=== PATIENT | male | born 1960 | race Caucasian/White ===

== ENCOUNTER → 2016-06-14 | Outpatient (CLI) | payer OTHER ==
[2016-06-14 12:36] LABS: Blood Urea Nitrogen 18 mg/dL (9-20); Non-African American GFR(MDRD) >60 (>60 ml/min/1.73 sqM)
--- NOTE | 2016-06-14 13:17 | CT ---
EXAMINATION TYPE: CT chest w con DATE OF EXAM: 06/14/2016 12:59 PM COMPARISON: 08/26/2015, 07/31/2013, 05/23/2012 HISTORY: 56-year-old male Lung nodule TECHNIQUE: Contiguous axial scanning of the chest after the administration of 100 ml mL of Omnipaque 300. Coronal/sagittal reconstructions performed. CT DLP: 626mGycm. Automatic exposure control utilized for a dose reduction. FINDINGS: Heart is normal size without pericardial effusion. Aorta is normal caliber with conventional arch vessel branching anatomy. Redemonstrated scattered prominent mediastinal lymph nodes. These measure up to 9 mm in the AP window and 9 mm in the precarinal region and 1.3 cm in the subcarinal region. These are stable from 08/01/19 14 and improved from 05/23/2012. Some small lymph nodes in the right hilum are demonstrated as is the stable 1.6 cm lymph node at the left hilum. No progressive lymphadenopathy in the thorax. Lungs show moderate centrilobular and paraseptal emphysema. Scattered calcified granulomas are redemonstrated. Mild diffuse bronchial wall thickening. A 6 mm pul monary nodule posterior left midlung axial image 26 is unchanged from 2012 compatible with a benign e tiology. No consolidation or pleural effusion. Visualized upper abdomen shows no gross abnormal. Bones: Endplate spondylosis mid to lower thoracic spine. No osseous destructive process. IMPRESSION: 1. COPD with moderate emphysema. 2. Prior granulomatous disease with scattered small calcified pulmonary nodules. A 6 mm posterior lef t midlung pulmonary nodule is noncalcified but stable from 2013 compatible with a benign etiology. 3. Prominent but nonenlarged mediastinal lymph nodes are unchanged from 2013. The 1.6 cm mildly enlar ged left hilar lymph node is also stable since then. No new or progressive lymphadenopathy.
== END | disposition home or self-care (01) ==
LOC: RADCTMAIN 11:52
PROVIDERS: ATTEND Family Medicine
DX: J43.2 Centrilobular emphysema (principal); J43.8 Other emphysema; R91.8 Other nonspecific abnormal finding of lung field; R59.0 Localized enlarged lymph nodes
CPT/HCPCS: 82565; 84520; 71260; Q9967

== ENCOUNTER 2016-08-25 07:55 | Day surgery (SDC) | payer OTHER ==
[2016-08-24 11:29] VITALS: BMI 30.4
[~2016-08-25 07:55] MED LIST: ALPRAZolam 0.25 MG TAB PO PRN; ALPRAZolam 0.5 MG TAB PO PRN; ASPIRIN 325 MG TAB PO STA; ATORVASTATIN 80 MG TAB PO STA; NITROGLYCERIN SL TABS 0.4 MG TAB SUBLINGUAL PRN; SODIUM CHLORIDE 0.9% 1,000 ML in EMPTY BAG 1 BAG IV ONE
[2016-08-25] MEDS ORDERED: ASPIRIN 81 MG CHEW ONE (08:19)
[2016-08-25 08:44] LABS: Basophils % (A) 0 %; CH 29.8; CHCM 33.7; Eosinophils # (A) 0.3 k/uL (0-0.7); Eosinophils % (A) 3 %; HCT 44.3 % (39.0-53.0); HDW 2.62; HGB 14.5 gm/dL (13.0-17.5); Luc # (Auto) 0.11; Luc % (Auto) 1; Lymphocytes # (A) 1.6 k/uL (1.0-4.8); Lymphocytes % (A) 17 %; MCHC 32.8 g/dL (31.0-37.0); MCV 88.7 fL (80.0-100.0); Mean Platelet Volume 6.8; Monocytes # (A) 0.5 k/uL (0-1.0); Monocytes % (A) 5 %; Neutrophils # (A) 7.2 k/uL (1.3-7.7); Neutrophils % (A) 74 %; RDW 14.5 % (11.5-15.5); WBC 9.7 k/uL (3.8-10.6); WBC (Perox) 9.68
[2016-08-25 08:54] LABS: Anion Gap 10 mmol/L; Blood Urea Nitrogen 13 mg/dL (9-20); Calcium 9.1 mg/dL (8.4-10.2); Carbon Dioxide 29 mmol/L (22-30); Chloride 101 mmol/L (98-107); Glucose 120 mg/dL (74-99); Non-African American GFR(MDRD) >60 (>60 ml/min/1.73 sqM); Potassium 3.4 mmol/L (3.5-5.1); Sodium 140 mmol/L (137-145)
[2016-08-25 09:11] LABS: Glucose,Whole Blood 118 mg/dL (75-99)
[2016-08-25] MEDS ORDERED: MIDAZOLAM 2 MG/2 ML VIAL IV ONE (09:29)
[2016-08-25] MEDS ORDERED: diphenhydrAMINE 50 MG/ML 1 ML VIAL IVP ONE ×2 (09:29→09:31)
[2016-08-25] MEDS ORDERED: LIDOCAINE 2% INJ 20 MG/ML SQ ONE (09:34)
[2016-08-25] MEDS: VERAPAMIL SYRINGE (5 MG/10 ML) INTRAARTER ONE ×2 (09:44→10:10)
[2016-08-25] MEDS ORDERED: BIVALIRUDIN BOLUS 250 MG/50 ML IV ONE (09:56)
[2016-08-25] MEDS ORDERED: BIVALIRUDIN 250 MG in SODIUM CHLORIDE 0.9% 50 ML IV ONE (09:57)
[2016-08-25] MEDS ORDERED: CLOPIDOGREL 75 MG TAB PO ONE (10:13)
[2016-08-25] MEDS ORDERED: IOHEXOL 350 MG/ML 100 ML BOTTLE INJ ONE (10:14)
[2016-08-25] MEDS ORDERED: ALBUTEROL NEBULIZED 2.5 MG/3 ML INHALATION PRN (10:20)
[2016-08-25] MEDS ORDERED: FAMOTIDINE 20 MG TAB PO PRN (10:20)
[2016-08-25] MEDS ORDERED: NITROGLYCERIN SL TABS 0.4 MG TAB SUBLINGUAL PRN (10:20)
[2016-08-25] MEDS ORDERED: ALPRAZolam 0.5 MG TAB PO PRN (10:20)
[2016-08-25] MEDS ORDERED: CYCLOBENZAPRINE 10 MG TAB PO PRN (10:20)
[2016-08-25] MEDS ORDERED: MAG HYDROX/AL HYDROX/SIMETH 30 ML CUP PO PRN (10:24)
[2016-08-25] MEDS ORDERED: ATROPINE SULFATE 0.1 MG/ML 10ML SYRINGE IV PRN (10:24)
[2016-08-25] MEDS ORDERED: RX INFO: IV CONTRAST WAS GIVEN 1 EACH MISC MISCELLANE PRN (10:24)
[2016-08-25] MEDS ORDERED: SODIUM CHLORIDE 0.9% 1,000 ML IV SCH (10:30)
[2016-08-25] MEDS: HYDROcodone/APAP 10-325MG 1 EACH TAB PO PRN (16:01)
[2016-08-25] MEDS: METOPROLOL TARTRATE 25 MG TAB PO SCH (20:49)
[2016-08-25] MEDS: PREGABALIN 75 MG CAP PO SCH (20:49)
[2016-08-25] MEDS ORDERED: PRAVASTATIN SODIUM 80 MG TAB PO SCH (21:00)
[2016-08-25 21:28] LABS: Glucose,Whole Blood 116 mg/dL (75-99)
[2016-08-26 05:50] VITALS: PULSE 55
[2016-08-26 06:23] LABS: Basophils % (A) 1 %; CH 29.2; CHCM 33.7; Eosinophils # (A) 0.3 k/uL (0-0.7); Eosinophils % (A) 3 %; HCT 39.9 % (39.0-53.0); HDW 2.74; HGB 13.3 gm/dL (13.0-17.5); Luc # (Auto) 0.11; Luc % (Auto) 1; Lymphocytes # (A) 1.8 k/uL (1.0-4.8); Lymphocytes % (A) 20 %; MCHC 33.4 g/dL (31.0-37.0); MCV 86.9 fL (80.0-100.0); Monocytes # (A) 0.5 k/uL (0-1.0); Monocytes % (A) 6 %; Neutrophils # (A) 6.5 k/uL (1.3-7.7); Neutrophils % (A) 70 %; RBC 4.59 m/uL (4.30-5.90); WBC 9.3 k/uL (3.8-10.6)
[2016-08-26 06:33] LABS: Anion Gap 5 mmol/L; Blood Urea Nitrogen 16 mg/dL (9-20); Calcium 9.2 mg/dL (8.4-10.2); Carbon Dioxide 29 mmol/L (22-30); Chloride 105 mmol/L (98-107); Glucose 103 mg/dL (74-99); Non-African American GFR(MDRD) >60 (>60 ml/min/1.73 sqM); Potassium 4.2 mmol/L (3.5-5.1); Sodium 139 mmol/L (137-145)
[2016-08-26] MEDS ORDERED: PANTOPRAZOLE 40 MG TABLET PO SCH (07:30)
[2016-08-26 07:45] VITALS: BP 132/73; RESP 20; TEMP 96.7
[2016-08-26] MEDS ORDERED: TIOTROPIUM 18 MCG/PUFF INHALER INHALATION SCH (08:00)
[2016-08-26] MEDS ORDERED: ASPIRIN 81 MG CHEW PO SCH (09:00)
[2016-08-26] MEDS ORDERED: LISINOPRIL 5 MG TAB PO SCH (09:00)
[2016-08-26] MEDS ORDERED: HYDROCHLOROTHIAZIDE 25 MG TAB PO SCH (09:00)
[2016-08-26] MEDS ORDERED: MONTELUKAST 10 MG TAB PO SCH (09:00)
[2016-08-26] MEDS ORDERED: CLOPIDOGREL 75 MG TAB PO SCH (09:00)
[2016-08-26] MEDS ORDERED: FLUoxetine HCL 20 MG CAP PO SCH (09:00)
[2016-08-26] MEDS: PREGABALIN 75 MG CAP PO SCH (09:23)
[2016-08-26] MEDS: METOPROLOL TARTRATE 25 MG TAB PO SCH (09:23)
[2016-08-26] MEDS: HYDROcodone/APAP 10-325MG 1 EACH TAB PO PRN (09:23)
--- NOTE | 2016-08-26 11:20 | CC ---
DATE OF SERVICE: 08/25/2016 PERFORMING PHYSICIAN: Jose Salinas MD, underwater hunter trapper. PROCEDURE PERFORMED: 1. Selective right and left coronary angiogram. 2. Successful stenting of the proximal to mid right coronary artery using 2.75 x 12 mm Xience LEANDRA with a good angiographic result. 3. Selective right common femoral artery angiogram. INDICATION: This is a pleasant 56-year-old gentleman with a past medical history significant for coronary artery disease and prior stenting of the left circumflex as well as hypertension and dyslipidemia and significant history of smoking, was experiencing intermittent episodes of chest discomfort concerning for angina. APPROACH: Right radial artery. COMPLICATIONS: None. LEVEL OF SEDATION: Moderate with sedation length of about an hour. PROCEDURE DESCRIPTION: After obtaining an informed consent, the patient was brought to the cardiac cytology laboratory manager. The right radial artery was cannulated using micropuncture technique under ultrasound guidance. The micropuncture wire passed easily, then I placed a 6 Romanian sheath in the right radial artery. Subsequently I gave the patient 2 mg of verapamil IA and 3000 units of heparin IV. After that, I did selective right and left coronary angiogram using JR4 and JL3.5 catheters. Then I decided to intervene on the RCA. Please see separate paragraph for that. SELECTIVE CORONARY ANGIOGRAM: 1. Right coronary artery is a large-caliber vessel and it is a dominant vessel. The proximal to mid RCA has a focal lesion seems to be in the range of 80%. The RCA after that appeared to have mild disease only and distally bifurcates into PDA and PLV branches; both are angiographically normal. 2. The left main is angiographically normal and bifurcates into the left circumflex and left anterior descending artery. 3. The left circumflex is a large-caliber vessel and it is a nondominant vessel. The left circumflex in the proximal to midportion appeared to have a stent with mild in-stent restenosis seems to be unchanged compared to before. 4. The LAD: The LAD appeared to have mild disease only. PCI OF THE RCA: Anticoagulation was initiated using Angiomax. Subsequently, I took JR4 guide and the RCA was engaged. A whisper wire was used to wire the right coronary artery. Subsequently, I did PTCA using 2.0 x 12 mm balloon then I deployed 2.75 x 12 mm Xience LEANDRA, where the stent was positioned under fluoroscopy guidance and then it was deployed under 14 atmospheres for 20 seconds. The following angiogram showed an excellent angiographic result. After I deployed the stent I did post dilatation using 2.75 mm NC balloon which was inflated under 16 atmospheres for 20 seconds. The following angiogram now showed good angiographic results. The procedure was completed at that point without any complication. POSTPROCEDURE MANAGEMENT: 1. Dual antiplatelet therapy. 2. Risk factor modification. 3. Follow up with the patient.
--- NOTE | 2016-08-26 15:09 | DS ---
DATE OF ADMISSION: 08/25/2016 DATE OF DISCHARGE: 08/26/2016 BRIEF HISTORY: This is a pleasant 56-year-old gentleman with known history of coronary artery disease and prior stenting of the left circumflex coronary artery who was experiencing chest discomfort consistent with angina. He underwent a heart catheterization yesterday and that showed severe disease involving the right coronary artery which was stented with a good angiographic result and without any complication. The procedure was performed from the right radial artery. The patient is going to be discharged home on dual antiplatelet therapy along with a statin and I will follow up with the patient in the office as an outpatient.
== END 2016-08-26 10:17 | disposition home or self-care (01) ==
LOC: CATHCVL 07:55 → 6SEL 14:37 → CATHCVL 08-26 10:17
PROVIDERS: ATTEND Internal Medicine Interventional Cardiology
DX: I25.110 Atherosclerotic heart disease of native coronary artery with unstable angina pectoris (principal); R00.1 Bradycardia, unspecified; Z95.5 Presence of coronary angioplasty implant and graft; I10 Essential (primary) hypertension; E78.5 Hyperlipidemia, unspecified; J44.9 Chronic obstructive pulmonary disease, unspecified; Z82.49 Family history of ischemic heart disease and other diseases of the circulatory system; F17.210 Nicotine dependence, cigarettes, uncomplicated; Z79.84 Long term (current) use of oral hypoglycemic drugs; Z79.82 Long term (current) use of aspirin; Z79.891 Long term (current) use of opiate analgesic; Z79.51 Long term (current) use of inhaled steroids; Z79.899 Other long term (current) drug therapy; Z88.2 Allergy status to sulfonamides
CPT/HCPCS: 94640; 93458; 80048 ×2; 85025 ×2; 99152; 99153 ×2; C9600; C1769; C1887; C1725 ×2; C1874; C1894; J2001; J2250; J1200; Q9967; J0583; J1644

== ENCOUNTER 2016-12-09 13:35 | Emergency (ER) | payer OTHER ==
[2016-12-09 13:45] VITALS: BP 125/69; PULSE 67; RESP 18; TEMP 97.2
[2016-12-09] MEDS ORDERED: KETOROLAC 30 MG/ML 1 ML VIAL IM STA (14:15)
--- NOTE | 2016-12-09 14:16 | ED ---
Lower Extremity Injury HPI - General Chief Complaint: Extremity Injury, Lower Stated Complaint: Fall/Hip Pain Time Seen by Provider: 12/09/16 13:51 Source: patient, RN notes reviewed, old records reviewed Mode of arrival: wheelchair Limitations: no limitations - History of Present Illness Initial Comments: This is a 56-year-old male presenting to emergency Department chief complaint of left-sided hip and back pain. Patient reports that he was at home doing yard work when he did a twisting motion and caused him to have a sudden pain. Patient reports the pain is worse whenever he raises his leg. He states that she does have his back. Patient denies any new numbness or tingling in his leg. He states that he has no loss of bowel or bladder control. He does have a history of diabetes and cardiac stents. Denies any chest pain shortness breath or any worsening signs or symptoms of relation to that. Patient reports that he smoked marijuana and had some relief with the pain. Patient denies any recent fever, chills, shortness of breath, chest pain, abdominal pain, nausea vomiting, numbness or tingling, dysuria or hematuria, constipation or diarrhea, headaches or visual changes, or any other current symptoms - Related Data Home Medications Medication Instructions Recorded Confirmed ALPRAZolam [Xanax] 1 mg PO TID PRN 12/01/14 08/25/16 Albuterol Inhaler [Ventolin Hfa 1 - 2 puff INHALATION DAILY PRN 12/01/14 Inhaler] Aspirin 81 mg PO DAILY 12/01/14 08/25/16 Cyclobenzaprine [Flexeril] 10 mg PO DAILY PRN 12/01/14 08/25/16 Hydrochlorothiazide [Hydrodiuril] 25 mg PO DAILY 12/01/14 08/25/16 Hydrocodone/Acetaminophen [Cleveland 1 each PO QID PRN 12/01/14 08/25/16 10-325] Metoprolol Tartrate [Lopressor] 25 mg PO BID 12/01/14 08/25/16 Montelukast [Singulair] 10 mg PO DAILY 12/01/14 08/25/16 Nitroglycerin Sl Tabs [Nitrostat] 0.4 mg SUBLINGUAL Q5M PRN 12/01/14 08/25/16 Omeprazole [PriLOSEC] 20 mg PO DAILY 12/01/14 08/25/16 Pravastatin Sodium [Pravachol] 80 mg PO HS 12/01/14 08/25/16 rOPINIRole HCL [Requip] 0.125 mg PO HS 12/01/14 08/25/16 Aclidinium Gulliver [Tudorza 1 puff PO BID 08/02/16 08/25/16 Pressair] FLUoxetine HCL [PROzac] 20 mg PO DAILY 08/02/16 08/25/16 Lisinopril [Zestril] 5 mg PO DAILY 08/02/16 08/25/16 Ranitidine HCl 300 mg PO DAILY PRN 08/02/16 08/25/16 Pregabalin [Lyrica] 75 mg PO BID 08/24/16 08/25/16 Previous Rx's Medication Instructions Recorded Clopidogrel [Plavix] 75 mg PO DAILY #90 tab 08/26/16 Cyclobenzaprine [Flexeril] 10 mg PO TID #12 tab 12/09/16 Dexamethasone 0.75 mg PO DAILY #12 tab 12/09/16 Allergies Allergy/AdvReac Type Severity Reaction Status Date / Time grass pollen Allergy Itching Verified 08/25/16 08:08 menthol Allergy Dyspnea Verified 08/25/16 08:08 Sulfa (Sulfonamide Allergy Unknown Verified 08/25/16 08:08 Antibiotics) Childhood venom-honey bee Allergy Anaphylaxis Verified 08/25/16 08:09 Review of Systems ROS Statement: Those systems with pertinent positive or pertinent negative responses have been documented in the HPI. ROS Other: All systems not noted in ROS Statement are negative. Past Medical History Past Medical History: Asthma, Coronary Artery Disease (CAD), Cancer, Chest Pain / Angina, COPD, CVA/TIA, Diabetes Mellitus, GERD/Reflux, Hyperlipidemia, Hypertension, Memory Impairment Additional Past Medical History / Comment(s): steroids July 2016,hx TIA- memory loss,. uses O2 2L at night and PRN during the day, hx skin cancer,lung nodules History of Any Multi-Drug Resistant Organisms: None Reported Past Surgical History: Appendectomy, Back Surgery, Heart Catheterization With Stent, Hernia Repair, Orthopedic Surgery Additional Past Surgical History / Comment(s): rt wrist surgery, steroid injection in neck Past Anesthesia/Blood Transfusion Reactions: No Reported Reaction Date of Last Stent Placement:: 2013 Past Psychological History: Anxiety Smoking Status: Current every day smoker - Past Family History Father Family Medical History: Coronary Artery Disease (CAD) Mother Family Medical History: Cancer General Exam - General Exam Comments Initial Comments: Well-appearing 48-year-old male. No acute distress. Limitations: no limitations General appearance: alert, in no apparent distress Head exam: Present: atraumatic, normocephalic, normal inspection Eye exam: Present: normal appearance, PERRL, EOMI. Absent: scleral icterus, conjunctival injection, periorbital swelling ENT exam: Present: normal exam, mucous membranes moist Neck exam: Present: normal inspection. Absent: tenderness, meningismus, lymphadenopathy Respiratory exam: Present: normal lung sounds bilaterally. Absent: respiratory distress, wheezes, rales, rhonchi, stridor Cardiovascular Exam: Present: regular rate, normal rhythm, normal heart sounds. Absent: systolic murmur, diastolic murmur, rubs, gallop, clicks GI/Abdominal exam: Present: soft, normal bowel sounds. Absent: distended, tenderness, guarding, rebound, rigid Extremities exam: Present: normal inspection, full ROM, normal capillary refill. Absent: tenderness, pedal edema, joint swelling, calf tenderness Back exam: Present: normal inspection, full ROM, tenderness (Patient reports some sciatic notch tenderness over the left side. Positive straight leg test for left leg.) Neurological exam: Present: alert, oriented X3, CN II-XII intact Psychiatric exam: Present: normal affect, normal mood Skin exam: Present: warm, dry, intact, normal color. Absent: rash Course Vital Signs 12/09/16 13:40 Temperature 97.2 F L Pulse Rate 67 Respiratory 18 Rate Blood Pressure 125/69 O2 Sat by Pulse 97 Oximetry Medical Decision Making - Medical Decision Making his is a 56-year-old male presenting to emergency Department chief complaint of left-sided hip and back pain. Patient reports that he was at home doing yard work when he did a twisting motion and caused him to have a sudden pain. Patient reports the pain is worse whenever he raises his leg. He states that she does have his back. Patient denies any new numbness or tingling in his leg. He states that he has no loss of bowel or bladder control. is positive straight leg test on the left leg. He has some tenderness over the sciatic notch. Lumbar spine x-rays was obtained. Patient was given IM Toradol. Patient's x-rays show degenerative changes at L5-S1. Patient is feeling better after the injection. Patient discharged with a short course of steroid and muscle relaxer. I did check a maps report on the patient and he does have a pain contract and receives Cleveland 10. Patient understands treatment Plan and will comply. Return parameters were discussed. - Radiology Data Radiology results: report reviewed X-ray shows denied this changes at L5/S1. Disposition Clinical Impression: Left sciatic nerve pain, Lumbar back pain Disposition: HOME SELF-CARE Condition: Good Instructions: Sciatica (ED) Additional Instructions: Patient advised that he and ice over the lower back. Take medications as prescribed. Follow-up with her primary care physician. Return to emergency department if any alarming signs or symptoms occur. Prescriptions: Cyclobenzaprine [Flexeril] 10 mg PO TID #12 tab Dexamethasone 0.75 mg PO DAILY #12 tab Referrals: Emy Gagnon DO [Primary Care Provider] - 1-2 days Time of Disposition: 14:45
--- NOTE | 2016-12-09 14:40 | XR ---
EXAMINATION TYPE: XR lumbar spine 2 or 3V DATE OF EXAM: 12/09/2016 COMPARISON: NONE HISTORY: Back pain TECHNIQUE: Three-view lumbar spine FINDINGS: There 5 lumbar-type vertebral bodies. Pedicles are intact. Disc space narrowing is present L5-S1. Spondylosis is present. Some uncovertebral body height loss of T12 may be present. This area appears stable from 08/20/2013. S ome increase in spondylosis is noted. IMPRESSION: 1. Degenerative disc changes L5-S1.
== END 2016-12-09 14:57 | disposition home or self-care (01) ==
LOC: EC 13:35
DX: M54.42 Lumbago with sciatica, left side (principal); I25.10 Atherosclerotic heart disease of native coronary artery without angina pectoris; I10 Essential (primary) hypertension; K21.9 Gastro-esophageal reflux disease without esophagitis; E78.5 Hyperlipidemia, unspecified; F41.9 Anxiety disorder, unspecified; F17.200 Nicotine dependence, unspecified, uncomplicated; Z86.73 Personal history of transient ischemic attack (TIA), and cerebral infarction without residual deficits; Z98.890 Other specified postprocedural states; Z79.82 Long term (current) use of aspirin; Z79.899 Other long term (current) drug therapy; Z88.2 Allergy status to sulfonamides; Z91.018 Allergy to other foods; Z91.030 Bee allergy status; Z91.048 Other nonmedicinal substance allergy status; X50.1XXA Overexertion from prolonged static or awkward postures, initial encounter; Y93.89 Activity, other specified; Y92.009 Unspecified place in unspecified non-institutional (private) residence as the place of occurrence of the external cause
CPT/HCPCS: 72100; 99284; 96372; J1885

== ENCOUNTER 2016-12-16 16:17 | Emergency (ER) | payer OTHER ==
[2016-12-16] MEDS ORDERED: SODIUM CHLORIDE 0.9% 1,000 ML IV STA (16:36)
[2016-12-16] MEDS ORDERED: RX INFO: IV CONTRAST WAS GIVEN 1 EACH MISC MISCELLANE PRN (16:36)
--- NOTE | 2016-12-16 16:44 | ED ---
General Adult HPI - General Chief complaint: Abdominal Pain Stated complaint: Abd Pain Time Seen by Provider: 12/16/16 16:25 Source: patient, RN notes reviewed Mode of arrival: ambulatory Limitations: no limitations - History of Present Illness Initial comments: Patient 56-year-old male who presents emergency room today from his family doctor's office for further evaluation and CAT scan of his abdomen. Patient does admit to abdominal pain over the last few weeks. He states it's been getting worse the last few days. He does admit that it's located on the left side of the abdomen. Denies any radiation. Patient does admit that he had labs obtained earlier today and was told that his white count was elevated well. Patient denies any other complaints or associated symptoms currently. Patient denies any recent fever, chills, shortness of breath, chest pain, nausea or vomiting, numbness or tingling, dysuria or hematuria, constipation or diarrhea, headaches or visual changes, or any other complaints. - Related Data Home Medications Medication Instructions Recorded Confirmed ALPRAZolam [Xanax] 1 mg PO Q8H PRN 12/01/14 12/16/16 Albuterol Inhaler [Ventolin Hfa 1 - 2 puff INHALATION RT-DAILY PRN 12/01/1403/24 Inhaler] Aspirin 81 mg PO DAILY 12/01/14 12/16/16 Hydrochlorothiazide [Hydrodiuril] 50 mg PO DAILY 12/01/14 12/16/16 Metoprolol Tartrate [Lopressor] 25 mg PO BID 12/01/14 12/16/16 Montelukast [Singulair] 10 mg PO DAILY 12/01/14 12/16/16 Nitroglycerin Sl Tabs [Nitrostat] 0.4 mg SUBLINGUAL Q5M PRN 12/01/14 12/16/16 Omeprazole [PriLOSEC] 40 mg PO BID 12/01/14 12/16/16 Pravastatin Sodium [Pravachol] 80 mg PO HS 12/01/14 12/16/16 rOPINIRole HCL [Requip] 0.125 mg PO HS PRN 12/01/14 12/16/16 Lisinopril [Zestril] 5 mg PO DAILY 08/02/16 12/16/16 Ranitidine HCl 300 mg PO HS PRN 08/02/16 12/16/16 Pregabalin [Lyrica] 75 mg PO BID 08/24/16 12/16/16 Atorvastatin [Lipitor] 40 mg PO HS 12/16/16 12/16/16 Budesonide/Formoterol Fumarate 2 puff INHALATION RT-BID 12/16/16 12/16/16 [Symbicort 160-4.5 Mcg Inhaler] Cyclobenzaprine HCl 5 mg PO BID PRN 12/16/16 12/16/16 Cyclobenzaprine [Flexeril] 10 mg PO BID PRN 12/16/16 12/16/16 Ibuprofen [Motrin] 800 mg PO TID PRN 12/16/16 12/16/16 metFORMIN HCL [Glucophage] 500 mg PO BID 12/16/16 12/16/16 Previous Rx's Medication Instructions Recorded Clopidogrel [Plavix] 75 mg PO DAILY #90 tab 08/26/16 Allergies Allergy/AdvReac Type Severity Reaction Status Date / Time grass pollen Allergy Itching Verified 12/16/16 16:54 menthol Allergy Dyspnea Verified 12/16/16 16:54 Sulfa (Sulfonamide Allergy Unknown Verified 12/16/16 16:54 Antibiotics) Childhood venom-honey bee Allergy Anaphylaxis Verified 12/16/16 16:54 Review of Systems ROS Statement: Those systems with pertinent positive or pertinent negative responses have been documented in the HPI. ROS Other: All systems not noted in ROS Statement are negative. Past Medical History Past Medical History: Asthma, Coronary Artery Disease (CAD), Cancer, Chest Pain / Angina, COPD, CVA/TIA, Diabetes Mellitus, GERD/Reflux, Hyperlipidemia, Hypertension, Memory Impairment Additional Past Medical History / Comment(s): steroids July 2016,hx TIA- memory loss,. uses O2 2L at night and PRN during the day, hx skin cancer,lung nodules, back pain History of Any Multi-Drug Resistant Organisms: None Reported Past Surgical History: Appendectomy, Back Surgery, Heart Catheterization With Stent, Hernia Repair, Orthopedic Surgery Additional Past Surgical History / Comment(s): rt wrist surgery, steroid injection in neck Past Anesthesia/Blood Transfusion Reactions: No Reported Reaction Date of Last Stent Placement:: 2013 Past Psychological History: Anxiety Smoking Status: Current every day smoker Past Alcohol Use History: Occasional Past Drug Use History: Marijuana - Past Family History Father Family Medical History: Coronary Artery Disease (CAD) Mother Family Medical History: Cancer General Exam - General Exam Comments Initial Comments: General: The patient is awake and alert, in no distress, and does not appear acutely ill. Eye: Pupils are equal, round and reactive to light, extra-ocular movements are intact. No nystagmus. There is normal conjunctiva bilaterally. No signs of icterus. Ears, nose, mouth and throat: There are moist mucous membranes and no oral lesions. Neck: The neck is supple, there is no tenderness or JVD. Cardiovascular: There is a regular rate and rhythm. No murmur, rub or gallop is appreciated. Respiratory: Lungs are clear to auscultation, respirations are non-labored, breath sounds are equal. No wheezes, stridor, rales, or rhonchi. Gastrointestinal: normal exam. Normal bowel sounds. Abdomen soft on palpation. Does have a umbilical hernia that is reducible. Does have tenderness on the left flank area on palpation. No rebound tenderness. No guarding. No CVA tenderness. Musculoskeletal: Normal ROM, no tenderness. Strength 5/5. Sensation intact. Pulses equal bilaterally 2+. Neurological: A&O x 3. CN II-XII intact, There are no obvious motor or sensory deficits. Coordination appears grossly intact. Speech is normal. Skin: Skin is warm and dry and no rashes or lesions are noted. Psychiatric: Cooperative, appropriate mood & affect, normal judgment. Limitations: no limitations Course Vital Signs 12/16/16 12/16/16 16:18 18:28 Temperature 97.0 F L Pulse Rate 75 69 Respiratory 18 17 Rate Blood Pressure 140/75 128/75 O2 Sat by Pulse 95 97 Oximetry Medical Decision Making - Medical Decision Making Patient's labs been reviewed here in the emergency room. Does show 12,000 white count. This is improved from previous labs that were done outpatient on 12/12/2016 which showed a white count of 19.8. Remaining labs are unremarkable. Patient's CT shows no findings to explain patient's symptoms of the left sided abdominal pain. At this time is resting comfortably in the stretcher. He is not using any pain medication here in the emergency room. His vitals are stable. At this time patient will be discharged home he feels comfortable following up with his family doctor. He is advised return if any symptoms increase or worsen. - Lab Data Result diagrams: 12/16/16 17:17 12/16/16 17:17 Lab Results 12/16/16 12/16/16 12/16/16 Range/Units 17:17 17:17 17:17 WBC 12.3 H (3.8-10.6) k/uL RBC 4.94 (4.30-5.90) m/uL Hgb 14.4 (13.0-17.5) gm/dL Hct 44.1 (39.0-53.0) % MCV 89.4 (80.0-100.0) fL MCH 29.1 (25.0-35.0) pg MCHC 32.6 (31.0-37.0) g/dL RDW 15.0 (11.5-15.5) % Plt Count 327 (150-450) k/uL Neutrophils % 77 % Lymphocytes % 15 % Monocytes % 4 % Eosinophils % 3 % Basophils % 0 % Neutrophils # 9.5 H (1.3-7.7) k/uL Lymphocytes # 1.8 (1.0-4.8) k/uL Monocytes # 0.5 (0-1.0) k/uL Eosinophils # 0.3 (0-0.7) k/uL Basophils # 0.1 (0-0.2) k/uL Sodium 138 (137-145) mmol/L Potassium 4.1 (3.5-5.1) mmol/L Chloride 103 (98-107) mmol/L Carbon Dioxide 24 (22-30) mmol/L Anion Gap 11 mmol/L BUN 12 (9-20) mg/dL Creatinine 0.80 (0.66-1.25) mg/dL Est GFR (MDRD) Af Amer >60 (>60 ml/min/1.73 sqM) Est GFR (MDRD) Non-Af >60 (>60 ml/min/1.73 sqM) Glucose 97 (74-99) mg/dL Plasma Lactic Acid Sarbjit (0.7-2.0) mmol/L Calcium 9.8 (8.4-10.2) mg/dL Total Bilirubin 0.7 (0.2-1.3) mg/dL AST 20 (17-59) U/L ALT 44 (21-72) U/L Alkaline Phosphatase 97 (38-126) U/L Total Protein 6.6 (6.3-8.2) g/dL Albumin 3.9 (3.5-5.0) g/dL Amylase 37 (30-110) U/L Lipase 54 (23-300) U/L Urine Color Yellow Urine Appearance Clear (Clear) Urine pH 5.5 (5.0-8.0) Ur Specific [place] 1.012 (1.001-1.035) Urine Protein Negative (Negative) Urine Glucose (UA) Negative (Negative) Urine Ketones Negative (Negative) Urine Blood Negative (Negative) Urine Nitrite Negative (Negative) Urine Bilirubin Negative (Negative) Urine Urobilinogen <2.0 (<2.0) mg/dL Ur Leukocyte Esterase Negative (Negative) 12/16/16 Range/Units 17:28 WBC (3.8-10.6) k/uL RBC (4.30-5.90) m/uL Hgb (13.0-17.5) gm/dL Hct (39.0-53.0) % MCV (80.0-100.0) fL MCH (25.0-35.0) pg MCHC (31.0-37.0) g/dL RDW (11.5-15.5) % Plt Count (150-450) k/uL Neutrophils % % Lymphocytes % % Monocytes % % Eosinophils % % Basophils % % Neutrophils # (1.3-7.7) k/uL Lymphocytes # (1.0-4.8) k/uL Monocytes # (0-1.0) k/uL Eosinophils # (0-0.7) k/uL Basophils # (0-0.2) k/uL Sodium (137-145) mmol/L Potassium (3.5-5.1) mmol/L Chloride (98-107) mmol/L Carbon Dioxide (22-30) mmol/L Anion Gap mmol/L BUN (9-20) mg/dL Creatinine (0.66-1.25) mg/dL Est GFR (MDRD) Af Amer (>60 ml/min/1.73 sqM) Est GFR (MDRD) Non-Af (>60 ml/min/1.73 sqM) Glucose (74-99) mg/dL Plasma Lactic Acid Sarbjit 1.3 (0.7-2.0) mmol/L Calcium (8.4-10.2) mg/dL Total Bilirubin (0.2-1.3) mg/dL AST (17-59) U/L ALT (21-72) U/L Alkaline Phosphatase (38-126) U/L Total Protein (6.3-8.2) g/dL Albumin (3.5-5.0) g/dL Amylase (30-110) U/L Lipase (23-300) U/L Urine Color Urine Appearance (Clear) Urine pH (5.0-8.0) Ur Specific Aurora (1.001-1.035) Urine Protein (Negative) Urine Glucose (UA) (Negative) Urine Ketones (Negative) Urine Blood (Negative) Urine Nitrite (Negative) Urine Bilirubin (Negative) Urine Urobilinogen (<2.0) mg/dL Ur Leukocyte Esterase (Negative) Disposition Clinical Impression: Abdominal pain Disposition: HOME SELF-CARE Condition: Good Instructions: Abdominal Pain (ED) Additional Instructions: Please use medication as discussed. Please follow-up with family doctor in the next 2 days of symptoms have not improved. Please return to emergency room if the symptoms increase or worsen or for any other concerns. Referrals: Emy Gagnon DO [Primary Care Provider] - 1-2 days Time of Disposition: 19:01
[2016-12-16 17:41] LABS: Basophils # (A) 0.1 k/uL (0-0.2); Basophils % (A) 0 %; CHCM 33.8; Eosinophils # (A) 0.3 k/uL (0-0.7); Eosinophils % (A) 3 %; HCT 44.1 % (39.0-53.0); HGB 14.4 gm/dL (13.0-17.5); Luc # (Auto) 0.11; Luc % (Auto) 1; Lymphocytes # (A) 1.8 k/uL (1.0-4.8); Lymphocytes % (A) 15 %; MCH 29.1 pg (25.0-35.0); MCHC 32.6 g/dL (31.0-37.0); MCV 89.4 fL (80.0-100.0); Mean Platelet Volume 7.5; Monocytes # (A) 0.5 k/uL (0-1.0); Monocytes % (A) 4 %; Neutrophils # (A) 9.5 k/uL (1.3-7.7); Neutrophils % (A) 77 %; RBC 4.94 m/uL (4.30-5.90); WBC 12.3 k/uL (3.8-10.6); WBC (Perox) 12.03
[2016-12-16 17:42] LABS: Appearance,Urine Clear (Clear); Bilirubin,Urine Negative (Negative); Glucose,Urine (UA) Negative (Negative); Ketones,Urine Negative (Negative); Leukocyte Esterase,Urine Negative (Negative); Nitrite,Urine Negative (Negative); PH, Urine 5.5 (5.0-8.0); Protein,Urine Negative (Negative); Specific Gravity,Urine 1.012 (1.001-1.035); UA Billing (MACRO vs. MICRO) CHEM; Urobilinogen,Urine <2.0 mg/dL (<2.0)
[2016-12-16 17:46] LABS: ALT 44 U/L (21-72); AST 20 U/L (17-59); Alkaline Phosphatase 97 U/L (38-126); Amylase 37 U/L (30-110); Anion Gap 11 mmol/L; Blood Urea Nitrogen 12 mg/dL (9-20); Calcium 9.8 mg/dL (8.4-10.2); Carbon Dioxide 24 mmol/L (22-30); Chloride 103 mmol/L (98-107); Glucose 97 mg/dL (74-99); Non-African American GFR(MDRD) >60 (>60 ml/min/1.73 sqM); Potassium 4.1 mmol/L (3.5-5.1); Sodium 138 mmol/L (137-145); Total Bilirubin 0.7 mg/dL (0.2-1.3); Total Protein 6.6 g/dL (6.3-8.2)
--- NOTE | 2016-12-16 17:54 | XR ---
EXAMINATION TYPE: XR KUB DATE OF EXAM: 12/16/2016 COMPARISON: NONE HISTORY: Abdominal pain TECHNIQUE: 2 views FINDINGS: There is no sign of intestinal obstruction or pneumoperitoneum. Fecal pattern is normal. Ness ng bases are clear. There are no pathologic calcifications over the kidneys. IMPRESSION: Nonacute abdomen.
[2016-12-16 18:29] VITALS: PULSE 69
--- NOTE | 2016-12-16 18:46 | CT ---
EXAMINATION TYPE: CT abdomen pelvis w con DATE OF EXAM: 12/16/2016 COMPARISON: NONE HISTORY: Patient complains of LUQ pain and known hernia. Patient also has a midline ventral hernia. CT DLP: 1240.4 mGycm Automated exposure control for dose reduction was used. TECHNIQUE: Helical acquisition of images was performed from the lung bases through the pelvis. CONTRAST: Performed without Oral Contrast and with IV Contrast, patient injected with 100 mL of Omnipaque 300. FINDINGS: Lung bases are clear of consolidation. There is no pleural effusion. Liver shows no focal defect. Bile ducts are not dilated. Gallbladder appears normal. Spleen and pancr eas appear normal. There is no adrenal mass. Kidneys show satisfactory contrast opacification. There is no hydronephrosi s. There is a 5 cm cortical cyst on the lower pole left kidney. There is no retroperitoneal adenopathy. Abdominal aorta is atheromatous. Bladder distends smoothly. There is no pelvic mass. There is no ascites. There is no sign of appendic itis. I see no intestinal wall thickening. There are no dilated loops. There are some spondylotic edmond nges in the lumbar spine. I see no obvious hernia. IMPRESSION: NEGATIVE CT SCAN OF THE ABDOMEN AND PELVIS. LEFT RENAL CORTICAL CYST. NO VENTRAL HERNIA IDENTIFIED. I DO NOT SEE A CAUSE FOR LEFT UPPER QUADRANT PAIN. 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
[2016-12-16 19:11] VITALS: BP 121/74; RESP 18; TEMP 97.3
== END 2016-12-16 19:11 | disposition home or self-care (01) ==
LOC: EC 16:17
DX: R10.9 Unspecified abdominal pain (principal); I25.10 Atherosclerotic heart disease of native coronary artery without angina pectoris; E78.5 Hyperlipidemia, unspecified; I10 Essential (primary) hypertension; E11.9 Type 2 diabetes mellitus without complications; K21.9 Gastro-esophageal reflux disease without esophagitis; F41.9 Anxiety disorder, unspecified; F17.200 Nicotine dependence, unspecified, uncomplicated; Z86.73 Personal history of transient ischemic attack (TIA), and cerebral infarction without residual deficits; Z90.49 Acquired absence of other specified parts of digestive tract; Z79.82 Long term (current) use of aspirin; Z79.84 Long term (current) use of oral hypoglycemic drugs; Z79.899 Other long term (current) drug therapy; Z88.2 Allergy status to sulfonamides; Z91.018 Allergy to other foods; Z91.030 Bee allergy status; Z91.048 Other nonmedicinal substance allergy status
CPT/HCPCS: 36415; 80053; 82150; 83605; 83690; 85025; 81003; 87040; 74000; 74177; 99284; 96360; Q9967

== ENCOUNTER 2017-03-07 08:49 | Day surgery (SDC) | payer OTHER ==
[2017-03-01 13:21] VITALS: BMI 30.4
[~2017-03-07 08:49] MED LIST changes: -ALPRAZolam 0.25 MG TAB PO PRN; -ALPRAZolam 0.5 MG TAB PO PRN; -ASPIRIN 325 MG TAB PO STA; -ATORVASTATIN 80 MG TAB PO STA; +DEXAMETHASONE SOD PHOSPHATE 10 MG/ML 1 ML VIAL IV ONE; +HEPARIN SODIUM,PORCINE 5,000 UNIT/ML 1 ML VIAL SQ ONE; +LACTATED RINGERS 1,000 ML IV SCH; +MIDAZOLAM 2 MG/2 ML VIAL IV PRN; -NITROGLYCERIN SL TABS 0.4 MG TAB SUBLINGUAL PRN; +ONDANSETRON 4 MG/2 ML VIAL IVP ONE; +SCOPOLAMINE 1.5MG/72HR PATCH TRANSDERM ONE; -SODIUM CHLORIDE 0.9% 1,000 ML in EMPTY BAG 1 BAG IV ONE; +ceFAZolin 2 GM in SODIUM CHLORIDE 0.9% 100 ML IVPB ONE
[2017-03-07 09:27] LABS: Glucose,Whole Blood 101 mg/dL (75-99)
[2017-03-07] MEDS ORDERED: LIDOCAINE 1% 20 ML VIAL (10MG/ML) FOR IV START INTRADERMA ONE (09:28)
--- NOTE | 2017-03-07 10:10 | P.GSHP ---
History of Present Illness H&P Date: 03/07/17 Chief Complaint: Umbilical hernia This is a 56-year-old male referred from Dr. Emy Gagnon. Patient presents today for laparoscopic robotic-assisted repair of umbilical hernia. The patient has had complaints of umbilical pain. He seen Jacob found have a small reducible umbilical hernia. Past Medical History Past Medical History: Asthma, Coronary Artery Disease (CAD), Cancer, Chest Pain / Angina, COPD, CVA/TIA, Diabetes Mellitus, GERD/Reflux, Hyperlipidemia, Hypertension, Memory Impairment Additional Past Medical History / Comment(s): steroids July 2016,hx TIA- memory loss,. uses O2 2L at night and PRN during the day, hx skin cancer,lung nodules, back pain History of Any Multi-Drug Resistant Organisms: None Reported Past Surgical History: Appendectomy, Back Surgery, Heart Catheterization With Stent, Hernia Repair, Orthopedic Surgery Additional Past Surgical History / Comment(s): rt wrist surgery, steroid injection in neck, HAVING COLONOSCOPY 03/06/17 Past Anesthesia/Blood Transfusion Reactions: No Reported Reaction Date of Last Stent Placement:: 2013 Smoking Status: Current every day smoker - Past Family History Father Family Medical History: Coronary Artery Disease (CAD) Mother Family Medical History: Cancer Medications and Allergies Home Medications Medication Instructions Recorded Confirmed Type ALPRAZolam [Xanax] 1 mg PO Q8H PRN 12/01/14 03/07/17 History Albuterol Inhaler [Ventolin Hfa 1 - 2 puff INHALATION RT-DAILY PRN 12/01/14 History Inhaler] Aspirin 81 mg PO DAILY 12/01/14 03/07/17 History Hydrochlorothiazide [Hydrodiuril] 50 mg PO DAILY 12/01/14 03/07/17 History Metoprolol Tartrate [Lopressor] 25 mg PO BID 12/01/14 03/07/17 History Montelukast [Singulair] 10 mg PO DAILY 12/01/14 03/07/17 History Nitroglycerin Sl Tabs [Nitrostat] 0.4 mg SUBLINGUAL Q5M PRN 12/01/14 03/07/17 History Omeprazole [PriLOSEC] 20 mg PO BID 12/01/14 03/07/17 History Pravastatin Sodium [Pravachol] 80 mg PO HS 12/01/14 03/07/17 History rOPINIRole HCL [Requip] 0.125 mg PO HS PRN 12/01/14 03/07/17 History Lisinopril [Zestril] 5 mg PO DAILY 08/02/16 03/07/17 History Ranitidine HCl 300 mg PO HS PRN 08/02/16 03/07/17 History Pregabalin [Lyrica] 75 mg PO BID 08/24/16 03/07/17 History Clopidogrel [Plavix] 75 mg PO DAILY #90 tab 08/26/16 03/07/17 Rx Atorvastatin [Lipitor] 40 mg PO HS 12/16/16 03/07/17 History Budesonide/Formoterol Fumarate 2 puff INHALATION RT-BID 12/16/16 03/07/17 History [Symbicort 160-4.5 Mcg Inhaler] Cyclobenzaprine HCl 5 mg PO BID PRN 12/16/16 03/07/17 History Ibuprofen [Motrin] 800 mg PO TID PRN 12/16/16 03/07/17 History metFORMIN HCL [Glucophage] 500 mg PO BID 12/16/16 03/07/17 History DULoxetine HCL [Cymbalta] 60 mg PO DAILY 03/01/17 03/07/17 History FLUoxetine HCL [PROzac] 20 mg PO DAILY 03/01/17 03/07/17 History Pramipexole [Mirapex] 1 mg PO ONCE 03/01/17 03/07/17 History Allergies Allergy/AdvReac Type Severity Reaction Status Date / Time grass pollen Allergy Itching Verified 03/01/17 12:22 menthol Allergy Dyspnea Verified 03/01/17 12:22 Sulfa (Sulfonamide Allergy Unknown Verified 03/01/17 12:22 Antibiotics) Childhood venom-honey bee Allergy Anaphylaxis Verified 03/01/17 12:22 Surgical - Exam Vital Signs Temp Pulse Resp BP Pulse Ox 97.9 F 62 20 123/82 93 L 03/07/17 09:46 03/07/17 09:46 03/07/17 09:46 03/07/17 09:46 03/07/17 09:46 - General well developed, no distress - Eyes PERRL - ENT normal pinna - Neck no masses - Respiratory normal expansion - Cardiovascular Rhythm: regular - Abdomen Abdomen: soft, non tender Hernia: umbilical (Small umbilical hernia) Results - Labs Abnormal Lab Results - Last 24 Hours (Table) 03/07/17 Range/Units 09:24 POC Glucose (mg/dL) 101 H (75-99) mg/dL Assessment and Plan Assessment: Umbilical hernia. We'll perform laparoscopic robotic-assisted repair.
[2017-03-07] MEDS ORDERED: GLYCOPYRROLATE 0.2 MG/ML 2 ML VIAL ONE (10:44)
[2017-03-07] MEDS ORDERED: NEOSTIGMINE 1 MG/ML 10 ML VIAL ONE (10:44)
[2017-03-07] MEDS ORDERED: MIDAZOLAM 2 MG/2 ML VIAL ONE (10:44)
[2017-03-07] MEDS ORDERED: PROPOFOL 10 MG/ML 20 ML VIAL IV ONE (10:44)
[2017-03-07] MEDS ORDERED: PHENYLEPHRINE-0.9% NACL SYG 1 MG/10 ML SYRINGE ONE (10:44)
[2017-03-07] MEDS ORDERED: ROCURONIUM BROMIDE 10 MG/ML 10 ML VIAL IV ONE (10:44)
[2017-03-07] MEDS ORDERED: fentaNYL (PF) 50 MCG/ML 2 ML AMP ONE (10:44)
[2017-03-07] MEDS ORDERED: HYDROmorphone (PF) 1 MG/ML ONE (10:44)
[2017-03-07] MEDS ORDERED: ePHEDrine SULFATE/0.9% NACL/PF 50 MG/5 ML SYRINGE IV ONE (10:44)
[2017-03-07] MEDS ORDERED: SUCCINYLCHOLINE CHLORIDE 100 MG/5 ML SYR IV ONE (10:44)
[2017-03-07] MEDS ORDERED: BUPIVACAINE-EPI 0.5%-1:200,000 10 ML VIAL SQ ONE (11:09)
[2017-03-07] MEDS ORDERED: LACTATED RINGERS 1,000 ML IV ONE (11:54)
[2017-03-07 12:16] VITALS: TEMP 97.5
[2017-03-07] MEDS ORDERED: KETOROLAC 30 MG/ML 1 ML VIAL IVP ONE (12:16)
[2017-03-07] MEDS: HYDROmorphone 0.5 MG/0.5 ML SYRINGE IVP PRN ×4 (12:18→12:30)
[2017-03-07 12:46] LABS: Glucose,Whole Blood 134 mg/dL (75-99)
[2017-03-07] MEDS ORDERED: HYDROcodone/APAP 7.5-325MG 1 EACH TAB PO ONE (13:31)
[2017-03-07 14:31] VITALS: RESP 18
[2017-03-07 14:54] VITALS: BP 120/53; PULSE 53
--- NOTE | 2017-05-26 09:48 | P.OP ---
Date of Procedure: 03/07/17 Preoperative Diagnosis: Umbilical hernia Postoperative Diagnosis: Umbilical hernia Procedure(s) Performed: Laparoscopic robotic Robotic system repair of umbilical hernia Anesthesia: DELBERT Surgeon: Daquan Guajardo Estimated Blood Loss (ml): 5 Pathology: none sent Condition: stable Disposition: PACU Description of Procedure: The patient was placed on the operating table in the supine position. He received general anesthesia. His abdomen was prepped and draped usual fashion. Using a 5 mm optical trocar under direct visualization the peritoneal cavity was entered in the left upper quadrant. The abdomen was then insufflated. The laparoscope was placed back into the perineal cavity. Next a 8 mm robotic trocar was placed in the left lower quadrant and a 12 mm robotic trocar was placed in the left lateral position. The original 5 mm trocar was exchanged for a 8 mm robotic trocar. The patient's placed in the left side up position. And the patient was undocked the robot. The umbilical hernia was visualized. Using hook cautery the peritoneum over the umbilical hernia was excised. The fascial opening was repaired using 0V LOC suture. Next a piece of 11 cm round ventral light ST mesh was placed into the. Cavity and secured with 2 OV lock suture. The patient was undocked the robot. The needles were retrieved. The fascia of the 12 mm trocar site was closed with 0 Ethibond suture. Skin was closed interrupted 3-0 Monocryl suture. Dermabond dressings was applied. Patient top procedure well and was sent to recovery room stable condition.
== END 2017-03-07 15:37 | disposition home or self-care (01) ==
LOC: OR 08:49
PROVIDERS: ATTEND Surgery
DX: K42.9 Umbilical hernia without obstruction or gangrene (principal); I25.10 Atherosclerotic heart disease of native coronary artery without angina pectoris; I10 Essential (primary) hypertension; E78.5 Hyperlipidemia, unspecified; E11.9 Type 2 diabetes mellitus without complications; H44.9 Unspecified disorder of globe; I69.311 Memory deficit following cerebral infarction; K21.9 Gastro-esophageal reflux disease without esophagitis; J44.9 Chronic obstructive pulmonary disease, unspecified; F17.200 Nicotine dependence, unspecified, uncomplicated; F41.9 Anxiety disorder, unspecified; I25.2 Old myocardial infarction; Z95.5 Presence of coronary angioplasty implant and graft; Z79.82 Long term (current) use of aspirin; Z79.84 Long term (current) use of oral hypoglycemic drugs; Z79.02 Long term (current) use of antithrombotics/antiplatelets; Z79.899 Other long term (current) drug therapy; Z79.51 Long term (current) use of inhaled steroids; Z99.81 Dependence on supplemental oxygen; Z85.828 Personal history of other malignant neoplasm of skin; Z98.890 Other specified postprocedural states; Z82.49 Family history of ischemic heart disease and other diseases of the circulatory system; Z91.030 Bee allergy status; Z88.2 Allergy status to sulfonamides; Z91.048 Other nonmedicinal substance allergy status
CPT/HCPCS: 49652; S2900

== ENCOUNTER 2017-12-02 22:01 | Emergency (ER) | payer OTHER ==
[2017-12-02 22:11] VITALS: RESP 18; TEMP 98.4
[2017-12-02] MEDS ORDERED: HYDROcodone/APAP 10-325MG 1 EACH TAB PO ONE (23:19)
[2017-12-02] MEDS ORDERED: KETOROLAC 30 MG/ML 1 ML VIAL IM STA (23:19)
--- NOTE | 2017-12-02 23:25 | ED ---
General Adult HPI - General Chief complaint: Recheck/Abnormal Lab/Rx Stated complaint: Med refill Time Seen by Provider: 12/02/17 22:18 Source: patient Mode of arrival: ambulatory Limitations: no limitations - History of Present Illness Initial comments: Patient is a 57-year-old male presenting for chronic arthritic pain. Patient states that he is here because he needs a narcotic refill and uses [place] 10- 325. He states that his chronic pain is not any worse than normal and he says that the majority of pain is in the sacrum. He denies any chest pain, shortness breath, nausea/vomiting/diarrhea. - Related Data Home Medications Medication Instructions Recorded Confirmed ALPRAZolam [Xanax] 1 mg PO Q8H PRN 12/01/14 03/07/17 Albuterol Inhaler [Ventolin Hfa 1 - 2 puff INHALATION RT-DAILY PRN 12/01/14 Inhaler] Aspirin 81 mg PO DAILY 12/01/14 03/07/17 Hydrochlorothiazide [Hydrodiuril] 50 mg PO DAILY 12/01/14 03/07/17 Metoprolol Tartrate [Lopressor] 25 mg PO BID 12/01/14 03/07/17 Montelukast [Singulair] 10 mg PO DAILY 12/01/14 03/07/17 Nitroglycerin Sl Tabs [Nitrostat] 0.4 mg SUBLINGUAL Q5M PRN 12/01/14 03/07/17 Omeprazole [PriLOSEC] 20 mg PO BID 12/01/14 03/07/17 Pravastatin Sodium [Pravachol] 80 mg PO HS 12/01/14 03/07/17 rOPINIRole HCL [Requip] 0.125 mg PO HS PRN 12/01/14 03/07/17 Lisinopril [Zestril] 5 mg PO DAILY 08/02/16 03/07/17 Ranitidine HCl 300 mg PO HS PRN 08/02/16 03/07/17 Pregabalin [Lyrica] 75 mg PO BID 08/24/16 03/07/17 Atorvastatin [Lipitor] 40 mg PO HS 12/16/16 03/07/17 Budesonide/Formoterol Fumarate 2 puff INHALATION RT-BID 12/16/16 03/07/17 [Symbicort 160-4.5 Mcg Inhaler] Cyclobenzaprine HCl 5 mg PO BID PRN 12/16/16 03/07/17 Ibuprofen [Motrin] 800 mg PO TID PRN 12/16/16 03/07/17 metFORMIN HCL [Glucophage] 500 mg PO BID 12/16/16 03/07/17 DULoxetine HCL [Cymbalta] 60 mg PO DAILY 03/01/17 03/07/17 FLUoxetine HCL [PROzac] 20 mg PO DAILY 03/01/17 03/07/17 Pramipexole [Mirapex] 1 mg PO ONCE 03/01/17 03/07/17 Previous Rx's Medication Instructions Recorded Clopidogrel [Plavix] 75 mg PO DAILY #90 tab 08/26/16 HYDROcodone/APAP 7.5-325MG [[place] 1 each PO Q4H PRN #30 tab 03/07/17 7.5] HYDROcodone/APAP 10-325MG [[place] 1 tab PO Q6HR PRN 3 Days #12 tab 12/02/17 10-325] Allergies Allergy/AdvReac Type Severity Reaction Status Date / Time grass pollen Allergy Itching Verified 12/02/17 22:11 menthol Allergy Dyspnea Verified 12/02/17 22:11 Sulfa (Sulfonamide Allergy Unknown Verified 12/02/17 22:11 Antibiotics) Childhood venom-honey bee Allergy Anaphylaxis Verified 12/02/17 22:11 Review of Systems ROS Statement: Those systems with pertinent positive or pertinent negative responses have been documented in the HPI. Constitutional: Negative for chills, fatigue and fever. HENT: Negative for congestion. Respiratory: Negative for chest tightness, shortness of breath and wheezing. Negative for cough Cardiovascular: Negative for chest pain and palpitations. Gastrointestinal: Negative for abdominal pain. Negative for abdominal distention , diarrhea, nausea and vomiting. Genitourinary: Negative for dysuria. Musculoskeletal: Positive for back pain, negative for neck pain and neck stiffness. Skin: Negative for color change. Neurological: Negative for dizziness, speech difficulty, weakness and light- headedness. Psychiatric/Behavioral: Negative for agitation and confusion. Negative for anxiety ROS Other: All systems not noted in ROS Statement are negative. Past Medical History Past Medical History: Asthma, Coronary Artery Disease (CAD), Cancer, Chest Pain / Angina, COPD, CVA/TIA, Diabetes Mellitus, GERD/Reflux, Hyperlipidemia, Hypertension, Memory Impairment Additional Past Medical History / Comment(s): steroids July 2016,hx TIA- memory loss,. uses O2 2L at night and PRN during the day, hx skin cancer,lung nodules, back pain History of Any Multi-Drug Resistant Organisms: None Reported Past Surgical History: Appendectomy, Back Surgery, Heart Catheterization With Stent, Hernia Repair, Orthopedic Surgery Additional Past Surgical History / Comment(s): rt wrist surgery, steroid injection in neck, HAVING COLONOSCOPY 03/06/17 Past Anesthesia/Blood Transfusion Reactions: No Reported Reaction Date of Last Stent Placement:: 2013 Past Psychological History: Anxiety Smoking Status: Current every day smoker Past Alcohol Use History: Occasional Past Drug Use History: Marijuana - Past Family History Father Family Medical History: Coronary Artery Disease (CAD) Mother Family Medical History: Cancer General Exam - General Exam Comments Initial Comments: Constitutional: Pt is oriented to person, place, and time. Pt appears well- developed and well-nourished. No distress. HENT: Head: Normocephalic and atraumatic. Eyes: EOM are normal. Neck: Normal range of motion. Neck supple. Cardiovascular: Normal rate, regular rhythm, S1 normal, S2 normal and normal heart sounds. Exam reveals no gallop and no friction rub. No murmur heard. Pulmonary/Chest: Effort normal and breath sounds normal. No tachypnea and no bradypnea. No respiratory distress. No wheezes or rales noted. Abdominal: Soft. Bowel sounds are normal. Pt exhibits no shifting dullness, no distension, no pulsatile liver, no fluid wave, no abdominal bruit and no ascites. There is no tenderness. There is no rigidity, no rebound, no guarding, no tenderness at McBurney's point and negative Marcano's sign. Musculoskeletal: Normal range of motion. No significant tenderness to C-spine, T-spine, L-spine. There is mild tenderness to the SI joints. Muscle strength is 5 out of 5 lower extremities. Neurological: Pt is alert and oriented to person, place, and time. No cranial nerve deficit. Skin: Skin is warm and dry. No rash noted. Pt is not diaphoretic. No erythema. No pallor. Psychiatric: Pt has a normal mood and affect. Pt behavior is normal. Thought content normal. Limitations: no limitations Course Vital Signs 12/02/17 12/02/17 22:08 23:30 Temperature 98.4 F Pulse Rate 111 H 100 Respiratory 18 18 Rate Blood Pressure 162/91 140/64 O2 Sat by Pulse 95 96 Oximetry Medical Decision Making - Medical Decision Making Because the patient had no exacerbation of the chronic pain symptoms, imaging was not completed. was performed and showed that patient had not been receiving any prescription narcotics which she had not already reported. Therefore patient was advised that we could prescribe a maximum of 12 of his [place]. This was completed and he was advised to follow-up with his regular doctors and he was agreeable to that. He is also noted to not be tachycardic upon reexamination or to disposition. Disposition Clinical Impression: Chronic pelvic pain in male Disposition: HOME SELF-CARE Condition: Good Prescriptions: HYDROcodone/APAP 10-325MG [[place] 10-325] 1 tab PO Q6HR PRN 3 Days #12 tab PRN Reason: Pain Is patient prescribed a controlled substance at d/c from ED?: Yes When asked, does pt state using other controlled substances?: Yes If prescribed controlled substance>3 days was MAPS reviewed?: Yes If opioid is for acute pain is fill amount 7 days or less?: Yes If Rx opioid, was Start Talking consent form obtained?: Yes Referrals: Emy Gagnon DO [Primary Care Provider] - 1-2 days Time of Disposition: 23:25
[2017-12-02 23:31] VITALS: BP 140/64; PULSE 100
== END 2017-12-02 23:35 | disposition home or self-care (01) ==
LOC: EC 22:01
DX: G89.29 Other chronic pain (principal); R10.2 Pelvic and perineal pain; Z76.0 Encounter for issue of repeat prescription; I25.10 Atherosclerotic heart disease of native coronary artery without angina pectoris; J44.9 Chronic obstructive pulmonary disease, unspecified; E11.9 Type 2 diabetes mellitus without complications; K21.9 Gastro-esophageal reflux disease without esophagitis; E78.5 Hyperlipidemia, unspecified; I10 Essential (primary) hypertension; F41.9 Anxiety disorder, unspecified; F17.200 Nicotine dependence, unspecified, uncomplicated; Z86.73 Personal history of transient ischemic attack (TIA), and cerebral infarction without residual deficits; Z85.828 Personal history of other malignant neoplasm of skin; Z98.890 Other specified postprocedural states; Z95.5 Presence of coronary angioplasty implant and graft; Z79.82 Long term (current) use of aspirin; Z79.51 Long term (current) use of inhaled steroids; Z79.84 Long term (current) use of oral hypoglycemic drugs; Z79.899 Other long term (current) drug therapy; Z91.048 Other nonmedicinal substance allergy status; Z88.2 Allergy status to sulfonamides; Z91.030 Bee allergy status
CPT/HCPCS: 99283; 96372; J1885

== ENCOUNTER 2018-03-01 14:20 | Emergency (ER) | payer OTHER ==
[2018-03-01] MEDS ORDERED: methylPREDNISolone SOD SUCCI 125 MG/2 ML VIAL IV STA (15:19)
[2018-03-01] MEDS ORDERED: SODIUM CHLORIDE 0.9% 1,000 ML IV STA (15:19)
[2018-03-01] MEDS ORDERED: IPRATROPIUM-ALBUTEROL 3 ML NEB INHALATION STA (15:19)
--- NOTE | 2018-03-01 15:23 | ED ---
SOB HPI - General Chief Complaint: Shortness of Breath Stated Complaint: cough & SOB/has COPD Time Seen by Provider: 03/01/18 14:59 Source: patient, RN notes reviewed, old records reviewed Mode of arrival: ambulatory Limitations: no limitations - History of Present Illness Initial Comments: Patient is a 57-year-old male with a history of COPD presents emergency department today with 2 weeks of cough congestion shortness of breath. Patient reports that he's been having symptoms progressively over the past 2 weeks. He states his cough has productive yellow-green sputum. - Related Data Home Medications Medication Instructions Recorded Confirmed ALPRAZolam [Xanax] 1 mg PO Q8H PRN 12/01/14 03/07/17 Albuterol Inhaler [Ventolin Hfa 1 - 2 puff INHALATION RT-DAILY PRN 12/01/14 Inhaler] Aspirin 81 mg PO DAILY 12/01/14 03/07/17 Hydrochlorothiazide [Hydrodiuril] 50 mg PO DAILY 12/01/14 03/07/17 Metoprolol Tartrate [Lopressor] 25 mg PO BID 12/01/14 03/07/17 Montelukast [Singulair] 10 mg PO DAILY 12/01/14 03/07/17 Nitroglycerin Sl Tabs [Nitrostat] 0.4 mg SUBLINGUAL Q5M PRN 12/01/14 03/07/17 Omeprazole [PriLOSEC] 20 mg PO BID 12/01/14 03/07/17 Pravastatin Sodium [Pravachol] 80 mg PO HS 12/01/14 03/07/17 rOPINIRole HCL [Requip] 0.125 mg PO HS PRN 12/01/14 03/07/17 Lisinopril [Zestril] 5 mg PO DAILY 08/02/16 03/07/17 Ranitidine HCl 300 mg PO HS PRN 08/02/16 03/07/17 Pregabalin [Lyrica] 75 mg PO BID 08/24/16 03/07/17 Atorvastatin [Lipitor] 40 mg PO HS 12/16/16 03/07/17 Budesonide/Formoterol Fumarate 2 puff INHALATION RT-BID 12/16/16 03/07/17 [Symbicort 160-4.5 Mcg Inhaler] Cyclobenzaprine HCl 5 mg PO BID PRN 12/16/16 03/07/17 Ibuprofen [Motrin] 800 mg PO TID PRN 12/16/16 03/07/17 metFORMIN HCL [Glucophage] 500 mg PO BID 12/16/16 03/07/17 DULoxetine HCL [Cymbalta] 60 mg PO DAILY 03/01/17 03/07/17 FLUoxetine HCL [PROzac] 20 mg PO DAILY 03/01/17 03/07/17 Pramipexole [Mirapex] 1 mg PO ONCE 03/01/17 03/07/17 Previous Rx's Medication Instructions Recorded Clopidogrel [Plavix] 75 mg PO DAILY #90 tab 08/26/16 HYDROcodone/APAP 7.5-325MG [[place] 1 each PO Q4H PRN #30 tab 03/07/17 7.5] HYDROcodone/APAP 10-325MG [[place] 1 tab PO Q6HR PRN 3 Days #12 tab 12/02/17 10-325] Levofloxacin [Levaquin] 750 mg PO DAILY #7 tab 03/01/18 Levofloxacin [Levaquin] 750 mg PO DAILY 3 Days #3 tab 03/01/18 Promethazine/Dextromethorphan 5 ml PO TID #120 ml 03/01/18 [Phenergan DM Syrup] predniSONE 50 mg PO DAILY #5 tablet 03/01/18 Allergies Allergy/AdvReac Type Severity Reaction Status Date / Time grass pollen Allergy Itching Verified 03/01/18 14:47 menthol Allergy Dyspnea Verified 03/01/18 14:47 Sulfa (Sulfonamide Allergy Unknown Verified 03/01/18 14:47 Antibiotics) Childhood venom-honey bee Allergy Anaphylaxis Verified 03/01/18 14:47 Review of Systems ROS Statement: Those systems with pertinent positive or pertinent negative responses have been documented in the HPI. ROS Other: All systems not noted in ROS Statement are negative. Constitutional: Denies: fever, chills, weakness, weight change, night sweats Eyes: Denies: eye pain ENT: Reports: throat pain. Denies: ear pain, dental pain Respiratory: Reports: cough, dyspnea, wheezes. Denies: hemoptysis Cardiovascular: Denies: chest pain, palpitations Endocrine: Denies: fatigue Gastrointestinal: Denies: abdominal pain Genitourinary: Denies: urgency Musculoskeletal: Denies: back pain Skin: Denies: rash Neurological: Denies: headache Past Medical History Past Medical History: Asthma, Coronary Artery Disease (CAD), Cancer, Chest Pain / Angina, COPD, CVA/TIA, Diabetes Mellitus, GERD/Reflux, Hyperlipidemia, Hypertension, Memory Impairment Additional Past Medical History / Comment(s): steroids July 2016,hx TIA- memory loss,. uses O2 2L at night and PRN during the day, hx skin cancer,lung nodules, back pain History of Any Multi-Drug Resistant Organisms: None Reported Past Surgical History: Appendectomy, Back Surgery, Heart Catheterization With Stent, Hernia Repair, Orthopedic Surgery Additional Past Surgical History / Comment(s): rt wrist surgery, steroid injection in neck, HAVING COLONOSCOPY 03/06/17 Past Anesthesia/Blood Transfusion Reactions: No Reported Reaction Date of Last Stent Placement:: 2013 Past Psychological History: Anxiety Smoking Status: Current every day smoker Past Alcohol Use History: Occasional Past Drug Use History: Marijuana - Past Family History Father Family Medical History: Coronary Artery Disease (CAD) Mother Family Medical History: Cancer General Exam - General Exam Comments Initial Comments: 57 year old male, no acute distress. Patient resting comfortably in bed, no tripod Position or respiratory distress. Limitations: no limitations General appearance: alert, in no apparent distress Head exam: Present: atraumatic, normocephalic, normal inspection Eye exam: Present: normal appearance, PERRL, EOMI. Absent: scleral icterus, conjunctival injection, periorbital swelling ENT exam: Present: normal exam, mucous membranes moist Neck exam: Present: normal inspection. Absent: tenderness, meningismus, lymphadenopathy Respiratory exam: Present: wheezes, rhonchi. Absent: normal lung sounds bilaterally, respiratory distress, rales, stridor Cardiovascular Exam: Present: regular rate, normal rhythm, normal heart sounds. Absent: systolic murmur, diastolic murmur, rubs, gallop, clicks Extremities exam: Present: normal inspection, full ROM, normal capillary refill. Absent: tenderness, pedal edema, joint swelling, calf tenderness Back exam: Present: normal inspection Neurological exam: Present: alert, oriented X3, CN II-XII intact Course Vital Signs 03/01/18 03/01/18 03/01/18 14:45 15:41 16:06 Temperature 97.5 F L Pulse Rate 69 58 L 57 L Respiratory 26 H 16 18 Rate Blood Pressure 121/68 115/66 O2 Sat by Pulse 96 95 Oximetry 03/01/18 03/01/18 16:12 17:16 Temperature 97 F L Pulse Rate 60 61 Respiratory 18 18 Rate Blood Pressure 150/89 O2 Sat by Pulse 97 Oximetry Medical Decision Making - Medical Decision Making 57 year old male, with COPD presents with worsening cough and sputum production. Patient cardiac workup including EKG and troponin is negative. Patient did have rhonchi cleared with coughing, and wheezing noted. Given Duoneb and IV steriods with improvement of symptoms. Patient CXR shows COPD changes withdeveloping pneumonia or atelectasis. At this time patient is stable and has no signs of respiratory distress. Discussed discharge on cough medication, steriods and levaquin. Given dose of antibiotic in ED. Discussed following up with pulmonolgist Dr. Ray. Discussed return parameters. - Lab Data Result diagrams: 03/01/18 15:34 03/01/18 15:34 Lab Results 03/01/18 03/01/18 03/01/18 Range/Units 15:34 15:34 15:34 WBC 8.9 (3.8-10.6) k/uL RBC 4.85 (4.30-5.90) m/uL Hgb 14.1 (13.0-17.5) gm/dL Hct 42.1 (39.0-53.0) % MCV 86.8 (80.0-100.0) fL MCH 29.0 (25.0-35.0) pg MCHC 33.4 (31.0-37.0) g/dL RDW 15.2 (11.5-15.5) % Plt Count 288 (150-450) k/uL Neutrophils % 67 % Lymphocytes % 22 % Monocytes % 4 % Eosinophils % 4 % Basophils % 1 % Neutrophils # 6.0 (1.3-7.7) k/uL Lymphocytes # 2.0 (1.0-4.8) k/uL Monocytes # 0.4 (0-1.0) k/uL Eosinophils # 0.4 (0-0.7) k/uL Basophils # 0.1 (0-0.2) k/uL PT (9.0-12.0) sec INR (<1.2) APTT (22.0-30.0) sec Sodium 139 (137-145) mmol/L Potassium 4.2 (3.5-5.1) mmol/L Chloride 107 (98-107) mmol/L Carbon Dioxide 24 (22-30) mmol/L Anion Gap 8 mmol/L BUN 11 (9-20) mg/dL Creatinine 0.91 (0.66-1.25) mg/dL Est GFR (CKD-EPI)AfAm >90 (>60 ml/min/1.73 sqM) Est GFR (CKD-EPI)NonAf >90 (>60 ml/min/1.73 sqM) Glucose 89 (74-99) mg/dL Calcium 9.3 (8.4-10.2) mg/dL Magnesium 1.7 (1.6-2.3) mg/dL Total Bilirubin 0.4 (0.2-1.3) mg/dL AST 25 (17-59) U/L ALT 27 (21-72) U/L Alkaline Phosphatase 94 (38-126) U/L Total Creatine Kinase 156 (55-170) U/L CK-MB (CK-2) 2.2 (0.0-2.4) ng/mL CK-MB (CK-2) Rel Index 1.4 Troponin I <0.012 (0.000-0.034) ng/mL NT-Pro-B Natriuret Pep pg/mL Total Protein 6.6 (6.3-8.2) g/dL Albumin 3.6 (3.5-5.0) g/dL 03/01/18 03/01/18 Range/Units 15:34 15:34 WBC (3.8-10.6) k/uL RBC (4.30-5.90) m/uL Hgb (13.0-17.5) gm/dL Hct (39.0-53.0) % MCV (80.0-100.0) fL MCH (25.0-35.0) pg MCHC (31.0-37.0) g/dL RDW (11.5-15.5) % Plt Count (150-450) k/uL Neutrophils % % Lymphocytes % % Monocytes % % Eosinophils % % Basophils % % Neutrophils # (1.3-7.7) k/uL Lymphocytes # (1.0-4.8) k/uL Monocytes # (0-1.0) k/uL Eosinophils # (0-0.7) k/uL Basophils # (0-0.2) k/uL PT 9.6 (9.0-12.0) sec INR 1.0 (<1.2) APTT 23.7 (22.0-30.0) sec Sodium (137-145) mmol/L Potassium (3.5-5.1) mmol/L Chloride (98-107) mmol/L Carbon Dioxide (22-30) mmol/L Anion Gap mmol/L BUN (9-20) mg/dL Creatinine (0.66-1.25) mg/dL Est GFR (CKD-EPI)AfAm (>60 ml/min/1.73 sqM) Est GFR (CKD-EPI)NonAf (>60 ml/min/1.73 sqM) Glucose (74-99) mg/dL Calcium (8.4-10.2) mg/dL Magnesium (1.6-2.3) mg/dL Total Bilirubin (0.2-1.3) mg/dL AST (17-59) U/L ALT (21-72) U/L Alkaline Phosphatase (38-126) U/L Total Creatine Kinase (55-170) U/L CK-MB (CK-2) (0.0-2.4) ng/mL CK-MB (CK-2) Rel Index Troponin I (0.000-0.034) ng/mL NT-Pro-B Natriuret Pep 37 pg/mL Total Protein (6.3-8.2) g/dL Albumin (3.5-5.0) g/dL 03/01/18 16:09 EKG shows sinus bradycardia, otherwise normally. Particular rate of 57 beats were minute period. Interval is 1:30 milliseconds. QRS ration 74 ms. QTc 442/ 4:30 milliseconds. - Radiology Data Radiology results: report reviewed Is a basilar opacities may represent Michele or developing pneumonia on the background of COPD. Disposition Clinical Impression: COPD exacerbation Disposition: HOME SELF-CARE Condition: Good Instructions: COPD (Chronic Obstructive Pulmonary Disease) (ED) Additional Instructions: Patient has follow-up with primary care physician. Return to emergency department if any alarming signs or symptoms occur. Prescriptions: Levofloxacin [Levaquin] 750 mg PO DAILY 3 Days #3 tab Levofloxacin [Levaquin] 750 mg PO DAILY #7 tab predniSONE 50 mg PO DAILY #5 tablet Promethazine/Dextromethorphan [Phenergan DM Syrup] 5 ml PO TID #120 ml Is patient prescribed a controlled substance at d/c from ED?: No Referrals: Emy Gagnon DO [Primary Care Provider] - 1-2 days Time of Disposition: 16:58
[2018-03-01 16:01] LABS: Basophils # (A) 0.1 k/uL (0-0.2); Basophils % (A) 1 %; Eosinophils # (A) 0.4 k/uL (0-0.7); Eosinophils % (A) 4 %; HCT 42.1 % (39.0-53.0); HGB 14.1 gm/dL (13.0-17.5); Lymphocytes % (A) 22 %; MCHC 33.4 g/dL (31.0-37.0); MCV 86.8 fL (80.0-100.0); Mean Platelet Volume 6.9; Monocytes # (A) 0.4 k/uL (0-1.0); Monocytes % (A) 4 %; Neutrophils % (A) 67 %; Platelet Count 288 k/uL (150-450); RBC 4.85 m/uL (4.30-5.90); RDW 15.2 % (11.5-15.5); WBC 8.9 k/uL (3.8-10.6)
--- NOTE | 2018-03-01 16:04 | XR ---
EXAMINATION TYPE: XR chest 2V DATE OF EXAM: 03/01/2018 COMPARISON: 11/27/2014 HISTORY: Difficulty breathing. History of COPD. TECHNIQUE: Frontal and lateral views of the chest are obtained. FINDINGS: There are new hazy bibasilar opacities in comparison to the prior superimposed upon emphys ematous change with hyperinflation. Partial visualization of a cervical fusion device is seen with mo derate multilevel degenerative changes of thoracic spine. Cardiac silhouette is enlarged. No sizable pleural effusion or pneumothorax. No pulmonary vascular congestion. IMPRESSION: New hazy bibasilar opacities that may represent atelectasis or developing pneumonia on a background of COPD.
[2018-03-01 16:07] VITALS: RESP 18
[2018-03-01 16:11] LABS: Partial Thromboplastin Time 23.7 sec (22.0-30.0); Prothrombin Time 9.6 sec (9.0-12.0)
[2018-03-01 16:15] LABS: ALT 27 U/L (21-72); AST 25 U/L (17-59); Albumin 3.6 g/dL (3.5-5.0); Alkaline Phosphatase 94 U/L (38-126); Anion Gap 8 mmol/L; Blood Urea Nitrogen 11 mg/dL (9-20); Calcium 9.3 mg/dL (8.4-10.2); Carbon Dioxide 24 mmol/L (22-30); Chloride 107 mmol/L (98-107); Glucose 89 mg/dL (74-99); Magnesium 1.7 mg/dL (1.6-2.3); Potassium 4.2 mmol/L (3.5-5.1); Sodium 139 mmol/L (137-145); Total Bilirubin 0.4 mg/dL (0.2-1.3); Total Protein 6.6 g/dL (6.3-8.2)
[2018-03-01 16:23] LABS: Creatine Kinase 156 U/L (55-170)
[2018-03-01 16:37] LABS: Creatine Kinase MB 2.2 ng/mL (0.0-2.4); Troponin I <0.012 ng/mL (0.000-0.034)
[2018-03-01 17:16] VITALS: BP 150/89; PULSE 61; TEMP 97
--- NOTE | 2018-03-02 04:38 | CDI ---
Dear Deangelo Mcqueen MD: Please do addendum Physical Examination. Thank you, Rosalba Major, Baccarat Manager. If you have any questions, please contact Dry[employer] Sander at [phone]. [facility]
== END 2018-03-01 17:16 | disposition home or self-care (01) ==
LOC: EC 14:20
DX: J44.1 Chronic obstructive pulmonary disease with (acute) exacerbation (principal); R00.1 Bradycardia, unspecified; E78.5 Hyperlipidemia, unspecified; I10 Essential (primary) hypertension; I25.10 Atherosclerotic heart disease of native coronary artery without angina pectoris; E11.9 Type 2 diabetes mellitus without complications; K21.9 Gastro-esophageal reflux disease without esophagitis; F41.9 Anxiety disorder, unspecified; F17.200 Nicotine dependence, unspecified, uncomplicated; Z79.51 Long term (current) use of inhaled steroids; Z79.82 Long term (current) use of aspirin; Z79.84 Long term (current) use of oral hypoglycemic drugs; Z79.899 Other long term (current) drug therapy; Z88.2 Allergy status to sulfonamides; Z88.8 Allergy status to other drugs, medicaments and biological substances; Z91.030 Bee allergy status; Z91.048 Other nonmedicinal substance allergy status; Z99.81 Dependence on supplemental oxygen; Z87.39 Personal history of other diseases of the musculoskeletal system and connective tissue; Z86.79 Personal history of other diseases of the circulatory system; Z95.5 Presence of coronary angioplasty implant and graft
CPT/HCPCS: 99285; 96374; 96361; 36415; 94640; 93005; 83880; 80053; 82550; 82553; 83735; 84484; 85025; 85610; 85730; 87040; 71046; J2930

== ENCOUNTER 2018-03-08 09:15 | Inpatient (IN) | payer OTHER ==
[2018-03-08] MEDS ORDERED: LIDOCAINE 1% INJ 10MG/ML (20 ML MDV) ONE (12:28)
[2018-03-08] MEDS ORDERED: MIDAZOLAM 2 MG/2 ML VIAL ONE (12:30)
[2018-03-08] MEDS: MIDAZOLAM 2 MG/2 ML VIAL IV ONE ×2 (12:32→13:17)
[2018-03-08] MEDS ORDERED: IV FLUID CONTINUATION 500 ML IV ONE (12:33)
[2018-03-08] MEDS ORDERED: LIDOCAINE 1% INJ 10MG/ML (20 ML MDV) SQ ONE (12:33)
[2018-03-08] MEDS ORDERED: BIVALIRUDIN BOLUS 250 MG/50 ML IV ONE (12:42)
[2018-03-08] MEDS ORDERED: BIVALIRUDIN 250 MG in SODIUM CHLORIDE 0.9% 50 ML IV ONE ×2 (12:43→13:20)
[2018-03-08] MEDS: ATROPINE SULFATE 0.1 MG/ML 10ML SYRINGE IV ONE ×2 (12:45→12:50)
[2018-03-08] MEDS ORDERED: CLOPIDOGREL 75 MG TAB ONE (12:46)
[2018-03-08] MEDS ORDERED: niCARdipine 25 MG/10 ML VIAL ONE (12:47)
[2018-03-08] MEDS ORDERED: DOPamine DRIP 800 MG in DEXTROSE/WATER 1 500ML.BAG IV ONE (12:50)
[2018-03-08] MEDS ORDERED: CLOPIDOGREL 75 MG TAB PO ONE (12:54)
[2018-03-08] MEDS ORDERED: FUROSEMIDE 10 MG/ML 4 ML VIAL ONE (12:58)
[2018-03-08] MEDS ORDERED: ONDANSETRON 4 MG/2 ML VIAL ONE (13:00)
[2018-03-08] MEDS ORDERED: ONDANSETRON 4 MG/2 ML VIAL IVP ONE (13:01)
[2018-03-08] MEDS ORDERED: FUROSEMIDE 10 MG/ML 4 ML VIAL IV ONE (13:01)
[2018-03-08] MEDS ORDERED: niCARdipine Syringe (1,000 mcg/10 mL) INTRACORON ONE (13:04)
[2018-03-08] MEDS: NITROGLYCERIN 1000MCG/10ML SYRINGE INTRACORON ONE ×3 (13:05→13:13)
[2018-03-08] MEDS ORDERED: SODIUM CHLORIDE 0.9% 1,000 ML IV ONE (13:07)
[2018-03-08] MEDS ORDERED: IOPAMIDOL-370 125ML BTL INJ ONE (13:11)
[2018-03-08] MEDS ORDERED: DEXTROSE 5% IN WATER 100 ML with AMIODARONE 150 MG IV ONE (13:39)
[2018-03-08] MEDS ORDERED: IOPAMIDOL-370 100ML BTL INJ ONE (13:41)
[2018-03-08] MEDS ORDERED: ZOLPIDEM 5 MG TAB PO PRN (13:44)
[2018-03-08] MEDS ORDERED: ATROPINE SULFATE 0.1 MG/ML 10ML SYRINGE IV PRN (13:44)
[2018-03-08] MEDS ORDERED: RX INFO: IV CONTRAST WAS GIVEN 1 EACH MISC MISCELLANE PRN (13:44)
[2018-03-08] MEDS ORDERED: MAG HYDROX/AL HYDROX/SIMETH 30 ML CUP PO PRN (13:44)
[2018-03-08] MEDS ORDERED: SODIUM CHLORIDE 0.9% 1,000 ML IV SCH (13:45)
[2018-03-08] MEDS ORDERED: NOREPINEPHRINE 4 MG in SODIUM CHLORIDE 0.9% 250 ML IV ONE (13:51)
[2018-03-08] MEDS ORDERED: NOREPINEPHRINE 4 MG in SODIUM CHLORIDE 0.9% 250 ML IV SCH (14:15)
[2018-03-08] MEDS: AMIODARONE 450 MG in DEXTROSE 5% IN WATER 250 ML IV SCH ×2 (14:40)
--- NOTE | 2018-03-08 15:26 | CT ---
EXAMINATION TYPE: CT brain wo con DATE OF EXAM: 03/08/2018 COMPARISON: 12/25/2012 INDICATION: Post Heart cath mental status changes DLP: 1550.4 mGycm, Automated exposure control for dose reduction was used. CONTRAST: None CT of the brain is performed utilizing 3 mm thick sections through the posterior fossa and 3 mm thick sections through the remaining calvarium. Study is performed within 24 hours of arrival to the hosp [facility]. No abnormal hyperdensity is present to suggest an acute intracranial hemorrhage. No mass lesion is evident. No acute infarcts are evident. Ventricles and sulci are appropriate for the patient age. Paranasal sinuses and mastoid air cells within the [id number] are clear. IMPRESSIONS: 1. No acute intracranial process.
[2018-03-08 15:57] LABS: Basophils % (A) 0 %; Eosinophils # (A) 0.1 k/uL (0-0.7); Eosinophils % (A) 1 %; HCT 42.8 % (39.0-53.0); HGB 13.1 gm/dL (13.0-17.5); Hypochromasia Slight; Lymphocytes # (A) 1.4 k/uL (1.0-4.8); Lymphocytes % (A) 9 %; MCH 27.9 pg (25.0-35.0); MCHC 30.6 g/dL (31.0-37.0); MCV 91.1 fL (80.0-100.0); Mean Platelet Volume 6.6; Monocytes # (A) 0.6 k/uL (0-1.0); Monocytes % (A) 4 %; Neutrophils # (A) 13.4 k/uL (1.3-7.7); Neutrophils % (A) 86 %; Platelet Count 275 k/uL (150-450); RDW 15.2 % (11.5-15.5); WBC 15.6 k/uL (3.8-10.6)
[2018-03-08 16:04] LABS: INR 1.3 (<1.2); Partial Thromboplastin Time 49.2 sec (22.0-30.0); Prothrombin Time 12.4 sec (9.0-12.0)
[2018-03-08 16:23] LABS: Anion Gap 7 mmol/L; Blood Urea Nitrogen 23 mg/dL (9-20); Carbon Dioxide 21 mmol/L (22-30); Chloride 109 mmol/L (98-107); Glucose 173 mg/dL (74-99); Potassium 4.9 mmol/L (3.5-5.1); Sodium 137 mmol/L (137-145)
[2018-03-08] MEDS ORDERED: IPRATROPIUM-ALBUTEROL 3 ML NEB INHALATION PRN (16:37)
[2018-03-08 16:57] LABS: Glucose,Whole Blood 152 mg/dL (75-99)
[2018-03-08] MEDS ORDERED: ACETAMINOPHEN TAB 325 MG TAB PO PRN (16:58)
--- NOTE | 2018-03-08 17:03 | P.CONS ---
History of Present Illness - Reason for Consult Consult date: 03/08/18 medical management Requesting physician: Jose Salinas - Chief Complaint Chest pain - History of Present Illness This is a 57-year-old male patient of Dr. Gagnon. Patient presented to [facility] with complaints of chest pain that has been significantly increasing. Patient states it's been occurring for many weeks but had significantly increased since last night. Patient does admit that he did cocaine last night. It was found upon arrival to ER the patient was having an ST elevated myocardial infarction. Patient was transferred directly to cardiac catheterization lab and received a stent to the RCA. Patient also went into V. fib post intervention. Patient was started on amiodarone drip. Patient also required levophed for pressure support. Levophed currently off. Patient is currently sinus rhythm/sinus bradycardia. Postintervention patient also experienced slurred speech. Code stroke was initiated. Patient was taking for head CT. CT of head completed showing no acute intracranial process. Neurology services are following. MRI ordered. Drug Screen also ordered. Patient has a known past medical history of asthma, coronary artery disease he, chest pain, COPD, CVA, diabetes mellitus, GERD, hyperlipidemia, memory impairment, hypertension, anxiety, nicotine dependence, marijuana use, cocaine use and heart catheterization with stents. Patient also states he's been recently getting treatment for pneumonia. Patient was taking Levaquin and steroids. Patient also uses home O2 2 L at night and when necessary Patient is currently resting comfortably in the intensive care unit. At this time patient is alert and oriented 3. Speech does appear clear. Equal strength throughout all extremities. At this time patient denies chest pain or shortness of breath. Patient denies any urinary burning or frequency Review of Systems Please refer to HPI otherwise unremarkable Past Medical History Past Medical History: Asthma, Coronary Artery Disease (CAD), Cancer, Chest Pain / Angina, COPD, CVA/TIA, Diabetes Mellitus, GERD/Reflux, Hyperlipidemia, Hypertension, Memory Impairment Additional Past Medical History / Comment(s): steroids July 2016,hx TIA- memory loss,. uses O2 2L at night and PRN during the day, hx skin cancer,lung nodules, back pain History of Any Multi-Drug Resistant Organisms: None Reported Past Surgical History: Appendectomy, Back Surgery, Heart Catheterization With Stent, Hernia Repair, Orthopedic Surgery Additional Past Surgical History / Comment(s): rt wrist surgery, steroid injection in neck, HAVING COLONOSCOPY 10/30/17 Past Anesthesia/Blood Transfusion Reactions: No Reported Reaction Date of Last Stent Placement:: 2013 Past Psychological History: Anxiety Smoking Status: Current every day smoker Past Alcohol Use History: Occasional Past Drug Use History: Marijuana - Past Family History Father Family Medical History: Coronary Artery Disease (CAD) Mother Family Medical History: Cancer Medications and Allergies Home Medications Medication Instructions Recorded Confirmed Type ALPRAZolam [Xanax] 1 mg PO Q8H PRN 12/01/14 03/07/17 History Albuterol Inhaler [Ventolin Hfa 1 - 2 puff INHALATION RT-DAILY PRN 12/01/14 History Inhaler] Aspirin 81 mg PO DAILY 12/01/14 03/07/17 History Hydrochlorothiazide [Hydrodiuril] 50 mg PO DAILY 12/01/14 03/07/17 History Metoprolol Tartrate [Lopressor] 25 mg PO BID 12/01/14 03/07/17 History Montelukast [Singulair] 10 mg PO DAILY 12/01/14 03/07/17 History Nitroglycerin Sl Tabs [Nitrostat] 0.4 mg SUBLINGUAL Q5M PRN 12/01/14 03/07/17 History Omeprazole [PriLOSEC] 20 mg PO BID 12/01/14 03/07/17 History Pravastatin Sodium [Pravachol] 80 mg PO HS 12/01/14 03/07/17 History rOPINIRole HCL [Requip] 0.125 mg PO HS PRN 12/01/14 03/07/17 History Lisinopril [Zestril] 5 mg PO DAILY 08/02/16 03/07/17 History Ranitidine HCl 300 mg PO HS PRN 08/02/16 03/07/17 History Pregabalin [Lyrica] 75 mg PO BID 08/24/16 03/07/17 History Clopidogrel [Plavix] 75 mg PO DAILY #90 tab 08/26/16 03/07/17 Rx Atorvastatin [Lipitor] 40 mg PO HS 12/16/16 03/07/17 History Budesonide/Formoterol Fumarate 2 puff INHALATION RT-BID 12/16/16 03/07/17 History [Symbicort 160-4.5 Mcg Inhaler] Cyclobenzaprine HCl 5 mg PO BID PRN 12/16/16 03/07/17 History Ibuprofen [Motrin] 800 mg PO TID PRN 12/16/16 03/07/17 History metFORMIN HCL [Glucophage] 500 mg PO BID 12/16/16 03/07/17 History DULoxetine HCL [Cymbalta] 60 mg PO DAILY 03/01/17 03/07/17 History FLUoxetine HCL [PROzac] 20 mg PO DAILY 03/01/17 03/07/17 History Pramipexole [Mirapex] 1 mg PO ONCE 03/01/17 03/07/17 History HYDROcodone/APAP 7.5-325MG [[place] 1 each PO Q4H PRN #30 tab 03/07/17 Rx 7.5] HYDROcodone/APAP 10-325MG [[place] 1 tab PO Q6HR PRN 3 Days #12 tab 12/02/17 Rx 10-325] Levofloxacin [Levaquin] 750 mg PO DAILY #7 tab 03/01/18 Rx Levofloxacin [Levaquin] 750 mg PO DAILY 3 Days #3 tab 03/01/18 Rx Promethazine/Dextromethorphan 5 ml PO TID #120 ml 03/01/18 Rx [Phenergan DM Syrup] predniSONE 50 mg PO DAILY #5 tablet 03/01/18 Rx Allergies Allergy/AdvReac Type Severity Reaction Status Date / Time grass pollen Allergy Itching Verified 03/01/18 14:47 menthol Allergy Dyspnea Verified 03/01/18 14:47 Sulfa (Sulfonamide Allergy Unknown Verified 03/01/18 14:47 Antibiotics) Childhood venom-honey bee Allergy Anaphylaxis Verified 03/01/18 14:47 Physical Exam Vitals: Vital Signs Temp Pulse Resp BP Pulse Ox 03/08/18 15:50 64 17 107/69 96 03/08/18 15:40 64 18 110/78 96 03/08/18 15:30 62 23 95/75 03/08/18 15:20 95/75 03/08/18 15:10 95/75 03/08/18 15:00 67 16 106/78 97 03/08/18 14:50 61 16 106/78 97 03/08/18 14:40 97.7 F 64 16 121/83 97 Intake and Output 03/08/18 03/08/18 03/08/18 06:59 14:59 22:59 Intake Total 711.8 266.6 Output Total 400 Balance 711.8 -133.4 Intake: IV 711.8 266.6 Amiodarone 450 mg In 66.6 Dextrose 5% in Water 250 ml @ 1 MG/MIN 33.33 mls/ hr IV .Q7H15M [facility] Rx#: [id number] Sodium Chloride 0.9% 1, 200 000 ml @ 100 mls/hr IV . Q10H [facility] Rx#:[id number] Output: Urine 400 Other: Weight 104.326 kg ABP, PAP, CO, CI - Last 8 Hours Arterial Blood Pressure 101/58 Arterial Blood Pressure 98/55 Arterial Blood Pressure 108/62 Arterial Blood Pressure 118/71 Arterial Blood Pressure 123/75 Head normocephalic Neck supple Lungs diminished with bilateral wheezing Heart regular rate and rhythm S1-S2, no rub or gallop Abdomen is soft nontender nondistended positive bowel sounds no hepatosplenomegaly Extremities no edema. Right groin sheath in place Neuro alert and orientated to 3 Results CBC & Chem 7: 03/08/18 15:40 03/08/18 15:40 Labs: Abnormal Lab Results - Last 24 Hours (Table) 03/08/18 03/08/18 03/08/18 Range/Units 15:40 15:40 15:40 WBC 15.6 H (3.8-10.6) k/uL MCHC 30.6 L (31.0-37.0) g/dL Neutrophils # 13.4 H (1.3-7.7) k/uL PT 12.4 H (9.0-12.0) sec INR 1.3 H (<1.2) APTT 49.2 H (22.0-30.0) sec Chloride 109 H (98-107) mmol/L Carbon Dioxide 21 L (22-30) mmol/L BUN 23 H (9-20) mg/dL Glucose 173 H (74-99) mg/dL Assessment and Plan Assessment: 1. ST elevated myocardial infarction. Patient received stent to RCA. Patient currently on Plavix. 2D echo ordered 2. Altered mental status with slurred speech. Patient had altered mental status post intervention. Stroke initiated. Head CT completed showing no acute process. Neurology consult. MRI ordered 3. Post intervention V. fib. Patient currently on amiodarone 4. Cocaine use. Patient admitted to using cocaine last night. Drug screen has been ordered 5. Recent diagnosis and treatment of pneumonia. Patient states he was getting treated [facility] [place] for [facility] with Levaquin and steroids. Start patient on Rocephin. Chest x-ray ordered. Will consult Dr. Ray for pulmonary services at this time. DuoNeb breathing treatments initiated 6. History of coronary artery disease with previous stent placement 7. History of CVA 8. History of COPD. Patient does wear 2 L at night 9. History of diabetes mellitus. Metformin currently on hold. Will order sliding scale insulin 10. History of hyperlipidemia 11. History of essential hypertension 12. memory impairment 13. Nicotine dependence. Patient educated greater than 3 minutes smoking cessation. Nicotine patch has been ordered 14. Marijuana use GI prophylaxis Protonix. Chest x-ray and AM labs ordered. Consult for Dr. Ray due to recent diagnosis of pneumonia Time with Patient: Greater than 30 (Greater than 60% of the total time spent in counseling and coordination of care. I performed an examination of the patient and discussed their management with the Nurse Practitioner. I have reviewed the Nurse Practitioner's notes and agree with the documented findings and plan of care)
--- NOTE | 2018-03-08 17:30 | P.CRDCN ---
History of Present Illness Consult date: 03/08/18 Chief complaint: Chest discomfort History of present illness: This is a 57-year-old gentleman was known history of coronary artery disease and prior stenting of the right coronary artery as well as left circumflex coronary artery as well as hypertension, dyslipidemia, who unfortunately continues to smoke, was brought from the emergency room at [facility] to [facility] after he was found to be in acute inferior ST elevation myocardial infarction. The patient did have a cardiac arrest at home. Ambulance was called and the patient was found to be an acute inferior ST elevation myocardial infarction. He underwent an emergent heart catheterization and was found to have an acute total occlusion of the proximal right coronary artery which seems to be very late stent thrombosis. He underwent successful stenting of the proximal right coronary artery using drug- eluting stent with a good angiographic results by the end. During the procedure the patient was hypotensive and he required vasopressors and also he was bradycardic and he required atropine and then dopamine. Vital end of the procedure he did go into V. fib and he was shocked and brought back to normal sinus mechanism. The patient stated that he was experiencing increasing chest discomfort for the last several days. The chest discomfort was mainly with exertion according to him. On further questioning the patient stated that he was also smoking and he has been using also some drugs. The patient will be admitted to the intensive care unit. He will be on dual antiplatelet therapy as well as high intensity statin. I would hold the blood pressure medications like beta mariusz as well as GERARDO inhibitor at this point in view of the margin the low blood pressure. We will obtain an echocardiogram was Doppler. We'll follow-up on the cardiac enzymes as well. Past Medical History Past Medical History: Asthma, Coronary Artery Disease (CAD), Cancer, Chest Pain / Angina, COPD, CVA/TIA, Diabetes Mellitus, GERD/Reflux, Hyperlipidemia, Hypertension, Memory Impairment Additional Past Medical History / Comment(s): steroids July 2016,hx TIA- memory loss,. uses O2 2L at night and PRN during the day, hx skin cancer,lung nodules, back pain History of Any Multi-Drug Resistant Organisms: None Reported Past Surgical History: Appendectomy, Back Surgery, Heart Catheterization With Stent, Hernia Repair, Orthopedic Surgery Additional Past Surgical History / Comment(s): rt wrist surgery, steroid injection in neck, HAVING COLONOSCOPY 03/06/17 Past Anesthesia/Blood Transfusion Reactions: No Reported Reaction Date of Last Stent Placement:: 2013 Smoking Status: Current every day smoker - Past Family History Father Family Medical History: Coronary Artery Disease (CAD) Mother Family Medical History: Cancer Medications and Allergies Home Medications Medication Instructions Recorded Confirmed Type ALPRAZolam [Xanax] 1 mg PO Q8H PRN 12/01/14 03/07/17 History Albuterol Inhaler [Ventolin Hfa 1 - 2 puff INHALATION RT-DAILY PRN 12/01/14 History Inhaler] Aspirin 81 mg PO DAILY 12/01/14 03/07/17 History Hydrochlorothiazide [Hydrodiuril] 50 mg PO DAILY 12/01/14 03/07/17 History Metoprolol Tartrate [Lopressor] 25 mg PO BID 12/01/14 03/07/17 History Montelukast [Singulair] 10 mg PO DAILY 12/01/14 03/07/17 History Nitroglycerin Sl Tabs [Nitrostat] 0.4 mg SUBLINGUAL Q5M PRN 12/01/14 03/07/17 History Omeprazole [PriLOSEC] 20 mg PO BID 12/01/14 03/07/17 History Pravastatin Sodium [Pravachol] 80 mg PO HS 12/01/14 03/07/17 History rOPINIRole HCL [Requip] 0.125 mg PO HS PRN 12/01/14 03/07/17 History Lisinopril [Zestril] 5 mg PO DAILY 08/02/16 03/07/17 History Ranitidine HCl 300 mg PO HS PRN 08/02/16 03/07/17 History Pregabalin [Lyrica] 75 mg PO BID 08/24/16 03/07/17 History Clopidogrel [Plavix] 75 mg PO DAILY #90 tab 08/26/16 03/07/17 Rx Atorvastatin [Lipitor] 40 mg PO HS 12/16/16 03/07/17 History Budesonide/Formoterol Fumarate 2 puff INHALATION RT-BID 12/16/16 03/07/17 History [Symbicort 160-4.5 Mcg Inhaler] Cyclobenzaprine HCl 5 mg PO BID PRN 12/16/16 03/07/17 History Ibuprofen [Motrin] 800 mg PO TID PRN 12/16/16 03/07/17 History metFORMIN HCL [Glucophage] 500 mg PO BID 12/16/16 03/07/17 History DULoxetine HCL [Cymbalta] 60 mg PO DAILY 03/01/17 03/07/17 History FLUoxetine HCL [PROzac] 20 mg PO DAILY 03/01/17 03/07/17 History Pramipexole [Mirapex] 1 mg PO ONCE 03/01/17 03/07/17 History HYDROcodone/APAP 7.5-325MG [[place] 1 each PO Q4H PRN #30 tab 03/07/17 Rx 7.5] HYDROcodone/APAP 10-325MG [[place] 1 tab PO Q6HR PRN 3 Days #12 tab 12/02/17 Rx 10-325] Levofloxacin [Levaquin] 750 mg PO DAILY #7 tab 03/01/18 Rx Levofloxacin [Levaquin] 750 mg PO DAILY 3 Days #3 tab 03/01/18 Rx Promethazine/Dextromethorphan 5 ml PO TID #120 ml 03/01/18 Rx [Phenergan DM Syrup] predniSONE 50 mg PO DAILY #5 tablet 03/01/18 Rx Allergies Allergy/AdvReac Type Severity Reaction Status Date / Time grass pollen Allergy Itching Verified 03/01/18 14:47 menthol Allergy Dyspnea Verified 03/01/18 14:47 Sulfa (Sulfonamide Allergy Unknown Verified 03/01/18 14:47 Antibiotics) Childhood venom-honey bee Allergy Anaphylaxis Verified 03/01/18 14:47 Physical Exam Vitals: Vital Signs Temp Pulse Resp BP Pulse Ox 03/08/18 15:50 64 17 107/69 96 03/08/18 15:40 64 18 110/78 96 03/08/18 15:30 62 23 95/75 03/08/18 15:20 95/75 03/08/18 15:10 95/75 03/08/18 15:00 67 16 106/78 97 03/08/18 14:50 61 16 106/78 97 03/08/18 14:40 97.7 F 64 16 121/83 97 Intake and Output 03/08/18 03/08/18 03/08/18 06:59 14:59 22:59 Intake Total 711.8 266.6 Output Total 400 Balance 711.8 -133.4 Intake: IV 711.8 266.6 Amiodarone 450 mg In 66.6 Dextrose 5% in Water 250 ml @ 1 MG/MIN 33.33 mls/ hr IV .Q7H15M [facility] Rx#: [id number] Sodium Chloride 0.9% 1, 200 000 ml @ 100 mls/hr IV . Q10H [facility] Rx#:[id number] Output: Urine 400 Other: Weight 104.326 kg ABP, PAP, CO, CI - Last 8 Hours Arterial Blood Pressure 101/58 Arterial Blood Pressure 98/55 Arterial Blood Pressure 108/62 Arterial Blood Pressure 118/71 Arterial Blood Pressure 123/75 - Constitutional General appearance: no acute distress - Respiratory Respiratory: bilateral: CTA - Cardiovascular Rhythm: regular Heart sounds: normal: S1, S2 Abnormal Heart Sounds: systolic murmur Results 03/08/18 15:40 03/08/18 15:40 Cardiac Enzymes 03/08/18 Range/Units 15:40 Troponin I 67.600 H* (0.000-0.034) ng/mL Coagulation 03/08/18 Range/Units 15:40 PT 12.4 H (9.0-12.0) sec APTT 49.2 H (22.0-30.0) sec CBC 03/08/18 Range/Units 15:40 WBC 15.6 H (3.8-10.6) k/uL RBC 4.70 (4.30-5.90) m/uL Hgb 13.1 (13.0-17.5) gm/dL Hct 42.8 (39.0-53.0) % Plt Count 275 (150-450) k/uL Comprehensive Metabolic Panel 03/08/18 Range/Units 15:40 Sodium 137 (137-145) mmol/L Potassium 4.9 (3.5-5.1) mmol/L Chloride 109 H (98-107) mmol/L Carbon Dioxide 21 L (22-30) mmol/L BUN 23 H (9-20) mg/dL Creatinine 0.89 (0.66-1.25) mg/dL Glucose 173 H (74-99) mg/dL Calcium 9.0 (8.4-10.2) mg/dL Current Medications Generic Name Dose Route Start Last Admin Trade Name Freq PRN Reason Stop Dose Admin Acetaminophen 650 mg 03/08/18 16:58 Tylenol Tab PO Q6HR PRN Fever and/ or Mild Pain Al Hydroxide/Mg Hydroxide 30 ml 03/08/18 13:44 Maalox PO Q4HR PRN Heartburn Albuterol/Ipratropium 3 ml 03/08/18 20:00 Duoneb 0.5 Mg-3 Mg/3 Ml Soln INHALATION RT-QID JERROD Albuterol/Ipratropium 3 ml 03/08/18 16:37 Duoneb 0.5 Mg-3 Mg/3 Ml Soln INHALATION RT-Q2H PRN Shortness Of Breath Or Wheezing Aspirin 325 mg 03/09/18 09:00 Aspirin PO DAILY [facility] Atorvastatin Calcium 80 mg 03/08/18 21:00 Lipitor PO HS [facility] Atropine Sulfate 0.5 mg 03/08/18 13:44 Atropine IV ONCE PRN Symptomatic Bradycardia Clopidogrel Bisulfate 75 mg 03/09/18 13:45 Plavix PO DAILY [facility] Amiodarone HCl 450 mg/ 250 mls @ 33.33 mls/hr 03/08/18 13:45 03/08/18 14:40 Dextrose/Water IV 03/09/18 13:42 1 mg/min .Q7H15M [facility] 33.33 mls/hr Administration Protocol 1 MG/MIN Sodium Chloride 1,000 mls @ 100 mls/hr 03/08/18 13:45 03/08/18 15:50 Saline 0.9% IV 03/08/18 19:46 100 mls/hr .Q10H [facility] Administration Norepinephrine Bitartrate 4 mg 250 mls @ 0 mls/hr 03/08/18 14:15 / Sodium Chloride IV .Q0M [facility] Protocol Titrate Ceftriaxone Sodium 1,000 mg/ 50 mls @ 100 mls/hr 03/08/18 18:00 Sodium Chloride IVPB Q24H [facility] Insulin Aspart 0 unit 03/08/18 17:30 Novolog SQ ACHS [facility] Protocol Metoprolol Tartrate 25 mg 03/08/18 21:00 Lopressor PO BID [facility] Miscellaneous Information 1 each 03/08/18 13:44 Rx Info: Iv Contrast Was Given MISCELLANE 03/10/18 13:44 DAILY PRN Per Protocol Nicotine 1 patch 03/09/18 09:00 Habitrol 14mg/24hr Patch TRANSDERM DAILY [facility] Nitroglycerin 0.4 mg 03/08/18 13:44 Nitrostat SUBLINGUAL Q5M PRN Chest Pain Pantoprazole Sodium 40 mg 03/09/18 07:30 Protonix PO AC-BRKFST JERROD Zolpidem Tartrate 5 mg 03/08/18 13:44 Ambien PO HS PRN Insomnia Intake and Output 03/08/18 03/08/18 03/08/18 06:59 14:59 22:59 Intake Total 711.8 266.6 Output Total 400 Balance 711.8 -133.4 Intake: IV 711.8 266.6 Amiodarone 450 mg In 66.6 Dextrose 5% in Water 250 ml @ 1 MG/MIN 33.33 mls/ hr IV .Q7H15M [facility] Rx#: [id number] Sodium Chloride 0.9% 1, 200 000 ml @ 100 mls/hr IV . Q10H [facility] Rx#:[id number] Output: Urine 400 Other: Weight 104.326 kg Patient Weight 03/09/18 06:59 Weight 104.326 kg 03/08/18 15:40 03/08/18 15:40 Assessment and Plan Assessment: Assessment #[address] elevation myocardial infarction #2 status post PCI of the right coronary artery #3 significant history of smoking #4 hypertension #5 dyslipidemia Plan #1 continue dual antiplatelet therapy along with high intensity statin #2 an echocardiogram to assess ejection fraction #3 ICU admission #4 try to wean the patient from the vasopressors #5 follow-up with the patient.
[2018-03-08] MEDS: INSULIN ASPART 100 UNIT/ML 1 ML 10 ML VIAL SQ SCH ×2 (18:00→21:50)
[2018-03-08 18:12] LABS: Amphetamine Screen,Urine Not Detected (NotDetected); Barbiturate Screen,Urine Not Detected (NotDetected); Benzodiazepines Screen,Urine Not Detected (NotDetected); Cocaine Screen,Urine Detected (NotDetected); Methadone Screen, Urine Not Detected (NotDetected); Opiate Screen,Urine Not Detected (NotDetected); Oxycodone Screen, Urine Not Detected (NotDetected); Phencyclidine Screen,Urine Not Detected (NotDetected); Tricyclic Antidepressant,Urine Not Detected (NotDetected); Urn Cannabinoid Scrn Detected (NotDetected)
[2018-03-08] MEDS: NITROGLYCERIN SL TABS 0.4 MG TAB SUBLINGUAL PRN ×2 (20:00→20:06)
--- NOTE | 2018-03-08 20:06 | CC ---
CARDIAC CATHETERIZATION REPORT DATE OF SERVICE: March 08, 2018 PERFORMING PHYSICIAN: Jose Salinas MD, accounting manager assistant controller. PROCEDURE PERFORMED: 1. Selective right and left coronary angiogram. 2. Left heart catheterization. 3. Aspiration thrombectomy from the right coronary artery. 4. Successful stenting of the proximal right coronary artery using 2.75 x 28 mm Xience LEANDRA, which was postdilated using 3.5 mm NC balloon with an excellent angiographic results and reduction of stenosis from 100% to 0%. INDICATION: This is a 57-year-old gentleman with known history of coronary artery disease and prior stenting of the right coronary artery as well as left circumflex coronary artery as well as significant history of smoking, with known stenting of the right coronary artery and left circumflex as well as significant history of smoking, who initially was brought by ambulance to [facility] after he collapsed at home. He was found to be in acute inferior ST-elevation myocardial infarction. Subsequently, the patient was transferred to [facility] for an emergent heart catheterization. He underwent initially a CT scan of the brain to rule out any intracranial bleeding before he was taken to the cardiac brush clearing laborer. LEVEL OF SEDATION: Moderate with sedation length of 1 hour. APPROACH: Right common femoral artery. PROCEDURE DESCRIPTION: After obtaining an informed consent, the patient was brought to the cardiac brush clearing laborer. The right common femoral artery was cannulated using micropuncture technique, the micropuncture wire passed easily. Then I placed a 6-Malian sheath in the right common femoral artery. Subsequently I did selective right and left coronary angiogram using JR4 and JL4 catheters. After that, I did intervene on the right coronary artery. Please see a separate paragraph for that. SELECTIVE CORONARY ANGIOGRAM: 1. The right coronary artery is 100% occluded in the proximal portion. 2. The left main is angiographically normal. It bifurcates into the circumflex and left anterior descending artery. 3. The left circumflex is a large caliber vessel. It is a nondominant vessel. The proximal circumflex is stented and the stent is patent. The mid circumflex appeared to be normal and gives rise into OM branch which appeared to have mild disease only. The circumflex distally appeared to be angiographically normal. 4. The LAD: The proximal LAD is normal. The mid LAD is normal as well and the LAD distally is normal. The LAD gives rise into a large diagonal branch which appeared to be angiographically normal. HEMODYNAMICS: The left ventricular end-diastolic pressure was 24 mmHg without significant gradient across the aortic valve. PCI OF THE RCA: Anticoagulation was initiated using Angiomax. Subsequently I did engage the right coronary artery using JR4 guide. A whisper wire was used to be to cross the acute total occlusion of the proximal right coronary artery. The wire was positioned in the distal RCA. After that I did aspiration thrombectomy from the right coronary artery before I did balloon angioplasty initially using 2.5 x 12 mm balloon and then 3.0 x 15 mm balloon. After that, I did stent the proximal right coronary artery using 2.75 x 28 mm Xience LEANDRA where the stent was positioned under fluoroscopy guidance and deployed under its nominal pressure. The following angiogram showed good angiographic results. During the procedure, the patient was hypotensive and had bradycardia and I had to give the patient atropine as well as start the patient on dopamine drip. By the end of the procedure, the patient was normotensive. I did post dilate the stent using 3.5 mm balloon. The final result showed good angiographic results with residual stenosis in the mid RCA appeared to be in the range of 50%. The procedure was completed without any complication. At the end of the procedure, the patient went into VFib and I shocked the patient and he came back to normal sinus mechanism. CONCLUSION: 1. Acute inferior ST-elevation myocardial infarction. 2. Very late stent thrombosis. The patient underwent successful stenting of the right coronary artery. 3. The patient does have intermediate disease involving the mid RCA distal to the stent. 4. Patent stent in the left circumflex. 5. Normal left anterior descending artery. POSTPROCEDURE MANAGEMENT: 1. Dual anti-platelet therapy. 2. The patient was started on amiodarone drip for the VFib. 3. Coronary risk factors modifications. 4. Aggressive cholesterol control. 5. An echocardiogram with Doppler to assess a ejection fraction. 6. Follow up with the patient. MMODL / IJN: [id number] /
--- NOTE | 2018-03-08 20:55 | XR ---
EXAMINATION TYPE: XR chest 1V portable DATE OF EXAM: 03/08/2018 COMPARISON: 03/01/2018 HISTORY: Pneumonia. Heart attack TECHNIQUE: Single frontal view of the chest is obtained. FINDINGS: There is coarsening of the interstitial markings. Heart is top normal in size. There is no gross heart failure. There are chest leads. Costophrenic angles are clear. IMPRESSION: Mild pulmonary fibrosis. No significant change. No overt heart failure.
[2018-03-08] MEDS ORDERED: METOPROLOL TARTRATE 25 MG TAB PO SCH (21:00)
[2018-03-08] MEDS: IPRATROPIUM-ALBUTEROL 3 ML NEB INHALATION SCH (21:18)
[2018-03-08 22:01] LABS: Glucose,Whole Blood 130 mg/dL (75-99)
[2018-03-08] MEDS: ATORVASTATIN 80 MG TAB PO SCH (22:08)
[2018-03-08] MEDS: METOPROLOL TARTRATE 25 MG TAB PO SCH (22:08)
[2018-03-08] MEDS ORDERED: Magnesium Replacement Protocol 1 EACH MISC MISCELLANE PRN (22:20)
--- NOTE | 2018-03-09 00:34 | P.CNNES ---
History of Present Illness Consult date: 03/08/18 Reason for Consult: Patient is status post cardiac cath with TIA symptoms afterwards. History of Present Illness: This patient is a 57-year-old right-handed white male who apparently yesterday morning was noticing difficulty with chest pain and discomfort. Patient states he had been under a great deal of stress and was not sleeping properly but apparently developed some symptoms of excessive sweating which he had treated to possibility of hypoglycemia. He has a history of underlying diabetes and does take metformin on a regular basis. He thought maybe his blood sugars were low and this was his concern yesterday morning. Apparently he has a day when on he began having chest discomfort including chest pain. He describes it as retrosternal chest pain associated with sweating and lightheadedness. He decided to go to the emergency room at [facility] where he was evaluated and was found to have evidence of a ST elevated myocardial infarction. Cardiology recommended he be transferred to the [facility] for cardiac catheterization. Patient was seen by Dr. Salinas from cardiology who recommended the patient undergo cardiac catheterization. Patient had evidence of occlusion of the right coronary artery which required a stent placement. This was performed by Dr. Salinas this morning. At the end of his procedure the patient went into ventricular fibrillation and Dr. Salinas did apply cardioversion and he was shocked once. This caused him to go back to normal sinus rhythm. He was then transferred to the intensive care unit for close monitoring. He was noted to have some slurring of his speech which was concerning is his speech had been clear all this time. He was sent for an emergency computed tomography scan of the brain following this event which came back negative for any acute intracranial process. Apparently a code stroke was initiated when he was noted by nursing staff is having the slurred speech. He was not felt to be a candidate for any further intervention. He is now resting comfortably and has had no further recurrence of slurred speech or difficulty with aphasia. The patient himself feels that his speech was quite normal for his day today. He thinks he was having some difficulty with his dentures and false teeth that was causing some of the symptoms at that time. On further questioning the patient states he does use drugs including cocaine on a fairly regular basis. This clearly could've caused some issues for this patient's current symptoms related to coronary artery disease. Patient will require some outpatient counseling in terms of drug rehabilitation. He is being scheduled for MRI of the brain tomorrow and we will await these results. The patient otherwise seems to be making slow progress. We would recommend check his lipid profile as well as his hemoglobin A1c to help adjust his diet as needed. His overall prognosis at this time remains guarded. We will continue close neurological follow-up for this patient during this admission. Once again his overall prognosis at this time remains guarded. Review of Systems Constitutional: Denies chills, Denies fever Eyes: denies blurred vision, denies pain Ears, nose, mouth and throat: Denies headache, Denies sore throat Cardiovascular: Denies chest pain, Denies shortness of breath Respiratory: Denies cough Gastrointestinal: Denies abdominal pain, Denies diarrhea, Denies nausea, Denies vomiting Musculoskeletal: Denies myalgias Integumentary: Denies pruritus, Denies rash Neurological: Denies numbness, Denies weakness Psychiatric: Denies anxiety, Denies depression Endocrine: Denies fatigue, Denies weight change Past Medical History Past Medical History: Asthma, Coronary Artery Disease (CAD), Cancer, Chest Pain / Angina, COPD, CVA/TIA, Diabetes Mellitus, GERD/Reflux, Hyperlipidemia, Hypertension, Memory Impairment Additional Past Medical History / Comment(s): steroids July 2016,hx TIA- memory loss,. uses O2 2L at night and PRN during the day, hx skin cancer,lung nodules, back pain History of Any Multi-Drug Resistant Organisms: None Reported Past Surgical History: Appendectomy, Back Surgery, Heart Catheterization With Stent, Hernia Repair, Orthopedic Surgery Additional Past Surgical History / Comment(s): rt wrist surgery, steroid injection in neck, HAVING COLONOSCOPY 03/06/17 Past Anesthesia/Blood Transfusion Reactions: No Reported Reaction Date of Last Stent Placement:: 2013 Smoking Status: Current every day smoker - Past Family History Father Family Medical History: Coronary Artery Disease (CAD) Mother Family Medical History: Cancer Medications and Allergies Home Medications Medication Instructions Recorded Confirmed Type ALPRAZolam [Xanax] 1 mg PO Q8H PRN 12/01/14 03/07/17 History Albuterol Inhaler [Ventolin Hfa 1 - 2 puff INHALATION RT-DAILY PRN 12/01/14 History Inhaler] Aspirin 81 mg PO DAILY 12/01/14 03/07/17 History Hydrochlorothiazide [Hydrodiuril] 50 mg PO DAILY 12/01/14 03/07/17 History Metoprolol Tartrate [Lopressor] 25 mg PO BID 12/01/14 03/07/17 History Montelukast [Singulair] 10 mg PO DAILY 12/01/14 03/07/17 History Nitroglycerin Sl Tabs [Nitrostat] 0.4 mg SUBLINGUAL Q5M PRN 12/01/14 03/07/17 History Omeprazole [PriLOSEC] 20 mg PO BID 12/01/14 03/07/17 History Pravastatin Sodium [Pravachol] 80 mg PO HS 12/01/14 03/07/17 History rOPINIRole HCL [Requip] 0.125 mg PO HS PRN 12/01/14 03/07/17 History Lisinopril [Zestril] 5 mg PO DAILY 08/02/16 03/07/17 History Ranitidine HCl 300 mg PO HS PRN 08/02/16 03/07/17 History Pregabalin [Lyrica] 75 mg PO BID 08/24/16 03/07/17 History Clopidogrel [Plavix] 75 mg PO DAILY #90 tab 08/26/16 03/07/17 Rx Atorvastatin [Lipitor] 40 mg PO HS 12/16/16 03/07/17 History Budesonide/Formoterol Fumarate 2 puff INHALATION RT-BID 12/16/16 03/07/17 History [Symbicort 160-4.5 Mcg Inhaler] Cyclobenzaprine HCl 5 mg PO BID PRN 12/16/16 03/07/17 History Ibuprofen [Motrin] 800 mg PO TID PRN 12/16/16 03/07/17 History metFORMIN HCL [Glucophage] 500 mg PO BID 12/16/16 03/07/17 History DULoxetine HCL [Cymbalta] 60 mg PO DAILY 03/01/17 03/07/17 History FLUoxetine HCL [PROzac] 20 mg PO DAILY 03/01/17 03/07/17 History Pramipexole [Mirapex] 1 mg PO ONCE 03/01/17 03/07/17 History HYDROcodone/APAP 7.5-325MG [[place] 1 each PO Q4H PRN #30 tab 10/31/17 Rx 7.5] HYDROcodone/APAP 10-325MG [[place] 1 tab PO Q6HR PRN 3 Days #12 tab 12/02/17 Rx 10-325] Levofloxacin [Levaquin] 750 mg PO DAILY #7 tab 03/01/18 Rx Levofloxacin [Levaquin] 750 mg PO DAILY 3 Days #3 tab 03/01/18 Rx Promethazine/Dextromethorphan 5 ml PO TID #120 ml 03/01/18 Rx [Phenergan DM Syrup] predniSONE 50 mg PO DAILY #5 tablet 03/01/18 Rx Allergies Allergy/AdvReac Type Severity Reaction Status Date / Time grass pollen Allergy Itching Verified 03/01/18 14:47 menthol Allergy Dyspnea Verified 03/01/18 14:47 Sulfa (Sulfonamide Allergy Unknown Verified 03/01/18 14:47 Antibiotics) Childhood venom-honey bee Allergy Anaphylaxis Verified 03/01/18 14:47 Physical Examination - Vital Signs Vital Signs: Vital Signs Temp Pulse Resp BP Pulse Ox 03/08/18 19:30 62 15 135/92 97 03/08/18 19:15 68 15 120/80 97 03/08/18 19:00 65 12 107/70 98 03/08/18 18:45 61 20 92/80 97 03/08/18 18:30 63 22 101/61 98 03/08/18 18:15 63 19 94/63 98 03/08/18 18:00 98.0 F 65 20 110/63 95 03/08/18 17:45 63 18 107/67 97 03/08/18 17:30 60 17 101/67 96 03/08/18 17:15 63 20 101/72 97 03/08/18 17:00 60 15 98/72 98 03/08/18 16:45 59 L 20 93/75 97 03/08/18 16:30 63 16 142/96 95 03/08/18 16:15 73 20 131/105 96 03/08/18 16:00 67 14 107/69 98 03/08/18 15:50 64 17 107/69 96 03/08/18 15:40 64 18 110/78 96 03/08/18 15:30 62 23 95/75 03/08/18 15:20 95/75 03/08/18 15:10 95/75 03/08/18 15:00 67 16 106/78 97 03/08/18 14:50 61 16 106/78 97 03/08/18 14:40 97.7 F 64 16 121/83 97 Intake and Output 03/08/18 03/08/18 03/08/18 06:59 14:59 22:59 Intake Total 714.024 806.581 Output Total 575 Balance 714.024 231.581 Intake: IV 711.8 616.6 Amiodarone 450 mg In 66.6 Dextrose 5% in Water 250 ml @ 1 MG/MIN 33.33 mls/ hr IV .Q7H15M JERROD Rx#: [id number] Sodium Chloride 0.9% 1, 500 000 ml @ 100 mls/hr IV . Q10H JERROD Rx#:[id number] cefTRIAXone 1,000 mg In 50 Sodium Chloride 0.9% 50 ml @ 100 mls/hr IVPB Q24H JERROD Rx#:[id number] Intake, IV Titration 2.224 189.981 Amount Amiodarone 450 mg In 189.981 Dextrose 5% in Water 250 ml @ 1 MG/MIN 33.33 mls/ hr IV .Q7H15M JERROD Rx#: [id number] Norepinephrine 4 mg In 2.224 Sodium Chloride 0.9% 250 ml @ Titrate IV .Q0M JERROD Rx#:[id number] Output: Urine 575 Other: Weight 104.326 kg 111.3 kg ABP, PAP, CO, CI - Last 8 Hours Arterial Blood Pressure 93/51 Arterial Blood Pressure 101/55 Arterial Blood Pressure 102/60 Arterial Blood Pressure 100/54 Arterial Blood Pressure 108/63 Arterial Blood Pressure 115/58 Arterial Blood Pressure 116/68 Arterial Blood Pressure 101/58 Arterial Blood Pressure 98/55 Arterial Blood Pressure 108/62 Arterial Blood Pressure 118/71 Arterial Blood Pressure 123/75 - Constitutional General appearance: average body habitus, cooperative - EENT EENT: PERRL, mucous membranes moist - Respiratory Respiratory: lungs clear, normal breath sounds - Cardiovascular Cardiovascular: regular rate, normal S1, normal S2 Extremities: no peripheral edema bilaterally - Gastrointestinal Gastrointestinal: normoactive bowel sounds - Neurologic Cranial nerve examination: PERRL, EOMI, VFF, V1/V2/V3 grossly intact, face symmetric, tongue midline, intact gag reflex, intact corneal reflex, normal palatal elevation Speech examination: intact Sensorimotor examination: intact Motor examination - right side: 45: biceps, triceps, wrist flexion, wrist extension, prepress supervisor, hip flexors, knee extensors, dorsiflexion, toe extension (EHL) , plantarflexion Motor examination - left side: 4/5: biceps, triceps, wrist flexion, wrist extension, prepress supervisor, hip flexors, knee extensors, dorsiflexion, toe extension (EHL) , plantarflexion Detailed sensory examination: intact Reflex and gait examination: intact Reflexes: 1+: ankle, bicep, knee, tricep - Musculoskeletal Musculoskeletal: no pain - Psychiatric Psychiatric: mood/affect appropriate, cooperative Results - Laboratory Findings CBC and BMP: 03/08/18 15:40 03/08/18 15:40 Abnormal Lab Findings: Abnormal Labs 03/08/18 03/08/18 03/08/18 15:40 15:40 15:40 WBC 15.6 H MCHC 30.6 L Neutrophils # 13.4 H PT 12.4 H INR 1.3 H APTT 49.2 H Chloride Carbon Dioxide BUN Glucose POC Glucose (mg/dL) Troponin I 67.600 H* Urine Cocaine Screen U Marijuana (THC) Screen 03/08/18 03/08/18 03/08/18 15:40 16:10 16:46 WBC MCHC Neutrophils # PT INR APTT Chloride 109 H Carbon Dioxide 21 L BUN 23 H Glucose 173 H POC Glucose (mg/dL) 152 H Troponin I Urine Cocaine Screen Detected H U Marijuana (THC) Screen Detected H Assessment and Plan (1) TIA (transient ischemic attack) Current Visit: Yes Status: Acute Code(s): G45.9 - TRANSIENT CEREBRAL ISCHEMIC ATTACK, UNSPECIFIED SNOMED Code(s): 637785950 (2) Ventricular fibrillation, paroxysmal Current Visit: Yes Status: Acute Code(s): I49.01 - VENTRICULAR FIBRILLATION SNOMED Code(s): 61150230 (3) Hyperlipidemia Current Visit: Yes Status: Acute Code(s): E78.5 - HYPERLIPIDEMIA, UNSPECIFIED SNOMED Code(s): 90795524 (4) COPD exacerbation Current Visit: No Status: Acute Code(s): J44.1 - CHRONIC OBSTRUCTIVE PULMONARY DISEASE W (ACUTE) EXACERBATION SNOMED Code(s): 433721932 Plan: This patient is a 57-year-old male being evaluated for episode of slurred speech following cardiac catheterization and stent placement today. Patient was seen by Dr. Salinas for ST elevated myocardial infarction and was recommended to undergo cardiac catheterization was stent placement today. Patient completed successful stent placement of the RCA however following the procedure he developed ventricular fibrillation. He was started on amiodarone following cardioversion with shock performed by Dr. Salinas. Patient was brought into the intensive care unit and apparently following this procedure developed evidence of slurred speech. He does have a history of cocaine use the night before and a drug screen was ordered. The patient was sent for a stat computed tomography scan of the brain results which are noted above. Was no evidence of acute stroke. He is scheduled to have MRI of the brain done tomorrow. We have recommended a complete stroke evaluation for the patient. We will also check his lipid profile and hemoglobin A1c. His neurological examination today bedside is nonfocal. His overall prognosis at this time remains very guarded. Would recommend the patient to be maintained on aspirin 81 mg daily for secondary stroke prevention. He was counseled on drug rehabilitation as this is a high risk factor for him. We will continue close neurological follow-up for the patient during this admission. His overall prognosis at this time remains guarded. Time with Patient: Greater than 30
[2018-03-09] MEDS: MAGNESIUM SULFATE-D5W PMX 1 GM in DEXTROSE/WATER 1 100ML.BAG IVPB SCH ×2 (00:40→01:46)
[2018-03-09 05:18] LABS: Basophils # (A) 0.1 k/uL (0-0.2); Basophils % (A) 0 %; Eosinophils # (A) 0.2 k/uL (0-0.7); Eosinophils % (A) 1 %; HCT 43.8 % (39.0-53.0); HGB 13.5 gm/dL (13.0-17.5); Hypochromasia Slight; Lymphocytes # (A) 2.5 k/uL (1.0-4.8); Lymphocytes % (A) 13 %; MCH 28.3 pg (25.0-35.0); MCHC 30.9 g/dL (31.0-37.0); MCV 91.4 fL (80.0-100.0); Mean Platelet Volume 6.8; Monocytes # (A) 0.9 k/uL (0-1.0); Monocytes % (A) 5 %; Neutrophils # (A) 15.1 k/uL (1.3-7.7); Neutrophils % (A) 80 %; Platelet Count 301 k/uL (150-450); RBC 4.79 m/uL (4.30-5.90); RDW 15.2 % (11.5-15.5)
[2018-03-09 05:35] LABS: ALT 77 U/L (21-72); AST 299 U/L (17-59); Albumin 3.5 g/dL (3.5-5.0); Alkaline Phosphatase 77 U/L (38-126); Anion Gap 5 mmol/L; Blood Urea Nitrogen 25 mg/dL (9-20); Calcium 9.3 mg/dL (8.4-10.2); Carbon Dioxide 25 mmol/L (22-30); Chloride 107 mmol/L (98-107); Cholesterol 170 mg/dL (<200); Glucose 119 mg/dL (74-99); HDL Cholesterol 40 mg/dL (40-60); LDL Cholesterol,Calculated 52 mg/dL (0-99); Magnesium 2.6 mg/dL (1.6-2.3); Potassium 4.6 mmol/L (3.5-5.1); Sodium 137 mmol/L (137-145); Total Bilirubin 0.8 mg/dL (0.2-1.3); Total Protein 6.2 g/dL (6.3-8.2); Triglycerides 391 mg/dL (<150)
[2018-03-09] MEDS ORDERED: DIAZEPAM 2 MG TAB PO STA (06:10)
[2018-03-09 07:33] LABS: Glucose,Whole Blood 121 mg/dL (75-99)
[2018-03-09] MEDS: INSULIN ASPART 100 UNIT/ML 1 ML 10 ML VIAL SQ SCH ×4 (08:03→21:48)
[2018-03-09] MEDS ORDERED: LISINOPRIL 10 MG TAB PO SCH (09:00)
[2018-03-09] MEDS: IPRATROPIUM-ALBUTEROL 3 ML NEB INHALATION SCH ×4 (09:08→19:22)
[2018-03-09] MEDS: METOPROLOL TARTRATE 25 MG TAB PO SCH ×3 (09:38→21:49)
[2018-03-09] MEDS: ASPIRIN 325 MG TAB PO SCH (09:38)
[2018-03-09] MEDS: NICOTINE 14MG/24HR PATCH TRANSDERM SCH (09:38)
[2018-03-09] MEDS: PANTOPRAZOLE 40 MG TABLET PO SCH (09:38)
--- NOTE | 2018-03-09 09:58 | PN ---
PROGRESS NOTE Mr. Vaughn is a 57-year-old male with known history of coronary artery disease, status post stenting of the right coronary artery in August 2016, who presented yesterday with an acute inferior myocardial infarction with acute closure of his stent. He underwent repeat stenting by Dr. Salinas. An episode of ventricular fibrillation during the procedure requiring cardioversion. He is awake, alert today. He had no symptoms of chest pain. He had slurred speech following the procedure that has resolved. He denies any dizziness., palpitation. He denies any nausea. He continues to be on the monitor he is in sinus mechanism without any episode of tachy arrhythmia. He continues to be on aspirin once a day,.Lipitor 80 mg daily, Plavix 75 mg daily, metoprolol tartrate 25 mg twice a day. PHYSICAL EXAMINATION: Blood pressure 110/69 with a heart rate in 70s/lungs with decreased air exchange no wheezes appreciated. HEART: Regular rhythm S1, S2. No S3. No rub. ABDOMEN: Soft, nontender. EXTREMITIES: No edema right groin no hematoma. LAB DATA: BUN creatinine 25 and 1.0. His AST is 299, ALT of 77. His troponin peak at 87. His cholesterol is 170 with an LDL of 52. IMPRESSION: 1. Status post stenting of the right coronary artery with a stent occlusion and stenting of an acute myocardial infarction. 2. Episode of atrial fibrillation, ventricular fibrillation post procedure during the procedure that has been stable. 3. History of chronic tobacco use. 4. Prior history of hyperlipidemia. RECOMMENDATION: From the cardiac standpoint,we will continue present therapy I will review the results of his echocardiogram. We will increase his level of activity. If he is stable by the afternoon, he may be able to be transferred to the telemetry floor. MMODL / IJN: [id number] /
--- NOTE | 2018-03-09 09:59 | US ---
EXAMINATION TYPE: US carotid duplex BILAT DATE OF EXAM: 03/09/2018 COMPARISON: NONE CLINICAL HISTORY: Patient with TIA.. HTN. Recent heart attack x 2 days ago. Stroke x 5 years ago. Exam performed portable in ICU. Patient kept moving during exam. EXAM MEASUREMENTS: RIGHT: Peak Systolic Velocity (PSV) cm/sec ----- Right CCA: 76.8 ----- Right ICA: 65.8 ----- Right ECA: 100.0 ICA/CCA ratio: 0.9 RIGHT: End Diastole cm/sec ----- Right CCA: 26.3 ----- Right ICA: 27.4 ----- Right ECA: 27.3 LEFT: Peak Systolic Velocity (PSV) cm/sec ----- Left CCA: 67.6 ----- Left ICA: 79.0 ----- Left ECA: 95.6 ICA/CCA ratio: 1.2 LEFT: End Diastole cm/sec ----- Left CCA: 20.4 ----- Left ICA: 28.5 ----- Left ECA: 15.4 VERTEBRALS (direction of flow): Right Vertebral: Antegrade Left Vertebral: Antegrade Rhythm: Normal Bilateral wall thickening. No elevated velocities or significant stenosis. Plaque seen in bilateral bulbs. There is turbulent flow present on the left and to a lesser degree on the right. IMPRESSION: Atheromatous plaquing without significant flow-limiting stenosis. Intimal thickening is present. Criteria for Assigning % of Stenosis / Diameter reduction (Estimation based on the indirect measurements of the internal carotid artery velocities (ICA PSV). 1. Normal (no stenosis)=ICA PSV < 125 cm/s: ratio < 2.0: ICA EDV<40 cm/s. 2. Less than 50% stenosis=ICA PSV < 125 cm/s: ratio < 2.0: ICA EDV<40 cm/s. 3. 50 to 69% stenosis=ICA PSV of 125 to 230 cm/s: ration 2.0 ? 4.0: ICA EDV 40-100 cm/s. 4. Greater than 70% stenosis to near occlusion= ICA PSV > 230 cm/s: ratio > 4.0: ICA EDV > 100 cm/s. 5. Near occlusion= ICA PSV velocities may be low or undetectable: variable ratio and ICA EDV. 6. Total occlusion=unable to detect flow.
--- NOTE | 2018-03-09 10:00 | ECHOF ---
Referral Reason:stemi MEASUREMENTS -------- HEIGHT: 185.4 cm WEIGHT: 105.2 kg BP: 116/71 RVIDd: 2.8 cm (< 3.3) IVSd: 1.0 cm (0.6 - 1.1) LVIDd: 4.1 cm (3.9 - 5.3) LVPWd: 1.1 cm (0.6 - 1.1) IVSs: 1.8 cm LVIDs: 3.3 cm LVPWs: 1.7 cm LA Diam: 3.6 cm (2.7 - 3.8) LAESV Index (A-L): 15.62 ml/m Ao Diam: 3.3 cm (2.0 - 3.7) AV Cusp: 2.2 cm (1.5 - 2.6) MV EXCURSION: 13.883 mm (> 18.000) MV EF SLOPE: 110 mm/s (70 - 150) EPSS: 0.8 cm MV E Juan A: 0.52 m/s MV DecT: 214 ms MV A Juan A: 0.55 m/s MV E/A Ratio: 0.95 RAP: 15.00 mmHg RVSP: 30.59 mmHg FINDINGS -------- Sinus rhythm. This was a technically difficult study with suboptimal views. The left ventricular size is normal. There is borderline concentric left ventricular hypertrophy. Overall left ventricular systolic function is mild-moderately impaired with, an EF between 40 - 45 % . Basal inferior LV wall motion is hypokinetic. Basal inferoseptal LV wall motion is dyskinetic. Mid inferior LV wall motion is hypokinetic. The right ventricle is normal in size. The right atrium was not well visualized. Lumason used The aortic valve is trileaflet and appears structurally normal. Mild mitral regurgitation is present. Mild tricuspid regurgitation present. Right ventricular systolic pressure is normal at < 35 mmHg. There is no pulmonic regurgitation present. The aortic root size is normal. The inferior vena cava is dilated with no significant inspiratory collapse which is consistent estima shady right atrial pressure of >15 mmHg. There is no pericardial effusion. CONCLUSIONS -------- 1. Sinus rhythm. 2. This was a technically difficult study with suboptimal views. 3. The left ventricular size is normal. 4. There is borderline concentric left ventricular hypertrophy. 5. Overall left ventricular systolic function is mild-moderately impaired with, an EF between 40 - 45 %. 6. Basal inferior LV wall motion is hypokinetic. 7. Basal inferoseptal LV wall motion is dyskinetic. 8. Mid inferior LV wall motion is hypokinetic. 9. The right ventricle is normal in size. 10. The right atrium was not well visualized. 11. Lumason used 12. The aortic valve is trileaflet and appears structurally normal. 13. Mild mitral regurgitation is present. 14. Mild tricuspid regurgitation present. 15. Right ventricular systolic pressure is normal at < 35 mmHg. 16. There is no pulmonic regurgitation present. 17. The aortic root size is normal. 18. The inferior vena cava is dilated with no significant inspiratory collapse which is consistent es timated right atrial pressure of >15 mmHg. 19. There is no pericardial effusion. BLOOD BANK SPECIALIST: Bella Patel RDCS
--- NOTE | 2018-03-09 10:06 | P.PN ---
Subjective Progress Note Date: 03/09/18 This is a 57-year-old male patient of Dr. Gagnon. Patient presented to [facility] with complaints of chest pain that has been significantly increasing. Patient states it's been occurring for many weeks but had significantly increased since last night. Patient does admit that he did cocaine last night. It was found upon arrival to ER the patient was having an ST elevated myocardial infarction. Patient was transferred directly to cardiac catheterization lab and received a stent to the RCA. Patient also went into V. fib post intervention. Patient was started on amiodarone drip. Patient also required levophed for pressure support. Levophed currently off. Patient is currently sinus rhythm/sinus bradycardia. Postintervention patient also experienced slurred speech. Code stroke was initiated. Patient was taking for head CT. CT of head completed showing no acute intracranial process. Neurology services are following. MRI ordered. Drug Screen also ordered. Patient has a known past medical history of asthma, coronary artery disease he, chest pain, COPD, CVA, diabetes mellitus, GERD, hyperlipidemia, memory impairment, hypertension, anxiety, nicotine dependence, marijuana use, cocaine use and heart catheterization with stents. Patient also states he's been recently getting treatment for pneumonia. Patient was taking Levaquin and steroids. Patient also uses home O2 2 L at night and when necessary Patient is currently resting comfortably in the intensive care unit. At this time patient is alert and oriented 3. Speech does appear clear. Equal strength throughout all extremities. At this time patient denies chest pain or shortness of breath. Patient denies any urinary burning or frequency. On 03/09/2018 patient is currently resting comfortably in bed. Patient denies chest pain at this time. Patient is complaining of shortness of breath. Chest x-ray completed. Pulmonaru services have been consulted. At this time she denies nausea vomiting or diarrhea. Patient denies any urinary burning or frequency Objective - Vital Signs Vital signs: Vital Signs Temp 98.1 F 03/09/18 08:00 Pulse 65 03/09/18 09:20 Resp 14 03/09/18 08:00 BP 110/69 03/09/18 08:00 Pulse Ox 94 L 03/09/18 08:00 Intake & Output 03/08/18 03/09/18 03/09/18 18:59 06:59 18:59 Intake Total 1230.624 659.981 Output Total 400 1325 Balance 830.624 -665.019 Weight 111.3 kg 114.7 kg Intake: IV 1228.4 470 Amiodarone 450 mg In 66.6 Dextrose 5% in Water 250 ml @ 1 MG/MIN 33.33 mls/ hr IV .Q7H15M [facility] Rx#: [id number] Sodium Chloride 0.9% 1, 400 470 000 ml @ 100 mls/hr IV . Q10H [facility] Rx#:[id number] cefTRIAXone 1,000 mg In 50 Sodium Chloride 0.9% 50 ml @ 100 mls/hr IVPB Q24H [facility] Rx#:[id number] Intake, IV Titration 2.224 189.981 Amount Amiodarone 450 mg In 189.981 Dextrose 5% in Water 250 ml @ 1 MG/MIN 33.33 mls/ hr IV .Q7H15M [facility] Rx#: [id number] Norepinephrine 4 mg In 2.224 Sodium Chloride 0.9% 250 ml @ Titrate IV .Q0M [facility] Rx#:[id number] Output: Urine 400 1325 Other: Voiding Method Urinal Urinal # Voids 0 0 ABP, PAP, CO, CI - Last Documented Arterial Blood Pressure 93/51 - Exam Head normocephalic Neck supple Lungs minutes sounds bilaterally. Expiratory wheezing Heart regular rate and rhythm S1-S2, no rub or gallop Abdomen is soft nontender nondistended positive bowel sounds no hepatosplenomegaly Extremities no edema Neuro alert and orientated to 3 - Labs CBC & Chem 7: 03/09/18 04:31 03/09/18 04:31 Labs: Abnormal Lab Results - Last 24 Hours (Table) 03/08/18 03/08/18 03/08/18 Range/Units 15:40 15:40 15:40 WBC 15.6 H (3.8-10.6) k/uL MCHC 30.6 L (31.0-37.0) g/dL Neutrophils # 13.4 H (1.3-7.7) k/uL PT 12.4 H (9.0-12.0) sec INR 1.3 H (<1.2) APTT 49.2 H (22.0-30.0) sec Chloride (98-107) mmol/L Carbon Dioxide (22-30) mmol/L BUN (9-20) mg/dL Glucose (74-99) mg/dL POC Glucose (mg/dL) (75-99) mg/dL Magnesium (1.6-2.3) mg/dL AST (17-59) U/L ALT (21-72) U/L Troponin I 67.600 H* (0.000-0.034) ng/mL Total Protein (6.3-8.2) g/dL Triglycerides (<150) mg/dL Urine Cocaine Screen (NotDetected) U Marijuana (THC) Screen (NotDetected) 03/08/18 03/08/18 03/08/18 Range/Units 15:40 16:10 16:46 WBC (3.8-10.6) k/uL MCHC (31.0-37.0) g/dL Neutrophils # (1.3-7.7) k/uL PT (9.0-12.0) sec INR (<1.2) APTT (22.0-30.0) sec Chloride 109 H (98-107) mmol/L Carbon Dioxide 21 L (22-30) mmol/L BUN 23 H (9-20) mg/dL Glucose 173 H (74-99) mg/dL POC Glucose (mg/dL) 152 H (75-99) mg/dL Magnesium (1.6-2.3) mg/dL AST (17-59) U/L ALT (21-72) U/L Troponin I (0.000-0.034) ng/mL Total Protein (6.3-8.2) g/dL Triglycerides (<150) mg/dL Urine Cocaine Screen Detected H (NotDetected) U Marijuana (THC) Screen Detected H (NotDetected) 03/08/18 03/08/18 03/09/18 Range/Units 21:23 21:49 04:31 WBC (3.8-10.6) k/uL MCHC (31.0-37.0) g/dL Neutrophils # (1.3-7.7) k/uL PT (9.0-12.0) sec INR (<1.2) APTT (22.0-30.0) sec Chloride (98-107) mmol/L Carbon Dioxide (22-30) mmol/L BUN 25 H (9-20) mg/dL Glucose 119 H (74-99) mg/dL POC Glucose (mg/dL) 130 H (75-99) mg/dL Magnesium 2.6 H (1.6-2.3) mg/dL AST 299 H (17-59) U/L ALT 77 H (21-72) U/L Troponin I 87.400 H* (0.000-0.034) ng/mL Total Protein 6.2 L (6.3-8.2) g/dL Triglycerides 391 H (<150) mg/dL Urine Cocaine Screen (NotDetected) U Marijuana (THC) Screen (NotDetected) 03/09/18 03/09/18 03/09/18 Range/Units 04:31 04:31 07:13 WBC 19.0 H (3.8-10.6) k/uL MCHC 30.9 L (31.0-37.0) g/dL Neutrophils # 15.1 H (1.3-7.7) k/uL PT (9.0-12.0) sec INR (<1.2) APTT (22.0-30.0) sec Chloride (98-107) mmol/L Carbon Dioxide (22-30) mmol/L BUN (9-20) mg/dL Glucose (74-99) mg/dL POC Glucose (mg/dL) 121 H (75-99) mg/dL Magnesium (1.6-2.3) mg/dL AST (17-59) U/L ALT (21-72) U/L Troponin I 69.600 H* (0.000-0.034) ng/mL Total Protein (6.3-8.2) g/dL Triglycerides (<150) mg/dL Urine Cocaine Screen (NotDetected) U Marijuana (THC) Screen (NotDetected) Assessment and Plan Assessment: 1. ST elevated myocardial infarction. Patient received stent to RCA. Patient currently on Plavix. 2D echo ordered. 2. Altered mental status with slurred speech. Patient had altered mental status post intervention. Stroke initiated. Head CT completed showing no acute process. Carotid Doppler completed showing atheromatous plaquing without significant flow limiting stenosis. Intimal thickening is present. Per Neurology services MRI and EEG have been ordered. 3. Post intervention V. fib. Patient currently on amiodarone. Discontinued per cardiology services 4. Cocaine use. Patient admitted to using cocaine last night. Drug screen pleated showing positive cocaine and marijuana 5. Recent diagnosis and treatment of pneumonia. Patient states he was getting treated at the [place] for pneumonia with Levaquin and steroids. Start patient on Rocephin. Chest x-ray completed completed showing mild pulmonary fibrosis. No significant change. No overt heart failure. Patient remains on Rocephin. Patient also on DuoNeb breathing treatments. Awaiting coronary consult 6. History of coronary artery disease with previous stent placement 7. History of CVA 8. History of COPD. Patient does wear 2 L at night 9. History of diabetes mellitus. Metformin currently on hold. Will order sliding scale insulin 10. History of hyperlipidemia 11. History of essential hypertension 12. memory impairment 13. Nicotine dependence. Patient educated greater than 3 minutes smoking cessation. Nicotine patch has been ordered 14. Marijuana use 15. Leukocytosis. White blood cell increasing to 19.0. Patient is on Rocephin due to patient stating recent diagnosis of pneumonia. Chest x-ray completed showing mild pulmonary fibrosis. No significant change. No overt heart failure. Urinary analysis urine culture, blood culture and sputum culture have been ordered. GI prophylaxis Protonix. Consult for Dr. Ray due to recent diagnosis of pneumonia Awaiting home medication confirmation from family member I performed an examination of the patient and discussed their management with the Nurse Practitioner. I have reviewed the Nurse Practitioner's notes and agree with the documented findings and plan of care
[2018-03-09 11:03] VITALS: BMI 33.3
[2018-03-09 12:31] LABS: Glucose,Whole Blood 132 mg/dL (75-99)
[2018-03-09] MEDS: CLOPIDOGREL 75 MG TAB PO SCH (12:54)
[2018-03-09 13:16] LABS: Appearance,Urine Clear (Clear); Bilirubin,Urine Negative (Negative); Blood,Urine Negative (Negative); Color,Urine Yellow; Glucose,Urine (UA) Negative (Negative); Ketones,Urine Negative (Negative); Leukocyte Esterase,Urine Negative (Negative); Nitrite,Urine Negative (Negative); Protein,Urine Trace (Negative); Specific Gravity,Urine 1.031 (1.001-1.035); Urobilinogen,Urine <2.0 mg/dL (<2.0)
[2018-03-09] MEDS ORDERED: ALBUTEROL NEBULIZED 2.5 MG/3 ML INHALATION PRN (13:38)
[2018-03-09] MEDS ORDERED: FAMOTIDINE 20 MG TAB PO PRN (13:38)
--- NOTE | 2018-03-09 13:45 | P.CNPUL ---
History of Present Illness Consult date: 03/09/18 Requesting physician: Jose Salinas Reason for consult: dyspnea Chief complaint: Shortness of breath History of present illness: This is a very pleasant 57-year-old gentleman who follows with Dr. Gagnon as his primary care physician. He has a history of CVA, diabetes mellitus, GERD, hyperlipidemia, hypertension, anxiety, chronic tobacco dependence, marijuana use , cocaine use, coronary artery disease with previous stent placements to the RCA and circumflex. He had initially presented to [facility] with complaints of chest pain. He is found to have ST segment elevation myocardial infarction was transferred here directly to the [facility]. He had undergone aspiration thrombectomy from the right coronary artery and successful stenting of the proximal right coronary artery. He did have a V. fib arrest requiring defibrillation prior to leaving the [facility]. He is seen today in consultation in the intensive care unit. He is currently awake and alert in no acute distress. Echocardiogram revealed mild to moderately impaired left ventricular systolic function with ejection fraction 40-45%. Computed tomography scan of the brain showed no acute intracranial abnormalities. He does have a loose nonproductive cough and congestion. He states he was recently diagnosed with pneumonia. His chest x-ray revealed some mild pulmonary fibrosis but no acute pulmonary process. He is maintaining O2 saturations in the 90s on 2 L/m per nasal cannula. He is afebrile. White count 19.0. Hemoglobin 13.5. Creatinine 1.00. AST 299, ALT 77. Troponin 69. He is off pressors. He's been hemodynamically stable. Review of Systems Constitutional: Reports weakness Eyes: denies blurred vision, denies decreased vision Ears: deny: decreased hearing Ears, nose, mouth and throat: Denies headache, Denies sore throat Cardiovascular: Reports chest pain, Reports dyspnea on exertion, Reports shortness of breath Respiratory: Reports congestion, Reports cough, Reports dyspnea Gastrointestinal: Denies abdominal pain, Denies diarrhea, Denies nausea, Denies vomiting Genitourinary: Reports as per HPI Musculoskeletal: Reports as per HPI, Denies myalgias Integumentary: Denies pruritus, Denies rash Neurological: Denies numbness, Denies weakness Psychiatric: Reports anxiety Endocrine: Denies fatigue, Denies weight change Hematologic/Lymphatic: Reports as per HPI Allergic/Immunologic: Reports as per HPI Past Medical History Past Medical History: Asthma, Coronary Artery Disease (CAD), Cancer, Chest Pain / Angina, COPD, CVA/TIA, Diabetes Mellitus, GERD/Reflux, Hyperlipidemia, Hypertension, Memory Impairment Additional Past Medical History / Comment(s): steroids July 2016,hx TIA- memory loss,. uses O2 2L at night and PRN during the day, hx skin cancer,lung nodules, back pain History of Any Multi-Drug Resistant Organisms: None Reported Past Surgical History: Appendectomy, Back Surgery, Heart Catheterization With Stent, Hernia Repair, Orthopedic Surgery Additional Past Surgical History / Comment(s): rt wrist surgery, steroid injection in neck, HAVING COLONOSCOPY 03/06/17 Past Anesthesia/Blood Transfusion Reactions: No Reported Reaction Date of Last Stent Placement:: 2013 Smoking Status: Current every day smoker - Past Family History Father Family Medical History: Coronary Artery Disease (CAD) Mother Family Medical History: Cancer Medications and Allergies Home Medications Medication Instructions Recorded Confirmed Type ALPRAZolam [Xanax] 1 mg PO Q8H PRN 12/01/14 03/09/18 History Albuterol Inhaler [Ventolin Hfa 1 - 2 puff INHALATION RT-Q4H PRN 12/01/14 History Inhaler] Aspirin 81 mg PO DAILY 12/01/14 03/09/18 History Hydrochlorothiazide [Hydrodiuril] 25 mg PO DAILY 12/01/14 03/09/18 History Metoprolol Tartrate [Lopressor] 25 mg PO BID 12/01/14 03/09/18 History Montelukast [Singulair] 10 mg PO DAILY 12/01/14 03/09/18 History Nitroglycerin Sl Tabs [Nitrostat] 0.4 mg SUBLINGUAL Q5M PRN 12/01/14 03/09/18 History Omeprazole [PriLOSEC] 20 mg PO AC-BRKFST 12/01/14 03/09/18 History Pravastatin Sodium [Pravachol] 80 mg PO HS 12/01/14 03/09/18 History rOPINIRole HCL [Requip] 0.125 mg PO HS PRN 12/01/14 03/09/18 History Lisinopril [Zestril] 5 mg PO BID 08/02/16 03/09/18 History Ranitidine HCl 300 mg PO HS PRN 08/02/16 03/09/18 History Pregabalin [Lyrica] 75 mg PO BID 08/24/16 03/09/18 History Budesonide/Formoterol Fumarate 2 puff INHALATION RT-BID 12/16/16 03/09/18 History [Symbicort 160-4.5 Mcg Inhaler] FLUoxetine HCL [PROzac] 20 mg PO DAILY 03/01/17 03/09/18 History Cyclobenzaprine [Flexeril] 10 mg PO TID 03/09/18 03/09/18 History buPROPion HCL [buPROPion HCL SR] 150 mg PO BID 03/09/18 03/09/18 History Allergies Allergy/AdvReac Type Severity Reaction Status Date / Time grass pollen Allergy Itching Verified 03/09/18 10:09 menthol Allergy Dyspnea Verified 03/09/18 10:09 Sulfa (Sulfonamide Allergy Unknown Verified 03/09/18 10:09 Antibiotics) Childhood venom-honey bee Allergy Anaphylaxis Verified 03/09/18 10:09 Physical Exam Vitals: Vital Signs Temp Pulse Resp BP Pulse Ox 03/09/18 13:00 62 24 106/77 96 03/09/18 12:29 61 22 03/09/18 12:16 56 L 31 H 03/09/18 12:00 97.6 F 54 L 13 97/76 93 L 03/09/18 11:00 58 L 12 104/73 95 03/09/18 10:00 60 16 119/78 93 L 03/09/18 09:20 65 03/09/18 09:10 64 03/09/18 09:00 58 L 17 110/85 93 L 03/09/18 08:00 98.1 F 75 14 110/69 94 L 03/09/18 07:00 59 L 18 90/58 98 03/09/18 06:00 58 L 19 86/55 96 03/09/18 05:00 58 L 20 131/35 96 03/09/18 04:00 97.5 F L 82 18 118/74 95 03/09/18 03:00 57 L 20 112/69 95 03/09/18 02:00 58 L 18 92/52 93 L 03/09/18 01:00 59 L 17 105/71 95 03/09/18 00:00 98.1 F 83 20 111/70 96 03/08/18 23:00 61 19 109/71 91 L 03/08/18 22:14 63 24 103/69 95 03/08/18 22:00 97.8 F 59 L 21 103/64 94 L 03/08/18 21:00 65 18 119/81 95 03/08/18 20:00 64 16 114/85 96 03/08/18 19:30 62 15 135/92 97 03/08/18 19:15 68 15 120/80 97 03/08/18 19:00 65 12 107/70 98 03/08/18 18:45 61 20 92/80 97 03/08/18 18:30 63 22 101/61 98 03/08/18 18:15 63 19 94/63 98 03/08/18 18:00 98.0 F 65 20 110/63 95 03/08/18 17:45 63 18 107/67 97 03/08/18 17:30 60 17 101/67 96 03/08/18 17:15 63 20 101/72 97 03/08/18 17:00 60 15 98/72 98 03/08/18 16:45 59 L 20 93/75 97 03/08/18 16:30 63 16 142/96 95 03/08/18 16:15 73 20 131/105 96 03/08/18 16:00 67 14 107/69 98 03/08/18 15:50 64 17 107/69 96 03/08/18 15:40 64 18 110/78 96 03/08/18 15:30 62 23 95/75 03/08/18 15:20 95/75 03/08/18 15:10 95/75 03/08/18 15:00 67 16 106/78 97 03/08/18 14:50 61 16 106/78 97 03/08/18 14:40 97.7 F 64 16 121/83 97 Intake and Output 03/08/18 03/09/18 03/09/18 22:59 06:59 14:59 Intake Total 916.581 260 60 Output Total 925 800 450 Balance -8.919 -670 -239 Intake: IV 726.6 260 60 Amiodarone 450 mg In 66.6 Dextrose 5% in Water 250 ml @ 1 MG/MIN 33.33 mls/ hr IV .Q7H15M [facility] Rx#: [id number] Sodium Chloride 0.9% 1, 610 260 60 000 ml @ 100 mls/hr IV . Q10H [facility] Rx#:[id number] cefTRIAXone 1,000 mg In 50 Sodium Chloride 0.9% 50 ml @ 100 mls/hr IVPB Q24H [facility] Rx#:[id number] Intake, IV Titration 189.981 Amount Amiodarone 450 mg In 189.981 Dextrose 5% in Water 250 ml @ 1 MG/MIN 33.33 mls/ hr IV .Q7H15M [facility] Rx#: [id number] Output: Urine 925 800 450 Other: Voiding Method Urinal Urinal Urinal # Voids 1 0 0 Weight 111.3 kg 114.7 kg 114.7 kg GENERAL EXAM: Alert, comfortable in no apparent distress. HEAD: Normocephalic. EYES: Normal reaction of pupils, equal size. NOSE: Clear with pink turbinates. THROAT: No erythema or exudates. NECK: No masses, no JVD. CHEST: No chest wall deformity. LUNGS: Equal air entry with no crackles, wheeze, rhonchi or dullness. CVS: S1 and S2 normal with no audible murmur, regular rhythm. ABDOMEN: No hepatosplenomegaly, normal bowel sounds, no guarding or rigidity. SPINE: No scoliosis or deformity SKIN: No rashes CENTRAL NERVOUS SYSTEM: No focal deficits, tone is normal in all 4 extremities. EXTREMITIES: There is no peripheral edema. No clubbing, no cyanosis. Peripheral pulses are intact. Results - Laboratory Findings CBC and BMP: 03/09/18 04:31 03/09/18 04:31 PT/INR, D-dimer PT 12.4 sec (9.0-12.0) H 03/08/18 15:40 INR 1.3 (<1.2) H 03/08/18 15:40 Abnormal lab findings: Abnormal Labs 03/08/18 03/08/18 03/08/18 15:40 15:40 15:40 WBC 15.6 H MCHC 30.6 L Neutrophils # 13.4 H PT 12.4 H INR 1.3 H APTT 49.2 H Chloride Carbon Dioxide BUN Glucose POC Glucose (mg/dL) Magnesium AST ALT Troponin I 67.600 H* Total Protein Triglycerides Urine Protein Urine Cocaine Screen U Marijuana (THC) Screen 03/08/18 03/08/18 03/08/18 15:40 16:10 16:46 WBC MCHC Neutrophils # PT INR APTT Chloride 109 H Carbon Dioxide 21 L BUN 23 H Glucose 173 H POC Glucose (mg/dL) 152 H Magnesium AST ALT Troponin I Total Protein Triglycerides Urine Protein Urine Cocaine Screen Detected H U Marijuana (THC) Screen Detected H 03/08/18 03/08/18 03/09/18 21:23 21:49 04:31 WBC MCHC Neutrophils # PT INR APTT Chloride Carbon Dioxide BUN 25 H Glucose 119 H POC Glucose (mg/dL) 130 H Magnesium 2.6 H AST 299 H ALT 77 H Troponin I 87.400 H* Total Protein 6.2 L Triglycerides 391 H Urine Protein Urine Cocaine Screen U Marijuana (THC) Screen 03/09/18 03/09/18 03/09/18 04:31 04:31 07:13 WBC 19.0 H MCHC 30.9 L Neutrophils # 15.1 H PT INR APTT Chloride Carbon Dioxide BUN Glucose POC Glucose (mg/dL) 121 H Magnesium AST ALT Troponin I 69.600 H* Total Protein Triglycerides Urine Protein Urine Cocaine Screen U Marijuana (THC) Screen 03/09/18 03/09/18 12:19 12:55 WBC MCHC Neutrophils # PT INR APTT Chloride Carbon Dioxide BUN Glucose POC Glucose (mg/dL) 132 H Magnesium AST ALT Troponin I Total Protein Triglycerides Urine Protein Trace H Urine Cocaine Screen U Marijuana (THC) Screen - Diagnostic Findings Chest x-ray: image reviewed Assessment and Plan Assessment: Impression: #[address] segment elevation myocardial infarction status post PCI of the right coronary artery and brief V. fib arrest. #2 Ischemic cardiomyopathy with ejection fraction 40-45%. #3 Prior history of coronary artery disease with stent placement to the RCA and circumflex. #4 Chronic and ongoing tobacco dependence. #5 Diabetes mellitus. #6 History of CVA/TIA with memory impairment. #7 Chronic obstructive pulmonary disease utilizing oxygen in the outpatient setting. #8 Hypertension. #9 Hyperlipidemia. #10 History of marijuana use, positive on drug screen 03/08/2018. #11 History of cocaine use, positive on drug screen 03/08/2018. Plan: The patient was seen and evaluated by Dr. Ray. Chest x-ray and labs were reviewed. No clear evidence of pneumonia at this time. He is on empiric ceftriaxone. We'll continue bronchodilators. He is educated regarding the importance of complete smoking cessation as well as the avoidance of illegal drugs. NicoDerm patch has been applied. Troponins are trending down. We'll continue to monitor him here closely in the intensive care unit. Will continue to follow and make further recommendations based on his clinical status. I, the cosigning physician, performed a history & physical examination of the patient. Lungs sounds are clear. Maintaining good O2 saturations in the 90s on 2 L/m per nasal cannula. I discussed the assessment and plan of care with my nurse practitioner, Chasity Carvalho. I attest to the above consultation as dictated by her. Time with Patient: Greater than 30
[2018-03-09 14:13] LABS: Glucose,Whole Blood 185 mg/dL (75-99)
[2018-03-09 15:27] LABS: Hemoglobin A1C 6.6 % (4.0-6.0)
--- NOTE | 2018-03-09 16:47 | MR ---
EXAMINATION TYPE: MR brain wo con DATE OF EXAM: 03/09/2018 COMPARISON: CT brain dated 03/08/2018 HISTORY: Slurred Speech TECHNIQUE: Multiplanar, multisequence images of the brain and brainstem is performed without intravenous contras t. FINDINGS: Diffusion weighted images demonstrate no evidence of a recent infarct or other diffusion ab normality. There is no extra-axial fluid collection. Few scattered foci of white matter change are s een as T2/FLAIR hyperintense foci, the largest marked on the images with more confluent areas in the periventricular white matter and within the frontal and parietal lobes near the vertex. The ventricu lar system and cisternal spaces are symmetrically prominent. The brain volume is age appropriate. Midline structures demonstrate normal morphology. The craniocervical junction appears within normal limits. Mild mucosal thickening is seen within the ethmoid sinuses. Remaining paranasal sinuses and m astoid air cells are well aerated. Major intracranial flow voids are maintained. The dural venous sin uses appear patent. The globes are intact. Left nasal turbinate mucosal hypertrophy is incidentally n oted. IMPRESSION: 1. No evidence of acute infarct, midline shift or mass effect. 2. Mild burden nonspecific white matter change, likely on the basis of chronic microangiopathy.
[2018-03-09 17:14] LABS: Glucose,Whole Blood 125 mg/dL (75-99)
[2018-03-09 20:20] LABS: Glucose,Whole Blood 158 mg/dL (75-99)
--- NOTE | 2018-03-09 21:43 | EEG ---
ELECTROENCEPHALOGRAM REPORT DATE OF EE03/09/2018. REFERRING PHYSICIAN: Dr. Salinas. CONSULTING/INTERPRETING PHYSICIAN: Dr. Cheri Montilla MD. ELECTROENCEPHALOGRAPHIC EXAMINATION REPORT: INDICATION FOR EXAMINATION: This patient is a 57-year-old male, who underwent cardiac catheterization with stent placement. The patient had episode of slurred speech and possible TIA following the procedure. AGE: [age]. EEG FINDINGS: A routine 21 channel awake digital EEG recording was accomplished utilizing the 10-20 international system with bipolar and referential montages. The background activity in the most alert resting state consists of a low to medium amplitude, fairly well- developed well sustained 8 Hz activity over the posterior head region. This posterior rhythm attenuates to eye opening. There is a small amount of low amplitude 18-20 Hz beta activity seen maximally over the anterior head regions. Muscle and movement artifact was observed on a few occasions during the tracing. Hyperventilation was not performed. Photic stimulation at flash frequencies of 2-30 Hz produced a good symmetrical occipital driving response. No epileptiform discharges were seen. IMPRESSION: This EEG is normal for the patient's age. The EEG failed to reveal any focal, lateralized, or epileptiform abnormalities. Clinical correlation is recommended. MMODL / IJN: [id number] /
[2018-03-09] MEDS: ATORVASTATIN 80 MG TAB PO SCH (21:48)
[2018-03-09] MEDS: buPROPion SR 150 MG TABLET.ER PO SCH (22:01)
[2018-03-10 04:54] LABS: Basophils % (A) 0 %; Eosinophils # (A) 0.2 k/uL (0-0.7); Eosinophils % (A) 1 %; HCT 39.5 % (39.0-53.0); HGB 12.5 gm/dL (13.0-17.5); Lymphocytes # (A) 2.4 k/uL (1.0-4.8); Lymphocytes % (A) 17 %; MCH 28.4 pg (25.0-35.0); MCHC 31.6 g/dL (31.0-37.0); MCV 89.9 fL (80.0-100.0); Mean Platelet Volume 6.8; Monocytes # (A) 0.7 k/uL (0-1.0); Monocytes % (A) 5 %; Neutrophils # (A) 10.3 k/uL (1.3-7.7); Neutrophils % (A) 75 %; Platelet Count 248 k/uL (150-450); RBC 4.39 m/uL (4.30-5.90); RDW 14.9 % (11.5-15.5); WBC 13.7 k/uL (3.8-10.6)
[2018-03-10 05:10] LABS: ALT 69 U/L (21-72); AST 131 U/L (17-59); Albumin 3.1 g/dL (3.5-5.0); Alkaline Phosphatase 75 U/L (38-126); Anion Gap 3 mmol/L; Blood Urea Nitrogen 24 mg/dL (9-20); Calcium 8.7 mg/dL (8.4-10.2); Carbon Dioxide 27 mmol/L (22-30); Chloride 106 mmol/L (98-107); Glucose 110 mg/dL (74-99); Potassium 4.5 mmol/L (3.5-5.1); Sodium 136 mmol/L (137-145); Total Bilirubin 0.7 mg/dL (0.2-1.3); Total Protein 5.6 g/dL (6.3-8.2)
[2018-03-10 07:38] LABS: Glucose,Whole Blood 123 mg/dL (75-99)
[2018-03-10] MEDS: INSULIN ASPART 100 UNIT/ML 1 ML 10 ML VIAL SQ SCH ×4 (08:09→21:09)
[2018-03-10] MEDS: CLOPIDOGREL 75 MG TAB PO SCH (08:10)
[2018-03-10] MEDS: buPROPion SR 150 MG TABLET.ER PO SCH ×2 (08:10→21:09)
[2018-03-10] MEDS: ASPIRIN 325 MG TAB PO SCH (08:10)
[2018-03-10] MEDS: PANTOPRAZOLE 40 MG TABLET PO SCH (08:10)
[2018-03-10] MEDS: NICOTINE 14MG/24HR PATCH TRANSDERM SCH (08:10)
[2018-03-10] MEDS: MONTELUKAST 10 MG TAB PO SCH (08:10)
[2018-03-10] MEDS: IPRATROPIUM-ALBUTEROL 3 ML NEB INHALATION SCH ×4 (08:31→19:53)
[2018-03-10] MEDS ORDERED: FUROSEMIDE 10 MG/ML 4 ML VIAL IV STA (09:13)
--- NOTE | 2018-03-10 09:45 | XR ---
EXAMINATION TYPE: XR chest 1V portable DATE OF EXAM: 03/10/2018 HISTORY: chf. REFERENCE: Previous study dated 03/08/2018. FINDINGS: The heart is enlarged. The lungs appear clear. Pleural space are clear. IMPRESSION: CARDIOMEGALY.
--- NOTE | 2018-03-10 11:14 | PN ---
PROGRESS NOTE Mr. Vaughn is a 57-year-old male with a known history of coronary artery disease who presented with an acute myocardial infarction and underwent stenting of the right coronary artery. He is feeling quite well today. His breathing is stable. He denies any chest pain. He denies any dizziness or palpitations. He denies any nausea. He continues to be in sinus mechanism on the monitor without any evidence of tachycardia or bradycardia. Hemodynamically, he is stable. He continues to be on aspirin once a day, Lipitor 80 mg daily, Plavix 75 mg daily, metoprolol tartrate 25 mg twice a day. PHYSICAL EXAMINATION: Blood pressure 111/70 with a heart rate in the 80s. Lungs no wheezes. HEART: Regular rate and rhythm, S1, S2. No S3. No rub or gallop appreciated. ABDOMEN: Soft, nontender. Positive bowel sounds. Extremities no significant edema. LAB DATA: Revealed BUN and creatinine 24 and 0.9. Potassium 4.5. Chest x-ray shows no acute infiltrate. An echocardiogram performed on admission showed an ejection fraction of 40-45 percent. IMPRESSION: 1. Status post inferior myocardial infarction with stenting of the right coronary artery. 2. History of hypertension. 3. Hyperlipidemia. RECOMMENDATIONS: From the cardiac standpoint, we will continue on his present regimen. I will start him on low-dose GERARDO inhibitor. He should be able to be transferred to telemetry floor and depending on his progress, further recommendations will be made. BONNIE / JENNIFER: [id number] /
--- NOTE | 2018-03-10 11:48 | P.PN ---
Subjective Progress Note Date: 03/10/18 Principal diagnosis: Acute inferior wall ST segment elevation myocardial infarction status post PCI of the right coronary artery. This is a very pleasant 57-year-old gentleman who follows with Dr. Gagnon as his primary care physician. He has a history of CVA, diabetes mellitus, GERD, hyperlipidemia, hypertension, anxiety, chronic tobacco dependence, marijuana use , cocaine use, coronary artery disease with previous stent placements to the RCA and circumflex. He had initially presented to [facility] with complaints of chest pain. He is found to have ST segment elevation myocardial infarction was transferred here directly to the [facility]. He had undergone aspiration thrombectomy from the right coronary artery and successful stenting of the proximal right coronary artery. He did have a V. fib arrest requiring defibrillation prior to leaving the [facility]. He is seen today in consultation in the intensive care unit. He is currently awake and alert in no acute distress. Echocardiogram revealed mild to moderately impaired left ventricular systolic function with ejection fraction 40-45%. Computed tomography scan of the brain showed no acute intracranial abnormalities. He does have a loose nonproductive cough and congestion. He states he was recently diagnosed with pneumonia. His chest x-ray revealed some mild pulmonary fibrosis but no acute pulmonary process. He is maintaining O2 saturations in the 90s on 2 L/m per nasal cannula. He is afebrile. White count 19.0. Hemoglobin 13.5. Creatinine 1.00. AST 299, ALT 77. Troponin 69. He is off pressors. He's been hemodynamically stable. Patient was reevaluated today on 03/10/2018, remains in the ICU, basically asymptomatic, denies any shortness of breath, he does have some occasional cough and wheezing, no chest pain, no fever, no chills, no hemoptysis. All his labs including CBC and basic metabolic profile were noted to be relatively normal. No evidence of pneumonia or interstitial edema. Objective - Vital Signs Vital signs: Vital Signs Temp 98.4 F 03/10/18 08:00 Pulse 84 03/10/18 11:39 Resp 17 03/10/18 11:00 BP 117/91 03/10/18 11:00 Pulse Ox 94 L 03/10/18 11:00 Intake & Output 03/09/18 03/10/18 03/10/18 18:59 06:59 18:59 Intake Total 180 Output Total 450 1000 1650 Balance -270 -1000 -1650 Weight 114.7 kg 114.7 kg Intake: IV 180 Sodium Chloride 0.9% 1, 130 000 ml @ 100 mls/hr IV . Q10H [facility] Rx#:[id number] cefTRIAXone 1,000 mg In 50 Sodium Chloride 0.9% 50 ml @ 100 mls/hr IVPB Q24H [facility] Rx#:[id number] Output: Urine 450 1000 1650 Other: Voiding Method Urinal Urinal Urinal # Voids 0 0 # Bowel Movements 1 ABP, PAP, CO, CI - Last Documented Arterial Blood Pressure 93/51 - Exam Physical Exam: Revealed a 57-year-old white male in no distress. Head: Atraumatic, normocephalic. HEENT:[Neck is supple.] [No neck masses.] [No thyromegaly.] [No JVD.] Chest: [Symmetrical chest expansion, minimal crackles at the bases..] Cardiac Exam: [Normal S1 and S2, no S3 gallop, no murmur.] Abdomen: [Soft, nontender, no megaly, no rebound, no guarding, normal bowel sounds.] Extremities: [No clubbing, no edema, no cyanosis.] Neurological Exam: [No focal neurologic deficit. Lymphatics: No lymphadenopathy. Skin: No rashes.] - Labs CBC & Chem 7: 03/10/18 04:29 03/10/18 04:29 Labs: Abnormal Lab Results - Last 24 Hours (Table) 03/08/18 03/08/18 03/09/18 Range/Units 14:19 15:40 12:19 WBC (3.8-10.6) k/uL Hgb (13.0-17.5) gm/dL Neutrophils # (1.3-7.7) k/uL Sodium (137-145) mmol/L BUN (9-20) mg/dL Glucose (74-99) mg/dL POC Glucose (mg/dL) 185 H 132 H (75-99) mg/dL Hemoglobin A1c 6.6 H (4.0-6.0) % AST (17-59) U/L Total Protein (6.3-8.2) g/dL Albumin (3.5-5.0) g/dL Urine Protein (Negative) 11/06/2503/09/18 03/09/18 Range/Units 12:55 17:02 20:19 WBC (3.8-10.6) k/uL Hgb (13.0-17.5) gm/dL Neutrophils # (1.3-7.7) k/uL Sodium (137-145) mmol/L BUN (9-20) mg/dL Glucose (74-99) mg/dL POC Glucose (mg/dL) 125 H 158 H (75-99) mg/dL Hemoglobin A1c (4.0-6.0) % AST (17-59) U/L Total Protein (6.3-8.2) g/dL Albumin (3.5-5.0) g/dL Urine Protein Trace H (Negative) 03/10/18 03/10/18 03/10/18 Range/Units 04:29 04:29 07:37 WBC 13.7 H (3.8-10.6) k/uL Hgb 12.5 L (13.0-17.5) gm/dL Neutrophils # 10.3 H (1.3-7.7) k/uL Sodium 136 L (137-145) mmol/L BUN 24 H (9-20) mg/dL Glucose 110 H (74-99) mg/dL POC Glucose (mg/dL) 123 H (75-99) mg/dL Hemoglobin A1c (4.0-6.0) % AST 131 H (17-59) U/L Total Protein 5.6 L (6.3-8.2) g/dL Albumin 3.1 L (3.5-5.0) g/dL Urine Protein (Negative) Microbiology - Last 24 Hours (Table) 03/09/18 12:25 Gram Stain - Preliminary Sputum 03/09/18 12:55 Urine Culture - Preliminary Urine,Voided Assessment and Plan Assessment: #[address] segment elevation myocardial infarction status post PCI of the right coronary artery and brief V. fib arrest. #2 Ischemic cardiomyopathy with ejection fraction 40-45%. #3 Prior history of coronary artery disease with stent placement to the RCA and circumflex. #4 Chronic and ongoing tobacco dependence. #5 Diabetes mellitus. #6 History of CVA/TIA with memory impairment. #7 Chronic obstructive pulmonary disease utilizing oxygen in the outpatient setting. #8 Hypertension. #9 Hyperlipidemia. #10 History of marijuana use, positive on drug screen 03/08/2018. #11 History of cocaine use, positive on drug screen 03/08/2018. Recommendation consider transferring the patient out of the ICU to a monitor bed on selective today, I have recommended one dose of Lasix because of the crackles noted on physical examination today, although his chest x-ray was noted to be relatively unremarkable. We'll continue to follow. Time with Patient: Less than 30
[2018-03-10 11:55] LABS: Glucose,Whole Blood 108 mg/dL (75-99)
[2018-03-10 16:48] LABS: Glucose,Whole Blood 136 mg/dL (75-99)
--- NOTE | 2018-03-10 16:48 | P.PN ---
Subjective Progress Note Date: 03/10/18 This is a 57-year-old male patient of Dr. Gagnon. Patient presented to [facility] with complaints of chest pain that has been significantly increasing. Patient states it's been occurring for many weeks but had significantly increased since last night. Patient does admit that he did cocaine last night. It was found upon arrival to ER the patient was having an ST elevated myocardial infarction. Patient was transferred directly to cardiac catheterization lab and received a stent to the RCA. Patient also went into V. fib post intervention. Patient was started on amiodarone drip. Patient also required levophed for pressure support. Levophed currently off. Patient is currently sinus rhythm/sinus bradycardia. Postintervention patient also experienced slurred speech. Code stroke was initiated. Patient was taking for head CT. CT of head completed showing no acute intracranial process. Neurology services are following. MRI ordered. Drug Screen also ordered. Patient has a known past medical history of asthma, coronary artery disease he, chest pain, COPD, CVA, diabetes mellitus, GERD, hyperlipidemia, memory impairment, hypertension, anxiety, nicotine dependence, marijuana use, cocaine use and heart catheterization with stents. Patient also states he's been recently getting treatment for pneumonia. Patient was taking Levaquin and steroids. Patient also uses home O2 2 L at night and when necessary Patient is currently resting comfortably in the intensive care unit. At this time patient is alert and oriented 3. Speech does appear clear. Equal strength throughout all extremities. At this time patient denies chest pain or shortness of breath. Patient denies any urinary burning or frequency. On 03/09/2018 patient is currently resting comfortably in bed. Patient denies chest pain at this time. Patient is complaining of shortness of breath. Chest x-ray completed. Pulmonaru services have been consulted. At this time she denies nausea vomiting or diarrhea. Patient denies any urinary burning or frequency On 03/10/2018 patient was seen and examined in the intensive care unit he is alert and oriented 3 in no apparent distress he denies any chest pain or shortness of breath no palpitation no cough no nausea or vomiting no abdominal pain no diarrhea and no urinary symptoms Objective - Vital Signs Vital signs: Vital Signs Temp 98.2 F 03/10/18 16:00 Pulse 81 03/10/18 16:42 Resp 21 11/03/18 16:00 BP 130/90 03/10/18 16:00 Pulse Ox 91 L 03/10/18 16:00 Intake & Output 03/09/18 03/10/18 03/10/18 18:59 06:59 18:59 Intake Total 180 Output Total 450 1000 1650 Balance -270 -1000 -1650 Weight 114.7 kg 114.7 kg Intake: IV 180 Sodium Chloride 0.9% 1, 130 000 ml @ 100 mls/hr IV . Q10H [facility] Rx#:[id number] cefTRIAXone 1,000 mg In 50 Sodium Chloride 0.9% 50 ml @ 100 mls/hr IVPB Q24H [facility] Rx#:[id number] Output: Urine 450 1000 1650 Other: Voiding Method Urinal Urinal Urinal # Voids 0 0 1 # Bowel Movements 1 ABP, PAP, CO, CI - Last Documented Arterial Blood Pressure 93/51 - Exam Head normocephalic and atraumatic Neck supple no JVD no goiter Lungs minutes sounds bilaterally. Expiratory wheezing Heart regular rate and rhythm S1-S2, no rub or gallop Abdomen is soft nontender nondistended positive bowel sounds no hepatosplenomegaly Extremities no edema no cyanosis or clubbing Neuro alert and orientated to 3 - Labs CBC & Chem 7: 03/10/18 04:29 03/10/18 04:29 Labs: Abnormal Lab Results - Last 24 Hours (Table) 03/09/18 03/09/18 03/10/18 Range/Units 17:02 20:19 04:29 WBC 13.7 H (3.8-10.6) k/uL Hgb 12.5 L (13.0-17.5) gm/dL Neutrophils # 10.3 H (1.3-7.7) k/uL Sodium (137-145) mmol/L BUN (9-20) mg/dL Glucose (74-99) mg/dL POC Glucose (mg/dL) 125 H 158 H (75-99) mg/dL AST (17-59) U/L Total Protein (6.3-8.2) g/dL Albumin (3.5-5.0) g/dL 03/10/18 03/10/18 03/10/18 Range/Units 04:29 07:37 11:53 WBC (3.8-10.6) k/uL Hgb (13.0-17.5) gm/dL Neutrophils # (1.3-7.7) k/uL Sodium 136 L (137-145) mmol/L BUN 24 H (9-20) mg/dL Glucose 110 H (74-99) mg/dL POC Glucose (mg/dL) 123 H 108 H (75-99) mg/dL AST 131 H (17-59) U/L Total Protein 5.6 L (6.3-8.2) g/dL Albumin 3.1 L (3.5-5.0) g/dL Microbiology - Last 24 Hours (Table) 03/09/18 10:51 Blood Culture - Preliminary Blood No Growth after 24 hours 03/09/18 12:25 Gram Stain - Preliminary Sputum 03/09/18 12:55 Urine Culture - Preliminary Urine,Voided Assessment and Plan Plan: 1. ST elevated myocardial infarction. Patient received stent to RCA. Patient currently on Plavix. 2D echo ordered. 2. Altered mental status with slurred speech. Patient had altered mental status post intervention. Stroke initiated. Head CT completed showing no acute process. Carotid Doppler completed showing atheromatous plaquing without significant flow limiting stenosis. Intimal thickening is present. Per Neurology services MRI and EEG have been ordered. 3. Post intervention V. fib. Patient currently on amiodarone. Discontinued per cardiology services 4. Cocaine use. Patient admitted to using cocaine last night. Drug screen pleated showing positive cocaine and marijuana 5. Recent diagnosis and treatment of pneumonia. Patient states he was getting treated at the [facility] for pneumonia with Levaquin and steroids. Start patient on Rocephin. Chest x-ray completed completed showing mild pulmonary fibrosis. No significant change. No overt heart failure. Patient remains on Rocephin. Patient also on DuoNeb breathing treatments. Awaiting coronary consult 6. History of coronary artery disease with previous stent placement 7. History of CVA 8. History of COPD. Patient does wear 2 L at night 9. History of diabetes mellitus. Metformin currently on hold. Will order sliding scale insulin 10. History of hyperlipidemia 11. History of essential hypertension 12. memory impairment 13. Nicotine dependence. Patient educated greater than 3 minutes smoking cessation. Nicotine patch has been ordered 14. Marijuana use 15. Leukocytosis. White blood cell increasing to 19.0. Patient is on Rocephin due to patient stating recent diagnosis of pneumonia. Chest x-ray completed showing mild pulmonary fibrosis. No significant change. No overt heart failure. Urinary analysis urine culture, blood culture and sputum culture have been ordered. GI prophylaxis Protonix.
[2018-03-10 20:36] LABS: Glucose,Whole Blood 143 mg/dL (75-99)
[2018-03-10] MEDS: METOPROLOL TARTRATE 25 MG TAB PO SCH (21:09)
[2018-03-10] MEDS: ATORVASTATIN 80 MG TAB PO SCH (21:09)
--- NOTE | 2018-03-10 21:56 | P.PN ---
Subjective Progress Note Date: 03/10/18 This patient is being evaluated for possible TIA vs. stroke following recent cardiac catherization and stent placement. Patient initially was having symptoms of recurrent chest pain prior to his admission. This had been occurring over many weeks. Chest pain significantly increase which took him to the emergency room initially at [facility]. He had evidence of AST elevated myocardial infarction and was transferred directly to [facility] for cardiac catheterization and stent placement to the RCA. Following the procedure the patient had a brief episode of ventricular fibrillation. He was also noted to have some slurring of speech after the procedure. He underwent a MRI of the brain yesterday to rule out acute stroke and this came back negative for any evidence of acute infarction or midline shift or mass effect. There was mild degree of nonspecific white matter changes noted consistent with chronic microangiopathy. Patient continues to do quite well since his procedure. He does have history of marijuana and cocaine use and this may have some relationship to his recent event of possible TIA. We 're encouraging him to seek drug rehabilitation evaluation as an outpatient. The patient otherwise seems to be doing quite well today. He is to be transferred out of the intensive care unit to the medical floor. We will continue close neurological follow-up for the patient during this admission. His overall prognosis at this time remains guarded. Objective - Vital Signs Vital signs: Vital Signs Temp 98.2 F 03/10/18 16:00 Pulse 86 03/10/18 20:05 Resp 21 03/10/18 19:00 BP 121/90 03/10/18 19:00 Pulse Ox 94 L 03/10/18 19:00 Intake & Output 03/10/18 03/10/18 03/11/18 06:59 18:59 05:59 Intake Total 50 Output Total 1000 1650 600 Balance -1000 -1650 -550 Weight 114.7 kg Intake: IV 50 cefTRIAXone 1,000 mg In 50 Sodium Chloride 0.9% 50 ml @ 100 mls/hr IVPB Q24H [facility] Rx#:[id number] Output: Urine 1000 1650 600 Other: Voiding Method Urinal Urinal # Voids 0 1 ABP, PAP, CO, CI - Last Documented Arterial Blood Pressure 93/51 - Exam Physical Examination: PHYSICAL EXAMINATION: Patient is resting comfortably in bed. VITAL SIGNS: Blood pressure is [121/90]. Heart rate is [78]. Respiration is [21] . Temperature is [98.2]. HEENT: Head is atraumatic, neck is supple, there were no carotid bruits. CHEST: Lungs are clear to auscultation and percussion. CARDIAC: S1, S2 normal rate and rhythm. There is no murmur. ABDOMEN: Soft and nontender. Bowel sounds are present. EXTREMITIES: There is no pedal edema. Peripheral pulses are present. Neurological examination: Patient's neurological examination remains unchanged from yesterday. He has a nonfocal neurological examination today. - Labs CBC & Chem 7: 03/10/18 04:29 03/10/18 04:29 Labs: Abnormal Lab Results - Last 24 Hours (Table) 03/10/18 03/10/18 03/10/18 Range/Units 04:29 04:29 07:37 WBC 13.7 H (3.8-10.6) k/uL Hgb 12.5 L (13.0-17.5) gm/dL Neutrophils # 10.3 H (1.3-7.7) k/uL Sodium 136 L (137-145) mmol/L BUN 24 H (9-20) mg/dL Glucose 110 H (74-99) mg/dL POC Glucose (mg/dL) 123 H (75-99) mg/dL AST 131 H (17-59) U/L Total Protein 5.6 L (6.3-8.2) g/dL Albumin 3.1 L (3.5-5.0) g/dL 03/10/18 03/10/18 03/10/18 Range/Units 11:53 16:47 20:35 WBC (3.8-10.6) k/uL Hgb (13.0-17.5) gm/dL Neutrophils # (1.3-7.7) k/uL Sodium (137-145) mmol/L BUN (9-20) mg/dL Glucose (74-99) mg/dL POC Glucose (mg/dL) 108 H 136 H 143 H (75-99) mg/dL AST (17-59) U/L Total Protein (6.3-8.2) g/dL Albumin (3.5-5.0) g/dL Microbiology - Last 24 Hours (Table) 03/09/18 10:51 Blood Culture - Preliminary Blood No Growth after 24 hours 03/09/18 12:25 Gram Stain - Preliminary Sputum 03/09/18 12:55 Urine Culture - Preliminary Urine,Voided Assessment and Plan (1) TIA (transient ischemic attack) Current Visit: Yes Status: Acute Code(s): G45.9 - TRANSIENT CEREBRAL ISCHEMIC ATTACK, UNSPECIFIED SNOMED Code(s): 094878669 (2) Ventricular fibrillation, paroxysmal Current Visit: Yes Status: Acute Code(s): I49.01 - VENTRICULAR FIBRILLATION SNOMED Code(s): 73002407 (3) Hyperlipidemia Current Visit: Yes Status: Acute Code(s): E78.5 - HYPERLIPIDEMIA, UNSPECIFIED SNOMED Code(s): 18119675 (4) COPD exacerbation Current Visit: No Status: Acute Code(s): J44.1 - CHRONIC OBSTRUCTIVE PULMONARY DISEASE W (ACUTE) EXACERBATION SNOMED Code(s): 587283175 Plan: This patient is a 57-year-old male being evaluated for episode of slurred speech following cardiac catheterization and stent placement today. Patient was seen by Dr. Salinas for ST elevated myocardial infarction and was recommended to undergo cardiac catheterization was stent placement today. Patient completed successful stent placement of the RCA however following the procedure he developed ventricular fibrillation. He was started on amiodarone following cardioversion with shock performed by Dr. Salinas. Patient was brought into the intensive care unit and apparently following this procedure developed evidence of slurred speech. He does have a history of cocaine use the night before and a drug screen was ordered. The patient was sent for a stat computed tomography scan of the brain results which are noted above. Was no evidence of acute stroke. Patient underwent MRI of the brain yesterday the results which are noted above. MRI came back negative for any evidence of acute stroke. We have recommended a complete stroke evaluation for the patient. We will also check his lipid profile and hemoglobin A1c. His neurological examination today bedside is nonfocal. His overall prognosis at this time remains very guarded. Would recommend the patient to be maintained on aspirin 81 mg daily for secondary stroke prevention. Patient is being considered for possible transferred out of the intensive care unit today. We will continue to monitor his progress closely during this admission. He was counseled on drug rehabilitation as this is a high risk factor for him as to possible cause of this recent TIA episode. We will continue close neurological follow-up for the patient during this admission. His overall prognosis at this time remains guarded.
[2018-03-10] MEDS: AMIODARONE 450 MG in DEXTROSE 5% IN WATER 250 ML IV SCH ×2 (21:59)
[2018-03-11] MEDS: INSULIN ASPART 100 UNIT/ML 1 ML 10 ML VIAL SQ SCH ×2 (06:08→12:05)
[2018-03-11] MEDS: PANTOPRAZOLE 40 MG TABLET PO SCH (06:10)
[2018-03-11 06:31] LABS: Glucose,Whole Blood 122 mg/dL (75-99)
[2018-03-11 06:34] LABS: Basophils % (A) 0 %; Eosinophils # (A) 0.1 k/uL (0-0.7); Eosinophils % (A) 1 %; HCT 37.7 % (39.0-53.0); HGB 12.2 gm/dL (13.0-17.5); Lymphocytes # (A) 2.2 k/uL (1.0-4.8); Lymphocytes % (A) 19 %; MCH 28.3 pg (25.0-35.0); MCHC 32.3 g/dL (31.0-37.0); MCV 87.8 fL (80.0-100.0); Monocytes # (A) 0.6 k/uL (0-1.0); Monocytes % (A) 5 %; Neutrophils # (A) 8.4 k/uL (1.3-7.7); Neutrophils % (A) 73 %; Platelet Count 222 k/uL (150-450); RBC 4.29 m/uL (4.30-5.90); RDW 14.6 % (11.5-15.5); WBC 11.5 k/uL (3.8-10.6)
[2018-03-11 06:53] LABS: ALT 52 U/L (21-72); AST 61 U/L (17-59); Albumin 3.1 g/dL (3.5-5.0); Alkaline Phosphatase 75 U/L (38-126); Anion Gap 3 mmol/L; Blood Urea Nitrogen 21 mg/dL (9-20); Calcium 8.9 mg/dL (8.4-10.2); Carbon Dioxide 28 mmol/L (22-30); Chloride 105 mmol/L (98-107); Glucose 110 mg/dL (74-99); Potassium 4.5 mmol/L (3.5-5.1); Sodium 136 mmol/L (137-145); Total Bilirubin 0.7 mg/dL (0.2-1.3); Total Protein 5.6 g/dL (6.3-8.2)
[2018-03-11] MEDS: IPRATROPIUM-ALBUTEROL 3 ML NEB INHALATION SCH ×2 (07:37→12:39)
[2018-03-11] MEDS ORDERED: ASPIRIN 81 MG PO SCH (09:00)
[2018-03-11] MEDS ORDERED: LISINOPRIL 2.5 MG TAB PO SCH (09:00)
[2018-03-11] MEDS: MONTELUKAST 10 MG TAB PO SCH (09:46)
[2018-03-11] MEDS: NICOTINE 14MG/24HR PATCH TRANSDERM SCH (09:46)
[2018-03-11] MEDS: CLOPIDOGREL 75 MG TAB PO SCH (09:47)
[2018-03-11] MEDS: METOPROLOL TARTRATE 25 MG TAB PO SCH (09:47)
--- NOTE | 2018-03-11 10:07 | P.PN ---
Subjective Progress Note Date: 03/11/18 Principal diagnosis: Acute inferior wall ST segment elevated HI status post PCI of RCA This is a very pleasant 57-year-old gentleman who follows with Dr. Gagnon as his primary care physician. He has a history of CVA, diabetes mellitus, GERD, hyperlipidemia, hypertension, anxiety, chronic tobacco dependence, marijuana use , cocaine use, coronary artery disease with previous stent placements to the RCA and circumflex. He had initially presented to [facility] with complaints of chest pain. He is found to have ST segment elevation myocardial infarction was transferred here directly to the [facility]. He had undergone aspiration thrombectomy from the right coronary artery and successful stenting of the proximal right coronary artery. He did have a V. fib arrest requiring defibrillation prior to leaving the [facility]. He is seen today in consultation in the intensive care unit. He is currently awake and alert in no acute distress. Echocardiogram revealed mild to moderately impaired left ventricular systolic function with ejection fraction 40-45%. Computed tomography scan of the brain showed no acute intracranial abnormalities. He does have a loose nonproductive cough and congestion. He states he was recently diagnosed with pneumonia. His chest x-ray revealed some mild pulmonary fibrosis but no acute pulmonary process. He is maintaining O2 saturations in the 90s on 2 L/m per nasal cannula. He is afebrile. White count 19.0. Hemoglobin 13.5. Creatinine 1.00. AST 299, ALT 77. Troponin 69. He is off pressors. He's been hemodynamically stable. Patient was reevaluated today on 03/10/2018, remains in the ICU, basically asymptomatic, denies any shortness of breath, he does have some occasional cough and wheezing, no chest pain, no fever, no chills, no hemoptysis. All his labs including CBC and basic metabolic profile were noted to be relatively normal. No evidence of pneumonia or interstitial edema. On 03/11/2018 patient seen in follow-up on selective care unit, he is awake and alert, he is in no acute distress, his been tolerating ambulation, has had no recurrence of chest pain, or arrhythmia. She denies any shortness of breath, lung sounds reveal some crackles over right lower lobe. Patient is status post PCI and stenting of the right coronary artery. Room air pulse ox is 92%, patient is afebrile, hemodynamically stable. Denies any shortness of breath, today's lab work has been reviewed, showed a PVC of 11.5, hemoglobin of 12.2, sodium of 136, and Restoril x-rays were within normal limits, B1 is 21 creatinine 0.98. Yesterday chest x-ray showed clear lungs. His neurologic workup showed no evidence of acute stroke. He's had no recurrence of slurred speech. From pulmonary perspective patient is stable, and we anticipate possible discharge home today. Objective - Vital Signs Vital signs: Vital Signs Temp 97.7 F 03/11/18 09:00 Pulse 62 03/11/18 09:00 Resp 17 03/11/18 09:00 BP 102/63 03/11/18 09:00 Pulse Ox 92 L 03/11/18 09:00 Intake & Output 03/10/18 03/11/18 03/11/18 19:59 06:59 18:59 Intake Total 250 Output Total Balance 250 Weight Intake: IV 10 Invasive Line 4 10 cefTRIAXone 1,000 mg In Sodium Chloride 0.9% 50 ml @ 100 mls/hr IVPB Q24H [facility] Rx#:[id number] Oral 240 Output: Urine Other: Voiding Method # Voids ABP, PAP, CO, CI - Last Documented Arterial Blood Pressure 93/51 - Exam Physical Exam: Revealed a 57-year-old white male in no distress. Head: Atraumatic, normocephalic. HEENT:[Neck is supple.] [No neck masses.] [No thyromegaly.] [No JVD.] Chest: [Symmetrical chest expansion, minimal crackles at the bases..] Cardiac Exam: [Normal S1 and S2, no S3 gallop, no murmur.] Abdomen: [Soft, nontender, no megaly, no rebound, no guarding, normal bowel sounds.] Extremities: [No clubbing, no edema, no cyanosis.] Neurological Exam: [No focal neurologic deficit. Lymphatics: No lymphadenopathy. Skin: No rashes.] - Labs CBC & Chem 7: 03/11/18 05:54 03/11/18 05:54 Labs: Abnormal Lab Results - Last 24 Hours (Table) 03/10/18 03/10/18 03/10/18 Range/Units 11:53 16:47 20:35 WBC (3.8-10.6) k/uL RBC (4.30-5.90) m/uL Hgb (13.0-17.5) gm/dL Hct (39.0-53.0) % Neutrophils # (1.3-7.7) k/uL Sodium (137-145) mmol/L BUN (9-20) mg/dL Glucose (74-99) mg/dL POC Glucose (mg/dL) 108 H 136 H 143 H (75-99) mg/dL AST (17-59) U/L Total Protein (6.3-8.2) g/dL Albumin (3.5-5.0) g/dL 03/11/18 03/11/18 03/11/18 Range/Units 05:54 05:54 06:00 WBC 11.5 H (3.8-10.6) k/uL RBC 4.29 L (4.30-5.90) m/uL Hgb 12.2 L (13.0-17.5) gm/dL Hct 37.7 L (39.0-53.0) % Neutrophils # 8.4 H (1.3-7.7) k/uL Sodium 136 L (137-145) mmol/L BUN 21 H (9-20) mg/dL Glucose 110 H (74-99) mg/dL POC Glucose (mg/dL) 122 H (75-99) mg/dL AST 61 H (17-59) U/L Total Protein 5.6 L (6.3-8.2) g/dL Albumin 3.1 L (3.5-5.0) g/dL Microbiology - Last 24 Hours (Table) 03/09/18 12:55 Urine Culture - Final Urine,Voided 03/09/18 10:51 Blood Culture - Preliminary Blood No Growth after 24 hours Assessment and Plan Plan: #[address] segment elevation myocardial infarction status post PCI of the right coronary artery and brief V. fib arrest. #2 Ischemic cardiomyopathy with ejection fraction 40-45%. #3 Prior history of coronary artery disease with stent placement to the RCA and circumflex. #4 Chronic and ongoing tobacco dependence. #5 Diabetes mellitus. #6 History of CVA/TIA with memory impairment. #7 Chronic obstructive pulmonary disease utilizing oxygen in the outpatient setting. #8 Hypertension. #9 Hyperlipidemia. #10 History of marijuana use, positive on drug screen 03/08/2018. #11 History of cocaine use, positive on drug screen 03/08/2018. Recommendation Patient remains stable, no shortness of breath, no chest pain, vital signs are stable, he is tolerating ambulation, there has been no recurrence of arrhythmia , no recurrence of slurred speech. Neurologic workup was negative for any evidence of acute stroke. From pulmonary perspective patient denies any pulmonary complaints. Anticipate discharge home possibly today I performed a history & physical examination of the patient and discussed their management with my nurse practitioner, Tegan Brewer. I reviewed the nurse practitioner's note and agree with the documented findings and plan of care. Lung sounds are positive for some rales at the right lower base. The findings and the impression was discussed with the patient. I attest to the documentation by the nurse practitioner. Time with Patient: Less than 30
--- NOTE | 2018-03-11 10:47 | PN ---
PROGRESS NOTE Mr. Vaughn is a 57-year-old male with a known history of coronary artery disease who presented with an acute stent closure of the right coronary artery, underwent stenting of the right coronary artery. He is doing well this morning. He is ambulating without difficulty. His breathing has been stable. He is denying any symptoms of chest discomfort. He denies any dizziness or palpitation. He denies any nausea. He has been ambulating without any difficulty. He continues to be on aspirin once a day, Lipitor 80 mg daily, Plavix 75 mg daily, lisinopril 2.5 mg daily, metoprolol tartrate 25 mg twice a day. PHYSICAL EXAMINATION: Blood pressure 102/60 with a heart rate in the 60s. LUNGS: Clear. Heart regular rate rhythm, S1, S2. No S3. No rub. ABDOMEN: Soft nontender. EXTREMITIES: No edema. LAB DATA: Revealed BUN and creatinine 21 and 0.98, potassium 4.5, hemoglobin 12.2. IMPRESSION: 1. Status post ST-segment elevation myocardial infarction with stenting of the right coronary artery. 2. History of prior stenting of the right coronary artery. 3. History of chronic tobacco use. 4. History of marijuana and cocaine use in the past. 5. Hypertension. 6. Hyperlipidemia. RECOMMENDATION: I have discussed with the patient the importance of smoking cessation. From the cardiac standpoint, he is stable. We will continue to increase his activity. I would expect he should be able to be discharged home soon and follow up on a regular basis with Dr. Salinas. BONNIE / JENNIFER: [id number] /
[2018-03-11 11:24] LABS: Glucose,Whole Blood 131 mg/dL (75-99)
[2018-03-11 11:52] VITALS: BP 138/82; RESP 18; TEMP 97.8
[2018-03-11] MEDS: buPROPion SR 150 MG TABLET.ER PO SCH (12:05)
--- NOTE | 2018-03-11 12:17 | P.DS ---
Providers Date of admission: 03/08/18 14:15 Expected date of discharge: 03/11/18 Attending physician: Jose Salinas Consults: 03/08/18 13:44 Consult Physician Routine Consulting Provider: [facility] Consult Reason/Comments: Post Interventional patient Do you want consulting provider notified?: Already Contacted Placement Type Exists?: Yes 03/08/18 15:47 Consult Physician Routine Consulting Provider: Corinna Mares Consult Reason/Comments: Medical Management Do you want consulting provider notified?: Yes 03/08/18 16:30 Consult Physician Stat Consulting Provider: Cheri Montilla Consult Reason/Comments: Slurred Speech Do you want consulting provider notified?: Yes 03/08/18 16:57 Consult Physician Routine Consulting Provider: Александр Ray Consult Reason/Comments: recent pneumonia Do you want consulting provider notified?: Yes Primary care physician: [facility] Course: Diagnoses on discharge: 1. ST elevated myocardial infarction. Patient received stent to RCA. Patient currently on Plavix. 2D echo ordered. 2. Altered mental status with slurred speech. Patient had altered mental status post intervention. Stroke initiated. Head CT completed showing no acute process. Carotid Doppler completed showing atheromatous plaquing without significant flow limiting stenosis. Intimal thickening is present. Per Neurology services MRI and EEG have been ordered. 3. Post intervention V. fib. Patient currently on amiodarone. Discontinued per cardiology services 4. Cocaine use. Patient admitted to using cocaine last night. Drug screen pleated showing positive cocaine and marijuana 5. Recent diagnosis and treatment of pneumonia. Patient [facility] and [facility]. Start patient on Rocephin. Chest x-ray completed completed showing mild pulmonary fibrosis. No significant change. No overt heart failure. Patient remains on Rocephin. Patient also on DuoNeb breathing treatments. Patient given a course of Ceftin 500 mg by mouth twice daily for one week at the time of discharge. 6. History of coronary artery disease with previous stent placement 7. History of CVA 8. History of COPD. Patient does wear 2 L at night 9. History of diabetes mellitus. Metformin currently on hold. Will order sliding scale insulin 10. History of hyperlipidemia 11. History of essential hypertension 12. memory impairment 13. Nicotine dependence. Patient educated greater than 10 minutes smoking cessation. Nicotine patch has been ordered 14. Marijuana use 15. Leukocytosis. White blood cell increasing to 19.0. Patient is on Rocephin due to patient stating recent diagnosis of pneumonia. Chest x-ray completed showing mild pulmonary fibrosis. No significant change. No overt heart failure. Urinary analysis urine culture, blood culture and sputum culture have been ordered. Hospital course: This is a 57-year-old male patient of Dr. Gagnon. Patient presented to [facility] with complaints of chest pain that has been significantly increasing. Patient states it's been occurring for many weeks but had significantly increased since last night. Patient does admit that he did cocaine last night. It was found upon arrival to ER the patient was having an ST elevated myocardial infarction. Patient was transferred directly to cardiac catheterization lab and received a stent to the RCA. Patient also went into V. fib post intervention. Patient was started on amiodarone drip. Patient also required levophed for pressure support. Levophed currently off. Patient is currently sinus rhythm/sinus bradycardia. Postintervention patient also experienced slurred speech. Code stroke was initiated. Patient was taking for head CT. CT of head completed showing no acute intracranial process. Neurology services are following. MRI ordered. Drug Screen also ordered. Patient has a known past medical history of asthma, coronary artery disease he, chest pain, COPD, CVA, diabetes mellitus, GERD, hyperlipidemia, memory impairment, hypertension, anxiety, nicotine dependence, marijuana use, cocaine use and heart catheterization with stents. Patient also states he's been recently getting treatment for pneumonia. Patient was taking Levaquin and steroids. Patient also uses home O2 2 L at night and when necessary Patient is currently resting comfortably in the intensive care unit. At this time patient is alert and oriented 3. Speech does appear clear. Equal strength throughout all extremities. At this time patient denies chest pain or shortness of breath. Patient denies any urinary burning or frequency. On 03/09/2018 patient is currently resting comfortably in bed. Patient denies chest pain at this time. Patient is complaining of shortness of breath. Chest x-ray completed. Pulmonaru services have been consulted. At this time she denies nausea vomiting or diarrhea. Patient denies any urinary burning or frequency On 03/10/2018 patient was seen and examined in the intensive care unit he is alert and oriented 3 in no apparent distress he denies any chest pain or shortness of breath no palpitation no cough no nausea or vomiting no abdominal pain no diarrhea and no urinary symptoms On 03/11/2018 patient was seen and examined on the telemetry floor he is alert and oriented 3 no episodes of chest pain or shortness of breath patient is ambulating on the floor without difficulty he was evaluated by cardiology and was cleared for discharge. Patient will be discharged home today. Prolonged counseling regarding smoking cessation done today patient given a prescription for NicoDerm patches 14 g change daily. Plan - Discharge Summary Discharge Rx Participant: No New Discharge Prescriptions: New Atorvastatin [Lipitor] 80 mg PO HS #90 tab Clopidogrel [Plavix] 75 mg PO DAILY #90 tab Lisinopril [Zestril] 2.5 mg PO DAILY #90 tab Cefuroxime Axetil [Ceftin] 500 mg PO BID 7 Days #14 tab Nicotine 14Mg/24Hr Patch [Habitrol] 1 patch TRANSDERM DAILY patch Continue Omeprazole [PriLOSEC] 20 mg PO AC-BRKFST Nitroglycerin Sl Tabs [Nitrostat] 0.4 mg SUBLINGUAL Q5M PRN PRN Reason: Chest Pain Montelukast [Singulair] 10 mg PO DAILY Albuterol Inhaler [Ventolin Hfa Inhaler] 1 - 2 puff INHALATION RT-Q4H PRN PRN Reason: Shortness Of Breath Metoprolol Tartrate [Lopressor] 25 mg PO BID Aspirin 81 mg PO DAILY ALPRAZolam [Xanax] 1 mg PO Q8H PRN PRN Reason: Anxiety rOPINIRole HCL [Requip] 0.125 mg PO HS PRN PRN Reason: RESTLESS LEGS Ranitidine HCl 300 mg PO HS PRN PRN Reason: Heartburn Pregabalin [Lyrica] 75 mg PO BID Budesonide/Formoterol Fumarate [Symbicort 160-4.5 Mcg Inhaler] 2 puff INHALATION RT-BID FLUoxetine HCL [PROzac] 20 mg PO DAILY Cyclobenzaprine [Flexeril] 10 mg PO TID buPROPion HCL [buPROPion HCL SR] 150 mg PO BID Discontinued Hydrochlorothiazide [Hydrodiuril] 25 mg PO DAILY Pravastatin Sodium [Pravachol] 80 mg PO HS Lisinopril [Zestril] 5 mg PO BID Discharge Medication List ALPRAZolam [Xanax] 1 mg PO Q8H PRN 12/01/14 [History] Albuterol Inhaler [Ventolin Hfa Inhaler] 1 - 2 puff INHALATION RT-Q4H PRN [History] Aspirin 81 mg PO DAILY 12/01/14 [History] Metoprolol Tartrate [Lopressor] 25 mg PO BID 12/01/14 [History] Montelukast [Singulair] 10 mg PO DAILY 12/01/14 [History] Nitroglycerin Sl Tabs [Nitrostat] 0.4 mg SUBLINGUAL Q5M PRN 12/01/14 [History] Omeprazole [PriLOSEC] 20 mg PO AC-BRKFST 12/01/14 [History] rOPINIRole HCL [Requip] 0.125 mg PO HS PRN 12/01/14 [History] Ranitidine HCl 300 mg PO HS PRN 08/02/16 [History] Pregabalin [Lyrica] 75 mg PO BID 08/24/16 [History] Budesonide/Formoterol Fumarate [Symbicort 160-4.5 Mcg Inhaler] 2 puff INHALATION RT-BID 12/16/16 [History] FLUoxetine HCL [PROzac] 20 mg PO DAILY 03/01/17 [History] Cyclobenzaprine [Flexeril] 10 mg PO TID 03/09/18 [History] buPROPion HCL [buPROPion HCL SR] 150 mg PO BID 03/09/18 [History] Atorvastatin [Lipitor] 80 mg PO HS #90 tab 03/11/18 [Rx] Cefuroxime Axetil [Ceftin] 500 mg PO BID 7 Days #14 tab 03/11/18 [Rx] Clopidogrel [Plavix] 75 mg PO DAILY #90 tab 03/11/18 [Rx] Lisinopril [Zestril] 2.5 mg PO DAILY #90 tab 03/11/18 [Rx] Nicotine 14Mg/24Hr Patch [Habitrol] 1 patch TRANSDERM DAILY patch 03/11/18 [Rx] Follow up Appointment(s)/Referral(s): Jose Salinas MD [Primary Care Provider] - 1 Week [facility], [NON-STAFF] - Patient Instructions/Handouts: *Surgery [facility] - After Heart Catheterization - [employer] Instructions, Right Heart Catheterization (DC), Heart Catheterization (DC)
[2018-03-11 12:49] VITALS: PULSE 80
[2018-03-13 09:06] LABS: Glucose,Whole Blood 109 mg/dL (75-99)
== END 2018-03-11 14:23 | disposition home or self-care (01) | DRG 246 ==
LOC: 2SICU 14:15 → 3SCARD 03-10 21:53
PROVIDERS: ADMIT Internal Medicine Interventional Cardiology; ATTEND Internal Medicine Interventional Cardiology
PROC: B2151ZZ Fluoroscopy of Left Heart using Low Osmolar Contrast (ICD-10-PCS; principal; 2018-03-08 12:33)
PROC: 4A023N7 Measurement of Cardiac Sampling and Pressure, Left Heart, Percutaneous Approach (ICD-10-PCS; principal; 2018-03-08 12:33)
PROC: B2111ZZ Fluoroscopy of Multiple Coronary Arteries using Low Osmolar Contrast (ICD-10-PCS; principal; 2018-03-08 12:33)
PROC: 02C03ZZ Extirpation of Matter from Coronary Artery, One Artery, Percutaneous Approach (ICD-10-PCS; principal; 2018-03-08 12:33)
PROC: 027034Z Dilation of Coronary Artery, One Artery with Drug-eluting Intraluminal Device, Percutaneous Approach (ICD-10-PCS; principal; 2018-03-08 12:33)
PROC: 5A2204Z Restoration of Cardiac Rhythm, Single (ICD-10-PCS; principal; 2018-03-08 12:33)
DX: I21.11 ST elevation (STEMI) myocardial infarction involving right coronary artery (principal); I49.01 Ventricular fibrillation; J18.9 Pneumonia, unspecified organism; I46.2 Cardiac arrest due to underlying cardiac condition; I97.190 Other postprocedural cardiac functional disturbances following cardiac surgery; J45.909 Unspecified asthma, uncomplicated; I25.10 Atherosclerotic heart disease of native coronary artery without angina pectoris; J44.9 Chronic obstructive pulmonary disease, unspecified; E11.9 Type 2 diabetes mellitus without complications; K21.9 Gastro-esophageal reflux disease without esophagitis; E78.5 Hyperlipidemia, unspecified; F41.9 Anxiety disorder, unspecified; M54.9 Dorsalgia, unspecified; F17.200 Nicotine dependence, unspecified, uncomplicated; I25.5 Ischemic cardiomyopathy; R41.3 Other amnesia; I10 Essential (primary) hypertension; Z86.73 Personal history of transient ischemic attack (TIA), and cerebral infarction without residual deficits; Z95.5 Presence of coronary angioplasty implant and graft; Z99.81 Dependence on supplemental oxygen; Z82.49 Family history of ischemic heart disease and other diseases of the circulatory system; Z79.899 Other long term (current) drug therapy; Z79.82 Long term (current) use of aspirin; Z79.84 Long term (current) use of oral hypoglycemic drugs; Z79.51 Long term (current) use of inhaled steroids; Z79.02 Long term (current) use of antithrombotics/antiplatelets; Z88.2 Allergy status to sulfonamides; Z88.8 Allergy status to other drugs, medicaments and biological substances; Z91.030 Bee allergy status; Z71.6 Tobacco abuse counseling; Z85.828 Personal history of other malignant neoplasm of skin; Z79.2 Long term (current) use of antibiotics; Z79.52 Long term (current) use of systemic steroids
CPT/HCPCS: 70450; 70551; 71045; 80048; 80053; 80061; 80306; 81003; 83036; 83735; 84484; 85025; 85610; 85730; 87040; 87070; 87086; 87205; 93306; 93458; 93880; 94640; 95816; C1874

== ENCOUNTER 2018-04-19 21:33 | Emergency (ER) | payer OTHER ==
[2018-04-20 02:50] LABS: Hyaline Casts,Urine 1 /lpf (0-2); Mucus,Urine Rare /hpf; RBC,Urine <1 /hpf (0-5); Squamous Epithelial Cell,Urine 1 /hpf (0-4); WBC,Urine 1 /hpf (0-5)
[2018-04-20 02:57] LABS: Appearance,Urine Clear (Clear); Bilirubin,Urine Negative (Negative); Blood,Urine Negative (Negative); Color,Urine Yellow; Glucose,Urine (UA) Negative (Negative); Ketones,Urine Negative (Negative); Leukocyte Esterase,Urine Negative (Negative); Nitrite,Urine Negative (Negative); PH, Urine 5.5 (5.0-8.0); Protein,Urine Negative (Negative); Specific Gravity,Urine 1.018 (1.001-1.035); Urobilinogen,Urine <2.0 mg/dL (<2.0)
== END 2018-04-20 01:00 | disposition home or self-care (01) ==
LOC: EC 21:33
DX: G89.29 Other chronic pain (principal); M54.41 Lumbago with sciatica, right side; I25.2 Old myocardial infarction; F17.200 Nicotine dependence, unspecified, uncomplicated; Z88.2 Allergy status to sulfonamides; Z95.818 Presence of other cardiac implants and grafts
CPT/HCPCS: 81003; 96372; 99283

== ENCOUNTER → 2018-08-27 | Outpatient (CLI) | payer MEDICARE, OTHER ==
--- NOTE | 2018-08-28 04:27 | CT ---
EXAMINATION TYPE: CT abdomen pelvis w con DATE OF EXAM: 08/27/2018 COMPARISON: 12/16/2016 HISTORY: 58-year-old male with ventral hernia, K43.0. Right sided abdomen pain and swelling. TECHNIQUE: Contiguous axial scanning of the abdomen and pelvis following administration of 100 ml Omn ipaque 300 IV contrast. Delayed images through the kidneys and coronal/sagittal reconstructions perf ormed. CT DLP: 1741.5 mGycm Automated exposure control for dose reduction was used. FINDINGS: Heart normal size without pericardial effusion. Prominent epicardial fat pad is demonstrated. Some em physematous change in the visualized lower lungs. Calcified granuloma peripheral left base. Small rig ht pleural effusion which needs clinical correlation. Liver mildly enlarged at 18.1 cm. No focal lesion seen. No biliary ductal dilatation. Portal venous s ystem is patent. The gallbladder is collapsed. Adrenal glands, right kidney, spleen, and pancreas are within normal limits. 2.7 cm cyst redemonstrated lower pole of the left kidney. No dilated small bowel, free fluid, or free air. No mesenteric or retroperitoneal lymphadenopathy. No significant stool burden. No pericolonic inflammatory change. Mild atherosclerotic calcifications within the abdominal aorta and iliac arteries. There is circumaor tic left renal vein and ectatic infrarenal abdominal aorta measuring up to 2.9 cm. No ventral abdominal wall hernia is identified. Bladder under distended but shows moderate circumferential wall thickening. Patulous left inguinal ca nal. Left-sided pelvic phlebolith. No abnormal fluid collection in the pelvis or pelvic lymphadenopat hy. Bones: Degenerative changes of the hips and right SI joint. Multilevel moderately advanced spondyloti c change mid to lower lumbar spine. Bilateral L5 pars defects without significant spondylolisthesis. IMPRESSION: 1. MODERATE CIRCUMFERENTIAL BLADDER WALL THICKENING COULD REPRESENT CHRONIC BLADDER WALL HYPERTROPHY OR CYSTITIS. CLINICALLY CORRELATE. THE PROSTATE GLAND DOES NOT APPEAR PARTICULARLY ENLARGED. 2. NO VENTRAL ABDOMINAL WALL HERNIA IDENTIFIED. 3. NEW SMALL RIGHT PLEURAL EFFUSION WHICH NEEDS CLINICAL CORRELATION. 4. 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 5. MODERATE TO ADVANCED SPONDYLOTIC CHANGE MID TO LOWER LUMBAR SPINE. BILATERAL L5 PARS DEFECTS WITHO UT ANY SIGNIFICANT SPONDYLOLISTHESIS.
== END ==
LOC: RADCTMAIN 15:04
PROVIDERS: ATTEND Surgery
DX: N32.89 Other specified disorders of bladder (principal); I77.811 Abdominal aortic ectasia; K43.0 Incisional hernia with obstruction, without gangrene
CPT/HCPCS: 82565; 84520; 74177; 36415; Q9967

== ENCOUNTER → 2018-09-18 | Outpatient (CLI) | payer MEDICARE, OTHER ==
[2018-09-17 16:19] VITALS: BMI 30.9
[2018-09-18 13:56] VITALS: BP 141/91; PULSE 87; RESP 16
--- NOTE | 2018-09-18 14:32 | P.PAINCN ---
History of Present Illness - Reason for Consult Consult date: 09/18/18 - History of Present Illness This is 58 years old male, with more than 10 years history of severe low back pain with radiation to the lower extremity, patient denies any initiating event, and he reported that the pain intensity increased with any activity, is able to ambulate, but he reported that the intensity of the pain interfere with her quality of life, the pain is constant with severity is 6/10 increased to 10 over 10 with activity, he reports occasional numbness and tingling sensation in the lower extremity, he had injections several years ago, without any significant improvement, and he was on different pain medication with questionable results, he denies any motor or sensory deficit, he denies any fever or night sweats, denies any change in the bowel movements or urination Past Medical History Past Medical History: Asthma, Coronary Artery Disease (CAD), Cancer, Chest Pain / Angina, COPD, CVA/TIA, Diabetes Mellitus, GERD/Reflux, Hyperlipidemia, Hypertension, Memory Impairment, Musculoskeletal Disorder Additional Past Medical History / Comment(s): hx TIA- memory loss,. was using O2 but not currently, hx skin cancer, lung nodules, back pain, bulging out on abd- prior hernia History of Any Multi-Drug Resistant Organisms: None Reported Past Surgical History: Appendectomy, Back Surgery, Heart Catheterization With Stent, Hernia Repair, Orthopedic Surgery Additional Past Surgical History / Comment(s): rt wrist surgery, neck surg., COLONOSCOPY, ORIF left ankle 2018-still wearing boot Past Anesthesia/Blood Transfusion Reactions: No Reported Reaction Date of Last Stent Placement:: 03-08-2018 Past Psychological History: Anxiety Smoking Status: Current every day smoker Past Alcohol Use History: Rare Additional Past Alcohol Use History / Comment(s): smokes 1/2 PPD, started smoking age 10. Past Drug Use History: Cocaine, Marijuana Additional Drug Use History / Comment(s): MARIJUANA 1-2 TIMES WEEKLY, last used cocaine 03-07-18-not using anymore - Past Family History Father Family Medical History: Coronary Artery Disease (CAD) Mother Family Medical History: Cancer Medications and Allergies Home Medications Medication Instructions Recorded Confirmed Type ALPRAZolam [Xanax] 1 mg PO Q8H PRN 12/01/14 03/09/18 History Albuterol Inhaler [Ventolin Hfa 1 - 2 puff INHALATION RT-Q4H PRN 12/01/14 03/09/18 History Inhaler] Aspirin 81 mg PO DAILY 12/01/14 03/09/18 History Metoprolol Tartrate [Lopressor] 25 mg PO BID 12/01/14 03/09/18 History Montelukast [Singulair] 10 mg PO DAILY 12/01/14 03/09/18 History Nitroglycerin Sl Tabs [Nitrostat] 0.4 mg SUBLINGUAL Q5M PRN 12/01/14 03/09/18 History Omeprazole [PriLOSEC] 20 mg PO AC-BRKFST 12/01/14 03/09/18 History rOPINIRole HCL [Requip] 0.125 mg PO HS PRN 12/01/14 03/09/18 History Ranitidine HCl 300 mg PO HS PRN 08/02/16 03/09/18 History Budesonide/Formoterol Fumarate 2 puff INHALATION RT-BID 12/16/16 03/09/18 History [Symbicort 160-4.5 Mcg Inhaler] FLUoxetine HCL [PROzac] 20 mg PO DAILY 03/01/17 03/09/18 History Cyclobenzaprine [Flexeril] 10 mg PO TID 03/09/18 03/09/18 History buPROPion HCL [buPROPion HCL SR] 150 mg PO BID 03/09/18 03/09/18 History Atorvastatin [Lipitor] 80 mg PO HS #90 tab 03/11/18 Rx Cefuroxime Axetil [Ceftin] 500 mg PO BID 7 Days #14 tab 03/11/18 Rx Clopidogrel [Plavix] 75 mg PO DAILY #90 tab 03/11/18 Rx Lisinopril [Zestril] 2.5 mg PO DAILY #90 tab 03/11/18 Rx Nicotine 14Mg/24Hr Patch [Habitrol] 1 patch TRANSDERM DAILY patch 03/11/18 Rx Allergies Allergy/AdvReac Type Severity Reaction Status Date / Time grass pollen Allergy Itching Verified 09/18/18 13:42 menthol Allergy Dyspnea Verified 09/18/18 13:42 Sulfa (Sulfonamide Allergy Unknown Verified 09/18/18 13:42 Antibiotics) Childhood venom-honey bee Allergy Anaphylaxis Verified 09/18/18 13:42 Physical Exam Vitals: Vital Signs Pulse Resp BP Pulse Ox 09/18/18 13:48 87 16 141/91 95 Intake and Output 09/17/18 09/18/18 09/18/18 22:59 06:59 14:59 Other: Weight 106.594 kg Social history :++ smoker , NO ETOH , NO Illegal drugs use . Family history : Review of Systems : - Constitutional : no chills , no fever , no night sweats , - Ears : no ear discharge , no change in hearing -Nose, Mouth ,Throat ; no bleeding gums, no sore throat , no epistaxis , -Cardiovascular : Denies chest pain, , no orthopnea , no palpitation, history of coronary artery disease, status post angioplasty -Respiratory : ++ cough , ++ dyspnea , no hemoptysis , smoker -Gastrointestinal : no change in bowel habits , no coffee-ground emesis . -Genitourinary : No hematuria , no discharge , no incontinence, -Musculoskeletal : No gait dysfunction , report low back pain , - Neurological : no ataxia , no tremor , no sezure , -Psychatric : no suicidal ideation no hallucination - Endocrine : no cold intolerence , no polyuria , no polydypsia , -Hematologic : easy bleeding , easy brusing , currently on Plavix -Allergic / immm : no angioedema , no wheezing ,no allergic rhinitis -Integumentary : no brttle nails , no change hair / nails , no foot/leg ulcers . Physical Examinations : -Constitutional : Cooperative , not in acute distress . -HEENT : nech ; supple , no Lymphadenopathy , no Thyromegaly , :eyes : no icterus, no photophobia . ENT : normal oropharynx , no Thrush - Respiratory : Chest clear to auscultations Bilaterally , no wheezing . - Cardiovascular : regular rate and rhythem , S1 , S2 , no S3 , no S4. - Gastrointestina l: abdomen soft no tenderness , no organomegally . - Genitourinary : Defferred . -Integumentary : No cellulitis , no ulcers , normal skin turgor , no cyanotic . - neurologic : Cranial nerve II to XII intact , no focal neurological deffecit -psychatric : alert , oriented X 3 , appropriate affect , intact judgment and insight . -Lymphatic : no Lymphadenopathy. - musculoskeltal: normal gait Lumber spine moter stegnth lower extremities ,thigh and legs 5/5 Right side , 5/5 Left side deep tendon reflexes : normal Knee Jerk , normal ankle Jerk positive lumber facet Loading Test Range of motion of the lumbar spine Flexion 30 degrees, extension 10 degrees strait leg raising test , positive at 45 degree Fabere test positive RT and positive LT . tenderness over the sacroiliac joint on the right side, and on the left side Results Comments: MRI of the lumbar spine done 02/11/2017= multilevel lumbar bulging disc disease from L2 3 L3 4 L4 5 and L5-S1 and multilevel lumbar facet arthropathy, and ligamentum flavum hypertrophy Assessment and Plan Plan: Assessment and plan= chronic severe low back pain secondary to lumbar degenerative disc disease, and lumbar spondylosis with lumbar facet arthropathy Patient could benefit from lumbar epidural steroid injections at L4-L5 or L5-S1 , patient had to stop Plavix for 7 days before the procedure And requests to hold the Plavix from the [facility] will be send today Time with Patient: Greater than 30 PQRS Measure Charge Sheet Measure #130: Documentation of Current Meds in Medical Chart: Patient's medications documented in chart Measure #226: Tobacco Use: Screen & Cessation Intervention: Pt screened for tobacco use AND intervention given Measure #111: Pneumonia Vaccination: Pneumococcal vaccine administered or previously received Measure #47: Advance Care Plan: Advance care planning discussed & documented, pt chose/unable to give Measure #412: Opioid Treatment Agreement: No documentation of signed opioid treatment agreement Measure #408: Opioid Therapy Follow-up Evaluation: Patient had NO f/u eval minimum every 3 months during opioid therapy Measure #317: Preventitive Care & Scrn High Bld Press & F/U: Pre-hypertensive or hypertensive BP documented, pt will f/u with PCP Measure #128: Body Mass Index (BMI) Screening & Follow-up: BMI documented ABOVE normal parameters - f/u documented Measure #131: Pain Assessment & Follow-up: Pain positive & plan documented, Follow-up scheduled Measure #431: Unhealthy Alcohol Use Preventative Care & Scrn: Patient not identified as an unhealthy alcohol user PQRS Narrative: Smoking Status Current every day smoker Do You Want the Pneumonia Vaccine Up to Date Vaccine AT THIS TIME? Blood Pressure 141/91 Pain Intensity [Bilateral 8 Lower Back] Scale Used Numeric (1 - 10) Hx Alcohol Use (MH) No Home Medications: Ambulatory Orders ALPRAZolam [Xanax] 1 mg PO Q8H PRN 12/01/14 Albuterol Inhaler [Ventolin Hfa Inhaler] 1 - 2 puff INHALATION RT-Q4H PRN 12/01/14 Aspirin 81 mg PO DAILY 12/01/14 Metoprolol Tartrate [Lopressor] 25 mg PO BID 12/01/14 Montelukast [Singulair] 10 mg PO DAILY 12/01/14 Nitroglycerin Sl Tabs [Nitrostat] 0.4 mg SUBLINGUAL Q5M PRN 12/01/14 Omeprazole [PriLOSEC] 20 mg PO AC-BRKFST 12/01/14 rOPINIRole HCL [Requip] 0.125 mg PO HS PRN 12/01/14 Ranitidine HCl 300 mg PO HS PRN 08/02/16 Budesonide/Formoterol Fumarate [Symbicort 160-4.5 Mcg Inhaler] 2 puff INHALATION RT-BID 12/16/16 FLUoxetine HCL [PROzac] 20 mg PO DAILY 03/01/17 Cyclobenzaprine [Flexeril] 10 mg PO TID 03/09/18 buPROPion HCL [buPROPion HCL SR] 150 mg PO BID 03/09/18 Atorvastatin [Lipitor] 80 mg PO HS #90 tab 03/11/18 Cefuroxime Axetil [Ceftin] 500 mg PO BID 7 Days #14 tab 03/11/18 Clopidogrel [Plavix] 75 mg PO DAILY #90 tab 03/11/18 Lisinopril [Zestril] 2.5 mg PO DAILY #90 tab 03/11/18 Nicotine 14Mg/24Hr Patch [Habitrol] 1 patch TRANSDERM DAILY patch 03/11/18
== END ==
LOC: PNWHC3 13:31
PROVIDERS: ATTEND Specialist
DX: G89.29 Other chronic pain (principal); M51.36 Other intervertebral disc degeneration, lumbar region; M47.816 Spondylosis without myelopathy or radiculopathy, lumbar region; M46.96 Unspecified inflammatory spondylopathy, lumbar region; I25.10 Atherosclerotic heart disease of native coronary artery without angina pectoris; E11.9 Type 2 diabetes mellitus without complications; K21.9 Gastro-esophageal reflux disease without esophagitis; E78.5 Hyperlipidemia, unspecified; I10 Essential (primary) hypertension; F17.200 Nicotine dependence, unspecified, uncomplicated; Z79.899 Other long term (current) drug therapy; Z79.82 Long term (current) use of aspirin; Z91.09 Other allergy status, other than to drugs and biological substances; Z88.2 Allergy status to sulfonamides; Z91.013 Allergy to seafood; Z88.8 Allergy status to other drugs, medicaments and biological substances
CPT/HCPCS: 99211

== ENCOUNTER 2018-09-27 08:27 | Day surgery (SDC) | payer MEDICARE, OTHER ==
[2018-09-25 10:48] VITALS: BMI 30.7
[~2018-09-27 08:27] MED LIST changes: -DEXAMETHASONE SOD PHOSPHATE 10 MG/ML 1 ML VIAL IV ONE; -HEPARIN SODIUM,PORCINE 5,000 UNIT/ML 1 ML VIAL SQ ONE; -MIDAZOLAM 2 MG/2 ML VIAL IV PRN; -ONDANSETRON 4 MG/2 ML VIAL IVP ONE; -SCOPOLAMINE 1.5MG/72HR PATCH TRANSDERM ONE; -ceFAZolin 2 GM in SODIUM CHLORIDE 0.9% 100 ML IVPB ONE
[2018-09-27 09:04] VITALS: TEMP 97.5
[2018-09-27 09:05] LABS: Glucose,Whole Blood 129 mg/dL (75-99)
[2018-09-27] MEDS ORDERED: LIDOCAINE 1% 20 ML VIAL (10MG/ML) FOR IV START INTRADERMA ONE (09:05)
--- NOTE | 2018-09-27 09:51 | P.PCN ---
Date of Procedure: 09/27/18 Procedure(s) Performed: PREOPERATIVE DIAGNOSIS: 1- Lumbar Degenerative Disc Diseases 2-Lumbar spondylosis with Facet arthropathy without myelopathy POSTOPERATIVE DIAGNOSIS: 1-Lumber Degenerative Disc Diseases 2-Lumbar spondylosis with Facet arthropathy without myelopathy PROCEDURE 1. Lumbar epidural steroid injection under fluoroscopic guidance at the L4-5 level. 2. Lumbar epidurogram. ANESTHESIA: Local with 1% lidocaine 3 ml and , moderate sedation with intravenous Versed 1 mg ,and fentanyle 50 Mcg EBL: Minimal PROCEDURE INDICATION: The patient with low back pain and radiculitis symptoms unresponsive to conservative treatment. Fluoroscopy was used to optimize visualization of the needle placement and to maximize safety. PROCEDURE DESCRIPTION / TECHNIQUE: The patient was seen and identified in the preoperative area. Risks, benefits, complications including but not limited to infections ,bleeding ,allergic reaction to the medications ,nerve damage and not complete pain releife , and alternatives were discussed with the patient. The patient agreed to proceed with the procedure and signed the consent. IV was started, and vital signs were stable. Patient was taken to the OR and time out was completed. The patient was placed in the prone position on procedure table and a pillow was placed under the abdomen to reduce lumbar lordosis. The lumbosacral area was prepped and draped in the usual sterile fashion.ere closely monitored during the procedure. Conscious sedation was used during the procedure to decrease patients anxiety. Vital signs was monitered during the entire procedure. Using anterior-posterior fluoroscopy, the L4-5 interlaminar space was identified and the skin over this site was marked and then infiltrated with 1% lidocaine subcutaneously. Subsequently, a 20-gauge Tuohy epidural needle was inserted and advanced toward the epidural space using the ``Loss of resistance technique and guided by AP and lateral fluoroscopy. The correct needle position in the epidural space was verified with the injection of 2 mL of the water soluble contrast dye Isovue 200 contrast and observing an excellent epidurogram with the epidural spread of the dye, after negative aspiration for blood and CSF and in the absence of paresthesias. Again after negative aspiration, a 6 ml mixture containing 40 mg of Depo-medrol , and 2 ml of preservative free Normal Saline, and 2 ml of preservative free lidocaine 1% solution was injected and a washout of epidurogram was seen. Needle was withdrawn intact, skin was cleansed, and bandages were applied. COMPLICATIONS: None DISPOSITION / PLANS: The patient was placed in a supine position and transferred to the recovery area in a stable condition for observation. There was no evidence of lower extremity motor or sensory deficit after the procedure. Patient was discharged from the recovery room after meeting discharge criteria. Home discharge instructions were given to the patient by the staff. The patient was reexamined prior to discharge. The patient will schedule a follow up in the clinic in 2-4 weeks.
[2018-09-27 10:15] VITALS: BP 125/74; PULSE 77; RESP 16
[2018-09-27] MEDS ORDERED: IV FLUID CONTINUATION 1,000 ML IV ONE (10:20)
--- NOTE | 2018-09-27 10:23 | FL ---
EXAMINATION TYPE: FL guided pain mgmt statistic DATE OF EXAM: 09/27/2018 CLINICAL HISTORY: Low back pain. TECHNIQUE: Fluoroscopy. COMPARISON: None. FINDINGS: Fluoroscopic guidance was provided during pain relief procedure performed by Dr. Monroy . A total of 1 seconds of fluoroscopic time was utilized during the procedure and 1 spot images are acquired. Images acquired shows needle localization of the lumbosacral spine. IMPRESSION: As Above.
== END 2018-09-27 10:23 | disposition home or self-care (01) ==
LOC: ORPAIN 08:27
PROVIDERS: ATTEND Specialist
DX: G89.29 Other chronic pain (principal); M51.16 Intervertebral disc disorders with radiculopathy, lumbar region; M47.26 Other spondylosis with radiculopathy, lumbar region; J45.909 Unspecified asthma, uncomplicated; I25.10 Atherosclerotic heart disease of native coronary artery without angina pectoris; I10 Essential (primary) hypertension; J44.9 Chronic obstructive pulmonary disease, unspecified; I69.311 Memory deficit following cerebral infarction; E11.9 Type 2 diabetes mellitus without complications; K21.9 Gastro-esophageal reflux disease without esophagitis; E78.5 Hyperlipidemia, unspecified; R41.3 Other amnesia; Z85.828 Personal history of other malignant neoplasm of skin; R91.8 Other nonspecific abnormal finding of lung field; Z95.5 Presence of coronary angioplasty implant and graft; F41.9 Anxiety disorder, unspecified; F17.210 Nicotine dependence, cigarettes, uncomplicated; Z82.49 Family history of ischemic heart disease and other diseases of the circulatory system; Z79.02 Long term (current) use of antithrombotics/antiplatelets; Z79.82 Long term (current) use of aspirin; Z79.51 Long term (current) use of inhaled steroids; Z79.899 Other long term (current) drug therapy; Z91.030 Bee allergy status; Z88.2 Allergy status to sulfonamides; Z91.048 Other nonmedicinal substance allergy status
CPT/HCPCS: 62323; J2250; J1030; J3010; Q9966

== ENCOUNTER 2018-10-11 09:04 | Day surgery (SDC) | payer MEDICARE, OTHER ==
[2018-10-09 17:33] VITALS: BMI 30.9
[2018-10-11 09:33] VITALS: RESP 20; TEMP 97.3
[2018-10-11] MEDS ORDERED: LACTATED RINGERS 1,000 ML IV ONE (09:41)
[2018-10-11 09:48] LABS: Glucose,Whole Blood 121 mg/dL (75-99)
--- NOTE | 2018-10-11 09:51 | P.PCN ---
Date of Procedure: 10/11/18 Description of Procedure: PREOPERATIVE DIAGNOSIS: lumbar radiculopathy POSTOPERATIVE DIAGNOSIS: Lumbar radiculopathy PROCEDURE 1. Lumbar epidural steroid injection under fluoroscopic guidance at the L4 5 level. 2. Lumbar epidurogram. ANESTHESIA: Local with 1% lidocaine 5 ml and 2 mg of Versed and 50 g of fentanyl EBL: Minimal PROCEDURE INDICATION: The patient with low back pain and radiculitis symptoms unresponsive to conservative treatment. Fluoroscopy was used to optimize visualization of the needle placement and to maximize safety. PROCEDURE DESCRIPTION / TECHNIQUE: The patient was seen and identified in the preoperative area. Risks, benefits, complications including but not limited to infections ,bleeding ,allergic reaction to the medications, nerve damage and incomplete pain relief , as well as alternatives to the procedure were discussed with the patient. The patient agreed to proceed with the procedure and signed the consent. IV was started, and vital signs were stable. Patient was taken to the OR and time out was completed. The patient was placed in the prone position on procedure table and a pillow was placed under the abdomen to reduce lumbar lordosis. The lumbosacral area was prepped and draped in the usual sterile fashion. Vitals were closely monitored during the procedure. Using anterior-posterior fluoroscopy, the L 4/5 interlaminar space was identifi ed and the skin over this site was marked and then infiltrated with 1% lidocaine subcutaneously. Subsequently, a 20-gauge Tuohy epidural needle was inserted and advanced toward the epidural space using the Loss of resistance technique and guided by AP and lateral fluoroscopy. The correct needle position in the epidural space was verified with the injection of 1 mL of the water soluble contrast dye Omnipaque 180 contrast and observing an excellent epidurogram with the epidural spread of the dye, after negative aspiration for blood and CSF and in the absence of paresthesias. Again after negative aspiration, a 3 ml mixture containing 40mg of depomedrol and 2 ml of preservative free Normal Saline was injected and a washout of epidurogram was seen. Needle was withdrawn intact, skin was cleansed, and bandages were applied. COMPLICATIONS: None DISPOSITION / PLANS: The patient was placed in a supine position and transferred to the recovery area in a stable condition for observation. There was no evidence of lower extremity motor or sensory deficit after the procedure. Patient was discharged from the recovery room after meeting discharge criteria. Home discharge instructions were given to the patient by the staff. The patient was reexamined prior to discharge. The patient will follow up as directed.
[2018-10-11] MEDS ORDERED: IV FLUID CONTINUATION 1,000 ML IV ONE (10:16)
--- NOTE | 2018-10-11 10:27 | FL ---
EXAMINATION TYPE: FL guided pain mgmt statistic DATE OF EXAM: 10/11/2018 CLINICAL HISTORY: Low back pain. TECHNIQUE: Fluoroscopy. COMPARISON: None. FINDINGS: Fluoroscopic guidance was provided during pain relief procedure performed by Dr. Rucker. A total of 19 seconds of fluoroscopic time was utilized during the procedure and 1 spot images are a cquired. Images acquired shows needle localization of the lumbar spine. IMPRESSION: As Above.
[2018-10-11 10:55] VITALS: BP 116/70; PULSE 68
== END 2018-10-11 11:13 | disposition home or self-care (01) ==
LOC: ORPAIN 09:04
PROVIDERS: ATTEND Hospitalist
DX: G89.29 Other chronic pain (principal); M51.16 Intervertebral disc disorders with radiculopathy, lumbar region; M47.26 Other spondylosis with radiculopathy, lumbar region; I25.10 Atherosclerotic heart disease of native coronary artery without angina pectoris; J44.9 Chronic obstructive pulmonary disease, unspecified; E11.9 Type 2 diabetes mellitus without complications; K21.9 Gastro-esophageal reflux disease without esophagitis; I10 Essential (primary) hypertension; I69.911 Memory deficit following unspecified cerebrovascular disease; F41.9 Anxiety disorder, unspecified; F17.210 Nicotine dependence, cigarettes, uncomplicated; Z85.828 Personal history of other malignant neoplasm of skin; Z95.5 Presence of coronary angioplasty implant and graft; Z79.82 Long term (current) use of aspirin; Z79.51 Long term (current) use of inhaled steroids; Z79.899 Other long term (current) drug therapy; Z79.02 Long term (current) use of antithrombotics/antiplatelets; Z91.030 Bee allergy status; Z88.2 Allergy status to sulfonamides; Z88.9 Allergy status to unspecified drugs, medicaments and biological substances; Z91.09 Other allergy status, other than to drugs and biological substances
CPT/HCPCS: 62323; J2250; J1030; J2001; J3010; Q9966

== ENCOUNTER → 2018-12-03 | Outpatient (CLI) | payer MEDICARE, OTHER ==
--- NOTE | 2018-12-04 09:33 | CT ---
EXAMINATION TYPE: CT ChestAbdPelvis w con DATE OF EXAM: 12/03/2018 COMPARISON: Prior CT 08/27/2018 HISTORY: Protruding mass right side. Also c/o pain LT groin region. CT DLP: 1142 mGycm Automated exposure control for dose reduction was used. CONTRAST: CT scan of the chest, abdomen and pelvis is performed with Oral Contrast and with IV Contrast, patien t injected with 100 mL of Isovue 300. FINDINGS: LUNGS: The lungs are remarkable for extensive paraseptal emphysematous change, centrilobular emphysem a. Subpleural nodule is present in the left lower lobe axial image 28 measuring 7-8 mm with smooth ma rgins, no definite calcification, calcified nodule on axial image 27 is noted in the subpleural locat ion in the left lower lobe #45 image. Calcified nodule axial image 25 right upper lobe. There is no p leural effusion or pneumothorax seen. The tracheobronchial tree is patent. MEDIASTINUM: There are no greater than 1 cm hilar or mediastinal lymph nodes. No pericardial effusi on is seen. Prevascular node is present just not enlarged. There are coronary calcifications. AORTA: No significant change is seen. Infrarenal abdominal aortic aneurysm at 3.4 cm, atheromatous c hange within the aorta again noted OTHER: No additional significant abnormality is seen. LIVER/GB: No significant interval change is appreciated. Liver shows low attenuation is borderline en larged, consider hepatic steatosis PANCREAS: No significant abnormality is seen. SPLEEN: No significant abnormality is seen. ADRENALS: No significant abnormality is seen. KIDNEYS: No significant change is seen, large cortical cyst present inferior margin in exophytic loca tion measures 6.7 cm, no hydronephrosis or pathologic calcification, no ureteral calcification. REPRODUCTIVE ORGANS: No gross abnormality seen. BOWEL: No significant abnormality is seen. No bowel obstruction. No inflammatory change. FREE AIR: No Free Air visible. ASCITES: None seen. RETROPERITONEAL ADENOPATHY: No retroperitoneal adenopathy is seen. LYMPH NODES: No greater than 1 cm abdominal or pelvic lymph nodes are appreciated. URINARY BLADDER: Stable, mild bladder wall thickening is less prominent than on prior. PELVIC ADENOPATHY: None visualized. 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 Stable findings of the lumbar spine, analysis at L5, degenerat amberly disc changes and facet arthropathy noted IMPRESSION: No significant interval change. Emphysema. Probable old granulomatous disease. Coronary a rtery disease. Correlate for hepatic steatosis, hepatomegaly. Additional findings above.
== END | disposition home or self-care (01) ==
LOC: RADCTMAIN 14:38
PROVIDERS: ATTEND Surgery Plastic and Reconstructive Surgery
DX: J43.2 Centrilobular emphysema (principal); I25.10 Atherosclerotic heart disease of native coronary artery without angina pectoris; R91.8 Other nonspecific abnormal finding of lung field; I71.4 Abdominal aortic aneurysm, without rupture; I70.0 Atherosclerosis of aorta; R16.0 Hepatomegaly, not elsewhere classified; N32.89 Other specified disorders of bladder; S22.41XA Multiple fractures of ribs, right side, initial encounter for closed fracture; J94.8 Other specified pleural conditions; Z88.2 Allergy status to sulfonamides
CPT/HCPCS: 82565; 84520; 71260; 74177; 36415; Q9967

== ENCOUNTER 2019-01-17 14:07 | Emergency (ER) | payer MEDICARE, OTHER ==
--- NOTE | 2019-01-17 15:09 | ED ---
Abdominal Pain HPI - General Source: patient Mode of arrival: ambulatory Limitations: no limitations <Minerva Hadley - Last Filed: 01/17/19 17:55> - History of Present Illness MD Complaint: abdominal pain, flank pain (() -: week(s), month(s), unknown (Worsening in the last day after her event) Location: R flank Radiation: R flank Migration to: R flank Severity: severe Severity scale (1-10): 9 Quality: cramping, aching, fullness Consistency: constant Improves With: nothing Worsens With: movement Context: recent injury <Deangelo Mccauley Deborah - Last Filed: 01/17/19 18:32> - General Chief Complaint: Abdominal Pain Stated Complaint: Abd pain & back pain Time Seen by Provider: 01/17/19 14:33 - History of Present Illness Initial Comments: 58-year-old male with past medical history of diabetes, hypertension, coronary artery disease presented for chief complaint of pain in right ribs and hernia. Patient states that he bent down to meat pickler a soda can today when he felt a pop in his right side of his abdomen. He is unsure if this was in his hernia or his ribs. Patient states he then had pain with deep inspiration any twisting movements. Patient states that he immediately presents emergency department. Patient denies any midline back pain loss of bowel bladder control weakness or loss sensation of the lower extremities or radiation of pain down the legs. He states he does not believe it is in the back. Pain patient denies any history of DVT report wasn't denies anticoagulation use denies history of active cancer. Patient denies experiencing symptoms prior to bending down to grab the can he states this onset was suddenly. Patient states he is not short of breath but that movement of breath causes pain. Patient describes as sharp in nature. Denies any pressure arm pain and jaw pain nausea or epigastric pain. Patient states he has been having normal bowel movements. Denies testicular pain/swelling. Denies melena or hematochezia vomiting. Remaining ROS (-). (Minerva Hadley) - Related Data Home Medications Medication Instructions Recorded Confirmed ALPRAZolam [Xanax] 1 mg PO Q8H PRN 12/01/14 11/20/18 Albuterol Inhaler [Ventolin Hfa 1 - 2 puff INHALATION RT-Q4H PRN 12/01/14 Inhaler] Aspirin 81 mg PO DAILY 12/01/14 11/20/18 Metoprolol Tartrate [Lopressor] 25 mg PO BID 12/01/14 11/20/18 Montelukast [Singulair] 10 mg PO DAILY 12/01/14 11/20/18 Nitroglycerin Sl Tabs [Nitrostat] 0.4 mg SUBLINGUAL Q5M PRN 12/01/14 11/20/18 rOPINIRole HCL [Requip] 0.125 mg PO HS PRN 12/01/14 11/20/18 Ranitidine HCl 300 mg PO HS PRN 08/02/16 11/20/18 Budesonide/Formoterol Fumarate 2 puff INHALATION RT-BID PRN 12/16/16 11/20/18 [Symbicort 160-4.5 Mcg Inhaler] FLUoxetine HCL [PROzac] 20 mg PO DAILY 03/01/17 11/20/18 Cyclobenzaprine [Flexeril] 10 mg PO TID PRN 03/09/18 11/20/18 buPROPion HCL [buPROPion HCL SR] 150 mg PO BID 03/09/18 11/20/18 metFORMIN HCL 500 mg PO BID 09/25/18 11/20/18 Atorvastatin [Lipitor] 40 mg PO HS 10/09/18 11/20/18 Gabapentin [Neurontin] 300 mg PO TID 10/09/18 11/20/18 Hydrochlorothiazide [Hydrodiuril] 12.5 mg PO DAILY 10/09/18 11/20/18 Spironolactone [Aldactone] 25 mg PO DAILY 10/09/18 11/20/18 busPIRone HCL 15 mg PO DAILY 10/09/18 11/20/18 cloNIDine HCL [Catapres] 0.1 mg PO DAILY 10/09/18 11/20/18 traZODone HCL 50 mg PO HS 10/09/18 11/20/18 Previous Rx's Medication Instructions Recorded Clopidogrel [Plavix] 75 mg PO DAILY #90 tab 03/11/18 Lisinopril [Zestril] 2.5 mg PO DAILY #90 tab 03/11/18 Allergies Allergy/AdvReac Type Severity Reaction Status Date / Time grass pollen Allergy Itching Verified 01/17/19 14:17 menthol Allergy Dyspnea Verified 01/17/19 14:17 Sulfa (Sulfonamide Allergy Unknown Verified 01/17/19 14:17 Antibiotics) Childhood venom-wasp Allergy Anaphylaxis Verified 01/17/19 14:17 Review of Systems ROS Other: All systems not noted in ROS Statement are negative. <TerenettaMinerva L - Last Filed: 01/17/19 17:55> ROS Other: All systems not noted in ROS Statement are negative. <Deangelo Mccauley - Last Filed: 01/17/19 18:32> ROS Statement: Those systems with pertinent positive or pertinent negative responses have been documented in the HPI. Past Medical History Past Medical History: Asthma, Coronary Artery Disease (CAD), Cancer, Chest Pain / Angina, COPD, CVA/TIA, Diabetes Mellitus, GERD/Reflux, Hyperlipidemia, Hypertension, Memory Impairment, Musculoskeletal Disorder Additional Past Medical History / Comment(s): hx TIA- memory loss,. was using O2 but not currently, hx skin cancer, lung nodules, back pain, bulging out on abd- prior hernia History of Any Multi-Drug Resistant Organisms: None Reported Past Surgical History: Appendectomy, Back Surgery, Heart Catheterization With Stent, Hernia Repair, Orthopedic Surgery Additional Past Surgical History / Comment(s): rt wrist surgery, neck surg., COLONOSCOPY, ORIF left ankle 2018-still wearing boot Past Anesthesia/Blood Transfusion Reactions: No Reported Reaction Additional Past Anesthesia/Blood Transfusion Reaction / Comment(s): CLAUSTROPHOBIA Date of Last Stent Placement:: 03-08-2018 Past Psychological History: Anxiety Smoking Status: Current every day smoker Past Alcohol Use History: Occasional Past Drug Use History: Marijuana - Past Family History Father Family Medical History: Coronary Artery Disease (CAD) Mother Family Medical History: Cancer <TerenettaMinerva L - Last Filed: 01/17/19 17:55> General Exam Limitations: no limitations <TerenettaMinerva L - Last Filed: 01/17/19 17:55> - General Exam Comments Initial Comments: General: The patient is awake and alert, in no distress Eye: +3 mm pupils are equal, round and reactive to light, extra-ocular movements are intact. No nystagmus. There is normal conjunctiva bilaterally. No signs of icterus. Ears, nose, mouth and throat: There are moist mucous membranes and no oral lesions. Neck: The neck is supple, there is no tenderness or JVD. Cardiovascular: There is a regular rate and rhythm. No murmur, rub or gallop is appreciated. Respiratory: Lungs are clear to auscultation, respirations are non-labored, breath sounds are equal. No wheezes, stridor, rales, or rhonchi. Gastrointestinal: On gross exam, large herniation of the right lateral abdom inal wall, bowel sounds are audible. No pain out of proportion. Partly reducible. Soft, non-distended, remaining abdomen is non-tender abdomen without masses or organomegaly noted. There is no rebound or guarding present. No CVA tenderness. Bowel sounds are unremarkable. Tender to palpation of the right lateral ribs. Musculoskeletal: Normal ROM, no tenderness. Strength 5/5. Sensation intact. Radial pulses equal bilaterally 2+. Neurological: A&O x 3. CN II-XII intact grossly, There are no obvious motor or sensory deficits. Coordination appears grossly intact. Speech is normal. Skin: Skin is warm and dry and no rashes or lesions are noted. Psychiatric: Cooperative, appropriate mood & affect, normal judgment. (Minerva Hadley) Course <Minerva Hadley - Last Filed: 01/17/19 17:55> <Deangelo Mccauley - Last Filed: 01/17/19 18:32> Vital Signs 01/17/19 14:15 Temperature 97.4 F L Pulse Rate 89 Respiratory 20 Rate Blood Pressure 152/84 O2 Sat by Pulse 99 Oximetry - Reevaluation(s) Reevaluation #1: Dr. Mccauley will manage transfer at shift change. Speaking with/documenting transferring physician. 01/17/19 17:56 (Minerva Hadley) Reevaluation #2: 01/17/19 18:[address] Guajardo regarding patient here in the ER, recommends transfer to [facility] is out of his scope (Deangelo Mccauley) - Consultations Consultation #1: Spoke with [facility] Dr. Hendricks to his acceptable for transfer (Deangelo Mccauley) Medical Decision Making - Lab Data Result diagrams: 01/17/19 15:00 01/17/19 15:00 <Minerva Hadley - Last Filed: 01/17/19 17:55> - Lab Data Result diagrams: 01/17/19 15:00 01/17/19 15:00 <Deangelo Mccauley - Last Filed: 01/17/19 18:32> - Medical Decision Making 4-year-old male presenting for right-sided abdominal pain rib pain. Patient states this began after he felt a pop and bending over to meat pickler a can. Patient has obvious large herniation. Partly reducible. Patient is tender to palpation of the right lateral ribs. Chest x-ray revealed rib fractures that appear remote. No other acute cardiothoracic process. Patient denies any chest pain. CT revealed a large right lateral abdominal wall hernia that contains both bowel as well as liver. Patient denies any vomiting or changes in bowel movement. Bowel sounds are audible within the hernia. The abdominal exam is benign. Patient states the pain is mostly when he coughs or takes a deep breath. Liver function tests WNL. Mild leukocytosis otherwise left wrist that is unremarkable. Case is discussed with attending provider Dr Crain who consulted patients surgeon Dr. Guajardo who referred patient to surgeon at [facility] for evaluation and treatment--he recommended transfer to [facility]. (Minerva Hadley) 4-year-old male the ER for evaluation presents today for evaluation regarding significant right-sided right-sided flank and right-sided abdominal hernia. Patient be transferred to [facility] for abdominal surgery evaluation (Deangelo Mccauley) - Lab Data Lab Results 01/17/19 01/17/19 Range/Units 15:00 15:00 WBC 11.0 H (3.8-10.6) k/uL RBC 5.21 (4.30-5.90) m/uL Hgb 14.2 (13.0-17.5) gm/dL Hct 44.2 (39.0-53.0) % MCV 84.9 (80.0-100.0) fL MCH 27.3 (25.0-35.0) pg MCHC 32.2 (31.0-37.0) g/dL RDW 16.5 H (11.5-15.5) % Plt Count 345 (150-450) k/uL Neutrophils % 74 % Lymphocytes % 16 % Monocytes % 4 % Eosinophils % 4 % Basophils % 1 % Neutrophils # 8.2 H (1.3-7.7) k/uL Lymphocytes # 1.8 (1.0-4.8) k/uL Monocytes # 0.5 (0-1.0) k/uL Eosinophils # 0.4 (0-0.7) k/uL Basophils # 0.1 (0-0.2) k/uL Anisocytosis Slight Sodium 139 (137-145) mmol/L Potassium 4.6 (3.5-5.1) mmol/L Chloride 104 (98-107) mmol/L Carbon Dioxide 26 (22-30) mmol/L Anion Gap 9 mmol/L BUN 11 (9-20) mg/dL Creatinine 0.83 (0.66-1.25) mg/dL Est GFR (CKD-EPI)AfAm >90 (>60 ml/min/1.73 sqM) Est GFR (CKD-EPI)NonAf >90 (>60 ml/min/1.73 sqM) Glucose 104 H (74-99) mg/dL Calcium 9.6 (8.4-10.2) mg/dL Total Bilirubin 0.5 (0.2-1.3) mg/dL AST 24 (17-59) U/L ALT 22 (21-72) U/L Alkaline Phosphatase 123 (38-126) U/L Total Protein 7.1 (6.3-8.2) g/dL Albumin 4.0 (3.5-5.0) g/dL Amylase 35 (30-110) U/L Lipase 48 (23-300) U/L Disposition Is patient prescribed a controlled substance at d/c from ED?: No Time of Disposition: 17:56 - Out of Hospital Transfer - Req. Specs Out of Hospital Transfer - Requested Specifics: Other Emergency Center ([facility]) <Minerva Hadley - Last Filed: 01/17/19 17:55> Is patient prescribed a controlled substance at d/c from ED?: No - Out of Hospital Transfer - Req. Specs Out of Hospital Transfer - Requested Specifics: Other Emergency Center ([facility], [facility]) <Deangelo Mccauley - Last Filed: 01/17/19 18:32> Clinical Impression: Abdominal wall hernia, Intractable abdominal pain, Rib fracture Narrative: Right Sided Abdominal Wall Hernia containing Liver and fat (Deangelo Mccauley) Disposition: OTHER INSTITUTION NOT DEFINED Condition: Stable Referrals: Emy Gagnon DO [Primary Care Provider] - 1-2 days
[2019-01-17 15:16] LABS: Anisocytosis Slight; Basophils # (A) 0.1 k/uL (0-0.2); Basophils % (A) 1 %; Eosinophils # (A) 0.4 k/uL (0-0.7); Eosinophils % (A) 4 %; HCT 44.2 % (39.0-53.0); HGB 14.2 gm/dL (13.0-17.5); Lymphocytes # (A) 1.8 k/uL (1.0-4.8); Lymphocytes % (A) 16 %; MCH 27.3 pg (25.0-35.0); MCHC 32.2 g/dL (31.0-37.0); MCV 84.9 fL (80.0-100.0); Mean Platelet Volume 7.1; Monocytes # (A) 0.5 k/uL (0-1.0); Monocytes % (A) 4 %; Neutrophils # (A) 8.2 k/uL (1.3-7.7); Neutrophils % (A) 74 %; Platelet Count 345 k/uL (150-450); RBC 5.21 m/uL (4.30-5.90); RDW 16.5 % (11.5-15.5)
[2019-01-17 15:28] LABS: ALT 22 U/L (21-72); AST 24 U/L (17-59); African American GFR (CKD) >90 (>60 ml/min/1.73 sqM); Alkaline Phosphatase 123 U/L (38-126); Amylase 35 U/L (30-110); Anion Gap 9 mmol/L; Blood Urea Nitrogen 11 mg/dL (9-20); Calcium 9.6 mg/dL (8.4-10.2); Carbon Dioxide 26 mmol/L (22-30); Chloride 104 mmol/L (98-107); Glucose 104 mg/dL (74-99); Potassium 4.6 mmol/L (3.5-5.1); Sodium 139 mmol/L (137-145); Total Bilirubin 0.5 mg/dL (0.2-1.3); Total Protein 7.1 g/dL (6.3-8.2)
[2019-01-17] MEDS ORDERED: MORPHINE SULFATE 4 MG/ML SYRINGE IVP STA (15:32)
--- NOTE | 2019-01-17 16:11 | XR ---
EXAMINATION TYPE: XR chest 2V DATE OF EXAM: 01/17/2019 COMPARISON: 03/10/2018 HISTORY: Shortness of breath TECHNIQUE: Frontal and lateral views of the chest are obtained. FINDINGS: Scattered senescent parenchymal changes noted. Hyperinflation compatible with COPD. No evidence for infiltrate. No evidence for atelectasis. Heart size is stable. Mediastinal structures are stable and grossly unremarkable. No evidence for hilar prominence. Degenerative changes dorsal spine. IMPRESSION: 1. No evidence for acute pulmonary disease.
--- NOTE | 2019-01-17 16:11 | CT ---
EXAMINATION TYPE: CT abdomen pelvis w con DATE OF EXAM: 01/17/2019 COMPARISON: 12/03/2018 HISTORY: Right sided pain and swelling. Fall 4-[address] DLP: 1748.8 mGycm CONTRAST: CT scan of the abdomen and pelvis is performed without Oral Contrast and with IV Contrast, patient in jected with 100 mL of Isovue 300. FINDINGS: LUNG BASES-: No visible nodule. No infiltrate. Small right-sided pleural effusion. Remote right-side d rib fractures. LIVER/GB: No calcified gallstones. Right lateral abdominal wall hernia containing a segment of asim er and fat. Mild hepatomegaly. Mild hepatic steatosis suggested. No space occupying hepatic lesion. B iliary tree is of normal caliber. PANCREAS: No inflammation. No distinct mass. SPLEEN: No splenic enlargement. No lesion seen. ADRENALS: No nodule. No thickening. KIDNEYS/BLADDER: No hydronephrosis. No nephrolithiasis. Stable simple cyst lower pole left kidney. Urinary bladder grossly unremarkable. BOWEL: Normal appendix. Normal bowel caliber. No inflammation. GENITAL ORGANS: No gross abnormality. LYMPH NODES: No greater than 1cm abdominal or pelvic lymph nodes are appreciated. AORTA: No significant abnormality. OSSEOUS STRUCTURES: No significant abnormality is seen. OTHER: No significant additional abnormality is seen. IMPRESSION: 1. Right lateral abdominal wall hernia containing a segment of liver and fat. Mild hepatomegaly. Mil d hepatic steatosis suggested. 2. Small right-sided pleural effusion. Remote right-sided rib fractures.
[2019-01-17] MEDS ORDERED: HYDROmorphone 0.5 MG/0.5 ML SYRINGE IVP STA (18:59)
[2019-01-17 19:19] LABS: Glucose,Whole Blood 123 mg/dL (75-99)
[2019-01-17 20:03] VITALS: BP 159/87; PULSE 72; RESP 18; TEMP 98.2
== END 2019-01-17 19:41 | disposition other institution (70) ==
LOC: EC 14:07
DX: K43.9 Ventral hernia without obstruction or gangrene (principal); S22.41XA Multiple fractures of ribs, right side, initial encounter for closed fracture; D72.829 Elevated white blood cell count, unspecified; I25.119 Atherosclerotic heart disease of native coronary artery with unspecified angina pectoris; J44.9 Chronic obstructive pulmonary disease, unspecified; E11.9 Type 2 diabetes mellitus without complications; E78.5 Hyperlipidemia, unspecified; I10 Essential (primary) hypertension; K21.9 Gastro-esophageal reflux disease without esophagitis; F41.9 Anxiety disorder, unspecified; F17.200 Nicotine dependence, unspecified, uncomplicated; Z79.82 Long term (current) use of aspirin; Z79.84 Long term (current) use of oral hypoglycemic drugs; Z79.899 Other long term (current) drug therapy; Z88.2 Allergy status to sulfonamides; Z91.038 Other insect allergy status; Z91.09 Other allergy status, other than to drugs and biological substances; Z91.048 Other nonmedicinal substance allergy status; Z86.73 Personal history of transient ischemic attack (TIA), and cerebral infarction without residual deficits; Z95.5 Presence of coronary angioplasty implant and graft; Z85.828 Personal history of other malignant neoplasm of skin
CPT/HCPCS: 36415; 80053; 82150; 83690; 85025; 71046; 74177; 99285; 96374; 96375; J2270; J1170; Q9967

== ENCOUNTER → 2019-01-31 | Outpatient (CLI) | payer MEDICARE, OTHER ==
[2019-01-31 14:26] VITALS: BP 137/75; PULSE 51; RESP 16
--- NOTE | 2019-01-31 15:43 | P.PAINPG ---
Subjective Progress Note Date: 01/31/19 This is a 58-year-old male with a more than 10 year history of severe low back pain with radiation to lower extremity. He was to have bilateral lumbar medial branch locks done, however for health reasons this was canceled. He did go to the ED with a large hernia, and was transferred to [facility]. He states that they do not operate on him because of his poor blood sugar control and his obesity. However he is not improved his blood sugar control is common her is broken. He also does have broken ribs. He does have a consultation with a [facility] Dr. coming up in the beginning of February. Of note he did stop his Plavix for over a month in anticipation for procedure, he was instructed to start this back up immediately. He is quite a poor historian and has poor understanding of his health conditions. Objective - Vital Signs Vital signs: Vital Signs Temp Pulse 51 L 01/31/19 14:19 Resp 16 01/31/19 14:19 BP 137/75 01/31/19 14:19 Pulse Ox 95 01/31/19 14:19 - Exam Vital Signs: Reviewed in EMR GENERAL: Well appearing, in no acute distress, PSYCH: Mood and affect is appropriate. Awake, alert, and oriented SKIN: Skin color, texture, turgor normal, no rashes or lesions HEENT: Normocephalic, atraumatic. EOM intact CV: No pedal edema RESP: Respirations are unlabored, no audible wheezing GI: Very large abdominal hernia on the right side Assessment and Plan Assessment: Assessment: 1. Lumbar spondylosis 2. Large hernia on the right side 3. Poor blood sugar control 4. Poor historian Plan: 1. Explanation: I explained to him we could not to elective pain procedures, until his other health conditions or better result. The more he would not be able to lie prone given his large hernia. 2. Opioid agreement: None 3. Counseling: The patient was instructed to restart his Plavix, he will have to have his hernia surgery prior to having any pain procedures 4. Procedures: At this time he can consider lumbar medial branch blocks in the future once his other medical comorbidities are better managed 5. Consultations: None 6. Investigations: Reviewed 7. Medications: Encouraged patient to have discussions with primary care physician 8. Disposition: In 4 months, this should hopefully give him adequate time to optimize his medical condition , PQRS Measure Charge Sheet Measure #226: Tobacco Use: Screen & Cessation Intervention: Pt screened for tobacco use AND intervention given Measure #47: Advance Care Plan: Advance care planning discussed & documented, pt chose/unable to give Measure #131: Pain Assessment & Follow-up: Pain positive & plan documented, Follow-up scheduled Measure #431: Unhealthy Alcohol Use Preventative Care & Scrn: Patient not identified as an unhealthy alcohol user PQRS Narrative: Smoking Status Current every day smoker Blood Pressure 137/75 Pain Intensity [Back] 7 Scale Used Numeric (1 - 10) Hx Alcohol Use (MH) No Home Medications: Ambulatory Orders Albuterol Inhaler [Ventolin Hfa Inhaler] 1 - 2 puff INHALATION RT-Q4H PRN 12/01/14 Aspirin 81 mg PO DAILY 12/01/14 Metoprolol Tartrate [Lopressor] 25 mg PO BID 12/01/14 Montelukast [Singulair] 10 mg PO DAILY 12/01/14 Nitroglycerin Sl Tabs [Nitrostat] 0.4 mg SUBLINGUAL Q5M PRN 12/01/14 rOPINIRole HCL [Requip] 4 mg PO HS PRN 12/01/14 Ranitidine HCl 300 mg PO DAILY 08/02/16 Budesonide/Formoterol Fumarate [Symbicort 160-4.5 Mcg Inhaler] 2 puff INHALATION RT-BID PRN 12/16/16 Cyclobenzaprine [Flexeril] 5 mg PO DAILY 03/09/18 Clopidogrel [Plavix] 75 mg PO DAILY #90 tab 03/11/18 metFORMIN HCL 500 mg PO BID 09/25/18 Atorvastatin [Lipitor] 40 mg PO HS 10/09/18 Gabapentin [Neurontin] 300 mg PO BID 10/09/18 Hydrochlorothiazide [Hydrodiuril] 12.5 mg PO DAILY 10/09/18 Spironolactone [Aldactone] 25 mg PO DAILY 10/09/18 cloNIDine HCL [Catapres] 0.1 mg PO DAILY 10/09/18 Controlled Substance Measures - Controlled Substance Measures Is patient prescribed a controlled substance at discharge?: No
== END | disposition home or self-care (01) ==
LOC: PNWHC3 13:22
PROVIDERS: ATTEND Student in an Organized Health Care Education/Training Program
DX: M47.816 Spondylosis without myelopathy or radiculopathy, lumbar region (principal); R73.09 Other abnormal glucose; F17.200 Nicotine dependence, unspecified, uncomplicated; Z79.82 Long term (current) use of aspirin; Z79.84 Long term (current) use of oral hypoglycemic drugs; Z79.899 Other long term (current) drug therapy; Z79.01 Long term (current) use of anticoagulants
CPT/HCPCS: 99211

== ENCOUNTER → 2019-02-25 | Outpatient (CLI) | payer MEDICARE, OTHER ==
[2019-02-25 14:41] LABS: African American GFR (CKD) >90 (>60 ml/min/1.73 sqM); Anion Gap 8 mmol/L; Blood Urea Nitrogen 13 mg/dL (9-20); Carbon Dioxide 26 mmol/L (22-30); Chloride 104 mmol/L (98-107); Non-African American GFR(CKD) 87 (>60 ml/min/1.73 sqM); Potassium 4.4 mmol/L (3.5-5.1); Sodium 138 mmol/L (137-145)
[2019-02-25 14:45] LABS: HCT 43.3 % (39.0-53.0); HGB 14.1 gm/dL (13.0-17.5); MCH 27.6 pg (25.0-35.0); MCHC 32.5 g/dL (31.0-37.0); MCV 84.9 fL (80.0-100.0); Mean Platelet Volume 5.9; Platelet Count 373 k/uL (150-450); RDW 14.3 % (11.5-15.5); WBC 12.7 k/uL (3.8-10.6)
== END | disposition home or self-care (01) ==
LOC: LABPAT 13:36
PROVIDERS: ATTEND Internal Medicine Interventional Cardiology
DX: Z01.812 Encounter for preprocedural laboratory examination (principal); I25.10 Atherosclerotic heart disease of native coronary artery without angina pectoris
CPT/HCPCS: 36415; 80051; 82565; 84520; 85027

== ENCOUNTER 2019-03-11 07:26 | Day surgery (SDC) | payer MEDICARE, OTHER ==
[2019-03-07 11:06] VITALS: BMI 30.9
[~2019-03-11 07:26] MED LIST changes: +ALPRAZolam 0.25 MG TAB PO PRN; +ALPRAZolam 0.5 MG TAB PO PRN; +ASPIRIN 325 MG TAB PO STA; +ATORVASTATIN 80 MG TAB PO STA; -LACTATED RINGERS 1,000 ML IV SCH; +NITROGLYCERIN SL TABS 0.4 MG TAB SUBLINGUAL PRN; +SODIUM CHLORIDE 0.9% 1,000 ML in EMPTY BAG 1 BAG IV ONE
[2019-03-11] MEDS ORDERED: ASPIRIN 81 MG ONE (07:43)
[2019-03-11 08:02] LABS: Glucose,Whole Blood 138 mg/dL (75-99)
[2019-03-11 08:16] VITALS: RESP 16; TEMP 97.6
[2019-03-11] MEDS ORDERED: SODIUM CHLORIDE 0.9% 1,000 ML IV ONE (08:18)
[2019-03-11] MEDS ORDERED: MIDAZOLAM 2 MG/2 ML VIAL IVP ONE (09:15)
[2019-03-11] MEDS ORDERED: LIDOCAINE 1% INJ 10MG/ML (20 ML MDV) SQ ONE (09:15)
[2019-03-11] MEDS ORDERED: IOPAMIDOL-370 125ML BTL INJ ONE (09:29)
[2019-03-11] MEDS ORDERED: RX INFO: IV CONTRAST WAS GIVEN 1 EACH MISC MISCELLANE PRN (09:30)
[2019-03-11] MEDS ORDERED: SODIUM CHLORIDE 0.9% 1,000 ML IV SCH (09:30)
--- NOTE | 2019-03-11 09:37 | P.PCN ---
Date of Procedure: 03/11/19 Operative Findings: CARDIAC CATHETERIZATION PERFORMING PHYSICIAN: Jose Salinas MD, RPVI PROCEDURE PERFORMED: 1. Selective right and left coronary angiogram 2. Left heart catheterization INDICATION: This is a pleasant 58-year-old gentleman with a past medical history significant for coronary artery disease and prior stenting of the RCA and LCx as well as significant history of smoking beside hypertension and dyslipidemia was experiencing symptoms of chest pain and shortness of breath. He is going to undergo noncardiac surgery. Recent stress test showed anterolateral ischemia. Because of that a heart catheterization was advised COMPLICATION: None APPROACH: Right common femoral artery LEVEL OF SEDATION: Moderate with a sedation length of 16 minutes PROCEDURE DESCRIPTION: After obtaining an informed consent, the patient was brought to cardiac general labor. Local anesthesia was performed using lidocaine subcutaneously. The right common femoral artery was cannulated using Seldinger technique, the guidewire passed easily, following that we advanced a 6 Tanzanian sheath dilator assembly, the wire and dilator were removed and sheath was flushed. Selective right and left coronary angiogram using a 6-Tanzanian JR4 and JL catheters. Following that we did left heart catheterization using 6-Tanz[place] pigtail catheter. The procedure was completed there was no complication. SELECTIVE CORONARY ANGIOGRAM: The right coronary artery: Is a large caliber vessel and a dominant vessel. The proximal RCA is a stented and the stent is patent. The mid RCA has a tubular lesion appears to be in the range of 50% only and seems to be unchanged compared to prior heart catheterization. The RCA distally appeared to be normal and bifurcates into PDA and PLV branches and both appeared to be angiographically normal. Left main: Is angiographically normal. Bifurcates into LCx and LAD. The left circumflex: The LCx is a large caliber vessel is a nondominant vessel. The proximal LCx appeared to have mild disease only and gives rises into OM1 which has mild disease only. The mid and distal LCx appeared to be angiographically normal. The left anterior descending artery: The LAD is a large caliber vessel. Its angiographically normal. Gives rises in the midportion into a large diagonal branch which seems to have mild disease only. HEMODYNAMICS: The LVEDP was 8-12 mmHg without significant gradient across aortic valve CONCLUSION: 1. Patent stent in the proximal RCA. Intermediate lesion involving the mid RCA appears to be in the range of 50%. 2. Patent stent in the LCx POSTPROCEDURE MANAGEMENT: 1. The patient can proceed with the surgery 2. Continue the current medical regimen 3. Aggressive cholesterol control 4. Smoking cessation 5. Follow-up with the patient
[2019-03-11 19:27] VITALS: BP 125/61; PULSE 64
== END 2019-03-11 14:45 | disposition home or self-care (01) ==
LOC: CATHCVL 07:26
PROVIDERS: ATTEND Internal Medicine Interventional Cardiology
DX: I25.10 Atherosclerotic heart disease of native coronary artery without angina pectoris (principal); Z95.5 Presence of coronary angioplasty implant and graft; I25.9 Chronic ischemic heart disease, unspecified; I10 Essential (primary) hypertension; E78.00 Pure hypercholesterolemia, unspecified; E78.5 Hyperlipidemia, unspecified; J44.9 Chronic obstructive pulmonary disease, unspecified; K46.9 Unspecified abdominal hernia without obstruction or gangrene; E11.9 Type 2 diabetes mellitus without complications; F17.210 Nicotine dependence, cigarettes, uncomplicated; Z91.14 Patient's other noncompliance with medication regimen; Z79.899 Other long term (current) drug therapy; Z79.82 Long term (current) use of aspirin; Z79.51 Long term (current) use of inhaled steroids; Z79.891 Long term (current) use of opiate analgesic; Z79.02 Long term (current) use of antithrombotics/antiplatelets; Z88.2 Allergy status to sulfonamides; Z82.49 Family history of ischemic heart disease and other diseases of the circulatory system
CPT/HCPCS: 93458; C1769; C1894; J2250; J2001; Q9967

== ENCOUNTER 2019-04-25 13:41 | Observation (INO) | payer MEDICARE, OTHER ==
--- NOTE | 2019-04-25 14:24 | ED ---
General Adult HPI - General Chief complaint: Abdominal Pain Stated complaint: SANDRINE, liver problems Time Seen by Provider: 04/25/19 14:01 Source: patient Mode of arrival: ambulatory Limitations: no limitations - History of Present Illness Initial comments: 59-year-old male with history of previous CVA with no residual deficits, legal blindness (per patient), DM, HTN, HLD, large abdominal hernia presents emergency department today for chief complaint of sent by primary for evaluation of hernia. Odilia states he has had increasing pain in his hernia and HF refused repair because of his diabetic management and [facility] told him they would no operate due to his smoking. He states this has causes his liver to herniate and to have broken ribs. He states he feels like his lungs cant expand and has SOB. Patient also disclosed during history taking first disclose that 20 minutes prior to arrival just as he was leaving the primary care office he developed right upper extremity and right lower extremity decreased sensation in comparison the left. He denied noting any weakness speech changes facial droop headache neck pain. Patient denies any chest pain. He states since the hernia he has had increased SOB when lying flat, denies leg selling, vomiting, bloody stool. Patient states he initially presented to the PCP office for increasing pain with palpation and at rest of right sided abdominal hernia. States bowel movements are normal. Remaining ROS (-) - Related Data Home Medications Medication Instructions Recorded Confirmed Aspirin 81 mg PO DAILY 12/01/14 04/25/19 Metoprolol Tartrate [Lopressor] 25 mg PO BID 12/01/14 04/25/19 Montelukast [Singulair] 10 mg PO DAILY 12/01/14 04/25/19 Nitroglycerin Sl Tabs [Nitrostat] 0.4 mg SUBLINGUAL Q5M PRN 12/01/14 04/25/19 Multivitamins, Thera [Multivitamin 1 tab PO DAILY 03/07/19 04/25/19 (formulary)] Atorvastatin [Lipitor] 40 mg PO DAILY 04/25/19 04/25/19 Cyclobenzaprine [Flexeril] 5 mg PO TID 04/25/19 04/25/19 Diclofenac Sodium [Voltaren] 75 mg PO BID 04/25/19 04/25/19 Hydrochlorothiazide [Hydrodiuril] 25 mg PO DAILY 04/25/19 04/25/19 Ranitidine HCl [Zantac] 150 mg PO BID 04/25/19 04/25/19 Sildenafil Citrate [Viagra] 100 mg PO ONCE PRN 04/25/19 04/25/19 Spironolactone [Aldactone] 25 mg PO DAILY 04/25/19 04/25/19 buPROPion HCL [Wellbutrin SR] 150 mg PO BID 04/25/19 04/25/19 cloNIDine HCL [Catapres] 0.1 mg PO BID 04/25/19 04/25/19 metFORMIN HCL [Glucophage] 500 mg PO BID 04/25/19 04/25/19 rOPINIRole HCL [Requip] 1 mg PO HS 04/25/19 04/25/19 traZODone HCL 50 - 100 mg PO HS 04/25/19 04/25/19 Allergies Allergy/AdvReac Type Severity Reaction Status Date / Time grass pollen Allergy Itching Verified 04/25/19 14:43 menthol Allergy Dyspnea Verified 04/25/19 14:43 Sulfa (Sulfonamide Allergy Unknown Verified 04/25/19 14:43 Antibiotics) Childhood venom-wasp Allergy Anaphylaxis Verified 04/25/19 14:43 Review of Systems ROS Statement: Those systems with pertinent positive or pertinent negative responses have been documented in the HPI. ROS Other: All systems not noted in ROS Statement are negative. Past Medical History Past Medical History: Asthma, Coronary Artery Disease (CAD), Cancer, Chest Pain / Angina, COPD, CVA/TIA, Diabetes Mellitus, GERD/Reflux, Hyperlipidemia, Hypertension, Memory Impairment, Musculoskeletal Disorder Additional Past Medical History / Comment(s): hx TIA- memory loss,. was using O2 but not currently, hx skin cancer, lung nodules, back pain, bulging out on abd- prior hernia-[facility] History of Any Multi-Drug Resistant Organisms: None Reported Past Surgical History: Appendectomy, Back Surgery, Heart Catheterization With S tent, Hernia Repair, Orthopedic Surgery Additional Past Surgical History / Comment(s): rt wrist surgery, neck surg., COLONOSCOPY, ORIF left ankle 2018-still wearing boot Past Anesthesia/Blood Transfusion Reactions: No Reported Reaction Additional Past Anesthesia/Blood Transfusion Reaction / Comment(s): CLAUSTROPHOBIA Date of Last Stent Placement:: 03-08-2018 Past Psychological History: Anxiety Smoking Status: Current every day smoker Past Alcohol Use History: None Reported Past Drug Use History: None Reported - Past Family History Father Family Medical History: Coronary Artery Disease (CAD) Mother Family Medical History: Cancer General Exam - General Exam Comments Initial Comments: General: The patient is awake and alert, in no distress Eye: +3 mm pupils are equal, round and reactive to light, extra-ocular movements are intact. No nystagmus. There is normal conjunctiva bilaterally. No signs of icterus. Ears, nose, mouth and throat: There are moist mucous membranes and no oral lesions. Neck: The neck is supple, there is no tenderness or JVD. Cardiovascular: There is a regular rate and rhythm. No murmur, rub or gallop is appreciated. Respiratory: Lungs are clear to auscultation, respirations are non-labored, breath sounds are equal. No wheezes, stridor, rales, or rhonchi. Gastrointestinal: Soft, non-distended, abdomen to palpation of extremely large right sided abdominal hernia >9 inches-soft. Remaining abdomen is without masses or organomegaly noted. There is no rebound or guarding present. No CVA tenderness. Bowel sounds are unremarkable. Musculoskeletal: Normal ROM, no tenderness. Strength 5/5. Sensation intact. Radial pulses equal bilaterally 2+. Neurological: A&O x 3. CN II-XII intact grossly, strength of upper and lower extremities equal comparison bilaterally. Patient states that the sensation of the right arm right leg is slightly decreasing comparison the left however he can decipher between sharp and light touch. No pronator drift no drift of the lower extremities. visual dawn intact. Normal extraocular eye movements. Speech appropriate no slurring. No ataxia. Heel to nava coordinated and smooth. Memory intact. NIH1. Skin: Skin is warm and dry and no rashes or lesions are noted. Psychiatric: Cooperative, appropriate mood & affect, normal judgment. Limitations: no limitations Course Vital Signs 04/25/19 04/25/19 04/25/19 13:50 14:10 14:25 Temperature 97.4 F L Pulse Rate 107 H 100 102 H Respiratory 20 20 18 Rate Blood Pressure 182/99 145/85 121/65 O2 Sat by Pulse 98 96 96 Oximetry 04/25/19 04/25/19 04/25/19 14:40 14:55 15:52 Temperature Pulse Rate 105 H 107 H 99 Respiratory 18 18 18 Rate Blood Pressure 129/57 131/91 129/88 O2 Sat by Pulse 97 98 97 Oximetry 04/25/19 04/25/19 04/25/19 16:20 16:40 17:00 Temperature Pulse Rate 94 89 98 Respiratory 18 20 30 H Rate Blood Pressure 114/71 130/98 130/98 O2 Sat by Pulse 98 95 97 Oximetry 04/25/19 17:20 Temperature Pulse Rate 98 Respiratory 19 Rate Blood Pressure 130/77 O2 Sat by Pulse 97 Oximetry Medical Decision Making - Medical Decision Making 59-year-old male presents emergency department today for chief complaint of in creasing pain of right sided hernia. Patient has had multiple surgical consultations. Patient has uncontrolled diabetes is a current smoker. Patient has a soft very large right-sided hernia. CT revealed no changes. Lactic acid within normal limits. Normal bowel movements. Patient also is complaining of right-sided paresthesia of the right hand and right leg subjective. NO objective findings. Patient CT reviewed by neurointerventionalist and my attending. No further instruction ordered. No recommendation of further imaging, no treatment. Patient pain persists in ER. Patient will be admitted for right sided parathesias and right sided abdominal hernia. Patient case admitted by Dr Lina plaza who recommended surgical consultation. Further consultation will be entered by admitting providers. - Lab Data Result diagrams: 04/25/19 14:10 04/25/19 14:10 Lab Results 04/25/19 04/25/19 04/25/19 Range/Units 14:10 14:10 14:10 WBC 14.9 H (3.8-10.6) k/uL RBC 5.38 (4.30-5.90) m/uL Hgb 14.9 (13.0-17.5) gm/dL Hct 46.0 (39.0-53.0) % MCV 85.6 (80.0-100.0) fL MCH 27.7 (25.0-35.0) pg MCHC 32.3 (31.0-37.0) g/dL RDW 14.5 (11.5-15.5) % Plt Count 310 (150-450) k/uL Neutrophils % 78 % Lymphocytes % 12 % Monocytes % 5 % Eosinophils % 3 % Basophils % 1 % Neutrophils # 11.6 H (1.3-7.7) k/uL Lymphocytes # 1.8 (1.0-4.8) k/uL Monocytes # 0.7 (0-1.0) k/uL Eosinophils # 0.4 (0-0.7) k/uL Basophils # 0.2 (0-0.2) k/uL PT (9.0-12.0) sec INR (<1.2) APTT (22.0-30.0) sec Sodium 137 (137-145) mmol/L Potassium 4.4 (3.5-5.1) mmol/L Chloride 105 (98-107) mmol/L Carbon Dioxide 25 (22-30) mmol/L Anion Gap 7 mmol/L BUN 15 (9-20) mg/dL Creatinine 0.71 (0.66-1.25) mg/dL Est GFR (CKD-EPI)AfAm >90 (>60 ml/min/1.73 sqM) Est GFR (CKD-EPI)NonAf >90 (>60 ml/min/1.73 sqM) Glucose 170 H (74-99) mg/dL POC Glucose (mg/dL) (75-99) mg/dL POC Glu Monotype Mechanic ID Plasma Lactic Acid Sarbjit (0.7-2.0) mmol/L Calcium 9.3 (8.4-10.2) mg/dL Total Bilirubin 0.4 (0.2-1.3) mg/dL AST 19 (17-59) U/L ALT 18 (4-49) U/L Alkaline Phosphatase 127 H (38-126) U/L Total Creatine Kinase 93 (55-170) U/L CK-MB (CK-2) 3.7 H (0.0-2.4) ng/mL CK-MB (CK-2) Rel Index 4.0 Troponin I <0.012 (0.000-0.034) ng/mL NT-Pro-B Natriuret Pep pg/mL Total Protein 6.6 (6.3-8.2) g/dL Albumin 3.7 (3.5-5.0) g/dL 04/25/19 04/25/19 04/25/19 Range/Units 14:10 14:10 14:29 WBC (3.8-10.6) k/uL RBC (4.30-5.90) m/uL Hgb (13.0-17.5) gm/dL Hct (39.0-53.0) % MCV (80.0-100.0) fL MCH (25.0-35.0) pg MCHC (31.0-37.0) g/dL RDW (11.5-15.5) % Plt Count (150-450) k/uL Neutrophils % % Lymphocytes % % Monocytes % % Eosinophils % % Basophils % % Neutrophils # (1.3-7.7) k/uL Lymphocytes # (1.0-4.8) k/uL Monocytes # (0-1.0) k/uL Eosinophils # (0-0.7) k/uL Basophils # (0-0.2) k/uL PT 9.5 (9.0-12.0) sec INR 0.9 (<1.2) APTT 24.4 (22.0-30.0) sec Sodium (137-145) mmol/L Potassium (3.5-5.1) mmol/L Chloride (98-107) mmol/L Carbon Dioxide (22-30) mmol/L Anion Gap mmol/L BUN (9-20) mg/dL Creatinine (0.66-1.25) mg/dL Est GFR (CKD-EPI)AfAm (>60 ml/min/1.73 sqM) Est GFR (CKD-EPI)NonAf (>60 ml/min/1.73 sqM) Glucose (74-99) mg/dL POC Glucose (mg/dL) 160 H (75-99) mg/dL POC Glu Monotype Mechanic ID Gurinder [place] Plasma Lactic Acid Sarbjit (0.7-2.0) mmol/L Calcium (8.4-10.2) mg/dL Total Bilirubin (0.2-1.3) mg/dL AST (17-59) U/L ALT (4-49) U/L Alkaline Phosphatase (38-126) U/L Total Creatine Kinase (55-170) U/L CK-MB (CK-2) (0.0-2.4) ng/mL CK-MB (CK-2) Rel Index Troponin I (0.000-0.034) ng/mL NT-Pro-B Natriuret Pep 109 pg/mL Total Protein (6.3-8.2) g/dL Albumin (3.5-5.0) g/dL 04/25/19 Range/Units 14:52 WBC (3.8-10.6) k/uL RBC (4.30-5.90) m/uL Hgb (13.0-17.5) gm/dL Hct (39.0-53.0) % MCV (80.0-100.0) fL MCH (25.0-35.0) pg MCHC (31.0-37.0) g/dL RDW (11.5-15.5) % Plt Count (150-450) k/uL Neutrophils % % Lymphocytes % % Monocytes % % Eosinophils % % Basophils % % Neutrophils # (1.3-7.7) k/uL Lymphocytes # (1.0-4.8) k/uL Monocytes # (0-1.0) k/uL Eosinophils # (0-0.7) k/uL Basophils # (0-0.2) k/uL PT (9.0-12.0) sec INR (<1.2) APTT (22.0-30.0) sec Sodium (137-145) mmol/L Potassium (3.5-5.1) mmol/L Chloride (98-107) mmol/L Carbon Dioxide (22-30) mmol/L Anion Gap mmol/L BUN (9-20) mg/dL Creatinine (0.66-1.25) mg/dL Est GFR (CKD-EPI)AfAm (>60 ml/min/1.73 sqM) Est GFR (CKD-EPI)NonAf (>60 ml/min/1.73 sqM) Glucose (74-99) mg/dL POC Glucose (mg/dL) (75-99) mg/dL POC Glu Monotype Mechanic ID Plasma Lactic Acid Sarbjit 1.6 (0.7-2.0) mmol/L Calcium (8.4-10.2) mg/dL Total Bilirubin (0.2-1.3) mg/dL AST (17-59) U/L ALT (4-49) U/L Alkaline Phosphatase (38-126) U/L Total Creatine Kinase (55-170) U/L CK-MB (CK-2) (0.0-2.4) ng/mL CK-MB (CK-2) Rel Index Troponin I (0.000-0.034) ng/mL NT-Pro-B Natriuret Pep pg/mL Total Protein (6.3-8.2) g/dL Albumin (3.5-5.0) g/dL Disposition Clinical Impression: Hernia, Intractable pain, Chronic dyspnea, Paresthesia Disposition: ADMITTED IP TO THIS [facility] Condition: Stable Is patient prescribed a controlled substance at d/c from ED?: No Time of Disposition: 17:48 Decision to Admit Reason: Admit from EC Decision Date: 04/25/19 Decision Time: 17:48
[2019-04-25 14:30] LABS: Glucose,Whole Blood 160 mg/dL (75-99)
--- NOTE | 2019-04-25 14:33 | CT ---
EXAMINATION TYPE: CT brain wo con for TPA DATE OF EXAM: 04/25/2019 HISTORY: Neuro deficits, SANDRINE; acute stroke suspected CT DLP: 1043.8 mGycm. Automated Exposure Control for Dose Reduction was Utilized. TECHNIQUE: CT scan of the head is performed without contrast. COMPARISON: CT brain March 08, 2018 FINDINGS: There is no acute intracranial hemorrhage or midline shift identified. Mild generalized b ilateral frontal lobe atrophy redemonstrated. No hydrocephalus. Gifford-white matter differentiation deb ntained. Persistent anterior metopic suture which is normal variant. The globes are intact and the vi sualized sinuses are clear. IMPRESSION: No acute intracranial hemorrhage or midline shift. No significant change from prior.
[2019-04-25 14:40] LABS: Basophils # (A) 0.2 k/uL (0-0.2); Basophils % (A) 1 %; Eosinophils # (A) 0.4 k/uL (0-0.7); Eosinophils % (A) 3 %; HGB 14.9 gm/dL (13.0-17.5); Lymphocytes # (A) 1.8 k/uL (1.0-4.8); Lymphocytes % (A) 12 %; MCH 27.7 pg (25.0-35.0); MCHC 32.3 g/dL (31.0-37.0); MCV 85.6 fL (80.0-100.0); Mean Platelet Volume 7.3; Monocytes # (A) 0.7 k/uL (0-1.0); Monocytes % (A) 5 %; Neutrophils # (A) 11.6 k/uL (1.3-7.7); Neutrophils % (A) 78 %; Platelet Count 310 k/uL (150-450); RBC 5.38 m/uL (4.30-5.90); RDW 14.5 % (11.5-15.5); WBC 14.9 k/uL (3.8-10.6)
[2019-04-25 14:51] LABS: ALT 18 U/L (4-49); AST 19 U/L (17-59); African American GFR (CKD) >90 (>60 ml/min/1.73 sqM); Albumin 3.7 g/dL (3.5-5.0); Alkaline Phosphatase 127 U/L (38-126); Anion Gap 7 mmol/L; Blood Urea Nitrogen 15 mg/dL (9-20); Calcium 9.3 mg/dL (8.4-10.2); Carbon Dioxide 25 mmol/L (22-30); Chloride 105 mmol/L (98-107); Glucose 170 mg/dL (74-99); INR 0.9 (<1.2); Non-African American GFR(CKD) >90 (>60 ml/min/1.73 sqM); Partial Thromboplastin Time 24.4 sec (22.0-30.0); Potassium 4.4 mmol/L (3.5-5.1); Prothrombin Time 9.5 sec (9.0-12.0); Sodium 137 mmol/L (137-145); Total Bilirubin 0.4 mg/dL (0.2-1.3); Total Protein 6.6 g/dL (6.3-8.2)
[2019-04-25 15:07] LABS: Creatine Kinase 93 U/L (55-170)
[2019-04-25 15:20] LABS: Creatine Kinase MB 3.7 ng/mL (0.0-2.4); Troponin I <0.012 ng/mL (0.000-0.034)
[2019-04-25] MEDS ORDERED: MORPHINE SULFATE 4 MG/ML SYRINGE IVP STA (15:22)
--- NOTE | 2019-04-25 15:37 | CT ---
EXAMINATION TYPE: CT abdomen pelvis w con DATE OF EXAM: 04/25/2019 COMPARISON: CT abdomen and pelvis January 17, 2019 HISTORY: Right sided abdominal pain. DLP: 1893.6 CT DLP: 1893.6 mGycm, Automated Exposure Control for Dose Reduction was Utilized. CONTRAST: CT scan of the abdomen and pelvis is performed without oral but with IV Contrast, patient injected wi th 100 mL of Isovue 300. FINDINGS: LUNG BASES: Displaced nonhealed posterolateral right ninth and 10th chronic rib fractures redemonstra shady. Trace right pleural effusion improved from prior. LIVER/GB: Persistent right lateral wall hernia containing portion of liver axial image 23. Contracted gallbladder. PANCREAS: No significant abnormality is seen. SPLEEN: No significant abnormality is seen. ADRENALS: No significant abnormality is seen. KIDNEYS: Simple appearing thin-walled 6.6 cm cyst posteriorly lower pole left kidney axial image 41. BOWEL: No significant abnormality is seen. PROSTATE/SEMINAL VESICLES: No gross abnormality seen. LYMPH NODES: No greater than 1cm abdominal or pelvic lymph nodes are appreciated. OSSEOUS STRUCTURES: [id number] multilevel spurring the thoracolumbar spine. Multilevel disc s pace narrowing with prominent L2-L3 and the L5-S1 levels where there is endplate sclerosis. OTHER: No significant additional abnormality is seen. IMPRESSION: No new acute findings identified
--- NOTE | 2019-04-25 16:28 | XR ---
EXAMINATION TYPE: XR chest 2V DATE OF EXAM: 04/25/2019 COMPARISON: Chest x-ray January 17, 2019. CT December 03, 2018 HISTORY: Difficulty in breathing. TECHNIQUE: Frontal and lateral views of the chest are obtained. FINDINGS: There are chronic reticular interstitial changes bilaterally. There is no focal air space opacity, pleural effusion, or pneumothorax seen. The cardiac silhouette remains enlarged. The osse ous structures are demineralized. Fusion plate in the cervical spine is partially imaged IMPRESSION: Chronic reticular parenchymal fibrotic changes and cardiomegaly without new suspicious a cute pulmonary process.
[2019-04-25] MEDS ORDERED: ONDANSETRON 4 MG/2 ML VIAL IVP PRN (17:44)
[2019-04-25] MEDS ORDERED: NALOXONE 0.4 MG/ML 1 ML VIAL IV PRN (17:44)
[2019-04-25] MEDS: SODIUM CHLORIDE 0.9% 1,000 ML IV SCH (18:02)
[2019-04-25] MEDS: MORPHINE SULFATE 4 MG/ML SYRINGE IV PRN (19:53)
[2019-04-25] MEDS: cloNIDine HCL 0.1 MG TAB PO SCH (20:27)
[2019-04-25] MEDS: metFORMIN 500 MG TAB PO SCH (22:21)
[2019-04-25] MEDS: buPROPion SR 150 MG TABLET.ER PO SCH (22:21)
[2019-04-25] MEDS: CYCLOBENZAPRINE 5 MG TAB PO SCH (22:21)
[2019-04-25 22:40] LABS: Glucose,Whole Blood 169 mg/dL (75-99)
[2019-04-26] MEDS: MORPHINE SULFATE 4 MG/ML SYRINGE IV PRN ×3 (02:04→21:59)
[2019-04-26] MEDS: SODIUM CHLORIDE 0.9% 1,000 ML IV SCH ×2 (05:52→15:20)
[2019-04-26 06:56] LABS: Glucose,Whole Blood 168 mg/dL (75-99)
[2019-04-26] MEDS: SPIRONOLACTONE 25 MG TAB PO SCH (09:40)
[2019-04-26] MEDS: cloNIDine HCL 0.1 MG TAB PO SCH ×2 (09:40→21:55)
[2019-04-26] MEDS: CYCLOBENZAPRINE 5 MG TAB PO SCH ×3 (09:40→21:56)
[2019-04-26] MEDS: ASPIRIN 81 MG PO SCH (09:40)
[2019-04-26] MEDS: metFORMIN 500 MG TAB PO SCH ×3 (09:40→15:15)
[2019-04-26] MEDS: buPROPion SR 150 MG TABLET.ER PO SCH ×2 (09:45→21:55)
[2019-04-26] MEDS: ATORVASTATIN 40 MG TAB PO SCH (09:45)
[2019-04-26 11:31] LABS: Glucose,Whole Blood 158 mg/dL (75-99)
[2019-04-26] MEDS: INSULIN ASPART (NovoLOG) 100 UNIT/ML VIAL SQ SCH ×3 (12:26→21:56)
--- NOTE | 2019-04-26 13:23 | P.GSCN ---
History of Present Illness Consult date: 04/26/19 Reason for Consult: abdominal pain, ventral hernia History of present illness: this is a 59-year-old male with a known history of a right-sided ventral hernia. The patient has been evaluated at [facility] and entered for Hospital regarding this ventral hernia. It is in the right lateral abdominal wall containing liver. Patient admitted through the emergency room yesterday with complaints of abdominal pain. He states he has mild pain throughout his abdomen. He states his pain is better today. Past Medical History Past Medical History: Asthma, Coronary Artery Disease (CAD), Cancer, Chest Pain / Angina, COPD, CVA/TIA, Diabetes Mellitus, GERD/Reflux, Hyperlipidemia, Hypertension, Memory Impairment, Musculoskeletal Disorder Additional Past Medical History / Comment(s): hx TIA- memory loss,. was using O2 but not currently, hx skin cancer, lung nodules, back pain, bulging out on abd- prior hernia-has to go to [facility] for eval & surgery History of Any Multi-Drug Resistant Organisms: None Reported Past Surgical History: Appendectomy, Back Surgery, Heart Catheterization With Stent, Hernia Repair, Orthopedic Surgery Additional Past Surgical History / Comment(s): rt wrist surgery, neck surg., COLONOSCOPY, ORIF left ankle 2018-still wearing boot, recently had heart cath this march and 50% blockage Past Anesthesia/Blood Transfusion Reactions: No Reported Reaction Additional Past Anesthesia/Blood Transfusion Reaction / Comm: CLAUSTROPHOBIA Date of Last Stent Placement:: 03-08-2018 Past Psychological History: Anxiety Smoking Status: Current every day smoker Past Alcohol Use History: None Reported Additional Past Alcohol Use History / Comment(s): smokes 1 PPD, started smoking age 10. Past Drug Use History: None Reported Additional Drug Use History / Comment(s): MARIJUANA 1-2 TIMES DAILY-INSTRUCTED TO REFRAIN FROM USE FOR AT LEAST 24 HOURS PRIOR TO PROCEDUR last used cocaine 03-07-18-not using anymore - Past Family History Father Family Medical History: Coronary Artery Disease (CAD) Mother Family Medical History: Cancer Medications and Allergies Home Medications Medication Instructions Recorded Confirmed Type Aspirin 81 mg PO DAILY 12/01/14 04/25/19 History Metoprolol Tartrate [Lopressor] 25 mg PO BID 12/01/14 04/25/19 History Montelukast [Singulair] 10 mg PO DAILY 12/01/14 04/25/19 History Nitroglycerin Sl Tabs [Nitrostat] 0.4 mg SUBLINGUAL Q5M PRN 12/01/14 04/25/19 History Multivitamins, Thera [Multivitamin 1 tab PO DAILY 03/07/19 04/25/19 History (formulary)] Atorvastatin [Lipitor] 40 mg PO DAILY 04/25/19 04/25/19 History Cyclobenzaprine [Flexeril] 5 mg PO TID 04/25/19 04/25/19 History Diclofenac Sodium [Voltaren] 75 mg PO BID 04/25/19 04/25/19 History Hydrochlorothiazide [Hydrodiuril] 25 mg PO DAILY 04/25/19 04/25/19 History Ranitidine HCl [Zantac] 150 mg PO BID 04/25/19 04/25/19 History Sildenafil Citrate [Viagra] 100 mg PO ONCE PRN 04/25/19 04/25/19 History Spironolactone [Aldactone] 25 mg PO DAILY 04/25/19 04/25/19 History buPROPion HCL [Wellbutrin SR] 150 mg PO BID 04/25/19 04/25/19 History cloNIDine HCL [Catapres] 0.1 mg PO BID 04/25/19 04/25/19 History metFORMIN HCL [Glucophage] 500 mg PO BID 04/25/19 04/25/19 History rOPINIRole HCL [Requip] 1 mg PO HS 04/25/19 04/25/19 History traZODone HCL 50 - 100 mg PO HS 04/25/19 04/25/19 History Allergies Allergy/AdvReac Type Severity Reaction Status Date / Time grass pollen Allergy Itching Verified 04/25/19 14:43 menthol Allergy Dyspnea Verified 04/25/19 14:43 Sulfa (Sulfonamide Allergy Unknown Verified 04/25/19 14:43 Antibiotics) Childhood venom-wasp Allergy Anaphylaxis Verified 04/25/19 14:43 Surgical - Exam Vital Signs Temp Pulse Resp BP Pulse Ox 97.4 F L 107 H 20 182/99 98 04/25/19 13:50 04/25/19 13:50 04/25/19 13:50 04/25/19 13:50 04/25/19 13:50 - General well developed, no distress - Eyes PERRL - ENT normal pinna - Neck no masses - Respiratory normal expansion - Cardiovascular Rhythm: regular - Abdomen right-sided abdominal wall hernia the entire right lateral abdomen appears to have muscle weakness. No definite masses palpated. There is no rebound or gua rding. Abdomen: soft Results - Labs 04/25/19 14:10 04/25/19 14:10 Abnormal Lab Results - Last 24 Hours (Table) 04/25/19 04/25/19 04/25/19 Range/Units 14:10 14:10 14:10 WBC 14.9 H (3.8-10.6) k/uL Neutrophils # 11.6 H (1.3-7.7) k/uL Glucose 170 H (74-99) mg/dL POC Glucose (mg/dL) (75-99) mg/dL Alkaline Phosphatase 127 H (38-126) U/L CK-MB (CK-2) 3.7 H (0.0-2.4) ng/mL 04/25/19 04/25/19 04/26/19 Range/Units 14:29 22:38 06:52 WBC (3.8-10.6) k/uL Neutrophils # (1.3-7.7) k/uL Glucose (74-99) mg/dL POC Glucose (mg/dL) 160 H 169 H 168 H (75-99) mg/dL Alkaline Phosphatase (38-126) U/L CK-MB (CK-2) (0.0-2.4) ng/mL 04/26/19 Range/Units 11:30 WBC (3.8-10.6) k/uL Neutrophils # (1.3-7.7) k/uL Glucose (74-99) mg/dL POC Glucose (mg/dL) 158 H (75-99) mg/dL Alkaline Phosphatase (38-126) U/L CK-MB (CK-2) (0.0-2.4) ng/mL Diabetes panel 04/25/19 Range/Units 14:10 Sodium 137 (137-145) mmol/L Potassium 4.4 (3.5-5.1) mmol/L Chloride 105 (98-107) mmol/L Carbon Dioxide 25 (22-30) mmol/L BUN 15 (9-20) mg/dL Creatinine 0.71 (0.66-1.25) mg/dL Glucose 170 H (74-99) mg/dL Calcium 9.3 (8.4-10.2) mg/dL AST 19 (17-59) U/L ALT 18 (4-49) U/L Alkaline Phosphatase 127 H (38-126) U/L Total Protein 6.6 (6.3-8.2) g/dL Albumin 3.7 (3.5-5.0) g/dL Calcium panel 04/25/19 Range/Units 14:10 Calcium 9.3 (8.4-10.2) mg/dL Albumin 3.7 (3.5-5.0) g/dL Pituitary panel 04/25/19 Range/Units 14:10 Sodium 137 (137-145) mmol/L Potassium 4.4 (3.5-5.1) mmol/L Chloride 105 (98-107) mmol/L Carbon Dioxide 25 (22-30) mmol/L BUN 15 (9-20) mg/dL Creatinine 0.71 (0.66-1.25) mg/dL Glucose 170 H (74-99) mg/dL Calcium 9.3 (8.4-10.2) mg/dL Adrenal panel 04/25/19 Range/Units 14:10 Sodium 137 (137-145) mmol/L Potassium 4.4 (3.5-5.1) mmol/L Chloride 105 (98-107) mmol/L Carbon Dioxide 25 (22-30) mmol/L BUN 15 (9-20) mg/dL Creatinine 0.71 (0.66-1.25) mg/dL Glucose 170 H (74-99) mg/dL Calcium 9.3 (8.4-10.2) mg/dL Total Bilirubin 0.4 (0.2-1.3) mg/dL AST 19 (17-59) U/L ALT 18 (4-49) U/L Alkaline Phosphatase 127 H (38-126) U/L Total Protein 6.6 (6.3-8.2) g/dL Albumin 3.7 (3.5-5.0) g/dL Assessment and Plan Assessment: chronic abdominal pain Chronic ventral hernia Patient will follow-up at [facility] for repair of this complex ventral hernia a. No surgical intervention is planned.
[2019-04-26 17:18] LABS: Glucose,Whole Blood 148 mg/dL (75-99)
[2019-04-26 19:55] LABS: Glucose,Whole Blood 165 mg/dL (75-99)
[2019-04-26] MEDS: FAMOTIDINE 20 MG TAB PO SCH (21:55)
[2019-04-26] MEDS: METOPROLOL TARTRATE 25 MG TAB PO SCH (21:55)
--- NOTE | 2019-04-26 23:20 | P.CNNES ---
History of Present Illness Consult date: 04/26/19 Reason for Consult: R-side paresthesia Chief complaint: Hernia evaluation History of Present Illness: HISTORY OF PRESENT ILLNESS: Thank you for allowing me to evaluate Mr. Joaquin Vaughn. Mr. Vaughn is a 59 year-old R-handed man with PMhx of Asthma, CAD, angina, COPD, diabetes, GERD, HLD, HTN, memory impairment, skin cancer, back pain, TIA (memory issues), anxiety, presented [facility] of [facility] repair, consulting Neurology for R-sided paresthesia. Patient states that he had a TIA many many years ago, doesn't quite remember the symptoms. Patient reports that he did notice that he couldn't quite use his R hand as well as he could. He's had this issue for maybe 2 days. Patient also reports decreased sensation in his b/l LE, which patient had been told that it was a neuropathy. Patient denies any recent sickness, fever, headache, nausea, vomiting, chest pain or SO B. Patient endorsing R inguinal/thigh pain. PAST MEDICAL HISTORY: Asthma, CAD, angina, COPD, diabetes, GERD, HLD, HTN, memory impairment, skin cancer, back pain, TIA (memory issues), anxiety PAST SURGICAL HISTORY: appendectomy, back surgery, heart catheterization with stent, hernia repair, R wrist surgery, neck surgery, ORIF L ankle HOME MEDICATIONS: ASA, metoprolol, singulair, multivitamins, atorvastatin, cyclobenzaprine, diclo fenac, HCTZ, ranitidine, viagra, spiranolactone, bupropion, clonidine, metformin, ropinorole, trazodone ALLERGIES: Grass pollen, menthol, sulfa, venom-wasp SOCIAL HISTORY: Current everyday smoker FAMILY HISTORY: Father with CAD. Mother with cancer REVIEW OF SYSTEMS: The 14 systems are reviewed and no additional points are identified compared to the review of systems documented history and physical PHYSICAL EXAMINATION: VITAL SIGNS: T 97.8 HR 85 RR 18 BP 112/64 O2 sat 97% on 2L of O2 via NC GEN.: NAD, pleasant and cooperative HEENT: NCAT, sclera without icterus NECK: Supple SKIN AND EXTREMITIES: Warm to touch, no edema NEURO: MENTAL STATUS: Patient alert and oriented to self, place, time. Able to name the current president. Speech fluent, able to name and repeat, following all commands readily. No right and left disorientation, neglect. CRANIAL NERVES II THROUGH XII: II: Pupils are equal and reactive to light symmetrically. No afferent pupillary defect. Visual dawn are intact. III, IV, : No ptosis. Extraocular movements full. No nystagmus. V: Facial sensation intact from V1-3. VII. No clear facial asymmetry. VIII: Hearing intact to finger rub bilaterally. IX, X: Symmetric palate elevation. XI: Shoulder shrug intact. XII: Tongue midline without fasciculation or atrophy. MOTOR: Normal bulk/tone. No pronator drift or tremor. Strength is 5/5 throughout all 4 extremities. SENSORY: Decreased to light touch, temperature, pinprick and vibration in b/l LE below his knees. Romberg is negative REFLEXES: 1+ throughout. Toes are downgoing. COORDINATION: Finger to nose intact although slightly awkward. No dysmetria. GAIT: Narrow-based and stable. Difficulty with toe/heel/tandem walk DIAGNOSTIC TESTING: LABORATORY: WBC 14.9 Hgb 14.9 Platelet 310 Na 137 K 4.4 Cl 105 CO2 25 BUN 15 Cr 0.71 glucose 170 AST 19 ALT 18 AlkPhos 127 troponin <0.0112 IMAGING: CT Head w/o contrast 04/25/19: No acute intracranial hemorrhage or midline shift. No significant change from prior. EKG 04/26/19: Sinus tach with PVCs. ASSESSMENT: 59 year-old R-handed man with PMhx of Asthma, CAD, angina, COPD, diabetes, GERD, HLD, HTN, memory impairment, skin cancer, back pain, TIA (memory issues), anxiety, presented to [facility] for evaluation of hernia repair, consulting Neurology for R-sided paresthesia. On exam, patient with b/l LE peripheral neuropathy. Patient reporting very nonspecific weakness/incoordination with his R arm that's been going on for 1-2 days. No focal neuro deficit at this time, however. Pt with multiple risk factors for stroke. Pt already on ASA for cardiac stent. Will pursue TIA work-up and management RECOMMENDATIONS: 1. MRI brain without contrast 2. Carotid US 3. Transthoracic echocardiogram 4. Cardiac monitoring 5. ASA 81mg qday 6. Atorvastatin 80mg qhs 7. Labs: A1C, TSH, FLP 8. PT/OT/ST per protocol 9. Discussed with patient about stroke prevention guidelines. Medication compliance, hypertension/diabetes control, lifestyle changes including no smoking, drinking in moderation, losing weight, exercising, eating healthier 10. Neurology is not available over the weekend. Please feel free to contact via [employer] with additional questions or concerns. Neurology will continue to follow on Monday. 11. Patient needs to follow up with neurologist as outpatient with her 1-2 weeks of discharge Past Medical History Past Medical History: Asthma, Coronary Artery Disease (CAD), Cancer, Chest Pain / Angina, COPD, CVA/TIA, Diabetes Mellitus, GERD/Reflux, Hyperlipidemia, Hypertension, Memory Impairment, Musculoskeletal Disorder Additional Past Medical History / Comment(s): hx TIA- memory loss,. was using O2 but not currently, hx skin cancer, lung nodules, back pain, bulging out on abd- prior hernia-[facility] History of Any Multi-Drug Resistant Organisms: None Reported Past Surgical History: Appendectomy, Back Surgery, Heart Catheterization With Stent, Hernia Repair, Orthopedic Surgery Additional Past Surgical History / Comment(s): rt wrist surgery, neck surg., COLONOSCOPY, ORIF left ankle 2018-still wearing boot, recently had heart cath this march and 50% blockage Past Anesthesia/Blood Transfusion Reactions: No Reported Reaction Additional Past Anesthesia/Blood Transfusion Reaction / Comment(s): CLAUSTROPHOBIA Date of Last Stent Placement:: 03-08-2018 Past Psychological History: Anxiety Smoking Status: Current every day smoker Past Alcohol Use History: None Reported Additional Past Alcohol Use History / Comment(s): smokes 1 PPD, started smoking age 10. Past Drug Use History: None Reported Additional Drug Use History / Comment(s): MARIJUANA 1-2 TIMES DAILY-INSTRUCTED TO REFRAIN FROM USE FOR AT LEAST 24 HOURS PRIOR TO PROCEDUR last used cocaine -not using anymore - Past Family History Father Family Medical History: Coronary Artery Disease (CAD) Mother Family Medical History: Cancer Medications and Allergies Home Medications Medication Instructions Recorded Confirmed Type Aspirin 81 mg PO DAILY 12/01/14 04/25/19 History Metoprolol Tartrate [Lopressor] 25 mg PO BID 12/01/14 04/25/19 History Montelukast [Singulair] 10 mg PO DAILY 12/01/14 04/25/19 History Nitroglycerin Sl Tabs [Nitrostat] 0.4 mg SUBLINGUAL Q5M PRN 12/01/14 04/25/19 History Multivitamins, Thera [Multivitamin 1 tab PO DAILY 03/07/19 04/25/19 History (formulary)] Atorvastatin [Lipitor] 40 mg PO DAILY 04/25/19 04/25/19 History Cyclobenzaprine [Flexeril] 5 mg PO TID 04/25/19 04/25/19 History Diclofenac Sodium [Voltaren] 75 mg PO BID 04/25/19 04/25/19 History Hydrochlorothiazide [Hydrodiuril] 25 mg PO DAILY 04/25/19 04/25/19 History Ranitidine HCl [Zantac] 150 mg PO BID 04/25/19 04/25/19 History Sildenafil Citrate [Viagra] 100 mg PO ONCE PRN 04/25/19 04/25/19 History Spironolactone [Aldactone] 25 mg PO DAILY 04/25/19 04/25/19 History buPROPion HCL [Wellbutrin SR] 150 mg PO BID 04/25/19 04/25/19 History cloNIDine HCL [Catapres] 0.1 mg PO BID 04/25/19 04/25/19 History metFORMIN HCL [Glucophage] 500 mg PO BID 04/25/19 04/25/19 History rOPINIRole HCL [Requip] 1 mg PO HS 04/25/19 04/25/19 History traZODone HCL 50 - 100 mg PO HS 04/25/19 04/25/19 History Allergies Allergy/AdvReac Type Severity Reaction Status Date / Time grass pollen Allergy Itching Verified 04/25/19 14:43 menthol Allergy Dyspnea Verified 04/25/19 14:43 Sulfa (Sulfonamide Allergy Unknown Verified 04/25/19 14:43 Antibiotics) Childhood venom-wasp Allergy Anaphylaxis Verified 04/25/19 14:43 Physical Examination - Vital Signs Vital Signs: Vital Signs Temp Pulse Pulse Resp BP BP Pulse Ox 04/26/19 11:42 97.8 F 85 18 112/64 97 04/26/19 08:35 55 L 16 04/26/19 06:56 98.0 F 55 L 16 113/68 94 L 04/25/19 23:00 98.0 F 108 H 16 121/64 96 12/19/19 20:42 98.2 F 84 20 139/94 98 04/25/19 20:00 102 H 20 130/98 100 04/25/19 19:47 103 H 20 152/94 100 04/25/19 17:20 98 19 130/77 97 04/25/19 17:00 98 30 H 130/98 97 04/25/19 16:40 89 20 130/98 95 04/25/19 16:20 94 18 114/71 98 04/25/19 15:52 99 18 129/88 97 04/25/19 14:55 107 H 18 131/91 98 04/25/19 14:40 105 H 18 129/57 97 04/25/19 14:25 102 H 18 121/65 96 04/25/19 14:10 100 20 145/85 96 04/25/19 13:50 97.4 F L 107 H 20 182/99 98 Intake and Output 04/25/19 04/26/19 04/26/19 22:59 06:59 14:59 Intake Total 720 240 Balance 720 240 Intake: IV 720 Sodium Chloride 0.9% 1, 720 000 ml @ 90 mls/hr IV . Q11H7M [facility] Rx#:[id number] Oral 240 Other: Voiding Method Toilet Toilet # Voids 1 1 3 Weight 110.132 kg Results - Laboratory Findings CBC and BMP: 04/25/19 14:10 04/25/19 14:10 Abnormal Lab Findings: Abnormal Labs 04/25/19 04/25/19 04/25/19 14:10 14:10 14:10 WBC 14.9 H Neutrophils # 11.6 H Glucose 170 H POC Glucose (mg/dL) Alkaline Phosphatase 127 H CK-MB (CK-2) 3.7 H 04/25/19 04/25/19 04/26/19 14:29 22:38 06:52 WBC Neutrophils # Glucose POC Glucose (mg/dL) 160 H 169 H 168 H Alkaline Phosphatase CK-MB (CK-2) 04/26/19 11:30 WBC Neutrophils # Glucose POC Glucose (mg/dL) 158 H Alkaline Phosphatase CK-MB (CK-2)
--- NOTE | 2019-04-26 23:21 | P.HPIM ---
History of Present Illness H&P Date: 04/26/19 Chief Complaint: abdominal pain, RUE and RLE numbness Cliff Vaugnh is a 59 yo M with hx of ventral hernia follows with [facility], CVA, DM, HTN, HLD who presented to the ED complaining of increasing abdominal distention, pain, and inability to take deep breaths. He states [facility] would not operate on his hernia due to his smoking and [facility] would not operate due to his diabetes being poorly controlled. He also complains of reduced sensation in his RUE and RLE over the past two days or so. He feels it is improving but still present. In the ED his vitals were stable, labs remarkable for WBC 14k. CT abd/pelvis unremarkable. Today, he reports only minimal abdominal pain and denies nausea. Review of Systems All systems: negative Constitutional: Denies chills, Denies fever Eyes: denies blurred vision, denies pain Ears, nose, mouth and throat: Denies headache, Denies sore throat Cardiovascular: Denies chest pain, Denies shortness of breath Respiratory: Denies cough Gastrointestinal: Reports abdominal pain, Reports heartburn, Denies constipation, Denies diarrhea, Denies nausea, Denies vomiting Musculoskeletal: Denies myalgias Integumentary: Denies pruritus, Denies rash Neurological: Reports as per HPI, Reports numbness, Denies weakness Psychiatric: Denies anxiety, Denies depression Endocrine: Denies fatigue, Denies weight change Past Medical History Past Medical History: Asthma, Coronary Artery Disease (CAD), Cancer, Chest Pain / Angina, COPD, CVA/TIA, Diabetes Mellitus, GERD/Reflux, Hyperlipidemia, Hyperte nsion, Memory Impairment, Musculoskeletal Disorder Additional Past Medical History / Comment(s): hx TIA- memory loss,. was using O2 but not currently, hx skin cancer, lung nodules, back pain, bulging out on abd- prior hernia-has to go to [facility] for eval & surgery History of Any Multi-Drug Resistant Organisms: None Reported Past Surgical History: Appendectomy, Back Surgery, Heart Catheterization With Stent, Hernia Repair, Orthopedic Surgery Additional Past Surgical History / Comment(s): rt wrist surgery, neck surg., COLONOSCOPY, ORIF left ankle 2018-still wearing boot, recently had heart ca march and 50% blockage Past Anesthesia/Blood Transfusion Reactions: No Reported Reaction Additional Past Anesthesia/Blood Transfusion Reaction / Comment(s): CLAUSTROPHOBIA Date of Last Stent Placement:: 03-08-2018 Past Psychological History: Anxiety Smoking Status: Current every day smoker Past Alcohol Use History: None Reported Additional Past Alcohol Use History / Comment(s): smokes 1 PPD, started smoking age 10. Past Drug Use History: None Reported Additional Drug Use History / Comment(s): MARIJUANA 1-2 TIMES DAILY-INSTRUCTED TO REFRAIN FROM USE FOR AT LEAST 24 HOURS PRIOR TO PROCEDUR last used cocaine 03-07-18-not using anymore - Past Family History Father Family Medical History: Coronary Artery Disease (CAD) Mother Family Medical History: Cancer Medications and Allergies Home Medications Medication Instructions Recorded Confirmed Type Aspirin 81 mg PO DAILY 12/01/14 04/25/19 History Metoprolol Tartrate [Lopressor] 25 mg PO BID 12/01/14 04/25/19 History Montelukast [Singulair] 10 mg PO DAILY 12/01/14 04/25/19 History Nitroglycerin Sl Tabs [Nitrostat] 0.4 mg SUBLINGUAL Q5M PRN 12/01/14 04/25/19 History Multivitamins, Thera [Multivitamin 1 tab PO DAILY 03/07/19 04/25/19 History (formulary)] Atorvastatin [Lipitor] 40 mg PO DAILY 04/25/19 04/25/19 History Cyclobenzaprine [Flexeril] 5 mg PO TID 04/25/19 04/25/19 History Diclofenac Sodium [Voltaren] 75 mg PO BID 04/25/19 04/25/19 History Hydrochlorothiazide [Hydrodiuril] 25 mg PO DAILY 04/25/19 04/25/19 History Ranitidine HCl [Zantac] 150 mg PO BID 04/25/19 04/25/19 History Sildenafil Citrate [Viagra] 100 mg PO ONCE PRN 04/25/19 04/25/19 History Spironolactone [Aldactone] 25 mg PO DAILY 04/25/19 04/25/19 History buPROPion HCL [Wellbutrin SR] 150 mg PO BID 04/25/19 04/25/19 History cloNIDine HCL [Catapres] 0.1 mg PO BID 04/25/19 04/25/19 History metFORMIN HCL [Glucophage] 500 mg PO BID 04/25/19 04/25/19 History rOPINIRole HCL [Requip] 1 mg PO HS 04/25/19 04/25/19 History traZODone HCL 50 - 100 mg PO HS 04/25/19 04/25/19 History Allergies Allergy/AdvReac Type Severity Reaction Status Date / Time grass pollen Allergy Itching Verified 04/25/19 14:43 menthol Allergy Dyspnea Verified 04/25/19 14:43 Sulfa (Sulfonamide Allergy Unknown Verified 04/25/19 14:43 Antibiotics) Childhood venom-wasp Allergy Anaphylaxis Verified 04/25/19 14:43 Physical Exam Vitals: Vital Signs Temp Pulse Pulse Resp BP BP Pulse Ox 04/26/19 11:42 97.8 F 85 18 112/64 97 04/26/19 08:35 55 L 16 04/26/19 06:56 98.0 F 55 L 16 113/68 94 L 04/25/19 23:00 98.0 F 108 H 16 121/64 96 04/25/19 20:42 98.2 F 84 20 139/94 98 04/25/19 20:00 102 H 20 130/98 100 04/25/19 19:47 103 H 20 152/94 100 04/25/19 17:20 98 19 130/77 97 04/25/19 17:00 98 30 H 130/98 97 04/25/19 16:40 89 20 130/98 95 04/25/19 16:20 94 18 114/71 98 04/25/19 15:52 99 18 129/88 97 04/25/19 14:55 107 H 18 131/91 98 04/25/19 14:40 105 H 18 129/57 97 04/25/19 14:25 102 H 18 121/65 96 04/25/19 14:10 100 20 145/85 96 Intake and Output 04/25/19 04/26/19 04/26/19 22:59 06:59 14:59 Intake Total 720 240 Balance 720 240 Intake: IV 720 Sodium Chloride 0.9% 1, 720 000 ml @ 90 mls/hr IV . Q11H7M [facility] Rx#:[id number] Oral 240 Other: Voiding Method Toilet Toilet # Voids 1 1 3 Weight 110.132 kg General: well nourished, well developed, NAD. Vitals reviewed Eyes: PERRL, EOMI, conjunctiva normal HENT: normocephalic, mucus membranes moist Neck: supple, no JVD Lungs: normal respiratory effort, no wheezes or rales CV: Regular rate and rhythm, no murmur. Peripheral pulses 2+ Abdomen: distended. Large R sided ventral hernia. No tenderness or incarceration. Bowel sounds present Lymph: no cervical or axillary LAD Skin: warm and dry. Neuro: A&Ox3, normal mood and affect Results CBC & Chem 7: 04/25/19 14:10 04/25/19 14:10 Labs: Abnormal Lab Results - Last 24 Hours (Table) 04/25/19 04/25/19 04/25/19 Range/Units 14:10 14:10 14:10 WBC 14.9 H (3.8-10.6) k/uL Neutrophils # 11.6 H (1.3-7.7) k/uL Glucose 170 H (74-99) mg/dL POC Glucose (mg/dL) (75-99) mg/dL Alkaline Phosphatase 127 H (38-126) U/L CK-MB (CK-2) 3.7 H (0.0-2.4) ng/mL 04/25/19 04/25/19 04/26/19 Range/Units 14:29 22:38 06:52 WBC (3.8-10.6) k/uL Neutrophils # (1.3-7.7) k/uL Glucose (74-99) mg/dL POC Glucose (mg/dL) 160 H 169 H 168 H (75-99) mg/dL Alkaline Phosphatase (38-126) U/L CK-MB (CK-2) (0.0-2.4) ng/mL 04/26/19 Range/Units 11:30 WBC (3.8-10.6) k/uL Neutrophils # (1.3-7.7) k/uL Glucose (74-99) mg/dL POC Glucose (mg/dL) 158 H (75-99) mg/dL Alkaline Phosphatase (38-126) U/L CK-MB (CK-2) (0.0-2.4) ng/mL Thrombosis Risk Factor Assmnt - Choose All That Apply Each Factor Represents 1 point: Abnormal pulmonary function (COPD), Acute DC, Obesity (BMI >25) Each Risk Factor Represents 2 Points: Age 61-74 years Thrombosis Risk Factor Assessment Total Risk Factor Score: 5 Thrombosis Risk Factor Assessment Level: High Risk Assessment and Plan Plan: 1. R sided ventral hernia containing liver. Surgery consulted, no acute intervention planned 2. R sided numbness. Hx CVA. Neurology following. Continue ASA and statin 3. T2DM. Continue metformin. Accucheck/sliding scale 4. HTN. contineu catapres, HCTZ, lopressor
[2019-04-27 06:47] LABS: Glucose,Whole Blood 191 mg/dL (75-99)
[2019-04-27 07:25] LABS: Basophils % (A) 0 %; Eosinophils # (A) 0.3 k/uL (0-0.7); Eosinophils % (A) 3 %; HCT 40.1 % (39.0-53.0); HGB 12.7 gm/dL (13.0-17.5); Lymphocytes # (A) 1.5 k/uL (1.0-4.8); Lymphocytes % (A) 16 %; MCH 27.8 pg (25.0-35.0); MCHC 31.8 g/dL (31.0-37.0); MCV 87.3 fL (80.0-100.0); Mean Platelet Volume 7.4; Monocytes # (A) 0.4 k/uL (0-1.0); Monocytes % (A) 4 %; Neutrophils # (A) 6.9 k/uL (1.3-7.7); Neutrophils % (A) 75 %; Platelet Count 272 k/uL (150-450); RBC 4.59 m/uL (4.30-5.90); RDW 14.4 % (11.5-15.5); WBC 9.2 k/uL (3.8-10.6)
[2019-04-27] MEDS: ASPIRIN 81 MG PO SCH (08:44)
[2019-04-27] MEDS: METOPROLOL TARTRATE 25 MG TAB PO SCH (08:44)
[2019-04-27] MEDS: CYCLOBENZAPRINE 5 MG TAB PO SCH (08:44)
[2019-04-27] MEDS: FAMOTIDINE 20 MG TAB PO SCH (08:44)
[2019-04-27] MEDS: ATORVASTATIN 40 MG TAB PO SCH (08:44)
[2019-04-27] MEDS: SPIRONOLACTONE 25 MG TAB PO SCH (08:44)
[2019-04-27] MEDS: buPROPion SR 150 MG TABLET.ER PO SCH (08:45)
[2019-04-27] MEDS: metFORMIN 500 MG TAB PO SCH (08:45)
[2019-04-27] MEDS: cloNIDine HCL 0.1 MG TAB PO SCH (08:45)
--- NOTE | 2019-04-27 08:45 | US ---
EXAMINATION TYPE: US carotid duplex BILAT DATE OF EXAM: 04/27/2019 COMPARISON: NONE CLINICAL HISTORY: possible TIA. pt here for hernia, no current stroke symptoms, h/o TIA years ago EXAM MEASUREMENTS: RIGHT: Peak Systolic Velocity (PSV) cm/sec ----- Right CCA: 91.9 ----- Right ICA: 99.6 ----- Right ECA: 166.5 ICA/CCA ratio: 1.1 RIGHT: End Diastole cm/sec ----- Right CCA: 24.9 ----- Right ICA: 37.0 ----- Right ECA: 31.7 LEFT: Peak Systolic Velocity (PSV) cm/sec ----- Left CCA: 100.5 ----- Left ICA: 111.9 ----- Left ECA: 186.6 ICA/CCA ratio: 1.1 LEFT: End Diastole cm/sec ----- Left CCA: 31.7 ----- Left ICA: 48.9 ----- Left ECA: 32.8 VERTEBRALS (direction of flow): Right Vertebral: Antegrade Left Vertebral: Antegrade Rhythm: Normal Mild heterogeneous plaque seen with no significant stenosis. IMPRESSION: 1. I DO NOT SEE EVIDENCE OF A HEMODYNAMICALLY SIGNIFICANT STENOSIS IN EITHER COMMON OR INTERNAL CAROT ID ARTERY. 2. ELEVATED FLOW, BOTH ECAS. Criteria for Assigning % of Stenosis / Diameter reduction (Estimation based on the indirect measurements of the internal carotid artery velocities (ICA PSV). 1. Normal (no stenosis)=ICA PSV < 125 cm/s: ratio < 2.0: ICA EDV<40 cm/s. 2. Less than 50% stenosis=ICA PSV < 125 cm/s: ratio < 2.0: ICA EDV<40 cm/s. 3. 50 to 69% stenosis=ICA PSV of 125 to 230 cm/s: ration 2.0 ? 4.0: ICA EDV 40-100 cm/s. 4. Greater than 70% stenosis to near occlusion= ICA PSV > 230 cm/s: ratio > 4.0: ICA EDV > 100 cm/s. 5. Near occlusion= ICA PSV velocities may be low or undetectable: variable ratio and ICA EDV. 6. Total occlusion=unable to detect flow.
[2019-04-27] MEDS: INSULIN ASPART (NovoLOG) 100 UNIT/ML VIAL SQ SCH ×2 (08:46→12:52)
[2019-04-27] MEDS: SODIUM CHLORIDE 0.9% 1,000 ML IV SCH (08:46)
[2019-04-27] MEDS ORDERED: HYDROCHLOROTHIAZIDE 25 MG TAB PO SCH (09:00)
[2019-04-27] MEDS: MORPHINE SULFATE 4 MG/ML SYRINGE IV PRN (09:11)
[2019-04-27 11:17] LABS: Hemoglobin A1C 7.2 % (4.0-6.0)
[2019-04-27 11:29] LABS: Glucose,Whole Blood 147 mg/dL (75-99)
--- NOTE | 2019-04-27 11:30 | P.PN ---
Progress Note - Text Progress Note Date: 04/27/19 the patient states he feels better. He has no abdominal pain today. His white count has returned to normal. On exam his vital signs are stable. His abdomen soft. His right lateral ventral hernia stable. It is soft. Resolving abdominal pain. Patient was discharged home. He'll follow-up in or [facility] for his hernia.
[2019-04-27 11:45] VITALS: BP 125/70; PULSE 58; RESP 16; TEMP 97.3
--- NOTE | 2019-04-27 14:50 | P.DS ---
Providers Date of admission: 04/25/19 17:37 Attending physician: Aris Rucker MD Consults: 04/25/19 17:44 Consult Physician Routine Consulting Provider: Daquan Guajardo Consult Reason/Comments: hernia Do you want consulting provider notified?: Yes 04/26/19 03:13 Consult Physician Routine Consulting Provider: Elizabeht Leyva Consult Reason/Comments: right side parathesias Do you want consulting provider notified?: Yes, Notify in am Primary care physician: Emy Gagnon Hospital Course: Patient was admitted secondary to abdominal pain patient is found to have hernia no further surgical intervention is being planned for surgery patient also had TIA symptoms including right upper extremity and right lower extremity weakness symptoms of these vertebral resolved patient underwent workup with a carotid Doppler which was negative CT of head did not show any acute stroke patient refused MRI and patient had a recent echocardiogram which did not show any significant and would not accept her EF of 40-45%. Patient was recommended to continue aspirin and a statin and is being discharged today and the patient is still smoking didn't smoke for last 3 days and patient will undergo surgical intervention of cessation of smoking for 6 weeks for his hernia. Please refer to dictation from general surgery for further details. PHYSICAL EXAMINATION: GENERAL: The patient is alert and oriented x3, not in any acute distress. Obese HEENT: Pupils are round and equally reacting to light. EOMI. No scleral icterus. No conjunctival pallor. Normocephalic, atraumatic. No pharyngeal erythema. No thyromegaly. CARDIOVASCULAR: S1 and S2 present. No murmurs, rubs, or gallops. PULMONARY: Chest is clear to auscultation, no wheezing or crackles. ABDOMEN: Patient had a large right-sided ventral hernia MUSCULOSKELETAL: No joint swelling or deformity. EXTREMITIES: No cyanosis, clubbing, or pedal edema. NEUROLOGICAL: Gross neurological examination did not reveal any focal deficits. SKIN: No rashes. The rest of the medical problems and hospice physician course please refer to H&P from yesterday Patient Condition at Discharge: Stable Plan - Discharge Summary Discharge Rx Participant: Yes New Discharge Prescriptions: New traMADol HCL [Ultram] 50 mg PO Q4HR PRN 3 Days #18 tab PRN Reason: Pain Continue Nitroglycerin Sl Tabs [Nitrostat] 0.4 mg SUBLINGUAL Q5M PRN PRN Reason: Chest Pain Montelukast [Singulair] 10 mg PO DAILY Metoprolol Tartrate [Lopressor] 25 mg PO BID Aspirin 81 mg PO DAILY Multivitamins, Thera [Multivitamin (formulary)] 1 tab PO DAILY buPROPion HCL [Wellbutrin SR] 150 mg PO BID cloNIDine HCL [Catapres] 0.1 mg PO BID Cyclobenzaprine [Flexeril] 5 mg PO TID Diclofenac Sodium [Voltaren] 75 mg PO BID metFORMIN HCL [Glucophage] 500 mg PO BID Sildenafil Citrate [Viagra] 100 mg PO ONCE PRN PRN Reason: ED Spironolactone [Aldactone] 25 mg PO DAILY Hydrochlorothiazide [Hydrodiuril] 25 mg PO DAILY rOPINIRole HCL [Requip] 1 mg PO HS Atorvastatin [Lipitor] 40 mg PO DAILY Ranitidine HCl [Zantac] 150 mg PO BID traZODone HCL 50 - 100 mg PO HS Discharge Medication List Aspirin 81 mg PO DAILY 12/01/14 [History] Metoprolol Tartrate [Lopressor] 25 mg PO BID 12/01/14 [History] Montelukast [Singulair] 10 mg PO DAILY 12/01/14 [History] Nitroglycerin Sl Tabs [Nitrostat] 0.4 mg SUBLINGUAL Q5M PRN 12/01/14 [History] Multivitamins, Thera [Multivitamin (formulary)] 1 tab PO DAILY 03/07/19 [History] Atorvastatin [Lipitor] 40 mg PO DAILY 04/25/19 [History] Cyclobenzaprine [Flexeril] 5 mg PO TID 04/25/19 [History] Diclofenac Sodium [Voltaren] 75 mg PO BID 04/25/19 [History] Hydrochlorothiazide [Hydrodiuril] 25 mg PO DAILY 04/25/19 [History] Ranitidine HCl [Zantac] 150 mg PO BID 04/25/19 [History] Sildenafil Citrate [Viagra] 100 mg PO ONCE PRN 04/25/19 [History] Spironolactone [Aldactone] 25 mg PO DAILY 04/25/19 [History] buPROPion HCL [Wellbutrin SR] 150 mg PO BID 04/25/19 [History] cloNIDine HCL [Catapres] 0.1 mg PO BID 04/25/19 [History] metFORMIN HCL [Glucophage] 500 mg PO BID 04/25/19 [History] rOPINIRole HCL [Requip] 1 mg PO HS 04/25/19 [History] traZODone HCL 50 - 100 mg PO HS 04/25/19 [History] traMADol HCL [Ultram] 50 mg PO Q4HR PRN 3 Days #18 tab 04/27/19 [Rx] Follow up Appointment(s)/Referral(s): Emy Gagnon DO [Primary Care Provider] - 3 Days (Patient to call Dr. Gagnon's office Monday morning to schedule follow up appointment. The office is closed at time of discharge. ) Patient Instructions/Handouts: Tramadol (By mouth), Hiatal Hernia (DC) Activity/Diet/Wound Care/Special Instructions: diet as tolerated activity limited until seen by dr. Ruiz Disposition: HOME SELF-CARE
--- NOTE | 2019-04-27 17:00 | ECHOF ---
Referral Reason:possible TIA MEASUREMENTS -------- HEIGHT: 182.9 cm WEIGHT: 109.8 kg BP: RVIDd: 3.9 cm (< 3.3) IVSd: 1.1 cm (0.6 - 1.1) LVIDd: 4.9 cm (3.9 - 5.3) LVPWd: 1.4 cm (0.6 - 1.1) IVSs: 1.4 cm LVIDs: 4.6 cm LVPWs: 1.4 cm LA Diam: 3.9 cm (2.7 - 3.8) Ao Diam: 3.3 cm (2.0 - 3.7) AV Cusp: 2.2 cm (1.5 - 2.6) MV EXCURSION: 21.475 mm (> 18.000) MV EF SLOPE: 91 mm/s (70 - 150) EPSS: 1.2 cm MV E Juan A: 0.43 m/s MV DecT: 177 ms MV A Juan A: 0.74 m/s MV E/A Ratio: 0.58 RAP: 5.00 mmHg RVSP: 30.53 mmHg FINDINGS -------- Sinus rhythm with extra systolic beats. This was a techncally difficult study with suboptimal views, , Lumason utilized for enhancement of im ages. Overall left ventricular systolic function is mildly impaired with, an EF between 45 - 50 %. Basal inferior LV wall motion is hypokinetic. Basal septal hypokinesis The right ventricle is normal in size. The left atrial size is normal. The right atrial size is normal. 5.0mg OF Lumason UTLIZED: 2 OR MORE WALL SEGMENTS NOT VISUALIZED. The aortic valve is trileaflet, and appears structurally normal. No aortic stenosis or regurgitation. Mild mitral regurgitation is present. Mild tricuspid regurgitation present. Right ventricular systolic pressure is normal at < 35 mmHg. There is no evidence of pulmonary hypertension. The pulmonic valve was not well visualized. The aortic root size is normal. There is a small, generalized pericardial effusion present. CONCLUSIONS -------- 1. Sinus rhythm with extra systolic beats. 2. This was a techncally difficult study with suboptimal views, , Lumason utilized for enhancement of images. 3. Overall left ventricular systolic function is mildly impaired with, an EF between 45 - 50 %. 4. Basal inferior LV wall motion is hypokinetic. 5. Basal septal hypokinesis 6. The right ventricle is normal in size. 7. The left atrial size is normal. 8. The right atrial size is normal. 9. 5.0mg OF Lumason UTLIZED: 2 OR MORE WALL SEGMENTS NOT VISUALIZED. 10. The aortic valve is trileaflet, and appears structurally normal. No aortic stenosis or regurgitat ion. 11. Mild mitral regurgitation is present. 12. Mild tricuspid regurgitation present. 13. Right ventricular systolic pressure is normal at < 35 mmHg. 14. There is no evidence of pulmonary hypertension. 15. The pulmonic valve was not well visualized. 16. The aortic root size is normal. 17. There is a small, generalized pericardial effusion present. PROGRAM RESEARCH SPECIALIST: Melodie Rojas RDCS
== END 2019-04-27 14:00 | disposition home or self-care (01) ==
LOC: EC 13:41 → 5NMEDONC 17:37 → INTOOBSV 17:37 → 5NMEDONC 18:27
PROVIDERS: ADMIT Family Medicine; ATTEND Family Medicine
DX: K43.9 Ventral hernia without obstruction or gangrene (principal); R53.1 Weakness; E11.65 Type 2 diabetes mellitus with hyperglycemia; E78.5 Hyperlipidemia, unspecified; F17.200 Nicotine dependence, unspecified, uncomplicated; F40.240 Claustrophobia; E11.42 Type 2 diabetes mellitus with diabetic polyneuropathy; G89.29 Other chronic pain; I10 Essential (primary) hypertension; I25.10 Atherosclerotic heart disease of native coronary artery without angina pectoris; J44.9 Chronic obstructive pulmonary disease, unspecified; Z79.82 Long term (current) use of aspirin; Z79.84 Long term (current) use of oral hypoglycemic drugs; Z79.899 Other long term (current) drug therapy; Z80.9 Family history of malignant neoplasm, unspecified; Z82.49 Family history of ischemic heart disease and other diseases of the circulatory system; Z85.828 Personal history of other malignant neoplasm of skin; Z86.73 Personal history of transient ischemic attack (TIA), and cerebral infarction without residual deficits; Z95.5 Presence of coronary angioplasty implant and graft; Z91.030 Bee allergy status; Z88.2 Allergy status to sulfonamides; Z91.048 Other nonmedicinal substance allergy status
CPT/HCPCS: 96376 ×3; 96361 ×4; 96374; 99285; 36415; 93005; 83880; 80061; 80053; 84443; 82550; 82553; 83605; 84484; 85025 ×2; 85610; 85730; 83036; 71046; 93880; 70450; 74177; G0378 ×4; C8929; J2270 ×3; S0106 ×3; Q9950; Q9967; 93306

== ENCOUNTER → 2019-06-11 | Outpatient (CLI) | payer MEDICARE, OTHER ==
[2019-06-11 13:33] VITALS: BP 124/75; PULSE 98; RESP 16
--- NOTE | 2019-06-11 14:12 | P.PN ---
Subjective Progress Note Date: 06/11/19 This is a 59-year-old gentleman with history of chronic lower back pain that goes across his lower back. He recently fractured his left ankle and had to have surgery on it. Right now he has some pain in his left foot with swelling. He is going to see his surgeon tomorrow. His lumbar spine MRI showed severe neural foraminal stenosis bilaterally at the L4 5 and L5-S1 levels. The patient however did not get any pain relief from the previous lumbar epidural steroid injection. Most of his pain is axial in the lower back area. The patient also mentioned one episode of loss of muscle strength in the left arm. The patient had cervical fusion previously but he denies any neck pain at this point. Patient denies new-onset weakness, bowel/bladder incontinence, or any other signs or symptoms of cauda equina syndrome. There are no signs of acute intoxication, and no indications of medication diversion or overuse. In addition to above, 13-point review of systems is also negative for chest pain, shortness of breath, changes in vision, changes in hearing, new onset weakness, abdominal pain, diarrhea, extreme fatigue, malaise, fever, skin changes, homicidal or suicidal ideation, or bowel or bladder incontinence. Vital Signs: Reviewed in EMR Gen: AAOx3, NAD HEENT: PERRLA,hearing grossly normal Pulm: resp unlabored Heart: Regular Neck: supple, trachea midline Neuro exam of the upper extremities: Areflexia bilaterally, normal muscle strength in the upper extremities bilaterally and symmetrically Tenderness in the paravertebral musculature: Positive tenderness in the lumbar area Neuro: CN II-XII grossly intact, Imaging: Reviewed in EMR/chart Assessment: Lumbar spondylosis without myelopathy Lumbar DDD Lumbar neuroforaminal stenosis Right ankle flexion with recent surgery Coronary artery disease with stents Treatment with Plavix Plan: 1. Explanation: Opioid and psychological risk scores were reviewed. Diagnoses, prognoses, and multiple treatment options including but not limited to physical therapy, interventional therapies, adjuvant medical therapies, narcotic medication therapies, and surgery were discussed with the patient and all questions were answered to the patient's satisfaction. 2. Opioid agreement: Signed with the patient and the patient is warned not to use opioids while driving or before driving and not to combine opioids with benzodiazepines or alcohol. 3. Counseling: The patient was counseled extensively on SMOKING CESSATION, BODY MASS INDEX, EXERCISE. Specifically, the patient was instructed regarding the importance of smoking cessation, obesity, and exercise in the context of both chronic pain and overall health. 4. Procedures: Schedule for a diagnostic lumbar medial branch block under fluoroscopic guidance. May need to hold Plavix for 5-7 days. 5. Consultations: None 6. Investigations: None 7. Medications: None at this point 8. Disposition: Return to the above-mentioned procedure as soon as possible 9. Maps were reviewed and were appropriate. Objective - Vital Signs Vital signs: Vital Signs Temp Pulse 98 06/11/19 13:28 Resp 16 06/11/19 13:28 BP 124/75 06/11/19 13:28 Pulse Ox 100 06/11/19 13:28
== END | disposition home or self-care (01) ==
LOC: PNWHC3 12:40
PROVIDERS: ATTEND Anesthesiology
DX: M48.061 Spinal stenosis, lumbar region without neurogenic claudication (principal); M51.36 Other intervertebral disc degeneration, lumbar region; M47.816 Spondylosis without myelopathy or radiculopathy, lumbar region; I25.10 Atherosclerotic heart disease of native coronary artery without angina pectoris; Z98.890 Other specified postprocedural states; Z95.5 Presence of coronary angioplasty implant and graft; Z79.02 Long term (current) use of antithrombotics/antiplatelets; Z79.899 Other long term (current) drug therapy
CPT/HCPCS: 99211

== ENCOUNTER 2019-07-03 07:38 | Day surgery (SDC) | payer MEDICARE, OTHER ==
[2019-07-01 16:12] VITALS: BMI 32.5
[~2019-07-03 07:38] MED LIST changes: -ALPRAZolam 0.25 MG TAB PO PRN; -ALPRAZolam 0.5 MG TAB PO PRN; -ASPIRIN 325 MG TAB PO STA; -ATORVASTATIN 80 MG TAB PO STA; +LACTATED RINGERS 1,000 ML IV SCH; -NITROGLYCERIN SL TABS 0.4 MG TAB SUBLINGUAL PRN; -SODIUM CHLORIDE 0.9% 1,000 ML in EMPTY BAG 1 BAG IV ONE
[2019-07-03 08:32] VITALS: TEMP 97.4
[2019-07-03 08:44] LABS: Glucose,Whole Blood 199 mg/dL (75-99)
[2019-07-03] MEDS ORDERED: LACTATED RINGERS 1,000 ML IV ONE (08:44)
[2019-07-03] MEDS ORDERED: LIDOCAINE 1% (10MG/ML) FOR IV START INTRADERMA ONE (08:44)
[2019-07-03] MEDS ORDERED: MIDAZOLAM 2 MG/2 ML VIAL ONE (09:14)
[2019-07-03] MEDS ORDERED: methylPREDNISolone ACETATE 40 MG/ML 1 ML VIAL ONE (09:14)
[2019-07-03] MEDS ORDERED: fentaNYL (PF) 50 MCG/ML 2 ML AMP ONE (09:14)
[2019-07-03] MEDS ORDERED: ROPIVACAINE 5MG/ML 20ML VIAL ONE (09:14)
--- NOTE | 2019-07-03 09:50 | P.PCN ---
Date of Procedure: 07/03/19 Procedure(s) Performed: PREOPERATIVE DIAGNOSIS : 1- Lumbar spondylosis with Facet Arthropathy without myelopathy . 2- Lumber degenerative disc disease POSTOPERATIVE DIAGNOSIS: 1- Lumbar spondylosis with Facet Arthropathy without myelopathy . 2- Lumber degenerative disc disease PROCEDURE: Diagnostic bilateral L2 , L3 , L4 , and L5 medial branch block under fluoroscopy guidance(fluoroscopy images available in the radiology Department ) ( To target the facet joint between L3-4 , L4-5 , and L5-S1 ) ANESTHESIA: moderate sedation with intravenous Versed 2 mg and Fentanyl 50 mcg. EBL: Minimal COMPLICATION: None. IV FLUIDS: 100 mL of normal saline. PROCEDURE INDICATION: Chronic low back pain secondary to Facet arthropathy unresponsive to conservative treatment. PROCEDURE DESCRIPTION: the patient was seen and identified in the preop holding area , risks and benefits and possible complications of the procedure and alternative were discussed with the patient, and the patient agreed to proceed with the procedure and signed the consent IV was started and vital signs monitored during the procedure and fluoroscopy was used to maximize the benefit and accuracy of the needle placement, and sedation was given to decrease patient anxiety, patient was taken to the procedure room and placed in prone position vital signs monitored in the back prepped with chlorhexidine X3 then under strict sterile technique using a right oblique fluoroscopy ,the junction of the transverse process and the superior articulating process of the right L2 , L3 , L4 , and L5 vertebra which corresponding to the fluoroscopy image of the eye of the [place] dog on the block side for the medial branches and subsequently , after local infiltration of skin and subcu tissuies with Ropivacaine 0.5 % , one mL at each level ,then 22-gauge Quincke-type needles , 4 needle was used , each one of them placed at the junction of the base of the transverse process and the superior articular process at the appropriate level, and the needle was advanced until the periosteum contacted, needle placement confirmed with AP oblique and lateral view and after appropriate needle placement confirmed, and after negative aspiration for heme and CSF and there was no paresthesia 2 mL of Ropivacaine 0.5% mixed with 20 mg Depo-Medrol , then half mL injected at each level after negative aspiration the needle subsequently removed and the same procedure repeated for the left side at left side at L2 , L3 , L4 and L5 levels. At the end of the procedure and the needles removed and a bandage applied after the skin was cleaned the cleaning solution patient taken to recovery room in stable condition and monitors in the recovery room for 20-30 minutes and discharged home in stable condition after discharge criteria met and patient wi ll follow up with the pain clinic in 2-4 weeks
[2019-07-03] MEDS ORDERED: IV FLUID CONTINUATION 1,000 ML IV ONE ×2 (09:55)
--- NOTE | 2019-07-03 10:03 | FL ---
EXAMINATION TYPE: FL guided pain mgmt statistic DATE OF EXAM: 07/03/2019 HISTORY: Pain Boogie lumbar FB. 18 sec fl. 4 images scanned.
[2019-07-03 10:15] VITALS: BP 116/74; PULSE 87; RESP 16
== END 2019-07-03 10:40 | disposition home or self-care (01) ==
LOC: ORPAIN 07:38
PROVIDERS: ATTEND Specialist
DX: G89.29 Other chronic pain (principal); M47.816 Spondylosis without myelopathy or radiculopathy, lumbar region; M51.36 Other intervertebral disc degeneration, lumbar region; Z88.2 Allergy status to sulfonamides; Z91.048 Other nonmedicinal substance allergy status; Z88.8 Allergy status to other drugs, medicaments and biological substances
CPT/HCPCS: 64493; 64494; 64495; J2250; J1030; J3010; J2795; 99152; 99153

== ENCOUNTER → 2019-07-17 | Outpatient (CLI) | payer MEDICARE, OTHER ==
[2019-07-17 12:37] VITALS: BP 132/70; PULSE 72; RESP 18
--- NOTE | 2019-07-18 11:08 | P.PAINPG ---
Subjective Progress Note Date: 07/17/19 Principal diagnosis: This is a follow-up visit for this 59 years old male with a history of chronic and severe low back pain is diagnosed with lumbar spondylosis with lumbar facet arthropathy and lumbar degenerative disc disease, recently WE have done diagnostic medial branch block, lumbar area at L2, L3, L4, L5, bilaterally and he gets excellent pain relief, he denies any motor or sensory deficit, he denies any fever or night sweats, denies any change in bowel movement or urination Objective - Vital Signs Vital signs: Vital Signs Temp Pulse 72 07/17/19 12:32 Resp 18 07/17/19 12:32 BP 132/70 07/17/19 12:32 Pulse Ox 94 L 07/17/19 12:32 - Exam -Constitutional : Cooperative , not in acute distress . -HEENT : nech ; supple , no Lymphadenopathy , no Thyromegaly , :eyes : no icterus, no photophobia . . -Integumentary : No cellulitis , no ulcers , normal skin turgor , no cyanotic . - neurologic : Cranial nerve II to XII intact , no focal neurological deffecit -psychatric : alert , oriented X 3 , appropriate affect , intact judgment and insight . -Lymphatic : no Lymphadenopathy. - musculoskeltal: normal gait Lumber spine moter stegnth lower extremities ,thigh and legs 5/5 Right side , 5/5 Left side deep tendon reflexes : normal Knee Jerk , normal ankle Jerk lumber facet Loading Test= positive bilaterally Range of motion of the lumbar spine Flexion 30 degrees, extension 10 degrees strait leg raising test , positive at 45 degree Fabere test positive RT and positive LT . tenderness over the sacroiliac joint on the right side, and on the left side Assessment and Plan Plan: Assessment and plan= lumbar degenerative disc disease Lumbar spondylosis with lumbar facet arthropathy without myelopathy Patient had positive results after the first diagnostic medial branch block lumbar area(pain improved significantly after the first block ) Patient will be scheduled for second diagnostic medial block lumbar area at L2, L3, L4 ,L5 bilaterally Time with Patient: Less than 30 PQRS Measure Charge Sheet Measure #130: Documentation of Current Meds in Medical Chart: Patient's medications documented in chart Measure #226: Tobacco Use: Screen & Cessation Intervention: Pt not a tobacco user Measure #111: Pneumonia Vaccination: Pneumococcal vaccine NOT administered or previously given Measure #47: Advance Care Plan: Advance care planning discussed & documented, pt chose/unable to give Measure #412: Opioid Treatment Agreement: No documentation of signed opioid treatment agreement Measure #408: Opioid Therapy Follow-up Evaluation: Patient had NO f/u eval minimum every 3 months during opioid therapy Measure #317: Preventitive Care & Scrn High Bld Press & F/U: Normal blood pressure, f/u not required Measure #128: Body Mass Index (BMI) Screening & Follow-up: BMI documented ABOVE normal parameters - f/u documented Measure #131: Pain Assessment & Follow-up: Pain positive & plan documented, Follow-up scheduled PQRS Narrative: Smoking Status Former smoker Blood Pressure 132/70 Pain Intensity [Left Lower 10 Back] Scale Used Numeric (1 - 10) Hx Alcohol Use (MH) Yes Home Medications: Ambulatory Orders Aspirin 81 mg PO DAILY 12/01/14 Metoprolol Tartrate [Lopressor] 25 mg PO BID 12/01/14 Montelukast [Singulair] 10 mg PO DAILY 12/01/14 Nitroglycerin Sl Tabs [Nitrostat] 0.4 mg SUBLINGUAL Q5M PRN 12/01/14 Multivitamins, Thera [Multivitamin (formulary)] 1 tab PO DAILY 03/07/19 Atorvastatin [Lipitor] 40 mg PO DAILY 04/25/19 Cyclobenzaprine [Flexeril] 5 mg PO TID 04/25/19 Diclofenac Sodium [Voltaren] 75 mg PO BID 04/25/19 Hydrochlorothiazide [Hydrodiuril] 25 mg PO DAILY 04/25/19 Ranitidine HCl [Zantac] 150 mg PO BID 04/25/19 Sildenafil Citrate [Viagra] 100 mg PO ONCE PRN 04/25/19 Spironolactone [Aldactone] 25 mg PO DAILY 04/25/19 buPROPion HCL [Wellbutrin SR] 150 mg PO BID 04/25/19 cloNIDine HCL [Catapres] 0.1 mg PO BID 04/25/19 metFORMIN HCL [Glucophage] 500 mg PO BID 04/25/19 rOPINIRole HCL [Requip] 1 mg PO HS 04/25/19 traZODone HCL 50 mg PO HS 04/25/19 traMADol HCL [Ultram] 50 mg PO Q4HR PRN 3 Days #18 tab 04/27/19 Clopidogrel [Plavix] 75 mg PO DAILY 06/07/19 HYDROcodone/APAP 10-325MG [[place] 10-325] 1 tab PO TID 06/07/19 Controlled Substance Measures - Controlled Substance Measures Is patient prescribed a controlled substance at discharge?: No
== END | disposition home or self-care (01) ==
LOC: PNWHC3 12:10
PROVIDERS: ATTEND Specialist
DX: G89.29 Other chronic pain (principal); M51.36 Other intervertebral disc degeneration, lumbar region; M47.816 Spondylosis without myelopathy or radiculopathy, lumbar region; Z87.891 Personal history of nicotine dependence; Z79.82 Long term (current) use of aspirin; Z79.84 Long term (current) use of oral hypoglycemic drugs; Z79.891 Long term (current) use of opiate analgesic; Z79.899 Other long term (current) drug therapy
CPT/HCPCS: 99211

== ENCOUNTER → 2019-09-27 | Outpatient (CLI) | payer MEDICARE, OTHER | END | disposition home or self-care (01) | LOC: LABWHC1 11:56 | PROVIDERS: ATTEND Internal Medicine | DX: Z11.59 Encounter for screening for other viral diseases (principal) | CPT/HCPCS: 87635 ==

== ENCOUNTER 2019-10-01 08:32 | Day surgery (SDC) | payer MEDICARE, OTHER ==
[2019-09-26 15:37] VITALS: BMI 32.0
[2019-10-01 09:19] LABS: Glucose,Whole Blood 149 mg/dL (75-99)
[2019-10-01] MEDS ORDERED: LIDOCAINE 1% (10MG/ML) FOR IV START INTRADERMA ONE (09:22)
[2019-10-01 09:28] VITALS: RESP 20; TEMP 97.9
[2019-10-01] MEDS ORDERED: IOPAMIDOL M200 10 ML VIAL ONE (10:21)
[2019-10-01] MEDS ORDERED: LIDOCAINE 4% (PF) 5 ML AMP ONE (10:21)
[2019-10-01] MEDS ORDERED: MIDAZOLAM 2 MG/2 ML VIAL ONE (10:21)
[2019-10-01] MEDS ORDERED: IV FLUID CONTINUATION 650 ML IV ONE (10:50)
--- NOTE | 2019-10-01 11:00 | P.PCN ---
Date of Procedure: 10/01/19 Procedure(s) Performed: PREOPERATIVE DIAGNOSIS : Lumbar spondylosis with Facet Arthropathy without myelopathy POSTOPERATIVE DIAGNOSIS: same PROCEDURE: Diagnostic lumbar medial branch block with fluoroscopy at L2, L3, L4, L5 [bilateral] which covers facets L3-4, L4-5 and L5-S1 ANESTHESIA: Local anesthetic; moderate IV sedation with Versed, sedation time 22 minutes Fluoroscopy was used for the procedure and images were saved in the radiology portion of the chart. Surgeon: Deya Sheramn MD PROCEDURE INDICATION: Lumbar back pain without radiculopathy, not responsive to conservative management. PROCEDURE DESCRIPTION: the patient was seen and identified in the preop holding area , risks and benefits and possible complications of the procedure and alternatives were discussed with the patient, and the patient agreed to proceed with the procedure and signed the consent . IV was started , vital signs were monitored during the procedure and fluoroscopy was used to maximize the benefit and accuracy of the needle placement, and sedation was given to decrease patient anxiety. Patient was taken to the procedure room and placed in prone position. The lumbar region was prepped using chlorhexidineX-2. Under strict sterile technique using AP fluoroscopy the bilateral sacral ala were identified and using ipsilateral oblique fluoroscopy ,the junction of the transverse process and the superior articulating process of the L3, L4, L5 vertebra which corresponds to the fluoroscopy image of the eye of the [place] dog for the medial branches were identified. Subsequently, after local infiltration of skin with lidocaine 1% 0.2 mL at each level , a [22-guage 5"/ 25-gauge 3.5"] Quincke- type needle was placed at the junction of the base of the transverse process and the superior articular process at the appropriate level as well as the sacral ala, and the needle was advanced until the periosteum contacted, needle placement confirmed with AP and oblique fluoroscopy, 0.2 mL of Isovue 200 per level was injected which revealed no vascular uptake and after negative aspiration, 0.5 mL of [lidocaine 4%] was injected at each level and the needle subsequently removed . At the end of the procedure and the needles were removed and a bandage applied after the skin was cleaned. The patient was taken to recovery room in stable condition and monitors in the recovery room for 20-30 minutes and discharged home in stable condition after discharge criteria met and patient will follow up in clinic in 2 weeks EBL: Minimal COMPLICATION: None. Of note, patient had 100% relief from first diagnostic block, lasting about one day
[2019-10-01 11:08] VITALS: BP 121/61; PULSE 71
--- NOTE | 2019-10-01 11:09 | FL ---
Fluoroscopy HISTORY: Pain 8 seconds fluoroscopy time supplied to the referring clinician. 3 intraoperative C-arm images docume nt the procedure. See dictated report from anesthesia.
== END 2019-10-01 11:21 | disposition home or self-care (01) ==
LOC: ORPAIN 08:32
PROVIDERS: ATTEND Anesthesiology
DX: M47.816 Spondylosis without myelopathy or radiculopathy, lumbar region (principal)
CPT/HCPCS: 64493; 64494; 64495; J2001; J2250; Q9966; 99152

== ENCOUNTER → 2019-11-22 | Outpatient (CLI) | payer MEDICARE, OTHER | END | disposition home or self-care (01) | LOC: LABWHC1 12:15 | PROVIDERS: ATTEND Surgery Trauma Surgery | DX: Z01.818 Encounter for other preprocedural examination (principal) ==

== ENCOUNTER → 2020-03-25 | Outpatient (CLI) | payer MEDICARE, OTHER ==
[2020-03-25 09:18] VITALS: BP 132/70; PULSE 87; RESP 18; TEMP 97.8
--- NOTE | 2020-03-25 09:26 | P.PAINPG ---
Subjective Progress Note Date: 03/25/20 Subjective Principal diagnosis: This is a follow-up visit for this 59 years old male with a history of chronic and severe low back pain is diagnosed with lumbar spondylosis with lumbar facet arthropathy and lumbar degenerative disc disease, on 09/2019 we did diagnostic medial branch block, lumbar area at L2, L3, L4, L5, bilaterally (this was his second one, his first provided 100% relief for a day. He had a recent hernia repair that was successful a couple months ago. Overall his back pain is the same, located in the low back dull aching with occasional radiation to the anterior thighs. Pain is made worse by walking and physical activity and better by rest. He is a very active [place] and feels that his functionality is been limited. He does mention that the blocks and we did in the past were successful for about a day. , he denies any motor or sensory deficit, he denies any fever or night sweats, denies any change in bowel movement or urination Objective - Exam -Constitutional : Cooperative , not in acute distress . -HEENT : nech ; supple , no Lymphadenopathy , no Thyromegaly , :eyes : no icterus, no photophobia . . -Integumentary : No cellulitis , no ulcers , normal skin turgor , no cyanotic . - neurologic : Cranial nerve II to XII intact , no focal neurological deffecit -psychatric : alert , oriented X 3 , appropriate affect , intact judgment and insight . -Lymphatic : no Lymphadenopathy. - musculoskeltal: normal gait Lumber spine moter stegnth lower extremities ,thigh and legs 5/5 Right side , 5/5 Left side deep tendon reflexes : normal Knee Jerk , normal ankle Jerk lumber facet Loading Test= positive bilaterally Range of motion of the lumbar spine Flexion 30 degrees, extension 10 degrees strait leg raising test , positive at 45 degree Fabere test positive RT and positive LT . tenderness over the sacroiliac joint on the right side, and on the left side Assessment and Plan Plan: Assessment and plan= lumbar degenerative disc disease Lumbar spondylosis with lumbar facet arthropathy without myelopathy Schedule patient for bilateral RFA at L4-L5 and L5-S1. Reccomend Using longer RFA needle as patient required 22-gauge 5 inch Quincke needle was removed medial branch blocks. PQRS Measure Charge Sheet Measure #130: Documentation of Current Meds in Medical Chart: Patient's medications documented in chart Measure #226: Tobacco Use: Screen & Cessation Intervention: Pt not a tobacco user Measure #111: Pneumonia Vaccination: Pneumococcal vaccine NOT administered or previously given Measure #47: Advance Care Plan: Advance care planning discussed & documented, pt chose/unable to give Measure #412: Opioid Treatment Agreement: No documentation of signed opioid treatment agreement Measure #408: Opioid Therapy Follow-up Evaluation: Patient had NO f/u eval minimum every 3 months during opioid therapy Measure #317: Preventitive Care & Scrn High Bld Press & F/U: Normal blood pressure, f/u not required Measure #128: Body Mass Index (BMI) Screening & Follow-up: BMI documented ABOVE normal parameters - f/u documented Measure #131: Pain Assessment & Follow-up: Pain positive & plan documented, Follow-up scheduled PQRS Narrative: Controlled Substance Measures - Controlled Substance Measures Is patient prescribed a controlled substance at discharge?: No PQRS Measure Charge Sheet PQRS Narrative: Smoking Status Former smoker Pain Intensity [Back] 7 Scale Used Numeric (1 - 10) Hx Alcohol Use (MH) Yes Home Medications: Ambulatory Orders Aspirin 81 mg PO DAILY 12/01/14 Metoprolol Tartrate [Lopressor] 25 mg PO BID 12/01/14 Montelukast [Singulair] 10 mg PO DAILY 12/01/14 Nitroglycerin Sl Tabs [Nitrostat] 0.4 mg SUBLINGUAL Q5M PRN 12/01/14 Multivitamins, Thera [Multivitamin (formulary)] 1 tab PO DAILY 03/07/19 Atorvastatin [Lipitor] 40 mg PO DAILY 04/25/19 Cyclobenzaprine [Flexeril] 5 mg PO TID 04/25/19 Diclofenac Sodium [Voltaren] 75 mg PO BID 04/25/19 Spironolactone [Aldactone] 25 mg PO DAILY 04/25/19 buPROPion HCL [Wellbutrin SR] 150 mg PO BID 04/25/19 cloNIDine HCL [Catapres] 0.1 mg PO BID 04/25/19 hydroCHLOROthiazide [Hydrodiuril] 25 mg PO DAILY 04/25/19 metFORMIN HCL [Glucophage] 500 mg PO BID 04/25/19 rOPINIRole HCL [Requip] 1 mg PO HS 04/25/19 raNITIdine HCL [Zantac] 150 mg PO BID 04/25/19 Clopidogrel [Plavix] 75 mg PO DAILY 06/07/19 HYDROcodone/APAP 10-325MG [[place] 10-325] 1 tab PO TID 06/07/19 Albuterol Inhaler [Ventolin Hfa Inhaler] 1 puff INHALATION DIRECTED PRN 10/09/19 Controlled Substance Measures - Controlled Substance Measures Is patient prescribed a controlled substance at discharge?: No
== END | disposition home or self-care (01) ==
LOC: PNWHC3 09:01
PROVIDERS: ATTEND Anesthesiology
DX: G89.29 Other chronic pain (principal); M51.36 Other intervertebral disc degeneration, lumbar region; M47.816 Spondylosis without myelopathy or radiculopathy, lumbar region; Z87.891 Personal history of nicotine dependence; Z79.82 Long term (current) use of aspirin; Z79.899 Other long term (current) drug therapy; Z79.891 Long term (current) use of opiate analgesic; Z79.84 Long term (current) use of oral hypoglycemic drugs
CPT/HCPCS: 99211

== ENCOUNTER 2020-04-24 08:42 | Day surgery (SDC) | payer MEDICARE, OTHER ==
[2020-04-23 10:31] VITALS: BMI 30.9
[2020-04-24 09:54] VITALS: TEMP 97.1
[2020-04-24] MEDS ORDERED: LIDOCAINE 1% (10MG/ML) FOR IV START INTRADERMA ONE (09:55)
[2020-04-24 10:06] LABS: Glucose,Whole Blood 135 mg/dL (75-99)
[2020-04-24] MEDS ORDERED: LIDOCAINE 1% INJ 10MG/ML (20 ML MDV) ONE (10:38)
[2020-04-24] MEDS ORDERED: TRIAMCINOLONE ACETONIDE 40 MG/ML 1 ML VIAL ONE (10:38)
[2020-04-24] MEDS ORDERED: ROPIVACAINE 5MG/ML 20ML VIAL ONE (10:38)
[2020-04-24] MEDS ORDERED: MIDAZOLAM 2 MG/2 ML VIAL ONE (10:41)
[2020-04-24] MEDS ORDERED: fentaNYL (PF) 50 MCG/ML 2 ML AMP ONE (10:41)
--- NOTE | 2020-04-24 11:09 | P.PCN ---
Date of Procedure: 04/24/20 Surgeon: Mikala Valadez Pathology: none sent Condition: stable Disposition: PACU Description of Procedure: PREOPERATIVE DIAGNOSIS: Lumbar spondylosis without myelopathy POSTOPERATIVE DIAGNOSIS: Lumbar spondylosis without myelopathy PROCEDURES : Bilateral Radiofrequency thermocoagulation L4-L5, and L5-S1 medial branch, with fluoroscopic guidance ANESTHESIA: IV moderate conscious sedation with versed and fentanyl and local infiltration with lidocaine 1% 5 ml Physician:Mikala Valadez MD EBL: Minimal PROCEDURE INDICATION: The patient with low back pain secondary to lumbar facet arthropathy who had more than 50% relief of her pain with previous diagnostic lumbar medial branch block with bupivacaine. PROCEDURE DESCRIPTION / TECHNIQUE: The patient was seen and identified in the preoperative area. Risks, benefits, complications, including but not limited to risk of infection ,bleeding , allergic reactions to the medications and no complete pain relief , and alternatives were discussed with the patient, the patient agreed to proceed with the procedure and signed the consent. IV was started. Vital signs remained stable throughout the procedure. Patient was taken to the OR and time out was completed. The patient was placed in the prone position on the procedure table. The lumber area was prepped and draped in the usual sterile fashion. . Vital signs were closely monitored during the procedure .IV sedation was used during the procedure to decrease patients anxiety. The target points were identified as follows: For the L5-S1 level which corresponds to the dorsal ramus of L5 the target point was at the superior medial aspect of the sacral ala right of the spine on the AP view of fluoroscopy and for the L3, and L4 medial branches the target points were at the connection between the transverse process and the superior articular process of L4, and L5 vertebra respectively on the Rt oblique view of fluoroscopy. skin was marked, and localized with 1% lidocaineat these points. Subsequently, an 18 amuov695- mm radiofrequency needles with a 10-mm curved active tips were advanced guided by fluoroscopy to each of the target points mentioned above in a superior medial direction to get the active tips as parallel as possible to the medial branches tracks. AP, oblique, and lateral views of fluoroscopy were used to verify needle tips position. Each level then underwent motor testing at 2.5 Hz and 0 to 3 volt with local stimulation, but no radicular symptoms down the legs. I then injected 1 mL of lidocaine 1% in each needle before starting radiofrequency thermocoagulation at 80 degrees celsius for 90 seconds. After that I injected 1 ml of PF Ropivacaine 0.5%(5 mls) with 20 mg of Kenalog, 1 mL of this mixture was given in each needle before taking the needles out intact. The procedure was repeated in the same manner on the left side with a total dose of Kenalog of 40 mg for the procedure. At the end of the procedure, the skin was cleansed and bandages were applied. A copy of needle placement fluoroscopy was saved on the C-arm machine. COMPLICATIONS: No acute complications. DISPOSITION / PLANS: The patient was placed in a supine position and transferred to the recovery area in a stable condition for observation and was discharged from the recovery room after meeting discharge criteria. Home discharge instructions given to the patient by the staff. The patient was reexamined prior to discharge. The patient will schedule a follow up in the clinic in 2-4 weeks.
[2020-04-24] MEDS ORDERED: IV FLUID CONTINUATION 800 ML IV ONE (11:16)
[2020-04-24 11:23] VITALS: RESP 18
[2020-04-24 12:01] VITALS: BP 132/60; PULSE 66
--- NOTE | 2020-04-24 12:17 | FL ---
Fluoroscopy INDICATION: Pain FINDINGS: Fluoroscopy time: 21 seconds. Images obtained: 5. IMPRESSIONS: 1. Documentation of fluoroscopy.
== END 2020-04-24 12:00 | disposition home or self-care (01) ==
LOC: ORPAIN 08:42
PROVIDERS: ATTEND Anesthesiology
DX: M47.816 Spondylosis without myelopathy or radiculopathy, lumbar region (principal); I25.10 Atherosclerotic heart disease of native coronary artery without angina pectoris; E11.9 Type 2 diabetes mellitus without complications; I49.9 Cardiac arrhythmia, unspecified; I10 Essential (primary) hypertension; E78.5 Hyperlipidemia, unspecified; I48.91 Unspecified atrial fibrillation; J44.9 Chronic obstructive pulmonary disease, unspecified; N40.0 Benign prostatic hyperplasia without lower urinary tract symptoms; F32.9 Major depressive disorder, single episode, unspecified; Z79.02 Long term (current) use of antithrombotics/antiplatelets; Z88.2 Allergy status to sulfonamides; Z88.8 Allergy status to other drugs, medicaments and biological substances; Z97.2 Presence of dental prosthetic device (complete) (partial); Z95.5 Presence of coronary angioplasty implant and graft; Z87.891 Personal history of nicotine dependence; Z79.82 Long term (current) use of aspirin; Z79.84 Long term (current) use of oral hypoglycemic drugs; Z79.899 Other long term (current) drug therapy; Z90.49 Acquired absence of other specified parts of digestive tract; Z98.890 Other specified postprocedural states
CPT/HCPCS: 64635; 64636; J2250; J3301; J2001; J3010; J2795

== ENCOUNTER → 2020-06-10 | Outpatient (CLI) | payer MEDICARE, OTHER ==
[2020-06-10 12:39] VITALS: BP 136/74; PULSE 77; RESP 16; TEMP 97.7
--- NOTE | 2020-06-10 13:09 | P.PN ---
Subjective Progress Note Date: 06/10/20 This is a follow-up visit for this 60 years old male with a history of chronic and severe low back pain is diagnosed with lumbar spondylosis with lumbar facet arthropathy, and lumbar degenerative disc disease, recently WE have done RFA medial branch lumbar area, currently is complaining of severe low back pain with radiation to the buttock area bilaterally , the pain is severe and intense , interfere with the quality of life and doing activity of daily livings he denies any motor or sensory deficit, he denies any fever or night sweats, denies any change in bowel movement or urination Objective - Vital Signs Vital signs: Vital Signs Temp 97.7 F 06/10/20 12:35 Pulse 77 06/10/20 12:35 Resp 16 06/10/20 12:35 BP 136/74 06/10/20 12:35 Pulse Ox 95 06/10/20 12:35 - Exam Physical Examinations : -Constitutiona : Cooperative , not in acute distress . -HEENT : nech : supple , no Lymphadenopathy , normal thyroid size . : eyes : no ptosis , no icterus, no photophobia . - neurologic : Cranial nerve II to XII intact , no focal neurological deffecit . -psychatric : alert , oriented X 3 , appropriate affect , intact judgment and insight . -Lymphatic : no Lymphadenopathy . - musculoskeltal : Lumber spine moter stegnth lower extremities ,thigh and legs 5/5 Right side , 5/5 Left side deep tendon reflexes : normal Knee Jerk , normal ankle Jerk lumber facet Loading Test = negative bilaterally Range of motion of the lumbar spine Flexion 30 degrees, extension 10 degrees strait leg raising test = negative bilaterally Fabere test= negative bilaterally Sever tenderness over the Sacroiliac joint on the Right , and Left sides Gaenslen test= positive right ,and positive left . Seated flexion test= positive right ,and positive Left . Assessment and Plan Plan: Assessment and plan= lumbar degenerative disc disease Lumbar spondylosis with lumbar facet arthropathy without myelopathy Bilateral sacroiliitis patient he could benefit from bilateral sacroiliac joint steroid injections under fluoroscopy guidance. Patient could benefit from Celebrex 200 mg every morning (I instructed patient to stop using Motrin ) Because he said he does not benefit from Motrin and had some stomach Time with Patient: Less than 30 PQRS Measure Charge Sheet Measure #130: Documentation of Current Meds in Medical Chart: Patient's medications documented in chart Measure #226: Tobacco Use: Screen & Cessation Intervention: Pt tobacco user, interventions given Measure #111: Pneumonia Vaccination: Pneumococcal vaccine NOT administered or previously given Measure #47: Advance Care Plan: Advance care planning discussed & documented, pt chose/unable to give Measure #412: Opioid Treatment Agreement: No documentation of signed opioid treatment agreement Measure #408: Opioid Therapy Follow-up Evaluation: Patient had NO f/u eval minimum every 3 months during opioid therapy Measure #317: Preventitive Care & Scrn High Bld Press & F/U: Normal blood pressure, f/u not required Measure #128: Body Mass Index (BMI) Screening & Follow-up: BMI documented ABOVE normal parameters - f/u documented Measure #131: Pain Assessment & Follow-up: Pain positive & plan documented, Follow-up scheduled PQRS Narrative: Time with Patient: Less than 30
== END | disposition home or self-care (01) ==
LOC: PNWHC3 12:21
PROVIDERS: ATTEND Specialist
DX: M51.36 Other intervertebral disc degeneration, lumbar region (principal); M47.816 Spondylosis without myelopathy or radiculopathy, lumbar region; M46.1 Sacroiliitis, not elsewhere classified
CPT/HCPCS: 99211

== ENCOUNTER 2020-06-30 10:02 | Day surgery (SDC) | payer MEDICARE, OTHER ==
[2020-06-25 13:07] VITALS: BMI 31.9
[2020-06-30 11:32] VITALS: TEMP 97.7
[2020-06-30] MEDS ORDERED: LIDOCAINE 1% (10MG/ML) FOR IV START INTRADERMA ONE (11:38)
[2020-06-30] MEDS ORDERED: INSULIN ASPART (NovoLOG) 100 UNIT/ML VIAL SQ ONE (11:40)
[2020-06-30] MEDS ORDERED: methylPREDNISolone ACETATE 40 MG/ML 1 ML VIAL ONE (11:46)
[2020-06-30] MEDS ORDERED: fentaNYL (PF) 50 MCG/ML 2 ML AMP ONE (11:46)
[2020-06-30] MEDS ORDERED: MIDAZOLAM 2 MG/2 ML VIAL ONE (11:46)
[2020-06-30] MEDS ORDERED: ROPIVACAINE 5MG/ML 20ML VIAL ONE (11:46)
[2020-06-30 11:50] LABS: Glucose,Whole Blood 231 mg/dL (75-99)
--- NOTE | 2020-06-30 11:57 | P.PCN ---
Date of Procedure: 06/30/20 Procedure(s) Performed: Procedure= bilateral sacroiliac joints steroid injection under fluoroscopy guidance (fluoroscopy image stored on file in the radiology Department ) Preoperative diagnosis= 1-sacroiliitis 2-lumbar degenerative disc disease 3- lumbar facet arthropathy Postoperative diagnosis=Same as preop Diagnosis . Complication = none Condition= stable Anesthesia= moderate sedation with intravenous Versed 2 mg , and fentanyl 100 micrograms . Indication for the procedure= patient complaining of low back pain , examination was positive for severe tenderness over the sacroiliac joints bilaterally and patient diagnosed with sacroiliitis, for this reason he/ she was good candidate for sacroiliac joint steroid injection. Description of the procedure= procedure risk and benefits discussed with the patient, including but not limited, risk of infection and bleeding, and ALLERGIC reaction to the medication and not complete pain relief and patient agreed with the preceding patient taken to the operating room, placed in prone position or standard monitors applied to the patient then after induction of anesthesia back prepped with chlorhexidine 3 times , Then under strict sterile technique, first I did the right sacroiliac joint the which was identified under fluoroscopy guidance been local infiltration of the skin and subcu interstitial with lidocaine 1% then 22-gauge Quincke Needle advanced slowly under fluoroscopy and placed in the right sacroiliac joint needle placement confirmed with AP and oblique and lateral view and after appropriate needle placement confirmed and after negative aspiration, or heme , then Ropivacaine 0.5% 4 mL, and 20 mg of Depo-Medrol mixed together and injected in the right sacroiliac joint after negative aspiration patient tolerated the procedure well without any complication. Then the left sacroiliac joint steroid injection done under strict sterile technique local infiltration of the skin and subcu interstitial at the location of the left sacroiliac joint then a 22-gauge Quincke Needle advanced slowly under fluoroscopy time placed in the left sacroiliac joint, needle placement confirmed with AP and oblique and lateral view then after appropriate needle placement confirmed and after negative aspiration 0.5% Marcaine 4 mL and 20 mg of Depo-Medrol injected in the left sacroiliac joint after negative aspiration patient tolerated the procedure well that any complications and she will follow up in clinic 3 weeks
[2020-06-30] MEDS ORDERED: IV FLUID CONTINUATION 1,000 ML IV ONE (12:04)
--- NOTE | 2020-06-30 12:10 | FL ---
EXAMINATION TYPE: FL guided pain mgmt statistic DATE OF EXAM: 06/30/2020 CLINICAL HISTORY: Bilateral sacroiliac joint pain. TECHNIQUE: Fluoroscopy. COMPARISON: None. FINDINGS: Fluoroscopic guidance was provided during pain relief procedure performed by Dr. Monroy . A total of 3 seconds of fluoroscopic time was utilized during the procedure and two spot images ar e acquired. Images acquired shows needle localization at level of inferior bilateral sacroiliac join ts. IMPRESSION: As Above.
[2020-06-30 12:21] VITALS: BP 128/67; PULSE 61; RESP 18
== END 2020-06-30 12:39 | disposition home or self-care (01) ==
LOC: ORPAIN 10:02
PROVIDERS: ATTEND Specialist
DX: M46.1 Sacroiliitis, not elsewhere classified (principal); M51.36 Other intervertebral disc degeneration, lumbar region; M47.816 Spondylosis without myelopathy or radiculopathy, lumbar region; Z88.2 Allergy status to sulfonamides; Z91.09 Other allergy status, other than to drugs and biological substances; E11.9 Type 2 diabetes mellitus without complications; Z79.4 Long term (current) use of insulin
CPT/HCPCS: J2250; J1030; J3010; J2795; G0260; 99152

== ENCOUNTER 2020-08-11 11:02 | Emergency (ER) | payer MEDICARE, OTHER ==
[2020-08-11 11:11] VITALS: TEMP 98
[2020-08-11 11:11] LABS: Glucose,Whole Blood 421 mg/dL (75-99)
[2020-08-11] MEDS ORDERED: SODIUM CHLORIDE 0.9% 500 ML 500 ML IV STA (11:40)
[2020-08-11 11:48] LABS: Glucose,Whole Blood 446 mg/dL (75-99)
[2020-08-11 12:01] LABS: Basophils # (A) 0.1 k/uL (0-0.2); Basophils % (A) 1 %; Eosinophils # (A) 0.3 k/uL (0-0.7); Eosinophils % (A) 2 %; HCT 50.5 % (39.0-53.0); HGB 17.3 gm/dL (13.0-17.5); Lymphocytes # (A) 1.4 k/uL (1.0-4.8); Lymphocytes % (A) 11 %; MCH 29.3 pg (25.0-35.0); MCHC 34.3 g/dL (31.0-37.0); MCV 85.4 fL (80.0-100.0); Mean Platelet Volume 7.9; Monocytes # (A) 0.5 k/uL (0-1.0); Monocytes % (A) 4 %; Neutrophils # (A) 10.9 k/uL (1.3-7.7); Neutrophils % (A) 82 %; Platelet Count 297 k/uL (150-450); RBC 5.91 m/uL (4.30-5.90); WBC 13.2 k/uL (3.8-10.6)
[2020-08-11 12:11] LABS: ALT 49 U/L (4-49); AST 26 U/L (17-59); African American GFR (CKD) >90 (>60 ml/min/1.73 sqM); Albumin 4.4 g/dL (3.5-5.0); Alkaline Phosphatase 158 U/L (38-126); Anion Gap 11 mmol/L; Blood Urea Nitrogen 26 mg/dL (9-20); Calcium 10.4 mg/dL (8.4-10.2); Carbon Dioxide 25 mmol/L (22-30); Chloride 97 mmol/L (98-107); Glucose 431 mg/dL (74-99); Magnesium 1.9 mg/dL (1.6-2.3); Non-African American GFR(CKD) >90 (>60 ml/min/1.73 sqM); Potassium 4.6 mmol/L (3.5-5.1); Sodium 133 mmol/L (137-145); Total Bilirubin 0.8 mg/dL (0.2-1.3); Total Protein 7.4 g/dL (6.3-8.2)
[2020-08-11] MEDS ORDERED: SODIUM CHLORIDE 0.9% 1,000 ML IV STA (12:52)
[2020-08-11 12:57] LABS: Appearance,Urine Clear (Clear); Bilirubin,Urine Negative (Negative); Blood,Urine Negative (Negative); Color,Urine Light Yellow; Glucose,Urine (UA) 4+ (Negative); Ketones,Urine Negative (Negative); Leukocyte Esterase,Urine Negative (Negative); Nitrite,Urine Negative (Negative); PH, Urine 5.5 (5.0-8.0); Protein,Urine Negative (Negative); Specific Gravity,Urine 1.034 (1.001-1.035); Urobilinogen,Urine <2.0 mg/dL (<2.0)
--- NOTE | 2020-08-11 13:58 | CT ---
EXAMINATION TYPE: CT chest angio for PE DATE OF EXAM: 08/11/2020 COMPARISON: None HISTORY: SOB CT DLP: 540.8 mGycm CONTRAST: CT chest with contrast and 3D reconstruction with MIP imaging is performed with IV Contrast, patient injected with 100 mL of Isovue 370. Contrast-enhanced CT of the chest was performed through the course of the pulmonary arteries with dayanara g and mediastinal window settings submitted. 3D reconstruction with MIP imaging was also performed. PULMONARY ARTERIES: The pulmonary arteries and their major tributaries are patent. I do not see chanell dence for sizable filling defect to suggest pulmonary embolic process. LUNGS: The lungs are clear and free of infiltrate. Small emphysematous bullae are seen throughout bot h lung dawn. No evidence for atelectasis. No pulmonary nodule or mass is detected. No pleural ef fusion. MEDIASTINUM: Thoracic aorta is of normal caliber,however, evaluation is limited given timing of the contrast bolus. If there is concern for thoracic aortic pathology consider EDDIE. Correlate clinicall y . The heart is not enlarged. No evidence for mediastinal mass. No mediastinal lymph nodes greater than 1cm. HILAR STRUCTURES: No evidence for mass. Left hilar lymph node measures 1.5 cm. Right hilar lymph node measures 1.5 cm. Findings are of uncertain etiology. Correlate clinically. UPPER ABDOMEN: No significant abnormality is seen. IMPRESSION: 1. No evidence for Pulmonary embolism at this time.
[2020-08-11] MEDS ORDERED: METOPROLOL TARTRATE 5 MG/5 ML VIAL IVP STA (14:19)
--- NOTE | 2020-08-11 14:20 | ED ---
General Adult HPI - General Source: patient Mode of arrival: wheelchair Limitations: no limitations <Cristian Paredes - Last Filed: 08/11/20 14:48> <Sundar Burton - Last Filed: 08/11/20 14:53> - General Chief complaint: Dizziness Stated complaint: high blood sugar Time Seen by Provider: 08/11/20 11:21 - History of Present Illness Initial comments: 60-year-old male with a past medical history of asthma, CAD, chest pain, COPD, CVA, diabetes mellitus, GERD, hyperlipidemia, hypertension resents to the emergency room for high blood sugar. Patient reports that he went to a pain management clinic today. They reported his blood pressure and heart rate was high. They also stated his blood sugar was high in the 400s. Patient did feel a little lightheaded but otherwise felt fine. He states he had a small amount of gastric reflux yesterday which is common for him, no significant chest pain or shortness of breath.Patient has no other complaints at this time including shortness of breath, chest pain, abdominal pain, nausea or vomiting, headache, or visual changes. (Cristian Paredes) - Related Data Home Medications Medication Instructions Recorded Confirmed Metoprolol Tartrate [Lopressor] 25 mg PO BID 12/01/14 08/11/20 Montelukast [Singulair] 10 mg PO HS 12/01/14 08/11/20 Multivitamins, Thera [Multivitamin 1 tab PO DAILY 03/07/19 08/11/20 (formulary)] Atorvastatin [Lipitor] 40 mg PO HS 04/25/19 08/11/20 buPROPion HCL [Wellbutrin SR] 150 mg PO BID 04/25/19 08/11/20 hydroCHLOROthiazide [Hydrodiuril] 25 mg PO HS 04/25/19 08/11/20 Tamsulosin [Flomax] 0.4 mg PO DAILY 03/25/20 08/11/20 Aspirin 81 mg PO DAILY 04/23/20 08/11/20 Budesonide-Formot 160-4.5 Mcg 2 puff INHALATION RT-BID 06/04/20 08/11/20 [Symbicort 160-4.5 Mcg Inhaler] ALPRAZolam [Xanax] 1 mg PO BID PRN 08/11/20 08/11/20 Celecoxib [CeleBREX] 200 mg PO DAILY PRN 08/11/20 08/11/20 Empagliflozin [Jardiance] 25 mg PO DAILY 08/11/20 08/11/20 Ibuprofen [Motrin] 800 mg PO BID PRN 08/11/20 08/11/20 Nitroglycerin Sl Tabs [Nitrostat] 0.4 mg SL Q5M PRN 08/11/20 08/11/20 metFORMIN HCL ER [Glucophage Xr] 500 mg PO BID 08/11/20 08/11/20 rOPINIRole HCL [Requip] 1 mg PO HS 08/11/20 08/11/20 Allergies Allergy/AdvReac Type Severity Reaction Status Date / Time grass pollen Allergy Itching Verified 08/11/20 13:36 lisinopril Allergy Itching,SOB Verified 08/11/20 13:36 menthol Allergy Dyspnea Verified 08/11/20 13:36 Sulfa (Sulfonamide Allergy Unknown Verified 08/11/20 13:36 Antibiotics) Childhood venom-wasp Allergy Anaphylaxis Verified 08/11/20 13:36 Review of Systems ROS Other: All systems not noted in ROS Statement are negative. <Cristian Paredes - Last Filed: 08/11/20 14:48> ROS Other: All systems not noted in ROS Statement are negative. <Sundar Burton - Last Filed: 08/11/20 14:53> ROS Statement: Those systems with pertinent positive or pertinent negative responses have been documented in the HPI. Past Medical History Past Medical History: Asthma, Coronary Artery Disease (CAD), Cancer, Chest Pain / Angina, COPD, CVA/TIA, Diabetes Mellitus, GERD/Reflux, Hyperlipidemia, Hypertension, Memory Impairment, Musculoskeletal Disorder Additional Past Medical History / Comment(s): hx TIA- memory loss, using O2 2L PRN, hx skin cancer, lung nodules, back pain, had hernia on rt side of abdomen repaired 6 months ago and now has a "bulge" there and is contacting his surgeon. fx left ankle 6 months ago- still has some swelling of ankle History of Any Multi-Drug Resistant Organisms: None Reported Past Surgical History: Appendectomy, Back Surgery, Heart Catheterization With Stent, Hernia Repair, Orthopedic Surgery Additional Past Surgical History / Comment(s): rt wrist surgery, neck surg., COLONOSCOPY, ORIF left ankle 06/2018 - still wearing brace on and off, two cardiac stents, Umb hernia repair 2017, has mesh with hernia repair rt side of abdomen Past Anesthesia/Blood Transfusion Reactions: No Reported Reaction Additional Past Anesthesia/Blood Transfusion Reaction / Comment(s): CLAUSTROPHOBIA Date of Last Stent Placement:: 03-08-2018 Past Psychological History: Anxiety Smoking Status: Current some day smoker - Past Family History Father Family Medical History: Cancer Mother Family Medical History: Cancer <Cristian Paredes P - Last Filed: 08/11/20 14:48> General Exam Limitations: no limitations General appearance: alert, in no apparent distress Head exam: Present: atraumatic, normocephalic, normal inspection Eye exam: Present: normal appearance, PERRL, EOMI. Absent: scleral icterus, conjunctival injection, periorbital swelling ENT exam: Present: normal exam, mucous membranes moist Neck exam: Present: normal inspection, full ROM. Absent: tenderness Respiratory exam: Present: normal lung sounds bilaterally. Absent: respiratory distress, wheezes, rales, rhonchi, stridor Cardiovascular Exam: Present: tachycardia, normal heart sounds. Absent: systolic murmur, diastolic murmur, rubs, gallop, clicks GI/Abdominal exam: Present: soft, normal bowel sounds. Absent: distended, tenderness, guarding, rebound, rigid <Cristian Paredes P - Last Filed: 08/11/20 14:48> Course Vital Signs 08/11/20 08/11/20 08/11/20 11:06 11:46 14:42 Temperature 98.0 F Pulse Rate 132 H 124 H 118 H Pulse Rate [ 124 H Patient Safety Coordinator ] Respiratory 18 20 18 Rate Blood Pressure 132/90 139/91 146/77 O2 Sat by Pulse 94 L 97 94 L Oximetry EKG Findings - EKG Comments: EKG Findings:: Sinus tachycardia, ventricular rate 125, IA interval 136, QTC 432 <Cristian Paredes P - Last Filed: 08/11/20 14:48> Medical Decision Making - Lab Data Result diagrams: 08/11/20 11:45 08/11/20 11:45 <Cristian Paredes P - Last Filed: 08/11/20 14:48> - Lab Data Result diagrams: 08/11/20 11:45 08/11/20 11:45 <Sundar Burton - Last Filed: 08/11/20 14:53> - Medical Decision Making She was sent to me by previous shift physician events assistant, Cristian Gillis. Briefly, patient is 60-year-old male sent to the emergency Department for hyperglycemia. He was supposed to have spinal injections for chronic back pain. He is here today because of elevated blood glucose. He states he doesn't really have any other complaints. Cristian Gillis did a workup which she was found to be mostly unremarkable except for elevated glucose. The d-dimer of 1.[address] that was unremarkable. Patient does have history of diabetes and hypertension. He didn't take his metoprolol for his diabetes medications today. Last was to follow-up with heart rate. Patient was given IV and oral metoprolol. Patient's heart rate improved. Patient felt well wants to be discharged. Patient advised follow-up with primary care physician. (Sundar Burton) - Lab Data Lab Results 08/11/20 08/11/20 08/11/20 Range/Units 11:09 11:41 11:45 WBC 13.2 H (3.8-10.6) k/uL RBC 5.91 H (4.30-5.90) m/uL Hgb 17.3 (13.0-17.5) gm/dL Hct 50.5 (39.0-53.0) % MCV 85.4 (80.0-100.0) fL MCH 29.3 (25.0-35.0) pg MCHC 34.3 (31.0-37.0) g/dL RDW 14.0 (11.5-15.5) % Plt Count 297 (150-450) k/uL MPV 7.9 Neutrophils % 82 % Lymphocytes % 11 % Monocytes % 4 % Eosinophils % 2 % Basophils % 1 % Neutrophils # 10.9 H (1.3-7.7) k/uL Lymphocytes # 1.4 (1.0-4.8) k/uL Monocytes # 0.5 (0-1.0) k/uL Eosinophils # 0.3 (0-0.7) k/uL Basophils # 0.1 (0-0.2) k/uL D-Dimer (<0.60) mg/L FEU Sodium (137-145) mmol/L Potassium (3.5-5.1) mmol/L Chloride (98-107) mmol/L Carbon Dioxide (22-30) mmol/L Anion Gap mmol/L BUN (9-20) mg/dL Creatinine (0.66-1.25) mg/dL Est GFR (CKD-EPI)AfAm (>60 ml/min/1.73 sqM) Est GFR (CKD-EPI)NonAf (>60 ml/min/1.73 sqM) Glucose (74-99) mg/dL POC Glucose (mg/dL) 421 H 446 H (75-99) mg/dL POC Glu Telephone Operator ID Semaj Andujar Nicole Smith, Nicole Calcium (8.4-10.2) mg/dL Magnesium (1.6-2.3) mg/dL Total Bilirubin (0.2-1.3) mg/dL AST (17-59) U/L ALT (4-49) U/L Alkaline Phosphatase (38-126) U/L Troponin I (0.000-0.034) ng/mL Total Protein (6.3-8.2) g/dL Albumin (3.5-5.0) g/dL Urine Color Urine Appearance (Clear) Urine pH (5.0-8.0) Ur Specific Anza (1.001-1.035) Urine Protein (Negative) Urine Glucose (UA) (Negative) Urine Ketones (Negative) Urine Blood (Negative) Urine Nitrite (Negative) Urine Bilirubin (Negative) Urine Urobilinogen (<2.0) mg/dL Ur Leukocyte Esterase (Negative) Acetone, Qual (Negative) Coronavirus (PCR) (Not Detectd) 08/11/20 08/11/20 08/11/20 Range/Units 11:45 11:45 12:18 WBC (3.8-10.6) k/uL RBC (4.30-5.90) m/uL Hgb (13.0-17.5) gm/dL Hct (39.0-53.0) % MCV (80.0-100.0) fL MCH (25.0-35.0) pg MCHC (31.0-37.0) g/dL RDW (11.5-15.5) % Plt Count (150-450) k/uL MPV Neutrophils % % Lymphocytes % % Monocytes % % Eosinophils % % Basophils % % Neutrophils # (1.3-7.7) k/uL Lymphocytes # (1.0-4.8) k/uL Monocytes # (0-1.0) k/uL Eosinophils # (0-0.7) k/uL Basophils # (0-0.2) k/uL D-Dimer (<0.60) mg/L FEU Sodium 133 L (137-145) mmol/L Potassium 4.6 (3.5-5.1) mmol/L Chloride 97 L (98-107) mmol/L Carbon Dioxide 25 (22-30) mmol/L Anion Gap 11 mmol/L BUN 26 H (9-20) mg/dL Creatinine 0.89 (0.66-1.25) mg/dL Est GFR (CKD-EPI)AfAm >90 (>60 ml/min/1.73 sqM) Est GFR (CKD-EPI)NonAf >90 (>60 ml/min/1.73 sqM) Glucose 431 H (74-99) mg/dL POC Glucose (mg/dL) (75-99) mg/dL POC Glu Telephone Operator ID Calcium 10.4 H (8.4-10.2) mg/dL Magnesium 1.9 (1.6-2.3) mg/dL Total Bilirubin 0.8 (0.2-1.3) mg/dL AST 26 (17-59) U/L ALT 49 (4-49) U/L Alkaline Phosphatase 158 H (38-126) U/L Troponin I 0.013 (0.000-0.034) ng/mL Total Protein 7.4 (6.3-8.2) g/dL Albumin 4.4 (3.5-5.0) g/dL Urine Color Light Yellow Urine Appearance Clear (Clear) Urine pH 5.5 (5.0-8.0) Ur Specific Anza 1.034 (1.001-1.035) Urine Protein Negative (Negative) Urine Glucose (UA) 4+ H (Negative) Urine Ketones Negative (Negative) Urine Blood Negative (Negative) Urine Nitrite Negative (Negative) Urine Bilirubin Negative (Negative) Urine Urobilinogen <2.0 (<2.0) mg/dL Ur Leukocyte Esterase Negative (Negative) Acetone, Qual Negative (Negative) Coronavirus (PCR) (Not Detectd) 08/11/20 08/11/20 Range/Units 12:18 12:19 WBC (3.8-10.6) k/uL RBC (4.30-5.90) m/uL Hgb (13.0-17.5) gm/dL Hct (39.0-53.0) % MCV (80.0-100.0) fL MCH (25.0-35.0) pg MCHC (31.0-37.0) g/dL RDW (11.5-15.5) % Plt Count (150-450) k/uL MPV Neutrophils % % Lymphocytes % % Monocytes % % Eosinophils % % Basophils % % Neutrophils # (1.3-7.7) k/uL Lymphocytes # (1.0-4.8) k/uL Monocytes # (0-1.0) k/uL Eosinophils # (0-0.7) k/uL Basophils # (0-0.2) k/uL D-Dimer 1.20 H (<0.60) mg/L FEU Sodium (137-145) mmol/L Potassium (3.5-5.1) mmol/L Chloride (98-107) mmol/L Carbon Dioxide (22-30) mmol/L Anion Gap mmol/L BUN (9-20) mg/dL Creatinine (0.66-1.25) mg/dL Est GFR (CKD-EPI)AfAm (>60 ml/min/1.73 sqM) Est GFR (CKD-EPI)NonAf (>60 ml/min/1.73 sqM) Glucose (74-99) mg/dL POC Glucose (mg/dL) (75-99) mg/dL POC Glu Telephone Operator ID Calcium (8.4-10.2) mg/dL Magnesium (1.6-2.3) mg/dL Total Bilirubin (0.2-1.3) mg/dL AST (17-59) U/L ALT (4-49) U/L Alkaline Phosphatase (38-126) U/L Troponin I (0.000-0.034) ng/mL Total Protein (6.3-8.2) g/dL Albumin (3.5-5.0) g/dL Urine Color Urine Appearance (Clear) Urine pH (5.0-8.0) Ur Specific Anza (1.001-1.035) Urine Protein (Negative) Urine Glucose (UA) (Negative) Urine Ketones (Negative) Urine Blood (Negative) Urine Nitrite (Negative) Urine Bilirubin (Negative) Urine Urobilinogen (<2.0) mg/dL Ur Leukocyte Esterase (Negative) Acetone, Qual (Negative) Coronavirus (PCR) Not Detected (Not Detectd) Disposition <Cristian Paredes P - Last Filed: 08/11/20 14:48> Is patient prescribed a controlled substance at d/c from ED?: No Time of Disposition: 14:53 <Sundar Burton - Last Filed: 08/11/20 14:53> Clinical Impression: Tachycardia Disposition: HOME SELF-CARE Condition: Good Instructions (If sedation given, give patient instructions): Tachycardia (ED), Diabetic Hyperglycemia (ED) Referrals: Corinna Mares MD [Primary Care Provider] - 1-2 days
[2020-08-11] MEDS ORDERED: METOPROLOL TARTRATE 25 MG TAB PO STA (14:29)
[2020-08-11] MEDS ORDERED: oxyCODONE-APAP 10-325MG 1 EACH TAB PO STA (14:32)
[2020-08-11 14:45] VITALS: BP 146/77; RESP 18
[2020-08-11 14:51] VITALS: PULSE 100
== END 2020-08-11 14:55 | disposition home or self-care (01) ==
LOC: EC 11:02
DX: R00.0 Tachycardia, unspecified (principal); E11.65 Type 2 diabetes mellitus with hyperglycemia; F41.9 Anxiety disorder, unspecified; J44.9 Chronic obstructive pulmonary disease, unspecified; I25.119 Atherosclerotic heart disease of native coronary artery with unspecified angina pectoris; K21.9 Gastro-esophageal reflux disease without esophagitis; E78.5 Hyperlipidemia, unspecified; I10 Essential (primary) hypertension; Z20.822 Contact with and (suspected) exposure to COVID-19; F17.200 Nicotine dependence, unspecified, uncomplicated; Z79.82 Long term (current) use of aspirin; Z79.51 Long term (current) use of inhaled steroids; Z79.84 Long term (current) use of oral hypoglycemic drugs; Z79.899 Other long term (current) drug therapy; Z88.2 Allergy status to sulfonamides; Z88.8 Allergy status to other drugs, medicaments and biological substances; Z91.038 Other insect allergy status; Z91.048 Other nonmedicinal substance allergy status; Z95.5 Presence of coronary angioplasty implant and graft; Z90.49 Acquired absence of other specified parts of digestive tract; Z86.73 Personal history of transient ischemic attack (TIA), and cerebral infarction without residual deficits; Z85.828 Personal history of other malignant neoplasm of skin
CPT/HCPCS: 36415; 93005; 85379; 80053; 82009; 83735; 84484; 85025; 81003; 87635; 71275; 99284; 96374; 96361 ×2; Q9967

== ENCOUNTER → 2020-08-11 | Day surgery (SDC) | payer MEDICARE, OTHER ==
[2020-08-06 15:45] VITALS: BMI 33.0
[2020-08-11 10:49] LABS: Glucose,Whole Blood 451 mg/dL (75-99)
[2020-08-11 10:53] VITALS: BP 146/93; PULSE 135; RESP 16; TEMP 97.8
== END ==
LOC: ORPAIN 10:22
PROVIDERS: ATTEND Anesthesiology
DX: Z53.8 Procedure and treatment not carried out for other reasons (principal)

== ENCOUNTER 2020-11-14 19:31 | Emergency (ER) | payer MEDICARE, OTHER ==
--- NOTE | 2020-11-14 19:50 | ED ---
General Adult HPI - General Chief complaint: Abdominal Pain Stated complaint: poss hernia Time Seen by Provider: 11/14/20 19:47 Source: patient Mode of arrival: wheelchair Limitations: no limitations - History of Present Illness Initial comments: Patient presents to the ED with his roommate for evaluation. Patient states that he had a hernia repair surgery with mesh performed at [facility] 2 years ago. Patient states he has developed abdominal distention over the past several months in the area of his hernia repair, and he is concerned that his hernia may have returned. Patient states that he was lifting something heavy today, and he developed increased pain over his hernia, so he decided to come to the ED. Patient also states that he has had left ankle pain and swelling for the past several months, and he states that he has hardware in his left ankle from a prior fracture. Patient denies any recent ankle trauma or injury. Pat ient denies trauma or injury, fever or chills, headache, focal neuro deficit, chest pain or pressure, dyspnea, cough or cold symptoms, dizziness, nausea or vomiting, diarrhea or constipation, bloody or melanotic stool, dysuria or urinary symptoms, or any other symptoms or complaints. - Related Data Home Medications Medication Instructions Recorded Confirmed Metoprolol Tartrate [Lopressor] 25 mg PO BID 12/01/14 08/11/20 Montelukast [Singulair] 10 mg PO HS 12/01/14 08/11/20 Multivitamins, Thera [Multivitamin 1 tab PO DAILY 03/07/19 08/11/20 (formulary)] Atorvastatin [Lipitor] 40 mg PO HS 04/25/19 08/11/20 buPROPion HCL [Wellbutrin SR] 150 mg PO BID 04/25/19 08/11/20 hydroCHLOROthiazide [Hydrodiuril] 25 mg PO HS 04/25/19 08/11/20 Tamsulosin [Flomax] 0.4 mg PO DAILY 03/25/20 08/11/20 Aspirin 81 mg PO DAILY 04/23/20 08/11/20 Budesonide-Formot 160-4.5 Mcg 2 puff INHALATION RT-BID 06/04/20 08/11/20 [Symbicort 160-4.5 Mcg Inhaler] ALPRAZolam [Xanax] 1 mg PO BID PRN 08/11/20 08/11/20 Celecoxib [CeleBREX] 200 mg PO DAILY PRN 08/11/20 08/11/20 Empagliflozin [Jardiance] 25 mg PO DAILY 08/11/20 08/11/20 Ibuprofen [Motrin] 800 mg PO BID PRN 08/11/20 08/11/20 Nitroglycerin Sl Tabs [Nitrostat] 0.4 mg SL Q5M PRN 08/11/20 08/11/20 metFORMIN HCL ER [Glucophage Xr] 500 mg PO BID 08/11/20 08/11/20 rOPINIRole HCL [Requip] 1 mg PO HS 08/11/20 08/11/20 Allergies Allergy/AdvReac Type Severity Reaction Status Date / Time grass pollen Allergy Itching Verified 11/14/20 19:36 lisinopril Allergy Itching,SOB Verified 11/14/20 19:36 menthol Allergy Dyspnea Verified 11/14/20 19:36 Sulfa (Sulfonamide Allergy Unknown Verified 11/14/20 19:36 Antibiotics) Childhood venom-wasp Allergy Anaphylaxis Verified 11/14/20 19:36 Review of Systems ROS Statement: Those systems with pertinent positive or pertinent negative responses have been documented in the HPI. ROS Other: All systems not noted in ROS Statement are negative. Past Medical History Past Medical History: Asthma, Coronary Artery Disease (CAD), Cancer, Chest Pain / Angina, COPD, CVA/TIA, Diabetes Mellitus, GERD/Reflux, Hyperlipidemia, Hypertension, Memory Impairment, Musculoskeletal Disorder Additional Past Medical History / Comment(s): hx TIA- memory loss, using O2 2L PRN, hx skin cancer, lung nodules, back pain, had hernia on rt side of abdomen repaired 6 months ago and now has a "bulge" there and is contacting his surgeon. fx left ankle 6 months ago- still has some swelling of ankle History of Any Multi-Drug Resistant Organisms: None Reported Past Surgical History: Appendectomy, Back Surgery, Heart Catheterization With Stent, Hernia Repair, Orthopedic Surgery Additional Past Surgical History / Comment(s): rt wrist surgery, neck surg., COLONOSCOPY, ORIF left ankle 06/2018 - still wearing brace on and off, two cardiac stents, Umb hernia repair 2016, has mesh with hernia repair rt side of abdomen Past Anesthesia/Blood Transfusion Reactions: No Reported Reaction Additional Past Anesthesia/Blood Transfusion Reaction / Comment(s): CLAUSTROPHOBIA Date of Last Stent Placement:: 03-08-2018 Past Psychological History: Anxiety Smoking Status: Current some day smoker Past Alcohol Use History: Occasional Past Drug Use History: Marijuana - Past Family History Father Family Medical History: Cancer Mother Family Medical History: Cancer General Exam Limitations: no limitations General appearance: alert, in no apparent distress Head exam: Present: atraumatic, normocephalic Eye exam: Present: normal appearance, EOMI ENT exam: Present: mucous membranes moist Neck exam: Present: other (Trachea is in midline) Respiratory exam: Present: normal lung sounds bilaterally. Absent: respiratory distress, wheezes, rales, rhonchi, stridor Cardiovascular Exam: Present: regular rate, normal rhythm, normal heart sounds, other (Normal radial pulses bilaterally) GI/Abdominal exam: Present: soft, normal bowel sounds, other (A soft, nontender, midline ventral hernia is noted on examination). Absent: tenderness, guarding Extremities exam: Present: other (Left lateral ankle swelling and tenderness). Absent: pedal edema Neurological exam: Present: alert, oriented X3. Absent: motor sensory deficit Psychiatric exam: Present: normal affect, normal mood Skin exam: Present: warm, dry, intact, normal color Course Vital Signs 11/14/20 11/14/20 11/14/20 19:33 20:23 21:47 Temperature 97.4 F L 98.9 F Pulse Rate 80 98 63 Respiratory 18 18 18 Rate Blood Pressure 135/80 117/79 112/58 O2 Sat by Pulse 96 96 96 Oximetry - Reevaluation(s) Reevaluation #1: 11/14/20 22:40 Patient denies development of any new symptoms while in the ED. Patient states that his pain has improved with ED treatment. Patient remains alert and breathing comfortable. Patient's abdomen remains soft and nontender on examination. Patient and sister are aware the patient's test results, and patient feels comfortable going home with his sister at this time. He was counseled about abdominal pain, ventral hernias and ankle pain. He was clearly explained return and follow-up instructions. He was instructed to follow up cl osely with his primary care provider. He feels comfortable this plan. Medical Decision Making - Medical Decision Making Patient's labs are fairly unremarkable. Patient's imaging studies are negative except for an enlarged appearance of his gallbladder on CT imaging. Patient has no epigastric or right upper quadrant tenderness on examination. Patient is afebrile. Patient has absolutely no abdominal tenderness on examination. I do not suspect an emergent medical or surgical condition at this time. Will discharge patient home with his sister at this time. - Lab Data Result diagrams: 11/14/20 20:28 11/14/20 20:28 Lab Results 11/14/20 11/14/20 11/14/20 Range/Units 20:28 20:28 20:28 WBC 11.1 H (3.8-10.6) k/uL RBC 5.56 (4.30-5.90) m/uL Hgb 16.1 (13.0-17.5) gm/dL Hct 47.1 (39.0-53.0) % MCV 84.7 (80.0-100.0) fL MCH 28.9 (25.0-35.0) pg MCHC 34.2 (31.0-37.0) g/dL RDW 14.5 (11.5-15.5) % Plt Count 293 (150-450) k/uL MPV 7.3 Neutrophils % 77 % Lymphocytes % 14 % Monocytes % 5 % Eosinophils % 2 % Basophils % 0 % Neutrophils # 8.6 H (1.3-7.7) k/uL Lymphocytes # 1.6 (1.0-4.8) k/uL Monocytes # 0.5 (0-1.0) k/uL Eosinophils # 0.3 (0-0.7) k/uL Basophils # 0.1 (0-0.2) k/uL Sodium 141 (137-145) mmol/L Potassium 3.7 (3.5-5.1) mmol/L Chloride 106 (98-107) mmol/L Carbon Dioxide 27 (22-30) mmol/L Anion Gap 8 mmol/L BUN 13 (9-20) mg/dL Creatinine 0.95 (0.66-1.25) mg/dL Est GFR (CKD-EPI)AfAm >90 (>60 ml/min/1.73 sqM) Est GFR (CKD-EPI)NonAf 86 (>60 ml/min/1.73 sqM) Glucose 126 H (74-99) mg/dL Plasma Lactic Acid Sarbjit 2.0 (0.7-2.0) mmol/L Calcium 10.4 H (8.4-10.2) mg/dL Total Bilirubin 0.7 (0.2-1.3) mg/dL AST 34 (17-59) U/L ALT 30 (4-49) U/L Alkaline Phosphatase 108 (38-126) U/L Total Protein 6.8 (6.3-8.2) g/dL Albumin 4.1 (3.5-5.0) g/dL Lipase 46 (23-300) U/L - Radiology Data Radiology results: report reviewed (Left ankle x-rays: No acute osseous abn ormality; CT abdomen/pelvis with IV contrast: Large gallbladder without wall thickening seen. Gallbladder dysfunction possible. Gallbladder is increased compared to old exam. No dilated ducts. Minimal atelectasis right posterior lung base.) Disposition Clinical Impression: Left ankle pain, Abdominal pain, Ventral hernia Disposition: HOME SELF-CARE Condition: Stable Instructions (If sedation given, give patient instructions): Abdominal Pain (ED), Arthralgia (ED), Ventral Hernia (ED) Additional Instructions: Return to the ER immediately should you develop new or worsening pain, a fever, vomiting, feeling dizzy or faint, shortness of breath, or new or worsening symptoms. Follow up closely with your primary care provider. Is patient prescribed a controlled substance at d/c from ED?: No Referrals: Corinna Mares MD [Primary Care Provider] - 1-2 days Time of Disposition: 22:44
[2020-11-14] MEDS ORDERED: SODIUM CHLORIDE 0.9% 1,000 ML IV STA (19:56)
[2020-11-14] MEDS ORDERED: MORPHINE SULFATE 4 MG/ML SYRINGE IVP STA (20:17)
[2020-11-14 20:25] VITALS: TEMP 98.9
[2020-11-14 20:48] LABS: Basophils # (A) 0.1 k/uL (0-0.2); Basophils % (A) 0 %; Eosinophils # (A) 0.3 k/uL (0-0.7); Eosinophils % (A) 2 %; HCT 47.1 % (39.0-53.0); HGB 16.1 gm/dL (13.0-17.5); Lymphocytes # (A) 1.6 k/uL (1.0-4.8); Lymphocytes % (A) 14 %; MCH 28.9 pg (25.0-35.0); MCHC 34.2 g/dL (31.0-37.0); MCV 84.7 fL (80.0-100.0); Mean Platelet Volume 7.3; Monocytes # (A) 0.5 k/uL (0-1.0); Monocytes % (A) 5 %; Neutrophils # (A) 8.6 k/uL (1.3-7.7); Neutrophils % (A) 77 %; Platelet Count 293 k/uL (150-450); RBC 5.56 m/uL (4.30-5.90); RDW 14.5 % (11.5-15.5); WBC 11.1 k/uL (3.8-10.6)
[2020-11-14 20:59] LABS: ALT 30 U/L (4-49); AST 34 U/L (17-59); African American GFR (CKD) >90 (>60 ml/min/1.73 sqM); Albumin 4.1 g/dL (3.5-5.0); Alkaline Phosphatase 108 U/L (38-126); Anion Gap 8 mmol/L; Blood Urea Nitrogen 13 mg/dL (9-20); Calcium 10.4 mg/dL (8.4-10.2); Carbon Dioxide 27 mmol/L (22-30); Chloride 106 mmol/L (98-107); Glucose 126 mg/dL (74-99); Lipase 46 U/L (23-300); Non-African American GFR(CKD) 86 (>60 ml/min/1.73 sqM); Potassium 3.7 mmol/L (3.5-5.1); Sodium 141 mmol/L (137-145); Total Bilirubin 0.7 mg/dL (0.2-1.3); Total Protein 6.8 g/dL (6.3-8.2)
[2020-11-14] MEDS ORDERED: HYDROmorphone 0.5 MG/0.5 ML SYRINGE IVP STA (21:12)
--- NOTE | 2020-11-14 21:29 | XR ---
Result: History: Pain. Comparison: None available. Technique: 3 views of the left ankle. Findings: No acute fracture or dislocation is seen. Prior ORIF of the medial and lateral malleoli noted. No chanell dence to suggest hardware loosening. There are moderate to severe posttraumatic degenerative changes of the tibiotalar joint. Impression: No acute osseous abnormality.
--- NOTE | 2020-11-14 22:26 | CT ---
EXAMINATION TYPE: CT abdomen pelvis w con DATE OF EXAM: 11/14/2020 COMPARISON: 04/25/2019 HISTORY: Abdominal pain, recent hernia sx. CT DLP: 1743.4 mGycm Automated exposure control for dose reduction was used. CONTRAST: Performed with IV Contrast, patient injected with 100 mL of Isovue 300. Images obtained from the diaphragm to the floor the pelvis with IV contrast. There is mild subsegmental atelectasis right lung base. Heart size is normal. There is no pericardial effusion. Liver spleen pancreas gallbladder and stomach appear intact. The bile ducts are not dilated. Gallblad da is large and measures 4.5 cm in diameter. There is no adrenal mass. Kidneys show satisfactory contrast opacification. There is no hydronephros is. Delayed images show normal renal excretion. There is 6.5 cm cortical cyst lower pole left kidney. There is no retroperitoneal adenopathy. Abdominal aorta is atheromatous. Bladder distends smoothly. There is no inguinal hernia. There is no free fluid in the pelvis. There is no mesenteric edema. There is no ascites or free air. There is no sign of a bowel obstructio n. Appendix is not visualized. There is no sign of thickened appendix. I see no intestinal wall thick ening. There is multilevel spondylotic changes in the lumbar spine with spur formation and disc space narrowing. There is no compression fracture. There is L5 spondylolysis. There is no spondylolisthesi s. The hip joints are intact. Bony pelvis is intact. There is mild acetabular spurring. There is old ununited posterior right rib fracture. IMPRESSION: Large gallbladder without wall thickening seen. Gallbladder dysfunction is possible. Gallbladder is i ncreased compared to old exam. No dilated ducts. Minimal atelectasis right posterior lung base is a c hange compared to old exam.
[2020-11-14 22:41] VITALS: BP 113/81; PULSE 91; RESP 16
== END 2020-11-14 22:40 | disposition home or self-care (01) ==
LOC: EC 19:31
DX: K43.9 Ventral hernia without obstruction or gangrene (principal); M25.572 Pain in left ankle and joints of left foot; M79.89 Other specified soft tissue disorders; E11.9 Type 2 diabetes mellitus without complications; I10 Essential (primary) hypertension; E78.5 Hyperlipidemia, unspecified; J44.9 Chronic obstructive pulmonary disease, unspecified; K21.9 Gastro-esophageal reflux disease without esophagitis; I25.10 Atherosclerotic heart disease of native coronary artery without angina pectoris; F41.9 Anxiety disorder, unspecified; F17.200 Nicotine dependence, unspecified, uncomplicated; F12.90 Cannabis use, unspecified, uncomplicated; Z85.828 Personal history of other malignant neoplasm of skin; Z86.73 Personal history of transient ischemic attack (TIA), and cerebral infarction without residual deficits; Z79.84 Long term (current) use of oral hypoglycemic drugs; Z79.82 Long term (current) use of aspirin; Z79.51 Long term (current) use of inhaled steroids; Z79.1 Long term (current) use of non-steroidal anti-inflammatories (NSAID); Z88.2 Allergy status to sulfonamides; Z88.8 Allergy status to other drugs, medicaments and biological substances; Z95.5 Presence of coronary angioplasty implant and graft
CPT/HCPCS: 36415; 80053; 83605; 83690; 85025; 73610; 74177; 99284; 96374; 96375; 96361; J2270; J1170; Q9967

== ENCOUNTER 2020-12-17 07:16 | Day surgery (SDC) | payer MEDICARE, OTHER ==
[2020-12-16 12:43] VITALS: BMI 30.3
[2020-12-17 07:56] VITALS: RESP 16; TEMP 97.5
[2020-12-17 07:58] LABS: Glucose,Whole Blood 109 mg/dL (75-99)
[2020-12-17] MEDS ORDERED: methylPREDNISolone ACETATE 40 MG/ML 1 ML VIAL ONE (08:22)
[2020-12-17] MEDS ORDERED: MIDAZOLAM 2 MG/2 ML VIAL ONE (08:22)
[2020-12-17] MEDS ORDERED: fentaNYL (PF) 50 MCG/ML 2 ML AMP ONE (08:22)
[2020-12-17] MEDS ORDERED: ROPIVACAINE 5MG/ML 20ML VIAL ONE (08:22)
--- NOTE | 2020-12-17 08:35 | P.PCN ---
Date of Procedure: 12/17/20 Procedure(s) Performed: Procedure= bilateral sacroiliac joints steroid injection under fluoroscopy guidance (fluoroscopy image stored on file in the radiology Department ) Preoperative diagnosis= 1-sacroiliitis 2-lumbar degenerative disc disease 3- lumbar spondylosis with lumbar facet arthropathy Postoperative diagnosis=Same as preop Diagnosis . Complication = none Condition= stable Anesthesia= moderate sedation with intravenous Versed 2 mg , and fentanyl 50 micrograms . Indication for the procedure= patient complaining of low back pain , examination was positive for severe tenderness over the sacroiliac joints bilaterally and patient diagnosed with sacroiliitis, for this reason he/ she was good candidate for sacroiliac joint steroid injection. Description of the procedure= procedure risk and benefits discussed with the patient, including but not limited, risk of infection and bleeding, and ALLERGIC reaction to the medication and not complete pain relief and patient agreed with the preceding patient taken to the operating room, placed in prone position or standard monitors applied to the patient then after induction of anesthesia back prepped with chlorhexidine 3 times , Then under strict sterile technique, first I did the right sacroiliac joint the which was identified under fluoroscopy guidance been local infiltration of the skin and subcu interstitial with lidocaine 1% then 22-gauge Quincke Needle advanced slowly under fluoroscopy and placed in the right sacroiliac joint needle placement confirmed with AP and oblique and lateral view and after appropriate needle placement confirmed and after negative aspiration, or heme , then Ropivacaine 0.5% 4 mL, and 20 mg of Depo-Medrol mixed together and injected in the right sacroiliac joint after negative aspiration patient tolerated the procedure well without any complication. Then the left sacroiliac joint steroid injection done under strict sterile technique local infiltration of the skin and subcu interstitial at the location of the left sacroiliac joint then a 22-gauge Quincke Needle advanced slowly under fluoroscopy time placed in the left sacroiliac joint, needle placement confirmed with AP and oblique and lateral view then after appropriate needle placement confirmed and after negative aspiration 0.5% Marcaine 4 mL and 20 mg of Depo-Medrol injected in the left sacroiliac joint after negative aspiration patient tolerated the procedure well that any complications and she will follow up in clinic 3 weeks
[2020-12-17] MEDS ORDERED: IV FLUID CONTINUATION 1,000 ML IV ONE (08:41)
--- NOTE | 2020-12-17 08:51 | FL ---
EXAMINATION TYPE: FL guided pain mgmt statistic DATE OF EXAM: 12/17/2020 FLUOROSCOPY Fluoroscopy time of 4 seconds was used during bilateral SI joint injection. Two image/s document/s t he procedure.
[2020-12-17 08:57] VITALS: BP 120/74; PULSE 76
== END 2020-12-17 09:11 | disposition home or self-care (01) ==
LOC: ORPAIN 07:16
PROVIDERS: ATTEND Specialist
DX: M46.1 Sacroiliitis, not elsewhere classified (principal)
CPT/HCPCS: 62322; G0260; J2250; J1030; J3010; J2795

== ENCOUNTER → 2021-02-08 | Outpatient (CLI) | payer MEDICARE, OTHER ==
[2021-02-08 14:33] VITALS: BP 146/82; PULSE 115; RESP 20; TEMP 98.2
--- NOTE | 2021-02-08 14:54 | P.PAINPG ---
Subjective Progress Note Date: 02/08/21 Principal diagnosis: Back pain, and gluteal pain and right-sided Mr. Vaughn is a 60 -year-old pleasant male came to the [facility] pain clinic for postprocedure evaluation . Patient has ongoing pain for many years. Patient describes pain is aching, throbbing, constant type of pain. Pain is radiating to below knee area sometimes on right side. Patient rated pain levels are 7-8 out of 10 in severity. With the help of medications pain levels are 5-6 out of 10 in severity. Bilateral SI joint injection not much beneficial. It helps only 1 week pain relief. Patient had a previous lumbar radiofrequency ablation which also helped her temporarily pain relief. Currently his most of his pain levels are the mid gluteal area on the right side. Activities making pain worse. Medications, resting, interventional procedures helping in relieving patient's pain to some extent. Patient pain some days better than others. Overall activities decreased secondary to pain. Because of the pain sometimes patient is feeling lack of sleep, interest, and energy. Denied any side effects with the medications. Denied any bowel or bladder problems at this time. Patient is not using any for walking support. Patient denies any suicidal or homicidal ideations intent or plan. Patient denies any auditory or visual hallucinations. Patient denied any red flag symptoms related to pain. 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 Sensation grossly intact Lower extremity: Normal strength, and decreased range of motion secondary to pain Lumbar spine: Paravertebral tenderness: positive Lumbar facet load test : positive Strait leg raising test: Negative Sacroiliac joint tenderness: Positive Thigh thrust test: Positive SI joint compression test: Positive Fabere test: Positive Pyriformis stretch test : Positive on right side - Constitutional Constitutional Comment(s): 13 point review of symptoms negative except as mentioned in the history of present illness Assessment and Plan Assessment: Lumbar spondylosis without myelopathy Sacroiliac joint dysfunction Right side pyriformis syndrome Myofascial pain syndrome, and chronic pain syndrome Plan: #1 psychological risk tools were reviewed. Diagnoses, prognosis, and multiple treatment options including but not limited to physical therapy, interventional therapy, adjunct medication therapy, complementary alternative medicine options, narcotic medication, and surgical options were discussed with the patient. And all questions were answered to the patient's satisfaction. #2 treatment plan agreement : Patient was thoroughly discussed regarding the treatment options, alternatives, and importance of exercises as tolerated. Patient clearly understood. #3 Patient was counseled on importance of regular exercise. Including jaycee chi, aerobic exercises as tolerated. Which helps for chronic pain, and overall well- being. Patient also counseled regarding importance of weight control role in chronic pain, and overall other health issues. By altering diet habits, minimizing sugar intake, & processed foods helps in minimizing Inflammation. Patient counseled regarding smoking associated with chronic pain, worsening inflammation, and smoking effects on liver, and medication metabolism. And encouraged to stop smoking. #4 investigations: MAPS- reviewed , urine drug test- reviewed #5 diagnostic tests: None #6 consultation : Physical therapy # 7 interventional procedures: Right side pyriformis injection . Procedure, complications, alternatives discussed with the patient. #8 medications #1 magnesium oxide 400 mg by mouth daily Medication side effects, complications, long-term consequences discussed with the patient. Patient recommended to contact the pain clinic if noticed any issues with given medications. #9 morphine milligrams equivalents dose ( MME) per day: 0 from the pain clinic. # 10 TENS unit's, and percussion massage device #11 disposition: scheduled to follow up with pain clinic in 4-8 weeks duration. Time with Patient: Less than 30 PQRS Measure Charge Sheet Measure #130: Documentation of Current Meds in Medical Chart: Patient's medications documented in chart Measure #226: Tobacco Use: Screen & Cessation Intervention: Pt screened for tobacco use AND intervention given Measure #111: Pneumonia Vaccination: Pneumococcal vaccine NOT administered or previously given Measure #412: Opioid Treatment Agreement: No documentation of signed opioid treatment agreement Measure #408: Opioid Therapy Follow-up Evaluation: Patient had NO f/u eval minimum every 3 months during opioid therapy Measure #317: Preventitive Care & Scrn High Bld Press & F/U: Pre-hypertensive or hypertensive BP documented, pt will f/u with PCP Measure #128: Body Mass Index (BMI) Screening & Follow-up: BMI documented ABOVE normal parameters - f/u documented Measure #131: Pain Assessment & Follow-up: Pain positive & plan documented Measure #431: Unhealthy Alcohol Use Preventative Care & Scrn: Patient not identified as an unhealthy alcohol user Mode of Arrival: Ambulatory - Pain Location Right Hip Non-Pharmacological Interventions: Heat, Home Exercise, Ice, Inactivity, Stretching Pharmacological Interventions: PRN Medication, Topical Medication PQRS Narrative: Smoking Status Former smoker Blood Pressure 146/82 Pain Intensity [Right Hip] 7 Scale Used Numeric (1 - 10) Hx Alcohol Use (MH) Yes Home Medications: Ambulatory Orders Metoprolol Tartrate [Lopressor] 25 mg PO BID 12/01/14 Montelukast [Singulair] 10 mg PO DAILY 12/01/14 Multivitamins, Thera [Multivitamin (formulary)] 1 tab PO DAILY 03/07/19 Atorvastatin [Lipitor] 40 mg PO HS 04/25/19 buPROPion HCL [Wellbutrin SR] 150 mg PO BID 04/25/19 hydroCHLOROthiazide [Hydrodiuril] 25 mg PO DAILY 04/25/19 Tamsulosin [Flomax] 0.4 mg PO DAILY 03/25/20 Aspirin 81 mg PO DAILY 04/23/20 Budesonide-Formot 160-4.5 Mcg [Symbicort 160-4.5 Mcg Inhaler] 2 puff INHALATION DIRECTED 06/04/20 ALPRAZolam [Xanax] 1 mg PO BID PRN 08/11/20 Empagliflozin [Jardiance] 25 mg PO DAILY 08/11/20 Ibuprofen [Motrin] 800 mg PO TID 08/11/20 Nitroglycerin Sl Tabs [Nitrostat] 0.4 mg SL Q5M PRN 08/11/20 metFORMIN HCL ER [Glucophage Xr] 500 mg PO BID 08/11/20 rOPINIRole HCL [Requip] 1 mg PO HS 08/11/20 Gabapentin [Neurontin] 300 mg PO BID 12/16/20 Semaglutide [Ozempic] 0.25 mg SQ FR 12/16/20 Albuterol Inhaler [Ventolin Hfa Inhaler] 1 puff INHALATION RT-QID PRN 02/04/21 Arthritis Pain Cream 1 applicate TOPICAL DIRECTED PRN 02/04/21 Cyclobenzaprine [Flexeril] 10 mg PO HS 02/04/21 Controlled Substance Measures - Controlled Substance Measures Is patient prescribed a controlled substance at discharge?: No
== END ==
LOC: PNWHC3 14:22
DX: M47.816 Spondylosis without myelopathy or radiculopathy, lumbar region (principal); M79.18 Myalgia, other site; G89.4 Chronic pain syndrome; M53.3 Sacrococcygeal disorders, not elsewhere classified; G57.01 Lesion of sciatic nerve, right lower limb; Z87.891 Personal history of nicotine dependence; Z88.8 Allergy status to other drugs, medicaments and biological substances; Z88.2 Allergy status to sulfonamides; Z91.038 Other insect allergy status; Z91.048 Other nonmedicinal substance allergy status
CPT/HCPCS: 99211

== ENCOUNTER 2021-03-11 12:14 | Day surgery (SDC) | payer MEDICARE, OTHER ==
[2021-03-09 09:55] VITALS: BMI 30.6
[~2021-03-11 12:14] MED LIST changes: +IOPAMIDOL M200 10 ML VIAL ONE; +MIDAZOLAM 2 MG/2 ML VIAL ONE; +TRIAMCINOLONE ACETONIDE 40 MG/ML 1 ML VIAL ONE; +fentaNYL (PF) 50 MCG/ML 2 ML AMP ONE
[2021-03-11 13:26] VITALS: RESP 16; TEMP 97.1
[2021-03-11 13:28] LABS: Glucose,Whole Blood 76 mg/dL (75-99)
--- NOTE | 2021-03-11 14:03 | P.PCN ---
Date of Procedure: 03/11/21 Surgeon: Mikala Valadez Pathology: none sent Condition: stable Disposition: PACU Description of Procedure: Diagnosis: Right piriformis muscle syndrome Procedure name: piriformis muscle steroid injection under fluoroscopic and ultrasound guidance Anesthesia: Local with IV moderate conscious sedation Physician: Mikala Valadez MD Description of procedure: The patient was seen in preop holding area consent was obtained then she was brought into the procedure and placed in prone position. Skin was prepped with DuraPrep and draped in a sterile manner. Lidocaine 1% was used to numb the skin up at the target site which was chosen as follows: A line Connecting the upper edge of the Rt greater trochanter with lower part of the Rt edge of the sacrum was drawn on the skin and a point two thirds away frommidline was chosenon this line as an entry point using 3- 1/2 inch 22-gauge Quincke spinal needle. 2 pops were felt by going through the different muscular layers in the Rt buttock area I then verified the position of the tip of the needle in the right piriformis muscle by ultrasound. .After that I injected 1 mL of Isovue which showed transverse spread of the dye indicating the presence of the needle tip in the piriformis muscle on the fluoroscopy machine. I then injected 5 MLS of Lidocaine ! % +40 mg of Kenalog. Needle then was removed. Patient tolerated procedure well. A copy of the final needle placement was saved to the C-arm at the radiology department.
[2021-03-11] MEDS ORDERED: IV FLUID CONTINUATION 1,000 ML IV ONE (14:07)
[2021-03-11 14:19] LABS: Glucose,Whole Blood 80 mg/dL (75-99)
--- NOTE | 2021-03-11 14:20 | FL ---
EXAMINATION TYPE: FL guided pain mgmt statistic DATE OF EXAM: 03/11/2021 CLINICAL HISTORY: Hip pain. TECHNIQUE: Fluoroscopy. COMPARISON: None. FINDINGS: Fluoroscopic guidance was provided during pain relief procedure performed by Dr. Valadez . A total of 6 seconds of fluoroscopic time was utilized during the procedure and 1 spot images are a cquired. Single image acquired shows needle localization at level of the superior lateral acetabulum . IMPRESSION: As Above.
[2021-03-11 15:09] VITALS: PULSE 85
[2021-03-11 15:10] VITALS: BP 115/77
== END 2021-03-11 15:51 | disposition home or self-care (01) ==
LOC: ORPAIN 12:14
PROVIDERS: ATTEND Anesthesiology
DX: G57.01 Lesion of sciatic nerve, right lower limb (principal)
CPT/HCPCS: 20550; 62322; J2250; J3301; J2001; J3010; Q9966; 99152

== ENCOUNTER → 2021-03-29 | Outpatient (CLI) | payer MEDICARE, OTHER ==
--- NOTE | 2021-03-29 13:59 | P.PN ---
Subjective Progress Note Date: 03/29/21 Lex is a 60-year-old male presented to clinic today for follow-up appointment after his most recent intervention of a right piriformis injection on March 11. He has a history of lumbar disease degenerative disc disease, lumbar spondylosis with facet arthropathy without myelopathy, and lumbar radicu lopathy. He states that he had one day of relief with that injection and then his pain has returned. Reports that he has pain in his low back and radiates down both legs left side worse than right. His pain is made worse with standing and doing daily activities home. Reports that his pain is better with rest. He admitted that he had taken 1 of his sisters [place] so given him significant pain relief however the pain returned as soon as the medication wore off. He states that he has not had any physical therapy for his lack back pain due to his pain levels at physical therapy or doing exercises. Admits to marijuana use. He feels as he has used all conservative therapies and would like a neurosurgery consult. Objective - Exam Physical Examinations : -Constitutiona : Cooperative , not in acute distress . -HEENT : nech : supple , no Lymphadenopathy , normal thyroid size . : eyes : no ptosis , no icterus, no photophobia . - neurologic : Cranial nerve II to XII intact , no focal neurological deffecit . -psychatric : alert , oriented X 3 , appropriate affect , intact judgment and insight . -Lymphatic : no Lymphadenopathy . - musculoskeltal : Lumber spine moter stegnth lower extremities ,thigh and legs 5/5 Right side , 5/5 Left side deep tendon reflexes : normal Knee Jerk , normal ankle Jerk lumber facet Loading Test =positive Right , positive Left Range of motion of the lumbar spine Flexion 30 degrees, extension 10 degrees strait leg raising test = positive at 20 degree Fabere test= positive Right , and positive LT . Sever tenderness over the Sacroiliac joint on the Right , and Left sides Gaenslen test= positive right ,and positive left . Seated flexion test= positive right ,and positive Left . Distraction test= positive bilaterally Sacroiliac compression test= positive bilaterally Assessment and Plan Assessment: Assessment and plan Assessment: Lumbar spondylosis with facet arthropathy without myelopathy Lumbar degenerative disc disease Lumbar radiculopathy Right piriformis syndrome Bilateral sacroiliac joint dysfunction Plan: Patient was given a referral for neurosurgery. Advised to follow-up with clinic as needed. Dr. Monroy was available by phone for consultation during his visit. I have spent 20 minutes on patient care today. The time was used to review the medical records including relevant urine studies and Prescription history (MAPs), review of the available imaging, evaluation and examination of the patient, coordination of care with the medical staff and if applicable referring physicians, as well as creation of the medical record. - PQRS measures = - Patient's medications are documented in the chart. -Tobacco use is positive and counseling.Given. -Patient's has not received pneumococcal vaccine. -Advanced care planning discussed, patient not eligible. -Opiate contract not signed. -Pain positive and follow-up visit/procedure is scheduled. -Patient's blood pressure measured 143/89 , and documented in the record ,and patient will follow up with the primary care. -Patient was not identified as an unhealthy alcohol user Time with Patient: Less than 30
[2021-03-29 14:23] VITALS: BP 143/89; PULSE 80; RESP 18; TEMP 97.6
== END ==
LOC: PNWHC3 13:26
PROVIDERS: ATTEND Student in an Organized Health Care Education/Training Program
DX: M47.26 Other spondylosis with radiculopathy, lumbar region (principal); M51.16 Intervertebral disc disorders with radiculopathy, lumbar region; M46.1 Sacroiliitis, not elsewhere classified; G57.01 Lesion of sciatic nerve, right lower limb; Z88.8 Allergy status to other drugs, medicaments and biological substances; Z88.2 Allergy status to sulfonamides; Z91.038 Other insect allergy status; Z91.048 Other nonmedicinal substance allergy status; Z87.891 Personal history of nicotine dependence
CPT/HCPCS: 99211

== ENCOUNTER → 2021-05-31 | Outpatient (CLI) | payer MEDICARE, OTHER ==
--- NOTE | 2021-06-01 08:45 | CT ---
EXAMINATION TYPE: CT thor lumbar spine wo con DATE OF EXAM: 05/31/2021 COMPARISON: None HISTORY: Spinal pain, problems with falling CT DLP: [address] of the thoracic and lumbar spine was performed. Bone and soft tissue window settings a re submitted as well as coronal and sagittal reconstructions. Thoracic spine: Moderate to severe multilevel degenerative disc space narrowing noted throughout the thoracic spine greatest at its mid and lowers portions. There is ventral spondylosis. No obvious disc herniation. No central stenosis appreciated. No fracture or malalignment of the thoracic spine. Inci dentally the lungs demonstrate moderate emphysematous change. Pulmonary nodule left lower lobe measur ing 7.5 mm. Lumbar spine: L1-L2: Normal disc space height. No disc herniation protrusion or central stenosis. No facet joint arthropathy. No evidence for foraminal encroachment. L2-L3: Severe degenerative disc space narrowing with vacuum disc and endplate sclerosis. Ventral and dorsal spondylosis. Posterior disc bulge. Hypertrophy ligamentum flavum and facet joint arthropathy c ontributing to moderate central stenosis. L3-L4: Severe degenerative disc space narrowing with vacuum disc and endplate sclerosis. Ventral and dorsal spondylosis. Posterior disc bulge. Hypertrophy ligamentum flavum and facet joint arthropathy c ontributing to moderate central stenosis. L4-L5: Severe degenerative disc space narrowing with vacuum disc and endplate sclerosis. Ventral and dorsal spondylosis. Posterior disc bulge. Hypertrophy ligamentum flavum and facet joint arthropathy c ontributing to moderate central stenosis. L5-S1: Severe degenerative disc space narrowing with vacuum disc and endplate sclerosis. Ventral and dorsal spondylosis. Posterior disc bulge. Hypertrophy ligamentum flavum and facet joint arthropathy c ontributing to moderate central stenosis. No paraspinal masses are identified. Lumbar segments are free if fracture. IMPRESSION: 1. Severe multilevel degenerative disc disease throughout the lumbar spine with central stenosis exte nding from L2-3 through L5-S1. 2. Degenerative changes throughout the thoracic spine without evidence for central stenosis or obviou s herniation. See above.
== END | disposition home or self-care (01) ==
LOC: RADCTMAIN 14:43
PROVIDERS: ATTEND Orthopaedic Surgery
DX: M51.34 Other intervertebral disc degeneration, thoracic region (principal); M51.37 Other intervertebral disc degeneration, lumbosacral region; M48.07 Spinal stenosis, lumbosacral region
CPT/HCPCS: 72128; 72131

== ENCOUNTER → 2021-05-31 | Outpatient (CLI) | payer MEDICARE, OTHER ==
--- NOTE | 2021-06-01 00:42 | MR ---
EXAMINATION TYPE: MR tspine/lspine wo con DATE OF EXAM: 05/31/2021 COMPARISON: None HISTORY: Chronic mid/lower back pain. Multiplanar multiecho imaging of the thoracic and lumbar spine without contrast. The thoracic vertebrae have normal alignment. There is mild anterior spurring throughout the thoracic spine with mild disc space narrowing. There is no significant compression deformity. There is slight chronic wedging 25% of T7 vertebra. There is multilevel fusion surgery in the lower cervical spine w ith metal artifact. There is probably moderate spinal stenosis in the cervical spine at C5-6 level wi th some flattening of the spinal cord. No significant stenosis seen in the thoracic spine. There is n o thoracic paraspinal mass.. Thoracic spinal cord shows no evidence of edema. The lumbar vertebrae have normal alignment. There is moderate narrowing of the disc spaces at L4-5 an d L5-S1. There is mild narrowing at L2-3 and L3-4. There is some spinal stenosis at L2-3 due to disc bulging and facet arthropathy. There is narrowing of the neural foramina at L4-5 and L5-S1 due to dis c space narrowing and facet arthropathy. There is no lumbar paraspinal mass. The sacroiliac joints ar e intact. IMPRESSION: The level lumbar spondylotic changes with spinal stenosis at L2-3 and neural foraminal stenosis at L4 -5 and L5-S1. No fracture. Old mild T7 anterior wedging. No thoracic spinal stenosis. No acute fracture of the thoracic spine. Cervical spondylotic changes with previous surgery and evidence for some cervical spinal stenosis. Ce rvical spine not well evaluated on this exam dedicated to the thoracic and lumbar spine.
== END | disposition home or self-care (01) ==
LOC: RADMRIMAIN 14:36
PROVIDERS: ATTEND Orthopaedic Surgery
DX: M47.816 Spondylosis without myelopathy or radiculopathy, lumbar region (principal); M48.061 Spinal stenosis, lumbar region without neurogenic claudication; M99.73 Connective tissue and disc stenosis of intervertebral foramina of lumbar region; Z98.1 Arthrodesis status
CPT/HCPCS: 72146; 72148

== ENCOUNTER 2021-08-16 05:38 | Day surgery (SDC) | payer MEDICARE, OTHER ==
[2021-08-12 15:17] VITALS: BMI 18.4
[2021-08-16] MEDS ORDERED: NITROGLYCERIN SL TABS 0.4 MG TAB SUBLINGUAL PRN (06:02)
[2021-08-16] MEDS ORDERED: HEPARIN SODIUM,PORCINE 2,500 UNIT in SODIUM CHLORIDE 0.9% 250 ML IRRIGATION PRN (06:02)
[2021-08-16] MEDS ORDERED: ALPRAZolam 0.5 MG TAB PO PRN (06:02)
[2021-08-16] MEDS ORDERED: SODIUM CHLORIDE 0.9% 1,000 ML in EMPTY BAG 1 BAG IV SCH (06:02)
[2021-08-16] MEDS ORDERED: ALPRAZolam 0.25 MG TAB PO PRN (06:02)
[2021-08-16] MEDS ORDERED: ASPIRIN 325 MG TAB PO STA (06:02)
[2021-08-16] MEDS ORDERED: HEPARIN SODIUM,PORCINE 10,000 UNIT in SODIUM CHLORIDE 0.9% 1,000 ML IRRIGATION PRN (06:02)
[2021-08-16] MEDS ORDERED: SODIUM CHLORIDE 0.9% 1,000 ML IV ONE (06:14)
[2021-08-16 06:33] LABS: Glucose,Whole Blood 149 mg/dL (75-99)
[2021-08-16 06:37] VITALS: TEMP 97.9
[2021-08-16] MEDS ORDERED: LIDOCAINE 1% INJ 10MG/ML (20 ML MDV) ONE (07:13)
[2021-08-16] MEDS ORDERED: VERAPAMIL 2.5 MG/ML 2 ML AMP ONE (07:13)
[2021-08-16] MEDS ORDERED: MIDAZOLAM 2 MG/2 ML VIAL IVP ONE (07:45)
[2021-08-16] MEDS ORDERED: LIDOCAINE 1% INJ 10MG/ML (20 ML MDV) SQ ONE (07:48)
[2021-08-16] MEDS ORDERED: FLUMAZENIL 0.1 MG/ML 5 ML VIAL IVP ONE (07:52)
[2021-08-16] MEDS ORDERED: HEPARIN SODIUM 1,000 UN/ML (10ML VL) ONE (08:04)
[2021-08-16] MEDS ORDERED: HEPARIN SODIUM 1,000 UN/ML (10ML VL) IVP ONE (08:06)
[2021-08-16] MEDS ORDERED: IOPAMIDOL-370 125ML BTL INJ ONE (08:15)
[2021-08-16] MEDS ORDERED: RX INFO: IV CONTRAST WAS GIVEN 1 EACH MISC MISCELLANE PRN (08:21)
--- NOTE | 2021-08-16 08:28 | P.PCN ---
Date of Procedure: 08/16/21 Operative Findings: CARDIAC CATHETERIZATION PERFORMING PHYSICIAN: Jose Salinas MD, RPVI PROCEDURE PERFORMED: 1. Selective right and left coronary angiogram 2. Left heart catheterization 3. IFR of the RCA 4. Gradient measurement across the right common iliac artery 5. Selective right common femoral artery angiogram INDICATION: This is a 61-year-old gentleman with a CAD and prior stenting of the RCA and LCx as well as diabetes and hypertension and dyslipidemia and smoking was seen in the office recently for preoperative cardiac assessment. He was also experiencing symptoms of shortness of breath with exertion. He underwent myocardial perfusion imaging stress test and that showed reversibility and in the light of that a heart catheterization was advised. Also he underwent an echo which revealed an EF around 40% COMPLICATION: None APPROACH: Right common femoral artery LEVEL OF SEDATION: Moderate with sedation length of 30 minutes PROCEDURE DESCRIPTION: After obtaining an informed consent, the patient was brought to cardiac ammunition assembly ii laborer. Local anesthesia was performed using lidocaine subcutaneously. The right common femoral artery was cannulated using Seldinger technique, the guidewire passed easily, following that we advanced a 6 Nauruan sheath dilator assembly, the wire and dilator were removed and sheath was flushed. Selective right and left coronary angiogram using a 6-Nauruan JR4 and JL catheters. Following that we did left heart catheterization using 6-Nauruan pigtail catheter. After that I did IFR of the RCA. Gradient measurement was performed across the right common iliac artery because it was some difficulties advancing the J-wire. Then I did selective right common femoral artery angiogram The procedure was completed there was no complication. SELECTIVE CORONARY ANGIOGRAM: The right coronary artery: Is a large caliber vessel and a dominant vessel. The proximal RCA is a stented. The mid RCA has a tubular lesion appeared to be in the range of 60%. IFR was performed and came in to be at 0.88. The RCA distally bifurcates into PDA and PLV branches. Left main: Is angiographically normal. Bifurcates into LCx and LAD The left circumflex: Is a large caliber vessel nondominant vessel. The proximal LCx is a stented and the stent is patent. It gives rise into the first OM branch which appeared to be angiographically normal. The circumflex after that appeared to be angiographically normal. The left anterior descending artery: The LAD is angiographically normal. The proximal LAD gives rises into a large diagonal branches seems to be angiographically normal. The LAD in the mid and distal portions are angiographically normal HEMODYNAMICS: The LVEDP was 12 mmHg without significant. Across aortic valve IFR of the RCA: Anticoagulation was initiated using heparin and the patient was given a total of 6000 as of heparin IV. After zeroing the Doppler wire and equalizing between the Doppler wire and the guiding catheter which was JR4 guiding catheter we did an IFR. I infarctions. 0.88. After that I did gradient measurement across the right common iliac artery and that came in to be a 3 mm medical CONCLUSION: 1. Patent stent in the proximal RCA. Intermediate lesion involving the mid RCA. IFR came in to be ischemic at 0.88 2. Patent stent in the proximal LCx 3. Mild disease involving the LAD system POSTPROCEDURE MANAGEMENT: Because the lesion in the RCA is not critical and because the patient is going to undergo noncardiac surgery I advised medical treatment at this point for the lesion and that the patient have the surgery and subsequently PCI of the RCA to be done after that.
[2021-08-16] MEDS ORDERED: SODIUM CHLORIDE 0.9% 1,000 ML IV SCH (08:30)
[2021-08-16] MEDS: HYDROmorphone 1 MG/ML 1 ML SYRINGE IVP PRN ×2 (08:43→14:15)
[2021-08-16] MEDS ORDERED: METOPROLOL TARTRATE 25 MG TAB PO STA (12:23)
[2021-08-16] MEDS ORDERED: TAMSULOSIN 0.4 MG CAP.ER.24H PO STA ×2 (12:23→13:06)
[2021-08-16] MEDS ORDERED: GABAPENTIN 400 MG CAP PO STA (12:23)
[2021-08-16] MEDS ORDERED: buPROPion SR 150 MG TABLET.ER PO STA (12:23)
[2021-08-16 15:56] VITALS: BP 137/72; PULSE 85
[2021-08-16 16:21] VITALS: RESP 22
== END 2021-08-16 16:35 | disposition home or self-care (01) ==
LOC: CATHCVL 05:38
PROVIDERS: ATTEND Internal Medicine Interventional Cardiology
DX: I25.10 Atherosclerotic heart disease of native coronary artery without angina pectoris (principal); I10 Essential (primary) hypertension; E78.5 Hyperlipidemia, unspecified; F17.210 Nicotine dependence, cigarettes, uncomplicated; I49.3 Ventricular premature depolarization; Z95.5 Presence of coronary angioplasty implant and graft; Z79.84 Long term (current) use of oral hypoglycemic drugs; E78.00 Pure hypercholesterolemia, unspecified; Z82.49 Family history of ischemic heart disease and other diseases of the circulatory system; Z79.899 Other long term (current) drug therapy; Z79.82 Long term (current) use of aspirin; E11.9 Type 2 diabetes mellitus without complications; Z20.822 Contact with and (suspected) exposure to COVID-19
CPT/HCPCS: 93458; 93571; 87635; C1887; C1769 ×3; J2250; S0106; J2001; J1644; J1170; Q9967

== ENCOUNTER 2021-09-16 06:24 | Day surgery (SDC) | payer MEDICARE, OTHER ==
[~2021-09-16 06:24] MED LIST changes: +ALPRAZolam 0.25 MG TAB PO PRN; +ALPRAZolam 0.5 MG TAB PO PRN; +HEPARIN SODIUM,PORCINE 10,000 UNIT in SODIUM CHLORIDE 0.9% 1,000 ML IRRIGATION PRN; +HEPARIN SODIUM,PORCINE 2,500 UNIT in SODIUM CHLORIDE 0.9% 250 ML IRRIGATION PRN; -IOPAMIDOL M200 10 ML VIAL ONE; -LACTATED RINGERS 1,000 ML IV SCH; -MIDAZOLAM 2 MG/2 ML VIAL ONE; +NITROGLYCERIN SL TABS 0.4 MG TAB SUBLINGUAL PRN; -TRIAMCINOLONE ACETONIDE 40 MG/ML 1 ML VIAL ONE; -fentaNYL (PF) 50 MCG/ML 2 ML AMP ONE
[2021-09-16] MEDS ORDERED: ATORVASTATIN 80 MG TAB PO ONE (07:00)
[2021-09-16] MEDS ORDERED: ASPIRIN 325 MG TAB PO ONE (07:00)
[2021-09-16 07:01] LABS: Glucose,Whole Blood 108 mg/dL (75-99)
[2021-09-16] MEDS: SODIUM CHLORIDE 0.9% 1,000 ML in EMPTY BAG 1 BAG IV SCH ×3 (07:03→22:52)
[2021-09-16] MEDS ORDERED: VERAPAMIL 2.5 MG/ML 2 ML AMP ONE (07:26)
[2021-09-16] MEDS ORDERED: HEPARIN SODIUM 1,000 UN/ML (10ML VL) ONE (07:38)
[2021-09-16] MEDS ORDERED: MIDAZOLAM 2 MG/2 ML VIAL IV ONE (07:58)
[2021-09-16] MEDS ORDERED: LIDOCAINE 1% PF 10 MG/ML (5 ML AMP) SQ ONE (07:58)
[2021-09-16] MEDS ORDERED: fentaNYL (PF) 50 MCG/ML 2 ML AMP ONE (08:00)
[2021-09-16] MEDS ORDERED: fentaNYL (PF) 50 MCG/ML 2 ML AMP IV ONE (08:02)
[2021-09-16] MEDS ORDERED: LIDOCAINE 1% INJ 10MG/ML (5 ML VIAL-PF) SQ ONE (08:03)
[2021-09-16] MEDS ORDERED: HEPARIN SODIUM 1,000 UN/ML (10ML VL) IV ONE (08:04)
[2021-09-16] MEDS ORDERED: CLOPIDOGREL 75 MG TAB ONE (08:20)
[2021-09-16] MEDS ORDERED: IOPAMIDOL-370 100ML BTL INJ ONE (08:24)
[2021-09-16] MEDS ORDERED: CLOPIDOGREL 75 MG TAB PO ONE (08:24)
[2021-09-16] MEDS ORDERED: ALPRAZolam 1 MG TAB PO PRN (08:25)
[2021-09-16] MEDS ORDERED: IBUPROFEN 800 MG TAB PO PRN (08:25)
[2021-09-16] MEDS ORDERED: ALBUTEROL HFA INHALER INHALATION PRN (08:25)
[2021-09-16] MEDS ORDERED: ARTHRITIS PAIN TOPICAL PRN (08:25)
[2021-09-16] MEDS ORDERED: ZOLPIDEM 5 MG TAB PO PRN (08:27)
[2021-09-16] MEDS ORDERED: MAG HYDROX/AL HYDROX/SIMETH 30 ML CUP PO PRN (08:27)
[2021-09-16] MEDS ORDERED: RX INFO: IV CONTRAST WAS GIVEN 1 EACH MISC MISCELLANE PRN (08:27)
[2021-09-16] MEDS ORDERED: NITROGLYCERIN SL TABS 0.4 MG TAB SUBLINGUAL PRN (08:27)
[2021-09-16] MEDS ORDERED: ATROPINE SULFATE 0.1 MG/ML 10ML SYRINGE IV PRN (08:27)
[2021-09-16] MEDS ORDERED: SODIUM CHLORIDE 0.9% 1,000 ML in EMPTY BAG 1 BAG IV SCH (08:30)
--- NOTE | 2021-09-16 08:31 | P.PCN ---
Date of Procedure: 09/16/21 Operative Findings: PERCUTANEOUS CORONARY INTERVENTION Performing physician Jose Salinas M.D. Procedure Performed: 1. Successful stenting of the mid right coronary artery using 3.5 x 28 mm Xience drug-eluting stent with an excellent angiographic results. 2. Selective right common femoral artery and a Indication: Chest discomfort and shortness of breath and 60-year-old gentleman who underwent recently heart catheterization and that showed severe disease involving the mid RCA Approach: Right common femoral artery Complications: None Level of Sedation: Moderate with a sedation length of 27 minutes Procedure Discussion: After obtaining an informed consent the patient was brought to the cardiac bottle labeler. The right common femoral artery was cannulated using micropuncture technique, the micropuncture wire passed easily and I placed a 6-Filipino sheath. 6000 use of heparin given at the beginning of the procedure ACT was monitored. Engaging the right coronary artery was performed using an a.l. 0.75 guiding catheter. I rewire the RCA using a run-through wire. Predilatation was performed using 3.0 x 20 mm bone before I deployed 3.5 x 28 mm stent where the stent was positioned under fluoroscopy guidance and deployed under 14 helen for 20 seconds with the following angiogram showing excellent angiographic results The procedure was completed without any complication Postprocedure Management: 1. Dual antiplatelet therapy using aspirin and Plavix for 12 months 2. Aggressive cholesterol control 3. Risk factors modification
[2021-09-16] MEDS ORDERED: NON FORMULARY DRUG (Empagliflozin [Jardiance] 25 MG Tablet) PO SCH (09:00)
[2021-09-16 15:14] VITALS: BMI 30.2
[2021-09-16] MEDS: SYMBICORT 160-4.5 MCG INHALER INHALATION SCH (19:30)
[2021-09-16] MEDS ORDERED: CYCLOBENZAPRINE 10 MG TAB PO SCH (21:00)
[2021-09-16] MEDS ORDERED: GABAPENTIN 400 MG CAP PO SCH (21:00)
[2021-09-16] MEDS: buPROPion SR 150 MG TABLET.ER PO SCH (21:04)
[2021-09-16] MEDS: METOPROLOL TARTRATE 25 MG TAB PO SCH (21:04)
[2021-09-16] MEDS: DORZOLAMIDE HCL 2% DROPS 10 ML BTL BOTH EYES SCH (22:51)
[2021-09-17] MEDS: SYMBICORT 160-4.5 MCG INHALER INHALATION SCH (07:12)
[2021-09-17 07:34] VITALS: BP 127/73; PULSE 72; RESP 14; TEMP 97.8
[2021-09-17] MEDS: METOPROLOL TARTRATE 25 MG TAB PO SCH (07:39)
[2021-09-17] MEDS: DORZOLAMIDE HCL 2% DROPS 10 ML BTL BOTH EYES SCH (07:40)
[2021-09-17] MEDS: buPROPion SR 150 MG TABLET.ER PO SCH (07:40)
[2021-09-17] MEDS ORDERED: NON FORMULARY DRUG (Semaglutide [Ozempic] 0.25 MG/0.2 ML Pen.Injctr) SQ SCH (08:25)
[2021-09-17] MEDS ORDERED: ASPIRIN 81 MG PO SCH (09:00)
[2021-09-17] MEDS ORDERED: CLOPIDOGREL 75 MG TAB PO SCH (09:00)
[2021-09-17] MEDS ORDERED: MULTIVITAMINS, THERA 1 EACH TAB PO SCH (09:00)
[2021-09-17] MEDS ORDERED: MONTELUKAST 10 MG TAB PO SCH (09:00)
[2021-09-17] MEDS ORDERED: TAMSULOSIN 0.4 MG CAP.ER.24H PO SCH (09:00)
[2021-09-17] MEDS ORDERED: hydroCHLOROthiazide 25 MG TAB PO SCH (09:00)
[2021-09-17 09:22] LABS: African American GFR (CKD) 88 (>60 ml/min/1.73 sqM); Anion Gap 7 mmol/L; Blood Urea Nitrogen 19 mg/dL (9-20); Calcium 8.7 mg/dL (8.4-10.2); Carbon Dioxide 25 mmol/L (22-30); Chloride 106 mmol/L (98-107); Glucose 107 mg/dL (74-99); Non-African American GFR(CKD) 76 (>60 ml/min/1.73 sqM); Potassium 4.3 mmol/L (3.5-5.1); Sodium 138 mmol/L (137-145)
[2021-09-17 09:28] LABS: Basophils # (A) 0.1 k/uL (0-0.2); Basophils % (A) 1 %; Eosinophils # (A) 0.2 k/uL (0-0.7); Eosinophils % (A) 2 %; HGB 15.3 gm/dL (13.0-17.5); Lymphocytes # (A) 1.7 k/uL (1.0-4.8); Lymphocytes % (A) 16 %; MCH 29.2 pg (25.0-35.0); MCHC 31.9 g/dL (31.0-37.0); MCV 91.6 fL (80.0-100.0); Mean Platelet Volume 7.2; Monocytes # (A) 0.5 k/uL (0-1.0); Monocytes % (A) 5 %; Neutrophils # (A) 8.1 k/uL (1.3-7.7); Neutrophils % (A) 76 %; Platelet Count 329 k/uL (150-450); RBC 5.24 m/uL (4.30-5.90); RDW 14.7 % (11.5-15.5); WBC 10.7 k/uL (3.8-10.6)
--- NOTE | 2021-09-17 19:54 | P.DS ---
Providers Attending physician: Jose Salinas Consults: 09/16/21 08:27 Consult Physician Routine Consulting Provider: [facility] Consult Reason/Comments: Post Interventional patient Do you want consulting provider notified?: Already Contacted Primary care physician: [facility] Course: The patient is a pleasant 61-year-old gentleman who underwent yesterday successful stenting of the right coronary artery with a great angiographic results without any complication from the right groin approach. The patient was seen this morning. He is asymptomatic. He is hemodynamically stable. The right groin is soft and nontender without any bruises. The patient going to be shock trauma dual antiplatelet therapy as well as a statin and a follow-up with the patient In a week Plan - Discharge Summary Discharge Rx Participant: No New Discharge Prescriptions: New Clopidogrel Bisulfate [Plavix] 75 mg PO DAILY #90 tab Continue Montelukast [Singulair] 10 mg PO DAILY Metoprolol Tartrate [Lopressor] 25 mg PO BID Multivitamins, Thera [Multivitamin (formulary)] 1 tab PO DAILY buPROPion HCL [Wellbutrin SR] 150 mg PO BID hydroCHLOROthiazide [Hydrodiuril] 25 mg PO DAILY Atorvastatin [Lipitor] 40 mg PO HS Tamsulosin [Flomax] 0.4 mg PO DAILY Aspirin 81 mg PO DAILY Budesonide-Formot 160-4.5 Mcg [Symbicort 160-4.5 Mcg Inhaler] 2 puff INHALATION DIRECTED Semaglutide [Ozempic] 0.25 mg SQ FR Arthritis Pain Cream 1 applicate TOPICAL DIRECTED PRN PRN Reason: Pain Empagliflozin [Jardiance] 25 mg PO DAILY rOPINIRole HCL [Requip] 1 mg PO HS ALPRAZolam [Xanax] 1 mg PO BID PRN PRN Reason: Anxiety Ibuprofen [Motrin] 800 mg PO TID PRN PRN Reason: Pain Nitroglycerin Sl Tabs [Nitrostat] 0.4 mg SL Q5M PRN PRN Reason: Chest Pain Cyclobenzaprine [Flexeril] 10 mg PO HS Albuterol Inhaler [Ventolin Hfa Inhaler] 1 puff INHALATION RT-QID PRN PRN Reason: Shortness Of Breath Gabapentin [Neurontin] 400 mg PO BID Dorzolamide 2% [Trusopt 2%] 1 drops BOTH EYES BID Discharge Medication List Metoprolol Tartrate [Lopressor] 25 mg PO BID 12/01/14 [History] Montelukast [Singulair] 10 mg PO DAILY 12/01/14 [History] Multivitamins, Thera [Multivitamin (formulary)] 1 tab PO DAILY 03/07/19 [History] Atorvastatin [Lipitor] 40 mg PO HS 04/25/19 [History] buPROPion HCL [Wellbutrin SR] 150 mg PO BID 04/25/19 [History] hydroCHLOROthiazide [Hydrodiuril] 25 mg PO DAILY 04/25/19 [History] Tamsulosin [Flomax] 0.4 mg PO DAILY 03/25/20 [History] Aspirin 81 mg PO DAILY 04/23/20 [History] Budesonide-Formot 160-4.5 Mcg [Symbicort 160-4.5 Mcg Inhaler] 2 puff INHALATION DIRECTED 06/04/20 [History] ALPRAZolam [Xanax] 1 mg PO BID PRN 08/11/20 [History] Empagliflozin [Jardiance] 25 mg PO DAILY 08/11/20 [History] Ibuprofen [Motrin] 800 mg PO TID PRN 08/11/20 [History] Nitroglycerin Sl Tabs [Nitrostat] 0.4 mg SL Q5M PRN 08/11/20 [History] rOPINIRole HCL [Requip] 1 mg PO HS 08/11/20 [History] Semaglutide [Ozempic] 0.25 mg SQ FR 12/16/20 [History] Albuterol Inhaler [Ventolin Hfa Inhaler] 1 puff INHALATION RT-QID PRN 02/04/21 [History] Arthritis Pain Cream 1 applicate TOPICAL DIRECTED PRN 02/04/21 [History] Cyclobenzaprine [Flexeril] 10 mg PO HS 02/04/21 [History] Dorzolamide 2% [Trusopt 2%] 1 drops BOTH EYES BID 08/12/21 [History] Gabapentin [Neurontin] 400 mg PO BID 08/12/21 [History] Clopidogrel Bisulfate [Plavix] 75 mg PO DAILY #90 tab 09/17/21 [Rx] Follow up Appointment(s)/Referral(s): Jose Salinas MD [STAFF PHYSICIAN] - 05/18/22 3:45 pm Patient Instructions/Handouts: Coronary Intravascular Stent Placement (DC), Procedural Sedation (ED), Left Heart Catheterization (DC) Discharge Disposition: HOME SELF-CARE
[2021-09-17] MEDS ORDERED: ATORVASTATIN 40 MG TAB PO SCH (21:00)
== END 2021-09-17 10:13 | disposition home or self-care (01) ==
LOC: CATHCVL 06:24 → 6NMEDSUR 08:22 → CATHCVL 09-17 10:13
PROVIDERS: ATTEND Internal Medicine Interventional Cardiology
DX: I25.10 Atherosclerotic heart disease of native coronary artery without angina pectoris (principal); I10 Essential (primary) hypertension; I49.3 Ventricular premature depolarization; I25.5 Ischemic cardiomyopathy; Z20.822 Contact with and (suspected) exposure to COVID-19; E78.5 Hyperlipidemia, unspecified; G89.29 Other chronic pain; F17.210 Nicotine dependence, cigarettes, uncomplicated; E11.9 Type 2 diabetes mellitus without complications; Z95.5 Presence of coronary angioplasty implant and graft; Z79.84 Long term (current) use of oral hypoglycemic drugs; Z79.82 Long term (current) use of aspirin; Z79.899 Other long term (current) drug therapy; Z88.2 Allergy status to sulfonamides
CPT/HCPCS: 94640 ×3; 80048; 85025; 87635; C9600; C1887; C1894 ×2; C1725; C1769 ×4; C1874; J2250; S0106 ×2; J2001; J3010; J1644; Q9967

== ENCOUNTER → 2022-03-14 | Outpatient (CLI) | payer MEDICARE, OTHER | END | disposition home or self-care (01) | LOC: LABPAT 10:43 | PROVIDERS: ATTEND Orthopaedic Surgery | DX: Z01.818 Encounter for other preprocedural examination (principal) | CPT/HCPCS: 87070 ==

== ENCOUNTER → 2022-03-17 | Outpatient (CLI) | payer MEDICARE, OTHER ==
[2022-03-17 12:45] VITALS: BP 140/90; PULSE 94; RESP 18; TEMP 97.6
--- NOTE | 2022-03-21 13:27 | P.PAINPG ---
PQRS Measure Charge Sheet Comment: A 61 yr old male with a history of severe and chronic low back pain x 2 yrs secondary to lumbar DDD, spinal stenosis and spondylosis with facet arthropathy without myelopathy presents today for LBP. MRI without contrast of the thoracolumbar spine from 05/31/21 reviewed. Pain level is currently at 8/10 in intensity, constant, localized in the mid to lower aspect of his lumbar spine, sharp, stabbing in character without shooting pain. Pain is provoked by weight bearing for periods of 15 min or more. Pain is alleviated with meds (Tramadol, Neurontin, Motrin), +THC, repositioning and rest. Interventional pain procedures completed include R piriformis injection Patient is currently on Neurontin, Tramadol, Motrin from Dr Mares Patient denies any side effects of the medication(s), denies excessive drowsiness or sleepiness, denies suicidal ideation and reports that the current pain medication is helping to control the pain and improve activities of daily living. Patient denies any motor or sensory deficits. Patient denies any fever or night sweats, denies any change in the bowel movements or urination. Physical Examination: -Constitutional: Cooperative. Not in acute distress . - Neurologic: Cranial nerve II to XII intact. No focal neurological deficits. - Psychatric: Alert & oriented x 3. Matching mood & appropriate affect. Judgment and insight intact. - Musculoskeletal: Cervical spine: Muscle bulk/ tone/ strength in the bilateral upper extremities normal Vertebral body tenderness to palpation over Spurling test positive Distraction test positive Facet loading test positive Thoracic spine Muscle bulk / tone/ strength in the bilateral paraspinal muscles normal Vertebral body tender to palpation over Facet loading test positive Lumbar spine: Motor bulk/ tone/ strength lower extremities , thigh and legs : 5/5 Deep tendon reflexes : Normal Knee Jerk. Normal Ankle Jerk . Vertebral body tenderness to palpation over Lumbar Facet Loading Test positive Straight Leg Raise: positive at 30 degrees right side/ left side Gaenslen's Test positive Sacral spine : Severe tenderness over the Sacroiliac joint: right side / left side Range of motion: Flexion of the lumbar spine <60 degrees Range of motion: Extension of the lumbar spine <20 degrees Gaenslen's Test positive Demetrius's Test positive Mariela test: positive right side / left side Thigh Thrust Test Sacral Thrust Test Imaging: MRI without contrast of the thoracolumbar spine from 05/31/21 reviewed. Assessment and plan: Chronic LBP secondary to lumbar DDD, spinal stenosis, spondylosis with facet arthropathy without myelopathy Recommendation of Lidoderm 5% Q24H #30 w 1 RF. Risks, benefits of medication discussed and pt verbalized understanding. He is scheduled for Lumbar Decompression w Dr Estrella on 03/22/22. He may return to this clinic on an as needed basis. All patient questions answered I have spent less than 30 minutes on patient care today. Dr Monroy was available by phone for the evaluation of this patient. The time was used to review the medical records including relevant urine studies and Prescription history (MAPs), review of the available imaging, evaluation and examination of the patient, coordination of care with the medical staff and if applicable referring physicians, as well as creation of the medical record PQRS Narrative: Smoking Status Former smoker Hx Alcohol Use (MH) Yes Home Medications: Ambulatory Orders Metoprolol Tartrate [Lopressor] 25 mg PO BID 12/01/14 Montelukast [Singulair] 10 mg PO DAILY 12/01/14 Multivitamins, Thera [Multivitamin (formulary)] 1 tab PO DAILY 03/07/19 Atorvastatin [Lipitor] 40 mg PO HS 04/25/19 buPROPion HCL [Wellbutrin SR] 150 mg PO BID 04/25/19 hydroCHLOROthiazide [Hydrodiuril] 25 mg PO DAILY 04/25/19 Tamsulosin [Flomax] 0.4 mg PO DAILY 03/25/20 Aspirin 81 mg PO DAILY 04/23/20 Budesonide-Formot 160-4.5 Mcg [Symbicort 160-4.5 Mcg Inhaler] 2 puff INHALATION DIRECTED 06/04/20 ALPRAZolam [Xanax] 1 mg PO BID PRN 08/11/20 Empagliflozin [Jardiance] 25 mg PO DAILY 08/11/20 Ibuprofen [Motrin] 800 mg PO TID PRN 08/11/20 Nitroglycerin Sl Tabs [Nitrostat] 0.4 mg SL Q5M PRN 08/11/20 rOPINIRole HCL [Requip] 1 mg PO HS 08/11/20 Semaglutide [Ozempic] 0.25 mg SQ FR 12/16/20 Albuterol Inhaler [Ventolin Hfa Inhaler] 1 puff INHALATION RT-QID PRN 02/04/21 Arthritis Pain Cream 1 applicate TOPICAL DIRECTED PRN 02/04/21 Cyclobenzaprine [Flexeril] 10 mg PO HS 02/04/21 Dorzolamide 2% [Trusopt 2%] 1 drops BOTH EYES BID 08/12/21 Gabapentin [Neurontin] 400 mg PO BID 08/12/21 Clopidogrel Bisulfate [Plavix] 75 mg PO DAILY #90 tab 09/17/21 Lidocaine 5% Patch [Lidoderm] 1 each TP DAILY 30 Days #30 patch 03/17/22 Controlled Substance Measures - Controlled Substance Measures Is patient prescribed a controlled substance at discharge?: No
== END ==
LOC: PNWHC3 12:13
PROVIDERS: ATTEND Specialist
DX: M47.816 Spondylosis without myelopathy or radiculopathy, lumbar region (principal); M51.36 Other intervertebral disc degeneration, lumbar region; M48.062 Spinal stenosis, lumbar region with neurogenic claudication; G89.29 Other chronic pain; Z88.2 Allergy status to sulfonamides; Z88.8 Allergy status to other drugs, medicaments and biological substances; Z87.891 Personal history of nicotine dependence; Z91.048 Other nonmedicinal substance allergy status
CPT/HCPCS: 99211

== ENCOUNTER 2022-03-22 08:51 | Inpatient (IN) | payer MEDICARE, OTHER ==
[~2022-03-22 08:51] MED LIST changes: +ACETAMINOPHEN TAB 500 MG TAB PO PRN; -ALPRAZolam 0.25 MG TAB PO PRN; -ALPRAZolam 0.5 MG TAB PO PRN; +DEXAMETHASONE SOD PHOSPHATE 4 MG/ML 1 ML VIAL IV ONE; +GABAPENTIN 300 MG CAP PO PRN; -HEPARIN SODIUM,PORCINE 10,000 UNIT in SODIUM CHLORIDE 0.9% 1,000 ML IRRIGATION PRN; -HEPARIN SODIUM,PORCINE 2,500 UNIT in SODIUM CHLORIDE 0.9% 250 ML IRRIGATION PRN; +LIDOCAINE 1% (10MG/ML) FOR IV START INTRADERMA PRN; +MIDAZOLAM 2 MG/2 ML VIAL IV PRN; -NITROGLYCERIN SL TABS 0.4 MG TAB SUBLINGUAL PRN; +ONDANSETRON 4 MG/2 ML VIAL IVP ONE; +ONDANSETRON 4 MG/2 ML VIAL IVP PRN; +TRANEXAMIC ACID IN NACL,ISO-OS 1,000 MG in SALINE 1 100ML.BAG IVPB ONE; +TRANEXAMIC ACID IN NACL,ISO-OS 1,000 MG in SALINE 1 100ML.BAG IVPB PRN; +VANCOMYCIN 1,750 MG in SODIUM CHLORIDE 0.9% 500 ML 500 ML IVPB PRN
[2022-03-22] MEDS: LACTATED RINGERS 1,000 ML IV SCH (09:32)
[2022-03-22 10:06] LABS: Glucose,Whole Blood 97 mg/dL (70-110)
--- NOTE | 2022-03-22 10:32 | P.HPOR ---
History of Present Illness H&P Date: 03/22/22 [facility] History and Physical Date of :[birth year] Age: 61 year Height: 6' Weight: 230 lbs BMI: 31.19 kg/m2 Occupation: Retired VAS: 7 CHIEF COMPLAINT: Recheck lumbar spine DOI:Chronic DOS: None Duration of current treatment regiment: 7 months HISTORY : Xrays No new xrays taken in office Trauma or injury No Work-Related No Pain description aching, sharp. Location posterior Patient notes that their pain radiates to bilateral lower extremities Activity Modification yes Hand Dominance right TREATMENTS COMPLETED: 6 weeks of PT completed? Month and Year of last PT date? Yes How many sessions? 12 Did it help? No Physician recommended home exercise completed? Duration of HEP course: yes Patient has trialed the physician directed home exercise program for without relief of their symptoms. Pt notes that it exacerbated is symptoms. Medications yes List: Flexeril, Tramadol, Gabapentin all without relief of his symptoms. Alternative interventions Chiropractic: No Massage therapy: No R.I.C.E: yes Brace: No Injections Yes (THOMAS) How many? 1 Did they help? No RFA: No SUBJECTIVE: Mr. Vaughn returns to the office for a recheck of their low back. Patient reports no changes to his symptoms since the time of the last appointment. Overall the patient has seen a progressive increase in symptoms since their onset. Mr. Vaughn symptoms are exacerbated with most daily activities, due to this they notes that it is increasingly difficult for Mr. Vaughn to complete many of their daily tasks. Patient is having severe sleep disturbances as well due to their ongoing pain and associated symptoms. Regarding treatments, the patient has previously trialed all abovementioed treatment modalities without any relief of his symptoms. Patient denies trialing any other modalities at this time. For their symptoms, the patient has been taking Flexeril, Tramadol, Gabapentin all without relief of his symptoms. Otherwise the patient denies any f/c/sob/cp, no incision concerns, no bladder or bowel retention/incontinence, no perineal numbness/tingling, and ambulates independently. HPI: Mr. Vaughn was last seen on 05/14/2021 regarding his low back. Patient reports a long history of chronic back pain for many years that has progressively worsened in severity over the last 6 months. He denies any specific injury or trauma to indicate an exact onset of his symptoms. Regarding his symptoms he notes diffuse low back pain that radiates into the bilateral lower extremities. Patient does also report numbness and tingling about the L4-S1 dermatomal region. Patient does also report progressive weakness about the lower extremities as well. Overall his symptoms are made worse with any activity and he has seen a gradual decrease in functionality due to this. Patient reports an inability to complete many of his daily functions due to this. Patient reports feeling unstable and has fallen frequently lately with no reported acute injury. He does note sleep disturbances due to his pain. As for treatments, he notes that he has done THOMAS's. RFA's, and PT all without improvements. He used to do home exercises but can no longer do this as it exacerbates his symptoms. Otherwise he denies any bladder or bowel issues, no perineal numbness/tingling, and ambulates without the use of any aides. He is not currently taking any analgesics. The patients' past social, medical, family, surgical history, as well as review of systems, have been reviewed. Please refer to the Neurosurgery History and Physical form that has been scanned in to our electronic medical record system. 16 points review of systems completed and as stated in HPI, all other systems reviewed are negative. Social History: Reviewed, see appropriate section of the chart for details. P3 Social History: Smoking: current smoker P3 Alcohol: none P3 Family History: Reviewed, see appropriate section of the chart for details. P2 Past Medical History: Reviewed, see appropriate section of the chart for details. P1 Current Medications: Rx: ALPRAZolam 1 mg tablet Ref: 0 Rx: aspirin 81 mg chewable tablet Ref: 0 Rx: atorvastatin 40 mg tablet Ref: 0 Rx: buPROPion HCL SR 150 mg tablet,12 hr sustained-release Ref: 0 Rx: cyclobenzaprine 10 mg tablet Ref: 0 Rx: empagliflozin 25 mg tablet Ref: 0 Rx: gabapentin 300 mg capsule Ref: 0 Rx: hydroCHLOROthiazide 25 mg tablet Ref: 0 Rx: metFORMIN 500 mg tablet Ref: 0 Rx: metoprolol tartrate 25 mg tablet Ref: 0 Rx: montelukast 10 mg tablet Ref: 0 Rx: rOPINIRole 1 mg tablet Ref: 0 Rx: semaglutide 0.25 mg or 0.5 mg (2 mg/1.5 mL) subcutaneous pen injector Ref: 0 Rx: Symbicort Ref: 0 Rx: tamsulosin 0.4 mg capsule Ref: 0 Rx: traMADol Ref: 0 PHYSICAL EXAMINATION: General: Awake, alert, appropriate for age, in no acute distress. HEENT: No unusual neck masses around region of lateral neck triangle, thyroid, supraclavicular groove Heart: Regular rate and rhythm, normal S1, S2 and no murmur/gallop. Lungs: Clear to auscultation bilaterally with no use of accessory muscles. Extremities: Skin warm and dry without acute lesions, coloration, temperature, skin intact, no tenderness or erythema Integument: Hairy patches: Absent Dorsal skin dimples: Absent Cafe au lait spots: Absent Surgical incisions: No Palpation: Please see Pain drawing on Intake sheet for further detail. Midline spinal tenderness: No E6 Paralumbar tenderness: No E6 Parathoracic tenderness: No E6 Buttocks tenderness: No E6 Special findings: No POSTURAL and MUSCULO-SKELETAL EVALUATION: Coronal Balance: NEUTRAL Recumbent testing: Patient is able to lay flat on back Sagittal Balance: NEUTRAL Shoulder Profile: LEVEL Pelvic Girdle: LEVEL Neck ROM: UNRESTRICTED Lumbar ROM: RESTRICTED Shoulder ROM: Symmetrical Hip ROM: Symmetrical Knee ROM: Symmetrical Hands: Normal appearance, symmetrical Feet: Normal appearance, Symmetrical VASCULAR STATUS : LEFT RIGHT Wrist Pulses INTACT INTACT Pedal Pulses (Dors. pedis & post.tibialis) INTACT INTACT Color NORMAL NORMAL Edema Absent Absent NEUROLOGIC EXAMINATION: Mental Status:Awake and alert, fully oriented, with normal attention, concent ration and memory, and fluent, appropriate speech. Cranial Nerves: I: Olfactory not tested. II: Visual acuity normal, no visual field deficit noted with confrontation. III,IV: Normal pupillary reflexes & intact extraocular movements without nystagmus. V,: Intact symmetrical facial sensation. VII: Intact symmetrical facial motor movement VIII: Hearing intact. IX,X: Intact gag, swallow, & normal voice. XI: Sternocleidomastoid, trapezius function intact. XII: Tongue midline with normal movements. L'hermitte's Sign: Negative / absent Spurling'Sign: Absent bilaterally. Cubital percussion test: Absent bilaterally. Straight Leg Raising: Absent bilaterally. Crossed straight leg raise: negative O8 MOTOR EXAM (0-5/5, N/T) STRENGTH RIGHT LEFT Shoulder Abd (not part of the TITO score) 5 5 Elbow Flexors 5 5 Elbow Extensor 5 5 Wrist Dorsiflexors 5 5 Finger Abductor 5 5 Manager Proposal 5 5 Hip Flexor (Not part of TITO Motor score) 5 3 Knee Flexor 5 5 Knee Extensor 5 5 Ankle dorsiflexor 5 4 Ankle plantarflexion 4+ 4 Extensor hallucis 5 3 REFLEXES(0-4/2, NT) RIGHT LEFT Upper Extremities 1 1 Lower Extremities 1 2 Pathological Reflexes RIGHT LEFT Miller's Absent Absent Clonus Absent Absent Babinski Absent Absent # Indicates mechanical impairment Muscle appearance: Symmetrical, without signs of atrophy or dystrophy. Sensory system (0-4, N/T) Test type RU MINESH RL LL Joint-Position 2 2 2 2 Vibration 2 2 2 2 Pain & LT sense 2 2 2 2 Dermatomal Deficit: None None L3-5 L3-5 Gait and Functional Evaluation: Ambulatory aids: Independent Romberg's test: Intact bilaterally Toe heel walk / heel-toe walk intact while maintaining satisfactory balance? No Squatting/straightening w/o assistance to a min of 60 degree knee flexion? No Single leg stance: non-intact Trendelenburg sign negative bilaterally Hand and finger dexterity intact bilaterally? yes Disdiadochokinesis examination negative bilaterally? yes RADIOGRAPHIC STUDIES: XRay taken on 05/14/21 of Lumbar Spine: These are reviwed on the office today and demonstrate wide spread spondylosis of the lumbar spine with anterior and lateral osteophyte formation, scoliosis with coronal deformity of about 15 deg at its most with segmental coronal deformities ranging from 7 to 18 deg. There is PI:LL mismatch of 71:42 respectively. There is no fracture noted. No listhesis on F/E films. AP pelvis shows congruent level pelvis w/o fracture. CT scan from05/31/2021 of Lumbar, Thoracic Spine: IMages reviewed with the patient. This demonstrates L2-S1 severe spondylosis with degenerative scoliotic changes with around 15 deg of levoscoliosis. There is flattening of the normal LL and this is due to disc degeneration as well as disc vacuum phenom. No fractures. No lesions noted. No gross instability. MRI scan from05/31/2021 of Lumbar, Thoracic Spine: Images reviewed demonstrate severe spondylotic changes with degenerative lumbar scoliosis noted. There is disc dessication and height loss significantly from L2-S1 with facet hypertrophy, ligamental hyptrophy causing moderate to severe s tenosis at these levels. There is foraminal stenosis b/l related to the degenerative changes as well that is severe at these levels. No lesions noted. No acute fractures noted. Alignment is degenerative due to changes noted. IMPRESSION: It was my pleasure to have seen and examined Cliff. I reviewed the patient's clinical syndrome, physical findings, and imaging studies during the appointment today. It is my impression that the patient has a diagnosis of. 1. Lumbar degenerative scoliosis 2. Neurogenic claudication 3. L2-S1 spondylosis with stenosis I outlined the natural course history without intervention and various interventional options. PLAN: Based on my findings I suggest the following course of action: -Advised patient to continue with supplements, health maintenance, and home exercise programs. Patient expressed understanding and will continue with these modalities. - SMOKING CESSATION NEW PATIENT The patient and I have had a chance to discuss their plan to quit smoking. They have smoked (1) packs per month for (several) years and are ready to make a change. We have discussed how this can impact their treatment and their health. We have discussed that smoking in general is associated with increased cardiovascular events, lung issues and cancer. Nicotine specifically has a direct effect on bone healing and can increase their risk of not healing from their surgery by up to 300%. We have discussed different methods for smoking cessation including CBT, medications like Chantix, group therapy and counselling as well as providing them with resources to quit in our Health Maintenance program. The patient is excited about this new chapter in their life and has set a quit date of (12/29/2021). We will reassess the patients' progress at our next scheduled visit and provide them with any additional information or help they may need. Time spent: >10 min - Ordered a PM&R consult for further treatment and evaluation of their pain and pathology. I recommended a chronic pain medication evaluation, treatment, and management. Patient agreeable with this course. . Patient expresses understanding and is agreeable with this treatment course. -I discussed treatment options with the patient, including operative and non- operative options, and they have elected to proceed with the following surgical procedure: lumbar (L2-Pelvis) Decompression Posterior Lumbar Interbody Fusion The indications, risks, benefits, and alternatives to surgery were discussed with the patient at length. Specifically (but not limited to) the risks of infection, stiffness, recurrence of symptoms, need for revision surgery, local numbness, neurovascular injury, and blood clots were discussed. The patient's questions were answered. The decision to proceed was made. Consent will be obtained for the procedure. -Ambulate daily -Take medications as directed -Ice and rest for pain and swelling control. In our visit today Mr. Vaughn and I have had a chance to go over my understanding of the patient's current condition, the natural course history without intervention and various interventional options. Questions were invited and answered, and the patient wishes to proceed as outlined above. I will be sure to keep you updated afterMr. Vaughn returns here for further follow-up. Thank you again for your referral. Please do not hesitate to contact me if you have any further questions. Signed and authenticated by: [facility] [address] [place] [id number] This message is confidential, intended only for the named recipient(s) and may contain information that is privileged or exempt from disclosure under applicable law. If you are not the intended recipient(s), you are notified that the dissemination, distribution or copying of this information is strictly prohibited. If you received this message in error, please notify the sender then delete this message. Patient verbalizes understanding of the information discussed. Past Medical History Past Medical History: Asthma, Coronary Artery Disease (CAD), Cancer, Chest Pain / Angina, COPD, CVA/TIA, Diabetes Mellitus, GERD/Reflux, Hyperlipidemia, Hypertension, Memory Impairment, Myocardial Infarction (NM), Musculoskeletal Disorder, Osteoarthritis (OA) Additional Past Medical History / Comment(s): Degenerative Disc Disease. Hx TIA with continued memory loss. used to use oxygen prn but not currently, sent tank back, Hx skin cancer. Lung nodules. Chronic back pain. Current hernias that need repair. Neuropathy in bilateral legs and feet. Last Myocardial Infarction Date:: History of Any Multi-Drug Resistant Organisms: None Reported Past Surgical History: Appendectomy, Back Surgery, Heart Catheterization With Stent, Hernia Repair, Orthopedic Surgery Additional Past Surgical History / Comment(s): Right wrist surgery, neck surgery with 2 screws, colonosopy, ORIF left ankle with willard and screws, two cardiac stents, umbilical hernia repair, has mesh with hernia repair right side of a bdomen, right hand carpal tunnel surgery. Past Anesthesia/Blood Transfusion Reactions: No Reported Reaction Additional Past Anesthesia/Blood Transfusion Reaction / Comment(s): CLAUSTROPHOBIA. Date of Last Stent Placement:: September 2021 Smoking Status: Former smoker - Past Family History Father Family Medical History: Cancer Sister(s) Family Medical History: Deep Vein Thrombosis (DVT) Mother Family Medical History: Cancer, Deep Vein Thrombosis (DVT) Medications and Allergies Home Medications Medication Instructions Recorded Confirmed Type Metoprolol Tartrate [Lopressor] 25 mg PO BID 12/01/14 03/21/22 History Montelukast [Singulair] 10 mg PO DAILY 12/01/14 03/21/22 History Multivitamins, Thera [Multivitamin 1 tab PO DAILY 03/07/19 03/21/22 History (formulary)] Atorvastatin [Lipitor] 40 mg PO HS 04/25/19 03/21/22 History buPROPion HCL [Wellbutrin SR] 150 mg PO BID 04/25/19 03/21/22 History hydroCHLOROthiazide [Hydrodiuril] 25 mg PO DAILY 04/25/19 03/21/22 History Tamsulosin [Flomax] 0.4 mg PO DAILY 03/25/20 03/21/22 History Aspirin 81 mg PO DAILY 04/23/20 03/21/22 History Budesonide-Formot 160-4.5 Mcg 2 puff INHALATION BID 06/04/20 03/21/22 History [Symbicort 160-4.5 Mcg Inhaler] ALPRAZolam [Xanax] 1 mg PO BID PRN 08/11/20 03/21/22 History Empagliflozin [Jardiance] 25 mg PO DAILY 08/11/20 03/21/22 History Ibuprofen [Motrin] 800 mg PO TID PRN 08/11/20 03/21/22 History Nitroglycerin Sl Tabs [Nitrostat] 0.4 mg SL Q5M PRN 08/11/20 03/21/22 History rOPINIRole HCL [Requip] 1 mg PO HS 08/11/20 03/21/22 History Semaglutide [Ozempic] 0.25 mg SQ FR 12/16/20 03/21/22 History Albuterol Inhaler [Ventolin Hfa 1 puff INHALATION RT-QID PRN 02/04/21 03/21/22 History Inhaler] Cyclobenzaprine [Flexeril] 10 mg PO HS 02/04/21 03/21/22 History Gabapentin [Neurontin] 400 mg PO TID 08/12/21 03/21/22 History Lidocaine 5% Patch [Lidoderm] 1 each TP DAILY PRN 03/21/22 03/21/22 History metFORMIN HCL [Glucophage] 500 mg PO BID 03/21/22 03/21/22 History Allergies Allergy/AdvReac Type Severity Reaction Status Date / Time grass pollen Allergy Itching Verified 03/21/22 09:27 lisinopril Allergy Itching,SOB Verified 03/21/22 09:27 menthol Allergy Dyspnea Verified 03/21/22 09:27 Sulfa (Sulfonamide Allergy Unknown Verified 03/21/22 09:27 Antibiotics) Childhood venom-wasp Allergy Anaphylaxis Verified 03/21/22 09:27 (Suzy) Physical Examination Osteopathic Statement: *. No significant issues noted on an osteopathic structural exam other than those noted in the History and Physical/Consult. Assessment and Plan Plan: Spine Surgery Clinical and Risk Review Cliff Vaughn is a 61 presenting for evaluation of low back pain, LE weakness numbness/tingling with decreasing ability to ambulate successfully. It was my pleasure to have seen and examined Cliff Vaughn. In our visit today we have had a chance to go over subjective complaints, physical examination findings and treatments including the natural course history without intervention and various interventional options. The patients imaging demonstrates XRay taken on 05/14/21 of Lumbar Spine: These are reviwed on the office today and demonstrate wide spread spondylosis of the lumbar spine with anterior and lateral osteophyte formation, scoliosis with coronal deformity of about 15 deg at its most with segmental coronal deformities ranging from 7 to 18 deg. There is PI:LL mismatch of 71:42 respectively. There is no fracture noted. No listhesis on F/E films. AP pelvis shows congruent level pelvis w/o fracture. CT scan from05/31/2021 of Lumbar, Thoracic Spine: IMages reviewed with the patient. This demonstrates L2-S1 severe spondylosis with degenerative scoliotic changes with around 15 deg of levoscoliosis. There is flattening of the normal LL and this is due to disc degeneration as well as disc vacuum phenom. No fractures. No lesions noted. No gross instability. MRI scan from05/31/2021 of Lumbar, Thoracic Spine: Images reviewed demonstrate severe spondylotic changes with degenerative lumbar scoliosis noted. There is disc dessication and height loss significantly from L2-S1 with facet hypertrophy, ligamental hyptrophy causing moderate to severe stenosis at these levels. There is foraminal stenosis b/l related to the degenerative changes as well that is severe at these levels. No lesions noted. No acute fractures noted. Alignment is degenerative due to changes noted. . On physical exam, Cliff Vaughn demonstrates Low back pain with limited ROM, pain with motion, LE weakness and paresthesias, neurogenic claudicating and ten sioning signs. I have explained to the patient that as their condition progresses it will cause further neurological deficits and eventual paralysis. Based on the patients imaging, physical exam, and the rapid progression and disabling nature of their symptoms, at this time I recommend surgery in the form or a: Lumbar 2 to pelvis decompression and fusion. I discussed the risk and benefits of this procedure at length with Cliff Vaughn. The patient agreed to considered pursuing the procedure abovementioned. Prior to surgery, she should follow up with her PCP (Cardio, ID, IM etc) for clearance. Questions were invited and answered, and the patient wishes to proceed as outlined below. Currently, I am recommendin. Lumbar 2 to pelvis decompression and fusion. 2. Follow up with PCP for surgical clearance 3. Review of surgical risks and benefits as well as an educational packet on the proposed surgical procedure. Risks: All surgical procedures come with inherent risks, including those related to positioning, anesthesia, intraoperative findings, and postoperative complications. It is important to understand that surgery does not come with any guarantee of a successful outcome as complications and adverse events are always possible. The patient was given a handout in office today discussing the surgical procedure and risks associated with the intervention, both of which were discussed with the patient. These risks include but are not limited to the following: * Experiencing same, different or even worse symptoms in back, neck, arms, or legs compared to before surgery. * Requiring further surgery or other forms of treatment presently or at some time in the future at same or other levels of the intended spine surgery. * On an extreme but fortunately relatively rare basis severe complication such as blindness, stroke, heart attack, temporary and/or permanent nerve injury, paralysis, coma, or may occur, sometimes without known explanation. * Surgical complications may include but are not limited to risk of infection, fluid accumulation in the surgical dissection site, including a seroma or hematoma, that requires additional surgery, wound drainage, bleeding, new numbness or weakness, vision changes/loss, spinal fluid leakage, non-healing and/or infected incision, headaches, difficulty or inability to swallow, hoarseness, hemopneumothorax, pneumothorax, impotence, retrograde ejaculation, vaginal dryness; injury to nerves, spinal cord, blood vessels, lymphatics or other vital organs (i.e., bowel injury, injury to the great ves sels); heterotopic bone formation; complications related to the hardware such as screws, rods, cages including misplaced hardware, device failure, instrumentation at the wrong spine level, hardware fracture/breakage, or hardware loosening; vertebral failure of the spinal column above or below the newly placed hardware; retained surgical instrumentations or devices and the need for further surgery. * Medical risks of the planned spine surgery include but are not limited to generalized Infections to the whole body or local areas outside of the surgical site (sepsis), heart attack, bleeding, anaphylaxis, meningitis, seizure, epilepsy, hearing loss, burn rock, laceration of the head or other areas of the body, bruising, hypersensitivity of the skin, bladder over distension; allergic reaction; shoulder injury related to positioning; fat, blood and air clots to other areas of the body like heart, lungs, brain; failure of internal organs such as lungs, kidneys, liver and excessive b leeding. If blood transfusions are necessary, note that transfusions may cause intolerance reactions such as anaphylaxis or other complex reactions. * Despite best efforts, the results of spine surgery might not heal in terms of bone, soft tissues such as skin, fascia, ligaments, and joints. Additionally, in order to achieve best possible results, spine surgery may be carried out beyond the initially planned levels and involve decompression, fusion including insertion of hardware at levels other than the original intended area of surgical interest change some portions of the procedure in order to ensure the best possible outcomes. * With spine surgery and spinal fusion, there are different off label uses of instrumentation (devices, implants and hardware) as well as biological substances (bone morphogenic proteins, demineralized bone matrix) as well as using extra bone from allograft sources (i.e. cadaver bone) or autograft (iliac crest bone, ribs, or the spine itself). The patient has been given information about these practices and their inherent risks and benefits. The patient has had a chance to review all the listed information, has been given print outs detailing this information, and has had all his/her questions answered to their satisfaction. It was my pleasure to have seen and examined Cliff Vuaghn. In our visit today we have had a chance to go over my understanding of our patient's current condition, the natural course history without intervention and various interventional options. Questions were invited and answered, and the patient wishes to proceed as outlined above. I have seen and examined the patient for 25 minutes and we have spent more than 50% of the time in repeat and detailed counseling about the patient's condition, its natural course history with out and as much as can be predicted with surgery and re-review of various surgical treatment options. In conclusion, Cliff Vaughn and his partner requested we proceed with the above suggested surgery and are willing to accept risks and limitations of the suggested surgery as nature of the disease process and our best attempts at treatment for the condition. Thank you again for allowing us to be part of your patient's care. Please don't hesitate to contact me if you have any further questions. Signed and authenticated by: [facility] [address] [place] [id number]
[2022-03-22 10:45] LABS: Basophils # (A) 0.1 k/uL (0-0.2); Basophils % (A) 1 %; Eosinophils # (A) 0.4 k/uL (0-0.7); Eosinophils % (A) 3 %; HCT 46.9 % (39.0-53.0); HGB 15.5 gm/dL (13.0-17.5); Lymphocytes # (A) 1.6 k/uL (1.0-4.8); Lymphocytes % (A) 15 %; MCH 28.9 pg (25.0-35.0); MCHC 33.1 g/dL (31.0-37.0); MCV 87.3 fL (80.0-100.0); Mean Platelet Volume 7.5; Monocytes # (A) 0.6 k/uL (0-1.0); Monocytes % (A) 6 %; Neutrophils # (A) 7.9 k/uL (1.3-7.7); Neutrophils % (A) 74 %; Platelet Count 307 k/uL (150-450); RBC 5.37 m/uL (4.30-5.90); RDW 14.5 % (11.5-15.5); WBC 10.7 k/uL (3.8-10.6)
[2022-03-22 11:01] LABS: ALT 44 U/L (4-49); AST 30 U/L (17-59); African American GFR (CKD) >90 (>60 ml/min/1.73 sqM); Albumin 3.7 g/dL (3.5-5.0); Alkaline Phosphatase 116 U/L (38-126); Anion Gap 6 mmol/L; Blood Urea Nitrogen 11 mg/dL (9-20); Carbon Dioxide 23 mmol/L (22-30); Chloride 108 mmol/L (98-107); Glucose 111 mg/dL (74-99); Non-African American GFR(CKD) >90 (>60 ml/min/1.73 sqM); Potassium 4.2 mmol/L (3.5-5.1); Sodium 137 mmol/L (137-145); Total Bilirubin 0.7 mg/dL (0.2-1.3); Total Protein 6.4 g/dL (6.3-8.2)
[2022-03-22] MEDS ORDERED: fentaNYL (PF) 50 MCG/ML 2 ML AMP ONE (11:19)
[2022-03-22] MEDS ORDERED: PROPOFOL 10 MG/ML 20 ML VIAL IV ONE (11:19)
[2022-03-22] MEDS ORDERED: LIDOCAINE 2% INJ 20 MG/ML (2 ML VIAL) ONE (11:19)
[2022-03-22] MEDS ORDERED: PHENYLEPHRINE-0.9% NACL SYG 1,000 MCG/10 ML SYRINGE ONE (11:19)
[2022-03-22] MEDS ORDERED: KETAMINE 10 MG/ML 20 ML VIAL ONE (11:19)
[2022-03-22] MEDS ORDERED: ALBUMIN HUMAN 5% (25gm) 500 ML VIAL IVPB ONE (11:19)
[2022-03-22] MEDS ORDERED: SUCCINYLCHOLINE CHLORIDE 200 MG/10 ML VIAL IV ONE (11:19)
[2022-03-22] MEDS ORDERED: ePHEDrine 50 MG/ML 1 ML VIAL ONE (11:19)
[2022-03-22] MEDS ORDERED: ROCURONIUM 10 MG/ML (5 ML VIAL) IV ONE (11:19)
[2022-03-22] MEDS ORDERED: TRANEXAMIC ACID IN NACL,ISO-OS 1,000 MG/100 ML BAG ONE (11:19)
--- NOTE | 2022-03-22 13:17 | P.ANPRN ---
Procedure Note - Anesthesia - Invasive Line Left Arterial Line Time Out Performed: Yes (1004) Date of Procedure: 03/22/22 Time of Procedure: 10:05 Location of Patient: PreOp Preparation: Sterile Prep, Sterile Dressing Arterial Line Location: Radial (left) Ultrasound Used: Yes Purpose - Visualization and Identification of Vasculature: Yes Needle Guage: 20g Image Stored and Saved: No Narrative: Central line placement per sterile protocol utilized.
[2022-03-22] MEDS ORDERED: LACTATED RINGERS 1,000 ML IV ONE ×2 (16:04→16:39)
--- NOTE | 2022-03-22 18:25 | FL ---
Intraoperative/procedural fluoroscopic services were provided. Total fluoroscopy time is 2 minutes an d 29 seconds with a total of 3 submitted images to PACS. Please see the operative/procedural note for further details.
[2022-03-22] MEDS ORDERED: SENNOSIDES-DOCUSATE SODIUM 1 EACH TAB PO PRN (18:56)
[2022-03-22] MEDS ORDERED: HYDROcodone/APAP 5-325MG 1 EACH TAB PO PRN (18:56)
[2022-03-22] MEDS ORDERED: MAGNESIUM HYDROXIDE 2,400 MG/10 ML CUP PO PRN (18:56)
[2022-03-22] MEDS ORDERED: NA PHOS,M-B/NA PHOS,DI-BA 133 ML ENEMA RECTAL PRN (18:56)
[2022-03-22] MEDS ORDERED: bisacodyL 10 MG SUPP RECTAL PRN (18:56)
[2022-03-22] MEDS ORDERED: HYDROmorphone 1 MG/ML 1 ML SYRINGE IVP PRN (18:56)
[2022-03-22] MEDS ORDERED: ONDANSETRON 4 MG/2 ML VIAL IVP PRN (18:56)
[2022-03-22] MEDS: HYDROmorphone 0.5 MG/0.5 ML SYRINGE IVP PRN ×3 (19:47→22:20)
[2022-03-22 22:22] LABS: Glucose,Whole Blood 159 mg/dL (70-110)
[2022-03-22] MEDS: SODIUM CHLORIDE 0.9% 1,000 ML IV SCH (23:34)
[2022-03-23] MEDS: GABAPENTIN 300 MG CAP PO SCH ×3 (00:48→19:01)
[2022-03-23] MEDS: HYDROmorphone 0.5 MG/0.5 ML SYRINGE IVP PRN (02:28)
[2022-03-23 06:08] LABS: Glucose,Whole Blood 141 mg/dL (70-110)
[2022-03-23] MEDS: LACTATED RINGERS 1,000 ML IV SCH (06:57)
[2022-03-23 08:14] LABS: African American GFR (CKD) >90 (>60 ml/min/1.73 sqM); Anion Gap 4 mmol/L; Blood Urea Nitrogen 16 mg/dL (9-20); Calcium 7.9 mg/dL (8.4-10.2); Carbon Dioxide 25 mmol/L (22-30); Chloride 106 mmol/L (98-107); Glucose 138 mg/dL (74-99); Non-African American GFR(CKD) >90 (>60 ml/min/1.73 sqM); Potassium 4.3 mmol/L (3.5-5.1); Sodium 135 mmol/L (137-145)
[2022-03-23] MEDS ORDERED: IBUPROFEN 800 MG TAB PO PRN (08:15)
[2022-03-23] MEDS ORDERED: ALPRAZolam 1 MG TAB PO PRN (08:15)
[2022-03-23] MEDS ORDERED: ALBUTEROL NEBULIZED 2.5 MG/3 ML INHALATION PRN (08:15)
[2022-03-23] MEDS ORDERED: NITROGLYCERIN SL TABS 0.4 MG TAB SUBLINGUAL PRN (08:15)
[2022-03-23 08:23] LABS: Basophils % (A) 0 %; Eosinophils # (A) 0.1 k/uL (0-0.7); Eosinophils % (A) 0 %; HCT 30.8 % (39.0-53.0); Lymphocytes # (A) 1.1 k/uL (1.0-4.8); Lymphocytes % (A) 8 %; MCH 28.8 pg (25.0-35.0); MCHC 32.5 g/dL (31.0-37.0); MCV 88.7 fL (80.0-100.0); Mean Platelet Volume 8.1; Monocytes # (A) 0.7 k/uL (0-1.0); Monocytes % (A) 5 %; Neutrophils # (A) 12.2 k/uL (1.3-7.7); Neutrophils % (A) 85 %; Platelet Count 240 k/uL (150-450); RBC 3.48 m/uL (4.30-5.90); RDW 14.5 % (11.5-15.5); WBC 14.3 k/uL (3.8-10.6)
--- NOTE | 2022-03-23 08:47 | P.PN ---
Subjective Progress Note Date: 03/23/22 Principal diagnosis: Lumbar spondylosis with stenosis Patient seen and examined at bedside. Patient was resting in bed, requesting to sit in chair. Informed patient that physical therapy would be into this morning to assess patient and would assist him to chair. He is moving himself and repositioning in bed. Patient reports low back pain, medications will be adjusted. Surgical dressing is CDI with hemovac present. May remove jain catheter once patient is up and about. Currently he denies fever/chills, nausea/vomiting, or chest pain. Objective - Vital Signs Vital signs: Vital Signs Temp 97.4 F L 03/23/22 04:56 Pulse 104 H 03/23/22 05:54 Resp 16 03/23/22 04:56 BP 112/64 03/23/22 05:54 Pulse Ox 95 03/23/22 05:54 FiO2 Intake & Output 03/22/22 03/23/22 03/23/22 18:59 06:59 18:59 Intake Total 4825 Output Total 1550 1240 Balance 3275 -1240 Weight 112.2 kg 112.2 kg Intake: IV 4825 Output: Drainage 570 Lower Back 570 Urine 350 670 Estimated Blood Loss 1200 Other: Voiding Method Indwelling Catheter - Exam Physical Examination General: The patient is awake and alert, in no acute distress Skin: Skin is warm and dry with no obvious rashes or lesions. Hairy patches absent, no dorsal skin dimples, no cafe au lait spots. Surgical incision to the lumbar spine, hemovac present and patent. Eye: Pupils are equal, round and reactive to light, extra-ocular movements are intact; there is normal conjunctiva bilaterally. Neck: The neck is supple, there is no tenderness and ROM intact. Cardiovascular: There is a regular rate and rhythm. No murmur, rub or gallop is appreciated. Respiratory: Lungs are clear to auscultation, respirations are non-labored, breath sounds are equal. Gastrointestinal: Soft, non-distended, non-tender abdomen . Back: There is no tenderness to palpation in the midline, paralumbar, parathoracic or buttocks region. There is no obvious deformity . Musculoskeletal: ROM limited secondary to pain and stiffness from surgical procedure. Muscle strength in all major muscle groups in Bilateral upper extremities 5/5, bilateral lower extremities 4/5 Neurological: CN 2-12 intact. There are no obvious motor or sensory deficits. Movement and coordination equal and intact. Sensory exam to light touch intact C5-T1 and intact from L2-S1. Reflexes 2/4 in bilateral upper and lower extremities. Negative Hoffmans, babinski, and clonus signs. Psychiatric: Cooperative, appropriate mood & affect, normal judgment. - Labs CBC & Chem 7: 03/22/22 10:32 03/23/22 07:16 Labs: Abnormal Lab Results - Last 24 Hours (Table) 03/22/22 03/22/22 03/22/22 Range/Units 10:32 10:32 22:21 WBC 10.7 H (3.8-10.6) k/uL Neutrophils # 7.9 H (1.3-7.7) k/uL Chloride 108 H (98-107) mmol/L Glucose 111 H (74-99) mg/dL POC Glucose (mg/dL) 159 H (70-110) mg/dL 03/23/22 Range/Units 06:06 WBC (3.8-10.6) k/uL Neutrophils # (1.3-7.7) k/uL Chloride (98-107) mmol/L Glucose (74-99) mg/dL POC Glucose (mg/dL) 141 H (70-110) mg/dL Assessment and Plan Assessment: s/p Post-Op day 1: L2-Pelvis decompression and fusion 1. Lumbar spondylosis with stenosis Plan: -Appreciate principal consultant and team management. -Activity: Ambulate QID, OOB all meals, up and about, limit lifting bending twisting to less than 5 lbs. Use walker or cane if needed for stability. -Daily PT/OT, increase ambulation strength and balance. -Brace when up and about, not needed in bed or chair -Pain control: Adequate at this time -Meds: reviewed -GI ppx: senna, Miralax -DC jain when up and about, bedside commode if needed -DVT PPX: OK to restart Heparin tonight -Hygiene: Shower today. Maintain dressing clean and dry. Meticulous cleaning after BMs away from the incision site -Drains: Maintain for now. -Encourage IS 10x/hr -Dispo: Anticipate discharge home with homecare vs subacute rehab within 48hrs *I reviewed and discussed this case with my attending Dr. Estrella, whom has reviewed this chart and films and is in agreement with assessment and plan of care as outlined above. I have personally seen and examined the patient, performed the documentation and the assessment and plan as written. Number of minutes spent on the visit:20m.
[2022-03-23] MEDS: METOPROLOL TARTRATE 25 MG TAB PO SCH ×2 (09:50→21:11)
[2022-03-23] MEDS: TAMSULOSIN 0.4 MG CAP.ER.24H PO SCH (09:50)
[2022-03-23] MEDS: metFORMIN 500 MG TAB PO SCH ×2 (09:50→21:11)
[2022-03-23] MEDS: MONTELUKAST 10 MG TAB PO SCH (09:51)
[2022-03-23] MEDS: GABAPENTIN 400 MG CAP PO SCH ×3 (09:51→21:11)
[2022-03-23] MEDS: ASPIRIN 81 MG PO SCH (09:51)
[2022-03-23] MEDS: MULTIVITAMINS, THERA 1 EACH TAB PO SCH (09:51)
[2022-03-23] MEDS: HYDROcodone/APAP 10-325MG 1 EACH TAB PO PRN ×3 (09:51→22:42)
[2022-03-23] MEDS: DAPAGLIFLOZIN PROPANEDIOL 10 MG TABLET PO SCH (09:52)
[2022-03-23] MEDS: hydroCHLOROthiazide 25 MG TAB PO SCH (09:52)
[2022-03-23] MEDS: buPROPion SR 150 MG TABLET.ER PO SCH ×2 (09:52→22:43)
--- NOTE | 2022-03-23 10:17 | P.OP ---
Date of Procedure: 03/22/22 Preoperative Diagnosis: 1. L2-S1 severe spondylosis with severe stenosis 2. L2-S1 degenerative lumbar scoliosis 3. Neurogenic claudication 4. LE weakness with radiculopathy Postoperative Diagnosis: 1. L2-S1 severe spondylosis with severe stenosis 2. L2-S1 degenerative lumbar scoliosis 3. Neurogenic claudication 4. LE weakness with radiculopathy Procedure(s) Performed: 1. L3-4 and L4-5 intradiscal osteotomy for deformity correction, 3 column, (222 07, 93172) 2. L2-3, L3-4, L4-5 and L5-S1 posteriolateral and interbody fusions (08925, [id number]) 3. Segmental instrumentation L2-Pelvis (99118) 4. Attachement of the caudal end of the construct the bony pelvis not the sacrum (55485) 5. Insertion of biomechanical devices L2-S1 (63704q0) 6. Bilateral laminectomy, complete facetectomy and foraminotomy beyond that needed for cage placement, for decompression and deformity correction (49547, [id number]) 7. Use of Westcrete 3D navigation for the placement of screws and hardware (26847) Use of [facility] Implants: -[place] scew and willard system -Globus Sable cage 9-13 15 degree lordotic x4 -iFactor -MagnatOs -Local autograft -Allograft Anesthesia: NICOLEA Surgeon: Blue Estrella Iron Erector #1: Meghann Paulson (Was present and assisted in all aspects of the case from positiong to closure and dressing placement) Estimated Blood Loss (ml): 1,200 IV fluids (ml): 2,500 Urine output (ml): 350 Pathology: none sent Condition: stable Disposition: PACU Indications for Procedure: Cliff Vaughn is a 61 presenting for evaluation of low back pain, LE weakness numbness/tingling with decreasing ability to ambulate successfully. It was my pleasure to have seen and examined Cliff Vaughn. In our visit today we have had a chance to go over subjective complaints, physical examination findings and treatments including the natural course history without intervention and various interventional options. The patients imaging demonstrates XRay taken on 05/14/21 of Lumbar Spine: These are reviwed on the office today and demonstrate wide spread spondylosis of the lumbar spine with anterior and lateral osteophyte formation, scoliosis with coronal deformity of about 15 deg at its most with segmental coronal deformities ranging from 7 to 18 deg. There is PI:LL mismatch of 71:42 respectively. There is no fracture noted. No listhesis on F/E films. AP pelvis shows congruent level pelvis w/o fracture. CT scan from05/31/2021 of Lumbar, Thoracic Spine: IMages reviewed with the patient. This demonstrates L2-S1 severe spondylosis with degenerative scoliotic changes with around 15 deg of levoscoliosis. There is flattening of the normal LL and this is due to disc degeneration as well as disc vacuum phenom. No fractures. No lesions noted. No gross instability. MRI scan from05/31/2021 of Lumbar, Thoracic Spine: Images reviewed demonstrate severe spondylotic changes with degenerative lumbar scoliosis noted. There is disc dessication and height loss significantly from L2-S1 with facet hypertrophy, ligamental hyptrophy causing moderate to severe stenosis at these levels. There is foraminal stenosis b/l related to the degenerative changes as well that is severe at these levels. No lesions noted. No acute fractures noted. Alignment is degenerative due to changes noted. . On physical exam, Cliff Vaughn demonstrates Low back pain with limited ROM, pain with motion, LE weakness and paresthesias, neurogenic claudicating and tensioning signs. I have explained to the patient that as their condition progresses it will cause further neurological deficits and eventual paralysis. Based on the patients imaging, physical exam, and the rapid progression and disabling nature of their symptoms, at this time I recommend surgery in the form or a: Lumbar 2 to pelvis decompression and fusion. I discussed the risk and benefits of this procedure at length with Cliff Vaughn. The patient agreed to considered pursuing the procedure abovementioned. Prior to surgery, she should follow up with her PCP (Cardio, ID, IM etc) for clearance. Questions were invited and answered, and the patient wishes to proceed as outlined below. Currently, I am recommendin. Lumbar 2 to pelvis decompression and fusion. Description of Procedure: The patient was seen and examined in the preoperative area. All preoperative protocols were followed. Informed consent was obtained risks and benefits of the procedure were discussed at length. Risks including bleeding infection damage to the surrounding tissue and risk of reoperation were discussed with the patient. Risk of anesthesia up to and including was a discussed with the patient. These are outlined in the risk review. They were willing to accept these risks and all of the risks of surgery. The patient was given a weight- based dose of antibiotics in the form of weight-based dose of vancomycin. The patient was seen and evaluated by the anesthesia team who deemed them fit for surgery. The site was marked, the patient was willing to proceed with the procedure. The patient was transferred to the operative suite by the Department of anesthesia. They were then drifted off to sleep by the department anesthesia and GETA was performed. The patient tolerated this well. [Draper catheter was placed by nursing staff, atraumatically]. Once confirmation of lines and ventilation the patient was transferred to a [prone Wyatt table very carefully]. All bony prominences including wrists, elbows, axilla, chest, hips, and thighs, and feet were padded very well. Special attention was paid to the genitalia and these were padded accordingly. SCDs were placed on bilateral lower extremities and were connected. Arms were well padded and placed [on arm boards up and out in the 90/90 position]. Once in position, again we confirmed good ventilation capabilities and that lines were running appropriately. The patient's lumbopelvic spine was then exposed. 1010s were placed outlining the incision site. Standard alcohol was used to clean the incision site and allowed to dry. C-arm was used to biomark the patient and confirm level for incision which was marked with a skin marker. Operative briefing was performed with all teams and everyone in agreement to proceed. The patient was then prepped and draped in a normal sterile fashion. Timeout was then performed and all parties were in agreement with the procedure to be performed. midline skin incision was then made over the previously bio marked area and dissection taken down to the lumbar fascia and sacral fascia which was identified and cleaned with a Villatoro. Once there was good excursion midline fasciotomy was made and subperiosteal dissection was taken out of the lamina of L1 through the pelvic region. Dissection was taken out over the transverse processes of these levels and high-speed bur was used for decortication of changes processes from L2 down to the sacral Thelma. We then dissected out the starting point for a modified Humphries iliac screw just lateral to the SI joint in line with S2 foramen. The landmarks were identified appropriately. once dissection was complete we confirm levels for operation with lateral fluoroscopic imaging. We then placed a tracker for the West[employer] 3-D navigation onto S1 spinous process and locked them into position. We then obtained an intraoperative 3-D C-arm spin and registered the spine. Once completed registration we confirmed that it was accurate and then proceeded with placement of screws. Bilateral screws were placed from L2 down to S1 using Westcrete 3-D navigation. High-speed bur which was navigated was used to make a medical dermatologist hole followed by a navigated all tapped followed by a navigated screwdriver with a measured screw. In between each step a ball-tip feeler was placed to ensure within the 4 xiao of the pedicle. Screws then placed again bilaterally from L2 through S1. We then placed pelvic screws and a modified Audrey approach high speed bur was used to make a polyp hole followed by a duckbill finder this was advanced under lateral fluoroscopic imaging to just above the sciatic notch in line with the hip joint. 30 by 30 iliac oblique films views were obtained which confirmed that the pedicle finder was within the teardrop. We then tapped and placed bed rock screws from SI bone which were 10 5 x 85 mm on each side. We confirmed the position of these on AP lateral iliac oblique inlet and outlet views showed good placement of all screws. AP views also showed good placement of previous screws from L2 through S1. Screws were then tested and all tested above 20 mA. Once this was accomplished then proceeded with decompression and interbody placements. Starting at L5-S1 bilateral complete facetectomy bilateral laminectomy and foraminotomies were performedusing high-speed bur. Midline cut followed by inverted L cuts and J cuts were performed using high- speed bur which allowed for decompression of the facet joints as well as the foramen in this area. 6 Kerrison was then used to widen these cuts as well as perform foraminotomies bilaterally. Once this was accomplished meticulous hemostasis was performed and the disc space was identified at L5-S1 neural elements were protected and the disc space was accessed with an osteotome. This was followed by sequential shaving until the desired height and lordosis rastafarian was achieved once this was achieved we selected a cage. Anterior to the cage replaced DBM autograft and I factor. This was impacted into position. We then selected a cage while protecting neural elements impacted into position under lateral fluoroscopic guidance. The cages then expanded re-creating lordosis as well as increasing height and was locked into position once a good position was tested and was stable. We then back filled the cage DBM and I fa ctor. Real Estate Marketing Coordinator was removed area was inspected and was stable. Meticulous hemostasis performed. We then irrigated the wound. We then turned our attention to the L4-L5 interspace bilateral laminectomy complete facetectomy and foraminotomies was performed here using high-speed bur and a similar fashion to previously described as well as Kerrison rongeurs. Disc space was identified and due to the patient's deformity in this area and her disc osteotomy was performed using quarter-inch osteotome was passed in the anterior two thirds about vertebral body and disc space. This allowed for loose kelsey of this disc space as well as correction of the patient's deformity. Sequential shaving was obtained was performed and then at this level removing disc space completely. The disc was removed entirely down biting curettes used to push further disc material out and pituitary used to remove this. Once desired height and lordosis of been achieved packed anterior the disc space autograft allograft I factor. We then while protecting neural elements selected cage impacted into position under lateral fluoroscopic imaging. The cage in position we expanded it which re-created lordosis and height and locked the cage into position once it was in position and was stable. Real Estate Marketing Coordinator was removed meticulous hemostasis performed and the wound was again irrigated. We repeated this process at L3-L4 as well due to patient's deformity intradiscal osteotomy was also performed at this level a similar fashion as described above with quarter-inch osteotome passing into the anterior two thirds the vertebral body and disc space complete discectomy being performed along with bilateral laminectomy complete facetectomy and foraminotomies previously described. Sequential shaving with rastafarian of height and lordosis was achieved and then selected a cage anteriorly to the cage and placed autograft and allograft and DBM. We then impacted the cage while protecting neural elements under lateral fluoroscopic imaging once cages in position was expanded re-creating lordosis and height and locked into position. The cages then tested and stable. Real Estate Marketing Coordinator was removed meticulous hemostasis performed and the wound was irrigated. We then turned attention to the final disc space at L2-L3 bilateral laminectomy complete facetectomy and foraminotomy was performed here. Disc space was accessed using an osteotome and sequential shaving was performed until good bleeding endplates were obtained. Guy curet used to remove any further disc along with pituitary. Complete discectomy was performed here. Anterior than the disc space were packed autograft allograft and I factor. We then selected cage and while protecting neural elements impacted the cage in the position of the lateral fluoroscopic guidance. Once in position a cane was expanded and re-created height and lordosis. Cage was tested and was stable. Real Estate Marketing Coordinator was removed meticulous hemostasis was performed. We then irrigated the wound again. We then turned our attention to placement of rods. Rods were sized selected and bent accordingly. There were then locked in to the pelvic screws bilaterally and sequentially reduced into the lumbar spine. Once reduced set screws were placed and were then final tightened in position. We performed distraction maneuver on the left-hand side to further correct the patient's def ormity. Set screws were then locked and final tightened once again. We then placed 2 cross-links over the laminectomy defect and final tightened these. We then copiously irrigated the wound with 3 L of Ancef irrigation 3 L of gentamicin irrigation and 3 L of normal sterile saline. We then placed Surgicel over the dura and the posterior lateral gutters we placed a mixture of magnetic office DBM autograft and allograft this was then impacted into place. A deep drain was then placed. Vancomycin powder 2 g was placed within the wound. We then proceeded with layered closure first in the fascial layer with #1 PDS. All Vicryl was then placed in the deep subcu tissue 2-0 Vicryl placed in the superficial subcu tissue and andrew placed in the skin. The wound was then cleaned with alcohol and sterilely dressed with operative foam dressing drain sponge and Tegaderm. The patient was transferred back to their hospital bed atraumatically. [Drain continued to hold suction and were in good position]. Patient was then awakened and extubated by the department of anesthesia having tolerated the procedure very well with no complications. They were transferred to the postoperative care unit in stable condition.
[2022-03-23 11:46] LABS: Glucose,Whole Blood 201 mg/dL (70-110)
[2022-03-23] MEDS: SYMBICORT 160-4.5 MCG INHALER INHALATION SCH ×2 (12:23→19:19)
[2022-03-23 16:38] LABS: Glucose,Whole Blood 154 mg/dL (70-110)
[2022-03-23] MEDS: CYCLOBENZAPRINE 5 MG TAB PO PRN (16:43)
--- NOTE | 2022-03-23 17:49 | P.CONS ---
History of Present Illness - Reason for Consult Consult date: 03/23/22 - History of Present Illness Cliff Vaughn, is a 61-year-old male who was admitted to [facility] by Dr. Estrella and underwent L3-4 and L4-5 intradiscal osteotomy for deformity correction and L2-3 L3-4 L4-5 and L5-S1 posteriolateral and interbody fusions. Patient was admitted to the medical floor postoperatively consultation was requested for medical management while hospitalized. His past medical history is significant for history of coronary artery disease, with previous history of myocardial infarction and history of cardiac catheterization with angioplasty and stent placement history of COPD, history of diabetes mellitus, history of hypertension, history of hyperlipidemia. Past Medical History Past Medical History: Asthma, Coronary Artery Disease (CAD), Cancer, Chest Pain / Angina, COPD, CVA/TIA, Diabetes Mellitus, GERD/Reflux, Hyperlipidemia, Hy pertension, Memory Impairment, Myocardial Infarction (NH), Musculoskeletal Disorder, Osteoarthritis (OA) Additional Past Medical History / Comment(s): Degenerative Disc Disease. Hx TIA with continued memory loss. used to use oxygen prn but not currently, sent tank back, Hx skin cancer. Lung nodules. Chronic back pain. Current hernias that need repair. Neuropathy in bilateral legs and feet. Last Myocardial Infarction Date:: History of Any Multi-Drug Resistant Organisms: None Reported Past Surgical History: Appendectomy, Back Surgery, Heart Catheterization With Stent, Hernia Repair, Orthopedic Surgery Additional Past Surgical History / Comment(s): Right wrist surgery, neck surgery with 2 screws, colonosopy, ORIF left ankle with willard and screws, two cardiac aiyana nts, umbilical hernia repair, has mesh with hernia repair right side of abdomen, right hand carpal tunnel surgery. Past Anesthesia/Blood Transfusion Reactions: No Reported Reaction Additional Past Anesthesia/Blood Transfusion Reaction / Comm: CLAUSTROPHOBIA. Date of Last Stent Placement:: September 2021 Past Psychological History: Anxiety, Depression Additional Psychological History / Comment(s): CLAUSTROPHOBIA. Smoking Status: Former smoker Past Alcohol Use History: Rare Additional Past Alcohol Use History / Comment(s): Smoked one pack every 2 days. Had quit smoking 2021 Past Drug Use History: Marijuana Additional Drug Use History / Comment(s): . - Past Family History Father Family Medical History: Cancer Sister(s) Family Medical History: Deep Vein Thrombosis (DVT) Mother Family Medical History: Cancer, Deep Vein Thrombosis (DVT) Medications and Allergies Home Medications Medication Instructions Recorded Confirmed Type Metoprolol Tartrate [Lopressor] 25 mg PO BID 12/01/14 03/22/22 History Montelukast [Singulair] 10 mg PO DAILY 12/01/14 03/22/22 History Multivitamins, Thera [Multivitamin 1 tab PO DAILY 03/07/19 03/22/22 History (formulary)] Atorvastatin [Lipitor] 40 mg PO HS 04/25/19 03/22/22 History buPROPion HCL [Wellbutrin SR] 150 mg PO BID 04/25/19 03/22/22 History hydroCHLOROthiazide [Hydrodiuril] 25 mg PO DAILY 04/25/19 03/22/22 History Tamsulosin [Flomax] 0.4 mg PO DAILY 03/25/20 03/22/22 History Aspirin 81 mg PO DAILY 04/23/20 03/22/22 History Budesonide-Formot 160-4.5 Mcg 2 puff INHALATION BID 06/04/20 03/22/22 History [Symbicort 160-4.5 Mcg Inhaler] ALPRAZolam [Xanax] 1 mg PO BID PRN 08/11/20 03/22/22 History Empagliflozin [Jardiance] 25 mg PO DAILY 08/11/20 03/22/22 History Ibuprofen [Motrin] 800 mg PO TID PRN 08/11/20 03/22/22 History Nitroglycerin Sl Tabs [Nitrostat] 0.4 mg SL Q5M PRN 08/11/20 03/22/22 History rOPINIRole HCL [Requip] 1 mg PO HS 08/11/20 03/22/22 History Semaglutide [Ozempic] 0.25 mg SQ FR 12/16/20 03/22/22 History Albuterol Inhaler [Ventolin Hfa 1 puff INHALATION RT-QID PRN 02/04/21 03/22/22 History Inhaler] Cyclobenzaprine [Flexeril] 10 mg PO HS 02/04/21 03/22/22 History Gabapentin [Neurontin] 400 mg PO TID 08/12/21 03/22/22 History Lidocaine 5% Patch [Lidoderm] 1 each TP DAILY PRN 03/21/22 03/22/22 History metFORMIN HCL [Glucophage] 500 mg PO BID 03/21/22 03/22/22 History Allergies Allergy/AdvReac Type Severity Reaction Status Date / Time grass pollen Allergy Itching Verified 03/22/22 09:26 lisinopril Allergy Itching,SOB Verified 03/22/22 09:26 menthol Allergy Dyspnea Verified 03/22/22 09:26 Sulfa (Sulfonamide Allergy Unknown Verified 03/22/22 09:26 Antibiotics) Childhood venom-wasp Allergy Anaphylaxis Verified 03/22/22 09:26 (Hornet) Physical Exam Vitals: Vital Signs Temp Pulse Pulse Resp BP BP BP 03/23/22 05:54 104 H 112/64 03/23/22 05:31 115/64 03/23/22 04:56 97.4 F L 98 16 102/63 03/23/22 03:45 100 18 106/60 03/23/22 02:26 109/62 03/23/22 02:08 119/71 03/23/22 00:57 98 16 108/66 03/23/22 00:23 98 110/78 03/23/22 00:01 97.3 F L 16 104/70 03/22/22 23:00 92 16 115/76 03/22/22 22:17 77 16 109/70 03/22/22 21:03 96.6 F L 90 20 109/71 03/22/22 20:41 93 16 95/53 03/22/22 20:26 92 16 101/54 03/22/22 20:11 90 16 93/49 03/22/22 19:56 88 16 141/92 03/22/22 19:41 90 16 121/81 03/22/22 19:26 91 16 127/81 03/22/22 19:11 96 16 135/84 113/55 03/22/22 18:56 96.8 F L 99 16 93/51 124/57 03/22/22 09:24 96.9 F L 77 18 147/81 Pulse Ox 03/23/22 05:54 95 03/23/22 05:31 03/23/22 04:56 95 03/23/22 03:45 98 03/23/22 02:26 03/23/22 02:08 03/23/22 00:57 94 L 03/23/22 00:23 03/23/22 00:01 96 03/22/22 23:00 95 03/22/22 22:17 99 03/22/22 21:03 99 03/22/22 20:41 92 L 03/22/22 20:26 95 03/22/22 20:11 98 03/22/22 19:56 93 L 03/22/22 19:41 95 03/22/22 19:26 96 03/22/22 19:11 98 03/22/22 18:56 98 03/22/22 09:24 93 L Intake and Output 03/22/22 03/23/22 03/23/22 22:59 06:59 14:59 Intake Total 2325 Output Total 1780 1010 Balance 545 -1010 Intake: IV 2325 Output: Drainage 80 490 Lower Back 80 490 Urine 500 520 Estimated Blood Loss 1200 Other: Voiding Method Indwelling Catheter Weight 112.2 kg In general patient is alert and oriented x 3 in no distress HEENT head normocephalic and atraumatic Neck is supple no JVD no goiter no lymphadenopathy no carotid bruit Chest examination is clear to auscultation no crackles no wheezing Cardiac exam reveals regular heart sounds S1 and S2 no gallops no murmurs Abdomen is soft nontender no organomegaly with normal bowel sounds Extremity exam reveals no edema no cyanosis or clubbing Neurological examination reveals no gross focal deficits Results CBC & Chem 7: 03/23/22 07:16 03/23/22 07:16 Labs: Abnormal Lab Results - Last 24 Hours (Table) 03/22/22 03/22/22 03/22/22 Range/Units 10:32 10:32 22:21 WBC 10.7 H (3.8-10.6) k/uL Neutrophils # 7.9 H (1.3-7.7) k/uL Sodium (137-145) mmol/L Chloride 108 H (98-107) mmol/L Glucose 111 H (74-99) mg/dL POC Glucose (mg/dL) 159 H (70-110) mg/dL Calcium (8.4-10.2) mg/dL 03/23/22 03/23/22 Range/Units 06:06 07:16 WBC (3.8-10.6) k/uL Neutrophils # (1.3-7.7) k/uL Sodium 135 L (137-145) mmol/L Chloride (98-107) mmol/L Glucose 138 H (74-99) mg/dL POC Glucose (mg/dL) 141 H (70-110) mg/dL Calcium 7.9 L (8.4-10.2) mg/dL Assessment and Plan Plan: Back pain, admitted by Dr. Estrella and underwent L2 to S1 fusion Underlying history of Hypertension Underlying history of coronary artery disease Underlying history of hyperlipidemia Underlying history of COPD At this time patient was seen and examined Home medications reviewed and reordered Labs reviewed For DVT prophylaxis we'll use SCD stockings Will follow closely during this admission
[2022-03-23] MEDS: SODIUM CHLORIDE 0.9% 1,000 ML IV SCH (18:43)
--- NOTE | 2022-03-23 19:21 | CT ---
EXAMINATION TYPE: CT lumbar spine wo con CT DLP: 02045 mGycm, Automated exposure control for dose reduction was used. DATE OF EXAM: 03/23/2022 6:40 PM COMPARISON: CT spine 05/31/2021. CLINICAL INDICATION:Male, 61 years old with history of s/p L2-Pelvis decompression and fusion; TECHNIQUE: Multiple axial images were obtained from the midportion of T11 through the sacroiliac kelsie nts. Soft tissue and bone windows in coronal and sagittal planes were obtained and reviewed. Contrast used: none. Oral contrast used: none. FINDINGS: Alignment: There are 5 lumbar type vertebral bodies with postsurgical alignment. Bone: Postsurgical changes extending from L2 to S2. Hardware appears intact. No evidence of acute fra cture. Surgical bed gas along with gas within the thecal sac are noted. Iliac crests screws are prese nt bilaterally. Degeneration changes of the sacroiliac joints as well as along the spine with osteoph yte formation and disc space narrowing. Discectomy changes from L2-L3 to L5-S1. Discs: Streak artifact limits evaluation at the levels for spinal canal and neural foraminal stenosis.\ T12-L1: No spinal canal or neural foraminal stenosis is identified. L1-L2: Streak artifact limits evaluation. No soft tissue appears patent. There is mild neural foramin al stenosis secondary to facet joint arthropathy. L2-L3: Streak artifact limits evaluation. No soft tissue appears patent. The neural foramen appear pa tent. L3-L4: Streak artifact limits evaluation. No soft tissue appears patent. Mild neural foraminal stenos is bilaterally. L4-L5: Streak artifact limits evaluation. No soft tissue appears patent. Mild neural foraminal steno sis bilaterally. L5-S1: Streak artifact limits evaluation. No soft tissue appears patent. Neural foraminal narrowing o f these moderate severity bilaterally. Other: Subcutaneous gas is seen within the soft tissues posteriorly lung with skin andrew. Gas is se en in the surgical bed in the thecal sac. Large left renal cysts. Atherosclerosis of the arterial vas culature. Fibrotic changes in the lung bases with thickening of interlobular septa. IMPRESSION: 1. Postsurgical changes with hardware in place in tact. No evidence of fracture. 2. Lung bases demonstrate pulmonary vascular congestion correlate with serum BNP.
[2022-03-23 20:16] LABS: Glucose,Whole Blood 197 mg/dL (70-110)
[2022-03-23] MEDS ORDERED: CYCLOBENZAPRINE 10 MG TAB PO SCH (21:00)
[2022-03-23] MEDS: ATORVASTATIN 40 MG TAB PO SCH (21:11)
[2022-03-24 06:13] LABS: Glucose,Whole Blood 232 mg/dL (70-110)
[2022-03-24] MEDS: HYDROcodone/APAP 10-325MG 1 EACH TAB PO PRN (06:54)
[2022-03-24] MEDS: CYCLOBENZAPRINE 5 MG TAB PO PRN (06:54)
[2022-03-24] MEDS: LACTATED RINGERS 1,000 ML IV SCH (07:04)
[2022-03-24] MEDS: SYMBICORT 160-4.5 MCG INHALER INHALATION SCH ×2 (07:34→20:01)
[2022-03-24] MEDS ORDERED: HYDROcodone/APAP 10-325MG 1 EACH TAB PO PRN (08:13)
--- NOTE | 2022-03-24 08:18 | P.PN ---
Subjective Progress Note Date: 03/24/22 Principal diagnosis: Lumbar spondylosis with stenosis Patient seen and examined at bedside. Patient was sitting at the edge of the bed. Patient has c/o left thigh pain. Medications have been adjusted. Explained to patient that there was a lot of manipulation performed during procedure and it will get better over time. LSO brace is present at bedside. He is moving himself and repositioning in bed. retail shift manager RN had stated that patient was twisting and turning a lot in bed. Proper body mechanics have been instructed and demonstrated. Surgical dressing is CDI with hemovac present. Currently he denies fever/chills, nausea/vomiting, or chest pain. Objective - Vital Signs Vital signs: Vital Signs Temp 98.7 F 03/24/22 04:00 Pulse 100 03/24/22 04:00 Resp 14 03/24/22 04:00 BP 116/62 03/24/22 04:00 Pulse Ox 95 03/24/22 04:00 FiO2 Intake & Output 03/23/22 03/24/22 03/24/22 18:59 06:59 18:59 Intake Total 360 Output Total 2024 118 100 Balance -1665 -1180 -100 Intake: Oral 360 Output: Drainage 250 230 100 Lower Back 250 230 100 Urine 1775 950 Uretheral (Draper) 875 Other: Voiding Method Indwelling Catheter Urinal - Exam Physical Examination General: The patient is awake and alert, in no acute distress Skin: Skin is warm and dry with no obvious rashes or lesions. Hairy patches absent, no dorsal skin dimples, no cafe au lait spots. Surgical incision to the lumbar spine, hemovac present and patent. Eye: Pupils are equal, round and reactive to light, extra-ocular movements are intact; there is normal conjunctiva bilaterally. Neck: The neck is supple, there is no tenderness and ROM intact. Cardiovascular: There is a regular rate and rhythm. No murmur, rub or gallop is appreciated. Respiratory: Lungs are clear to auscultation, respirations are non-labored, breath sounds are equal. Gastrointestinal: Soft, non-distended, non-tender abdomen . Back: There is no tenderness to palpation in the midline, paralumbar, parathoracic or buttocks region. There is no obvious deformity . Musculoskeletal: ROM limited secondary to pain and stiffness from surgical procedure. Muscle strength in all major muscle groups in Bilateral upper extremities 5/5, bilateral lower extremities 4/5 Neurological: CN 2-12 intact. There are no obvious motor or sensory deficits. Movement and coordination equal and intact. Sensory exam to light touch intact C5-T1 and intact from L2-S1. Reflexes 2/4 in bilateral upper and lower extremities. Negative Hoffmans, babinski, and clonus signs. Psychiatric: Cooperative, appropriate mood & affect, normal judgment. - Labs CBC & Chem 7: 03/23/22 07:16 03/23/22 07:16 Labs: Abnormal Lab Results - Last 24 Hours (Table) 03/23/22 03/23/22 03/23/22 Range/Units 07:16 07:16 11:45 WBC 14.3 H (3.8-10.6) k/uL RBC 3.48 L (4.30-5.90) m/uL Hgb 10.0 L D (13.0-17.5) gm/dL Hct 30.8 L (39.0-53.0) % Neutrophils # 12.2 H (1.3-7.7) k/uL Sodium 135 L (137-145) mmol/L Glucose 138 H (74-99) mg/dL POC Glucose (mg/dL) 201 H (70-110) mg/dL Calcium 7.9 L (8.4-10.2) mg/dL 03/23/22 03/23/22 03/24/22 Range/Units 16:37 20:15 06:12 WBC (3.8-10.6) k/uL RBC (4.30-5.90) m/uL Hgb (13.0-17.5) gm/dL Hct (39.0-53.0) % Neutrophils # (1.3-7.7) k/uL Sodium (137-145) mmol/L Glucose (74-99) mg/dL POC Glucose (mg/dL) 154 H 197 H 232 H (70-110) mg/dL Calcium (8.4-10.2) mg/dL Assessment and Plan Assessment: s/p Post-Op day 2: L2-Pelvis decompression and fusion 1. Lumbar spondylosis with stenosis Plan: -Appreciate sap business objects consultant and team management. -Activity: Ambulate QID, OOB all meals, up and about, limit lifting bending twisting to less than 5 lbs. Use walker or cane if needed for stability. -Daily PT/OT, increase ambulation strength and balance. -Brace when up and about, not needed in bed or chair -Pain control: Adequate at this time -Meds: reviewed -GI ppx: senna, Miralax -DVT PPX: Heparin -Hygiene: Shower today. Maintain dressing clean and dry. Meticulous cleaning after BMs away from the incision site -Drains: Maintain for now. -Encourage IS 10x/hr -Dispo: Anticipate discharge home with homecare vs subacute rehab within 48hrs *I reviewed and discussed this case with my attending Dr. Estrella, whom has reviewed this chart and films and is in agreement with assessment and plan of care as outlined above. I have personally seen and examined the patient, performed the documentation and the assessment and plan as written. Number of minutes spent on the visit: 20m.
[2022-03-24 08:29] LABS: Basophils # (A) 0.1 k/uL (0-0.2); Basophils % (A) 0 %; Eosinophils # (A) 0.1 k/uL (0-0.7); Eosinophils % (A) 1 %; HCT 29.4 % (39.0-53.0); HGB 9.8 gm/dL (13.0-17.5); Lymphocytes % (A) 6 %; MCH 29.3 pg (25.0-35.0); MCHC 33.3 g/dL (31.0-37.0); MCV 87.9 fL (80.0-100.0); Mean Platelet Volume 8.5; Monocytes # (A) 0.9 k/uL (0-1.0); Monocytes % (A) 6 %; Neutrophils # (A) 13.8 k/uL (1.3-7.7); Neutrophils % (A) 86 %; Platelet Count 226 k/uL (150-450); RBC 3.34 m/uL (4.30-5.90); WBC 16.2 k/uL (3.8-10.6)
[2022-03-24 08:38] LABS: ALT 67 U/L (4-49); AST 218 U/L (17-59); African American GFR (CKD) >90 (>60 ml/min/1.73 sqM); Albumin 3.6 g/dL (3.5-5.0); Alkaline Phosphatase 96 U/L (38-126); Anion Gap 6 mmol/L; Blood Urea Nitrogen 15 mg/dL (9-20); Calcium 8.5 mg/dL (8.4-10.2); Carbon Dioxide 27 mmol/L (22-30); Chloride 100 mmol/L (98-107); Glucose 173 mg/dL (74-99); Non-African American GFR(CKD) >90 (>60 ml/min/1.73 sqM); Potassium 4.2 mmol/L (3.5-5.1); Sodium 133 mmol/L (137-145); Total Protein 5.8 g/dL (6.3-8.2)
[2022-03-24] MEDS: DAPAGLIFLOZIN PROPANEDIOL 10 MG TABLET PO SCH (09:20)
[2022-03-24] MEDS: buPROPion SR 150 MG TABLET.ER PO SCH ×2 (09:20→21:26)
[2022-03-24] MEDS: MONTELUKAST 10 MG TAB PO SCH (09:20)
[2022-03-24] MEDS: metFORMIN 500 MG TAB PO SCH ×2 (09:21→21:26)
[2022-03-24] MEDS: GABAPENTIN 400 MG CAP PO SCH ×3 (09:21→21:27)
[2022-03-24] MEDS: METOPROLOL TARTRATE 25 MG TAB PO SCH ×2 (09:21→21:26)
[2022-03-24] MEDS: ASPIRIN 81 MG PO SCH (09:21)
[2022-03-24] MEDS: hydroCHLOROthiazide 25 MG TAB PO SCH (09:21)
[2022-03-24] MEDS: TAMSULOSIN 0.4 MG CAP.ER.24H PO SCH (09:21)
[2022-03-24] MEDS: MULTIVITAMINS, THERA 1 EACH TAB PO SCH (09:21)
[2022-03-24 11:47] LABS: Glucose,Whole Blood 162 mg/dL (70-110)
[2022-03-24 16:37] LABS: Glucose,Whole Blood 490 mg/dL (70-110)
[2022-03-24] MEDS ORDERED: DEXTROSE 50% SYRINGE 50 ML IVP PRN ×2 (17:05)
--- NOTE | 2022-03-24 17:22 | P.PN ---
Subjective Progress Note Date: 03/24/22 Cliff Vaughn, is a 61-year-old male who was admitted to [facility] by Dr. Estrella and underwent L3-4 and L4-5 intradiscal osteotomy for deformity correction and L2-3 L3-4 L4-5 and L5-S1 posteriolateral and interbody fusions. Patient was admitted to the medical floor postoperatively consultation was requested for medical management while hospitalized. His past medical history is significant for history of coronary artery disease, with previous history of myocardial infarction and history of cardiac catheterization with angioplasty and stent placement history of COPD, history of diabetes mellitus, history of hypertension, history of hyperlipidemia. On 03/24/2022 patient was seen and examined on the medical floor he is alert and oriented 3 in no apparent distress there is no fever or chills no headache or dizziness no chest pain no shortness of breath no cough no nausea or vomiting no abdominal pain no diarrhea no blood in the stools oh burning with urination no frequency or urgency and no hematuria. Glucose level was significantly elevated at this time will add NovoLog sliding scale and Lantus 10 units at bedtime patient was counseled in regard to his diet and not to have his family bring him extra food from outside Objective - Vital Signs Vital signs: Vital Signs Temp 98.0 F 03/24/22 15:37 Pulse 120 H 03/24/22 15:37 Resp 20 03/24/22 15:37 BP 115/73 03/24/22 15:37 Pulse Ox 95 03/24/22 15:37 FiO2 Intake & Output 03/23/22 03/24/22 03/24/22 18:59 06:59 18:59 Intake Total 360 720 Output Total 2024 118 650 Balance -1665 -1180 70 Intake: Oral 360 720 Output: Drainage 250 230 100 Lower Back 250 230 100 Urine 1775 950 550 Uretheral (Draper) 875 Other: Voiding Method Indwelling Catheter Urinal Urinal - Exam In general patient is alert and oriented x 3 in no distress HEENT head normocephalic and atraumatic Neck is supple no JVD no goiter no lymphadenopathy no carotid bruit Chest examination is clear to auscultation no crackles no wheezing Cardiac exam reveals regular heart sounds S1 and S2 no gallops no murmurs Abdomen is soft nontender no organomegaly with normal bowel sounds Extremity exam reveals no edema no cyanosis or clubbing Neurological examination reveals no gross focal deficits - Labs CBC & Chem 7: 03/24/22 08:02 03/24/22 08:02 Labs: Abnormal Lab Results - Last 24 Hours (Table) 03/23/22 03/23/22 03/24/22 Range/Units 16:37 20:15 06:12 WBC (3.8-10.6) k/uL RBC (4.30-5.90) m/uL Hgb (13.0-17.5) gm/dL Hct (39.0-53.0) % Neutrophils # (1.3-7.7) k/uL Sodium (137-145) mmol/L Glucose (74-99) mg/dL POC Glucose (mg/dL) 154 H 197 H 232 H (70-110) mg/dL AST (17-59) U/L ALT (4-49) U/L Total Protein (6.3-8.2) g/dL 03/24/22 03/24/22 03/24/22 Range/Units 08:02 08:02 11:45 WBC 16.2 H (3.8-10.6) k/uL RBC 3.34 L (4.30-5.90) m/uL Hgb 9.8 L (13.0-17.5) gm/dL Hct 29.4 L (39.0-53.0) % Neutrophils # 13.8 H (1.3-7.7) k/uL Sodium 133 L (137-145) mmol/L Glucose 173 H (74-99) mg/dL POC Glucose (mg/dL) 162 H (70-110) mg/dL AST 218 H (17-59) U/L ALT 67 H (4-49) U/L Total Protein 5.8 L (6.3-8.2) g/dL Assessment and Plan Plan: Back pain, admitted by Dr. Estrella and underwent L2 to S1 fusion Underlying history of Hypertension Underlying history of coronary artery disease Underlying history of hyperlipidemia Underlying history of COPD Underlying history of diabetes mellitus at this time will add insulin NovoLog sliding scale and Lantus 10 units at bedtime will follow closely At this time patient was seen and examined Home medications reviewed and reordered Labs reviewed For DVT prophylaxis we'll use SCD stockings Will follow closely during this admission
[2022-03-24] MEDS: INSULIN ASPART (NovoLOG) 100 UNIT/ML VIAL SQ SCH ×2 (17:44→21:04)
[2022-03-24 18:28] LABS: Glucose,Whole Blood 306 mg/dL (70-110)
[2022-03-24 20:43] LABS: Glucose,Whole Blood 140 mg/dL (70-110)
[2022-03-24] MEDS: SODIUM CHLORIDE 0.9% 1,000 ML IV SCH (21:03)
[2022-03-24] MEDS: ATORVASTATIN 40 MG TAB PO SCH (21:26)
[2022-03-24] MEDS: CYCLOBENZAPRINE 5 MG TAB PO SCH (21:27)
[2022-03-24] MEDS: INSULIN DETEMIR (LEVEMIR) 100 UNIT/ML SYR SQ SCH (21:28)
[2022-03-24] MEDS: HYDROcodone/APAP 10-325MG 1 EACH TAB PO SCH (21:28)
[2022-03-25] MEDS: HYDROcodone/APAP 10-325MG 1 EACH TAB PO SCH ×6 (02:49→21:12)
[2022-03-25 06:26] LABS: Glucose,Whole Blood 170 mg/dL (70-110)
[2022-03-25] MEDS: LACTATED RINGERS 1,000 ML IV SCH (06:35)
[2022-03-25] MEDS: INSULIN ASPART (NovoLOG) 100 UNIT/ML VIAL SQ SCH ×4 (06:40→21:15)
[2022-03-25] MEDS: SODIUM CHLORIDE 0.9% 1,000 ML IV SCH (06:43)
[2022-03-25] MEDS: SYMBICORT 160-4.5 MCG INHALER INHALATION SCH ×2 (07:37→20:39)
--- NOTE | 2022-03-25 08:43 | P.PN ---
Subjective Progress Note Date: 03/25/22 Principal diagnosis: Lumbar spondylosis with stenosis Patient seen and examined at bedside. Patient was resting in bed. He states he has been working with therapy and sitting up in the chair. LSO brace is present at bedside. Patient states he only has back pain with activity, he continues to express left thigh pain. Surgical dressing is CDI with hemovac present, please keep drain to gravity, no compression needed at this time. Currently he denies fever/chills, nausea/vomiting, or chest pain. Objective - Vital Signs Vital signs: Vital Signs Temp 97.5 F L 03/25/22 04:00 Pulse 103 H 03/25/22 04:00 Resp 14 03/25/22 04:00 BP 116/71 03/25/22 04:00 Pulse Ox 91 L 03/25/22 04:00 FiO2 Intake & Output 03/24/22 03/25/22 03/25/22 18:59 06:59 18:59 Intake Total 960 Output Total 900 2325 Balance 60 -2325 Intake: Oral 960 Output: Drainage 350 180 Lower Back 350 180 Urine 550 2145 Other: Voiding Method Urinal Urinal - Exam Physical Examination General: The patient is awake and alert, in no acute distress Skin: Skin is warm and dry with no obvious rashes or lesions. Hairy patches absent, no dorsal skin dimples, no cafe au lait spots. Surgical incision to the lumbar spine, hemovac present and patent. Eye: Pupils are equal, round and reactive to light, extra-ocular movements are intact; there is normal conjunctiva bilaterally. Neck: The neck is supple, there is no tenderness and ROM intact. Cardiovascular: There is a regular rate and rhythm. No murmur, rub or gallop is appreciated. Respiratory: Lungs are clear to auscultation, respirations are non-labored, breath sounds are equal. Gastrointestinal: Soft, non-distended, non-tender abdomen . Back: There is no tenderness to palpation in the midline, paralumbar, par athoracic or buttocks region. There is no obvious deformity . Musculoskeletal: ROM limited secondary to pain and stiffness from surgical procedure. Muscle strength in all major muscle groups in Bilateral upper extremities 5/5, bilateral lower extremities 4/5 Neurological: CN 2-12 intact. There are no obvious motor or sensory deficits. Movement and coordination equal and intact. Sensory exam to light touch intact C5-T1 and intact from L2-S1. Reflexes 2/4 in bilateral upper and lower extremities. Negative Hoffmans, babinski, and clonus signs. Psychiatric: Cooperative, appropriate mood & affect, normal judgment. - Labs CBC & Chem 7: 03/24/22 08:02 03/24/22 08:02 Labs: Abnormal Lab Results - Last 24 Hours (Table) 03/24/22 03/24/22 03/24/22 Range/Units 08:02 08:02 11:45 WBC 16.2 H (3.8-10.6) k/uL RBC 3.34 L (4.30-5.90) m/uL Hgb 9.8 L (13.0-17.5) gm/dL Hct 29.4 L (39.0-53.0) % Neutrophils # 13.8 H (1.3-7.7) k/uL Sodium 133 L (137-145) mmol/L Glucose 173 H (74-99) mg/dL POC Glucose (mg/dL) 162 H (70-110) mg/dL AST 218 H (17-59) U/L ALT 67 H (4-49) U/L Total Protein 5.8 L (6.3-8.2) g/dL 03/24/22 03/24/22 03/24/22 Range/Units 16:35 18:26 20:41 WBC (3.8-10.6) k/uL RBC (4.30-5.90) m/uL Hgb (13.0-17.5) gm/dL Hct (39.0-53.0) % Neutrophils # (1.3-7.7) k/uL Sodium (137-145) mmol/L Glucose (74-99) mg/dL POC Glucose (mg/dL) 490 H 306 H 140 H (70-110) mg/dL AST (17-59) U/L ALT (4-49) U/L Total Protein (6.3-8.2) g/dL 03/25/22 Range/Units 06:24 WBC (3.8-10.6) k/uL RBC (4.30-5.90) m/uL Hgb (13.0-17.5) gm/dL Hct (39.0-53.0) % Neutrophils # (1.3-7.7) k/uL Sodium (137-145) mmol/L Glucose (74-99) mg/dL POC Glucose (mg/dL) 170 H (70-110) mg/dL AST (17-59) U/L ALT (4-49) U/L Total Protein (6.3-8.2) g/dL Assessment and Plan Assessment: s/p Post-Op day 3: L2-Pelvis decompression and fusion 1. Lumbar spondylosis with stenosis Plan: -Appreciate care consultant and team management. -Activity: Ambulate QID, OOB all meals, up and about, limit lifting bending twisting to less than 5 lbs. Use walker or cane if needed for stability. -Daily PT/OT, increase ambulation strength and balance. -Brace when up and about, not needed in bed or chair -Pain control: Adequate at this time -Meds: reviewed -GI ppx: senna, Miralax -DVT PPX: Heparin -Hygiene: Shower today. Maintain dressing clean and dry. Meticulous cleaning after BMs away from the incision site -Drains: Maintain for now, leave drain to gravity, no compression needed. -Encourage IS 10x/hr -Dispo: Anticipate discharge home with homecare within 24hrs *I reviewed and discussed this case with my attending Dr. Estrella, whom has reviewed this chart and films and is in agreement with assessment and plan of care as outlined above. I have personally seen and examined the patient, performed the documentation and the assessment and plan as written. Number of minutes spent on the visit: 20m.
[2022-03-25] MEDS: metFORMIN 500 MG TAB PO SCH ×2 (09:15→21:12)
[2022-03-25] MEDS: MONTELUKAST 10 MG TAB PO SCH (09:15)
[2022-03-25] MEDS: MULTIVITAMINS, THERA 1 EACH TAB PO SCH (09:15)
[2022-03-25] MEDS: METOPROLOL TARTRATE 25 MG TAB PO SCH ×2 (09:15→21:12)
[2022-03-25] MEDS: CYCLOBENZAPRINE 5 MG TAB PO SCH ×3 (09:15→21:11)
[2022-03-25] MEDS: GABAPENTIN 400 MG CAP PO SCH ×3 (09:15→21:11)
[2022-03-25] MEDS: ASPIRIN 81 MG PO SCH (09:15)
[2022-03-25] MEDS: hydroCHLOROthiazide 25 MG TAB PO SCH (09:16)
[2022-03-25] MEDS: TAMSULOSIN 0.4 MG CAP.ER.24H PO SCH (09:16)
[2022-03-25] MEDS: DAPAGLIFLOZIN PROPANEDIOL 10 MG TABLET PO SCH (09:17)
[2022-03-25] MEDS: buPROPion SR 150 MG TABLET.ER PO SCH ×2 (09:17→21:13)
[2022-03-25 09:24] LABS: Basophils # (A) 0.1 k/uL (0-0.2); Basophils % (A) 1 %; Eosinophils # (A) 0.2 k/uL (0-0.7); Eosinophils % (A) 1 %; HGB 9.4 gm/dL (13.0-17.5); Lymphocytes # (A) 1.2 k/uL (1.0-4.8); Lymphocytes % (A) 9 %; MCH 29.4 pg (25.0-35.0); MCHC 33.5 g/dL (31.0-37.0); MCV 87.7 fL (80.0-100.0); Mean Platelet Volume 8.1; Monocytes # (A) 0.8 k/uL (0-1.0); Monocytes % (A) 6 %; Neutrophils # (A) 10.2 k/uL (1.3-7.7); Neutrophils % (A) 82 %; Platelet Count 228 k/uL (150-450); RBC 3.19 m/uL (4.30-5.90); RDW 14.5 % (11.5-15.5); WBC 12.5 k/uL (3.8-10.6)
[2022-03-25 09:39] LABS: ALT 51 U/L (4-49); AST 149 U/L (17-59); African American GFR (CKD) >90 (>60 ml/min/1.73 sqM); Albumin 3.4 g/dL (3.5-5.0); Alkaline Phosphatase 90 U/L (38-126); Anion Gap 5 mmol/L; Blood Urea Nitrogen 15 mg/dL (9-20); Calcium 8.1 mg/dL (8.4-10.2); Carbon Dioxide 29 mmol/L (22-30); Chloride 97 mmol/L (98-107); Glucose 181 mg/dL (74-99); Non-African American GFR(CKD) >90 (>60 ml/min/1.73 sqM); Potassium 3.8 mmol/L (3.5-5.1); Sodium 131 mmol/L (137-145); Total Bilirubin 0.7 mg/dL (0.2-1.3); Total Protein 5.6 g/dL (6.3-8.2)
[2022-03-25 11:43] LABS: Glucose,Whole Blood 148 mg/dL (70-110)
[2022-03-25 16:40] LABS: Glucose,Whole Blood 171 mg/dL (70-110)
[2022-03-25 20:14] LABS: Glucose,Whole Blood 156 mg/dL (70-110)
[2022-03-25] MEDS: ATORVASTATIN 40 MG TAB PO SCH (21:13)
[2022-03-25] MEDS: INSULIN DETEMIR (LEVEMIR) 100 UNIT/ML SYR SQ SCH (21:14)
[2022-03-26] MEDS: HYDROcodone/APAP 10-325MG 1 EACH TAB PO SCH ×6 (02:41→21:15)
--- NOTE | 2022-03-26 05:15 | P.PN ---
Subjective Progress Note Date: 03/25/22 Cliff Vaughn, is a 61-year-old male who was admitted to [facility] by Dr. Estrella and underwent L3-4 and L4-5 intradiscal osteotomy for deformity correction and L2-3 L3-4 L4-5 and L5-S1 posteriolateral and interbody fusions. Patient was admitted to the medical floor postoperatively consultation was requested for medical management while hospitalized. His past medical history is significant for history of coronary artery disease, with previous history of myocardial infarction and history of cardiac catheterization with angioplasty and stent placement history of COPD, history of diabetes mellitus, history of hypertension, history of hyperlipidemia. On 03/24/2022 patient was seen and examined on the medical floor he is alert and oriented 3 in no apparent distress there is no fever or chills no headache or dizziness no chest pain no shortness of breath no cough no nausea or vomiting no abdominal pain no diarrhea no blood in the stools oh burning with urination no frequency or urgency and no hematuria. Glucose level was significantly elevated at this time will add NovoLog sliding scale and Lantus 10 units at bedtime patient was counseled in regard to his diet and not to have his family bring him extra food from outside 03/25/2022 Patient Is seen in follow-up today currently sitting up at the side of the bed eating lunch. Patient with brace on and surgical site dressing with dried blood with no oozing or increased swelling or drainage noted around the site. Hemovac remains for now. Patient is continued on sliding scale and long acting and will continue. Recommend accuchecks achs. Patient is afebrile and denies chest pain or shortness of breath. Pain management per orthopedics. Liver functions elevated although trending down. Recommend outpatient labs in a week to monitor the trend. Review of systems: Constitutional: No reports of fatigue, fever, or chills Cardiovascular: No reports of chest pain or palpitations Respiratory: No reports of shortness of breath or cough GI: No reports of nausea, vomiting, or diarrhea : No reports of dysuria or retention Neurovascular: No reports of weakness , reports back pain All medications have been reviewed Physical exam: general patient is alert and oriented x 3 in no distress HEENT head normocephalic and atraumatic Neck is supple no JVD no goiter no lymphadenopathy no carotid bruit Chest examination is clear to auscultation no crackles no wheezing, some scattered rhonchi Cardiac exam reveals regular heart sounds S1 and S2 no gallops no murmurs Abdomen is soft nontender no organomegaly with normal bowel sounds Extremity exam reveals no edema no cyanosis or clubbing Neurological examination reveals no gross focal deficits Assessment: Back pain, underwent L2 to S1 fusion history of Hypertension history of coronary artery disease Underlying history of hyperlipidemia history of COPD, not in exacerbation diabetes mellitus, type 2 uncontrolled with hyperglycemia Plan: Recommend to continue with medications and management per orthopedics, continues with hemovac to gravity for now Recommend accuchecks achs and sliding scale along with long acting for now Recommend repeat am labs, monitor LFTs, trending down Hydrodiuril discontinued, monitor blood pressure Incentive spirometer ordered and encourage to use 10 times per hour while awake We will follow with orthopedics during hospitalization, thank you for this consultation Possible discharge per ortho in 24 hours. The impression and plan of care has been dictated by Carolynn Villalta, Nurse Practitioner as directed. Dr. Sherman MD I have performed a history and examination and MDM of this patient, discussed th e same with the dictator, and agree with the dictator's assessment and plan as written ,documented as a scribe. Based on total visit time, I have performed more than 50% of the visit. Objective - Vital Signs Vital signs: Vital Signs Temp 98.3 F 03/25/22 09:19 Pulse 115 H 03/25/22 09:19 Resp 16 03/25/22 09:19 BP 107/53 03/25/22 09:19 Pulse Ox 98 03/25/22 09:19 FiO2 Intake & Output 03/24/22 03/25/22 03/25/22 18:59 06:59 18:59 Intake Total 960 598 Output Total 900 2325 Balance 60 -2325 598 Intake: Oral 960 598 Output: Drainage 350 180 Lower Back 350 180 Urine 550 2145 Other: Voiding Method Urinal Urinal Urinal - Labs CBC & Chem 7: 03/25/22 08:49 03/25/22 08:49 Labs: Abnormal Lab Results - Last 24 Hours (Table) 03/24/22 03/24/22 03/24/22 Range/Units 11:45 16:35 18:26 WBC (3.8-10.6) k/uL RBC (4.30-5.90) m/uL Hgb (13.0-17.5) gm/dL Hct (39.0-53.0) % Neutrophils # (1.3-7.7) k/uL Sodium (137-145) mmol/L Chloride (98-107) mmol/L Glucose (74-99) mg/dL POC Glucose (mg/dL) 162 H 490 H 306 H (70-110) mg/dL Calcium (8.4-10.2) mg/dL AST (17-59) U/L ALT (4-49) U/L Total Protein (6.3-8.2) g/dL Albumin (3.5-5.0) g/dL 03/24/22 03/25/22 03/25/22 Range/Units 20:41 06:24 08:49 WBC 12.5 H (3.8-10.6) k/uL RBC 3.19 L (4.30-5.90) m/uL Hgb 9.4 L (13.0-17.5) gm/dL Hct 28.0 L (39.0-53.0) % Neutrophils # 10.2 H (1.3-7.7) k/uL Sodium (137-145) mmol/L Chloride (98-107) mmol/L Glucose (74-99) mg/dL POC Glucose (mg/dL) 140 H 170 H (70-110) mg/dL Calcium (8.4-10.2) mg/dL AST (17-59) U/L ALT (4-49) U/L Total Protein (6.3-8.2) g/dL Albumin (3.5-5.0) g/dL 03/25/22 Range/Units 08:49 WBC (3.8-10.6) k/uL RBC (4.30-5.90) m/uL Hgb (13.0-17.5) gm/dL Hct (39.0-53.0) % Neutrophils # (1.3-7.7) k/uL Sodium 131 L (137-145) mmol/L Chloride 97 L (98-107) mmol/L Glucose 181 H (74-99) mg/dL POC Glucose (mg/dL) (70-110) mg/dL Calcium 8.1 L (8.4-10.2) mg/dL AST 149 H (17-59) U/L ALT 51 H (4-49) U/L Total Protein 5.6 L (6.3-8.2) g/dL Albumin 3.4 L (3.5-5.0) g/dL
[2022-03-26 05:55] LABS: Glucose,Whole Blood 143 mg/dL (70-110)
[2022-03-26] MEDS: INSULIN ASPART (NovoLOG) 100 UNIT/ML VIAL SQ SCH ×4 (06:15→21:08)
[2022-03-26] MEDS: SODIUM CHLORIDE 0.9% 1,000 ML IV SCH ×2 (06:48→17:04)
[2022-03-26] MEDS: LACTATED RINGERS 1,000 ML IV SCH (06:49)
[2022-03-26] MEDS: SYMBICORT 160-4.5 MCG INHALER INHALATION SCH ×2 (07:02→20:38)
[2022-03-26] MEDS: MONTELUKAST 10 MG TAB PO SCH (09:06)
[2022-03-26] MEDS: GABAPENTIN 400 MG CAP PO SCH ×3 (09:06→21:16)
[2022-03-26] MEDS: METOPROLOL TARTRATE 25 MG TAB PO SCH ×2 (09:06→21:15)
[2022-03-26] MEDS: ASPIRIN 81 MG PO SCH (09:06)
[2022-03-26] MEDS: MULTIVITAMINS, THERA 1 EACH TAB PO SCH (09:06)
[2022-03-26] MEDS: TAMSULOSIN 0.4 MG CAP.ER.24H PO SCH (09:06)
[2022-03-26] MEDS: metFORMIN 500 MG TAB PO SCH ×2 (09:06→21:14)
[2022-03-26] MEDS: CYCLOBENZAPRINE 5 MG TAB PO SCH ×3 (09:06→21:16)
[2022-03-26] MEDS: buPROPion SR 150 MG TABLET.ER PO SCH ×2 (09:07→21:14)
[2022-03-26] MEDS: DAPAGLIFLOZIN PROPANEDIOL 10 MG TABLET PO SCH (09:07)
--- NOTE | 2022-03-26 09:15 | P.PN ---
Subjective Progress Note Date: 03/26/22 (Late Entry 0730) Principal diagnosis: Lumbar spondylosis with stenosis Patient seen and examined at bedside. Patient sitting at edge of bed eating breakfast. He states overall he is doing well and looking forward to be discha rged home. Surgical dressing has been changed this morning with hemovac patent, output 120mls overnight, please keep drain to gravity, no compression needed. Currently he denies fever/chills, nausea/vomiting, or chest pain. Objective - Vital Signs Vital signs: Vital Signs Temp 98 F 03/26/22 00:00 Pulse 95 03/26/22 00:00 Resp 16 03/26/22 00:00 BP 116/74 03/26/22 00:00 Pulse Ox 96 03/26/22 07:04 FiO2 Intake & Output 03/25/22 03/26/22 03/26/22 18:59 06:59 18:59 Intake Total 1078 420 Output Total 180 1540 550 Balance 898 -1540 -130 Intake: Oral 1078 420 Output: Drainage 180 120 Lower Back 180 120 Urine 1420 550 Other: Voiding Method Urinal Urinal # Voids 1 - Exam Physical Examination General: The patient is awake and alert, in no acute distress Skin: Skin is warm and dry with no obvious rashes or lesions. Hairy patches absent, no dorsal skin dimples, no cafe au lait spots. Surgical incision to the lumbar spine, hemovac present and patent. Eye: Pupils are equal, round and reactive to light, extra-ocular movements are intact; there is normal conjunctiva bilaterally. Neck: The neck is supple, there is no tenderness and ROM intact. Cardiovascular: There is a regular rate and rhythm. No murmur, rub or gallop is appreciated. Respiratory: Lungs are clear to auscultation, respirations are non-labored, breath sounds are equal. Gastrointestinal: Soft, non-distended, non-tender abdomen . Back: There is no tenderness to palpation in the midline, paralumbar, parathoracic or buttocks region. There is no obvious deformity . Musculoskeletal: ROM limited secondary to pain and stiffness from surgical procedure. Muscle strength in all major muscle groups in Bilateral upper extremities 5/5, bilateral lower extremities 4/5. Patient has c/o pain in left thigh region with movement. Neurological: CN 2-12 intact. There are no obvious motor or sensory deficits. Movement and coordination equal and intact. Sensory exam to light touch intact C5-T1 and intact from L2-S1. Reflexes 2/4 in bilateral upper and lower extremities. Negative Hoffmans, babinski, and clonus signs. Psychiatric: Cooperative, appropriate mood & affect, normal judgment. - Labs CBC & Chem 7: 03/25/22 08:49 03/25/22 08:49 Labs: Abnormal Lab Results - Last 24 Hours (Table) 03/25/22 03/25/22 03/25/22 Range/Units 08:49 08:49 08:49 WBC 12.5 H (3.8-10.6) k/uL RBC 3.19 L (4.30-5.90) m/uL Hgb 9.4 L (13.0-17.5) gm/dL Hct 28.0 L (39.0-53.0) % Neutrophils # 10.2 H (1.3-7.7) k/uL Sodium 131 L (137-145) mmol/L Chloride 97 L (98-107) mmol/L Glucose 181 H (74-99) mg/dL POC Glucose (mg/dL) (70-110) mg/dL Hemoglobin A1c 6.5 H (0.0-6.0) % Calcium 8.1 L (8.4-10.2) mg/dL AST 149 H (17-59) U/L ALT 51 H (4-49) U/L Total Protein 5.6 L (6.3-8.2) g/dL Albumin 3.4 L (3.5-5.0) g/dL 03/25/22 03/25/22 03/25/22 Range/Units 11:41 16:38 20:12 WBC (3.8-10.6) k/uL RBC (4.30-5.90) m/uL Hgb (13.0-17.5) gm/dL Hct (39.0-53.0) % Neutrophils # (1.3-7.7) k/uL Sodium (137-145) mmol/L Chloride (98-107) mmol/L Glucose (74-99) mg/dL POC Glucose (mg/dL) 148 H 171 H 156 H (70-110) mg/dL Hemoglobin A1c (0.0-6.0) % Calcium (8.4-10.2) mg/dL AST (17-59) U/L ALT (4-49) U/L Total Protein (6.3-8.2) g/dL Albumin (3.5-5.0) g/dL 03/26/22 Range/Units 05:53 WBC (3.8-10.6) k/uL RBC (4.30-5.90) m/uL Hgb (13.0-17.5) gm/dL Hct (39.0-53.0) % Neutrophils # (1.3-7.7) k/uL Sodium (137-145) mmol/L Chloride (98-107) mmol/L Glucose (74-99) mg/dL POC Glucose (mg/dL) 143 H (70-110) mg/dL Hemoglobin A1c (0.0-6.0) % Calcium (8.4-10.2) mg/dL AST (17-59) U/L ALT (4-49) U/L Total Protein (6.3-8.2) g/dL Albumin (3.5-5.0) g/dL Assessment and Plan Assessment: s/p Post-Op day 4: L2-Pelvis decompression and fusion 1. Lumbar spondylosis with stenosis Plan: -Appreciate linux consultant and team management. -Activity: Ambulate QID, OOB all meals, up and about, limit lifting bending twisting to less than 5 lbs. Use walker or cane if needed for stability. -Daily PT/OT, increase ambulation strength and balance. -Brace when up and about, not needed in bed or chair -Pain control: Adequate at this time -Meds: reviewed -GI ppx: senna, Miralax -DVT PPX: Heparin -Hygiene: Shower today. Maintain dressing clean and dry. Meticulous cleaning after BMs away from the incision site -Drains: Maintain for now, leave drain to gravity, no compression needed. -Encourage IS 10x/hr -Dispo: Anticipate discharge home with homecare tomorrow 03/27/22. *I reviewed and discussed this case with my attending Dr. Estrella, whom has r eviewed this chart and films and is in agreement with assessment and plan of care as outlined above. I have personally seen and examined the patient, performed the documentation and the assessment and plan as written. Number of minutes spent on the visit: 20m.
[2022-03-26 10:07] LABS: Basophils % (A) 0 %; Eosinophils # (A) 0.2 k/uL (0-0.7); Eosinophils % (A) 2 %; HCT 27.7 % (39.0-53.0); HGB 9.3 gm/dL (13.0-17.5); Lymphocytes # (A) 0.9 k/uL (1.0-4.8); Lymphocytes % (A) 10 %; MCH 29.3 pg (25.0-35.0); MCHC 33.4 g/dL (31.0-37.0); MCV 87.6 fL (80.0-100.0); Mean Platelet Volume 8.1; Monocytes # (A) 0.5 k/uL (0-1.0); Monocytes % (A) 5 %; Neutrophils # (A) 7.7 k/uL (1.3-7.7); Neutrophils % (A) 81 %; Platelet Count 249 k/uL (150-450); RBC 3.16 m/uL (4.30-5.90); RDW 14.6 % (11.5-15.5); WBC 9.6 k/uL (3.8-10.6)
[2022-03-26 10:20] LABS: African American GFR (CKD) >90 (>60 ml/min/1.73 sqM); Anion Gap 7 mmol/L; Blood Urea Nitrogen 18 mg/dL (9-20); Calcium 8.3 mg/dL (8.4-10.2); Carbon Dioxide 30 mmol/L (22-30); Chloride 96 mmol/L (98-107); Glucose 200 mg/dL (74-99); Non-African American GFR(CKD) >90 (>60 ml/min/1.73 sqM); Potassium 3.9 mmol/L (3.5-5.1); Sodium 133 mmol/L (137-145)
[2022-03-26 11:44] LABS: Glucose,Whole Blood 170 mg/dL (70-110)
--- NOTE | 2022-03-26 15:57 | P.PN ---
Subjective Progress Note Date: 03/26/22 Cliff Vaughn, is a 61-year-old male who was admitted to [facility] by Dr. Estrella and underwent L3-4 and L4-5 intradiscal osteotomy for deformity correction and L2-3 L3-4 L4-5 and L5-S1 posteriolateral and interbody fusions. Patient was admitted to the medical floor postoperatively consultation was requested for medical management while hospitalized. His past medical history is significant for history of coronary artery disease, with previous history of myocardial infarction and history of cardiac catheterization with angioplasty and stent placement history of COPD, history of diabetes mellitus, history of hypertension, history of hyperlipidemia. On 03/24/2022 patient was seen and examined on the medical floor he is alert and oriented 3 in no apparent distress there is no fever or chills no headache or dizziness no chest pain no shortness of breath no cough no nausea or vomiting no abdominal pain no diarrhea no blood in the stools oh burning with urination no frequency or urgency and no hematuria. Glucose level was significantly elevated at this time will add NovoLog sliding scale and Lantus 10 units at bedtime patient was counseled in regard to his diet and not to have his family bring him extra food from outside 03/25/2022 Patient Is seen in follow-up today currently sitting up at the side of the bed eating lunch. Patient with brace on and surgical site dressing with dried blood with no oozing or increased swelling or drainage noted around the site. Hemovac remains for now. Patient is continued on sliding scale and long acting and will continue. Recommend accuchecks achs. Patient is afebrile and denies chest pain or shortness of breath. Pain management per orthopedics. Liver functions elevated although trending down. Recommend outpatient labs in a week to monitor the trend. 03/26/2022 Patient is seen today and continues to have pain. Ortho evaluated the patient and keeping overnight for close observation and continued hemovac for now. appro x 120ml out last night. Encouraged increased activity as tolerated and continued IS use at least 10 times per hour while awake. Patient is tachy and continued on metoprolol. BP normotensive. Sodium is 133. Not on fluids. Recommend tight glycemic control. Home medications resumed. Patient is afebrile and denies chest pain or shortness of breath. No bowel movement as of yet. Stool softener as needed. Review of systems: Constitutional: No reports of fatigue, fever, or chills Cardiovascular: No reports of chest pain or palpitations Respiratory: No reports of shortness of breath or cough GI: No reports of nausea, vomiting, or diarrhea : No reports of dysuria or retention Neurovascular: No reports of weakness , reports back pain All medications have been reviewed Physical exam: general patient is alert and oriented x 3 in no distress HEENT head normocephalic and atraumatic Neck is supple no JVD no goiter no lymphadenopathy no carotid bruit Chest examination is clear to auscultation no crackles no wheezing, some scattered rhonchi Cardiac exam reveals regular heart sounds S1 and S2 no gallops no murmurs, sinus tachy Abdomen is soft nontender no organomegaly with normal bowel sounds Extremity exam reveals no edema no cyanosis or clubbing Neurological examination reveals no gross focal deficits Assessment: Back pain, underwent L2 to S1 fusion history of Hypertension history of coronary artery disease Underlying history of hyperlipidemia history of COPD, not in exacerbation diabetes mellitus, type 2 uncontrolled with hyperglycemia Obesity with a BMI of 32.6 Plan: Recommend to continue with medications and management per orthopedics, continues with hemovac to gravity for now Recommend accuchecks achs and sliding scale along with long acting for now Recommend repeat am labs, monitor LFTs, trending down Hydrodiuril discontinued, monitor blood pressure, continue metoprolol Incentive spirometer encouraged to use 10 times per hour while awake We will follow with orthopedics during hospitalization, thank you for this consultation Possible discharge per ortho in 24-48 hours. The impression and plan of care has been dictated by Carolynn Villalta, Nurse Practitioner as directed. Dr. Sherman MD I have performed a history and examination and MDM of this patient, discussed the same with the dictator, and agree with the dictator's assessment and plan as written ,documented as a scribe. Based on total visit time, I have performed more than 50% of the visit. Objective - Vital Signs Vital signs: Vital Signs Temp 98 F 03/26/22 00:00 Pulse 108 H 03/26/22 09:22 Resp 17 03/26/22 09:09 BP 103/59 03/26/22 09:09 Pulse Ox 91 L 03/26/22 09:09 FiO2 Intake & Output 03/25/22 03/26/22 03/26/22 18:59 06:59 18:59 Intake Total 1078 420 Output Total 180 1540 550 Balance 898 -1540 -130 Intake: Oral 1078 420 Output: Drainage 180 120 Lower Back 180 120 Urine 1420 550 Other: Voiding Method Urinal Urinal Urinal # Voids 1 - Labs CBC & Chem 7: 03/26/22 09:50 03/26/22 09:50 Labs: Abnormal Lab Results - Last 24 Hours (Table) 03/25/22 03/25/22 03/25/22 Range/Units 08:49 11:41 16:38 POC Glucose (mg/dL) 148 H 171 H (70-110) mg/dL Hemoglobin A1c 6.5 H (0.0-6.0) % 03/25/22 03/26/22 Range/Units 20:12 05:53 POC Glucose (mg/dL) 156 H 143 H (70-110) mg/dL Hemoglobin A1c (0.0-6.0) %
[2022-03-26 16:37] LABS: Glucose,Whole Blood 135 mg/dL (70-110)
[2022-03-26 20:49] LABS: Glucose,Whole Blood 145 mg/dL (70-110)
[2022-03-26] MEDS: ATORVASTATIN 40 MG TAB PO SCH (21:14)
[2022-03-26] MEDS: INSULIN DETEMIR (LEVEMIR) 100 UNIT/ML SYR SQ SCH (21:14)
[2022-03-27] MEDS: HYDROcodone/APAP 10-325MG 1 EACH TAB PO SCH ×4 (02:42→10:38)
[2022-03-27 06:24] LABS: Glucose,Whole Blood 184 mg/dL (70-110)
[2022-03-27] MEDS: INSULIN ASPART (NovoLOG) 100 UNIT/ML VIAL SQ SCH (06:56)
[2022-03-27] MEDS: SYMBICORT 160-4.5 MCG INHALER INHALATION SCH (07:00)
[2022-03-27] MEDS: LACTATED RINGERS 1,000 ML IV SCH (07:05)
[2022-03-27 09:25] VITALS: BP 109/57; TEMP 98.2
[2022-03-27] MEDS: TAMSULOSIN 0.4 MG CAP.ER.24H PO SCH (09:25)
[2022-03-27] MEDS: ASPIRIN 81 MG PO SCH (09:25)
[2022-03-27] MEDS: METOPROLOL TARTRATE 25 MG TAB PO SCH (09:25)
[2022-03-27] MEDS: metFORMIN 500 MG TAB PO SCH (09:25)
[2022-03-27] MEDS: MONTELUKAST 10 MG TAB PO SCH (09:25)
[2022-03-27] MEDS: MULTIVITAMINS, THERA 1 EACH TAB PO SCH (09:25)
[2022-03-27] MEDS: GABAPENTIN 400 MG CAP PO SCH (09:25)
[2022-03-27] MEDS: CYCLOBENZAPRINE 5 MG TAB PO SCH (09:25)
[2022-03-27] MEDS: buPROPion SR 150 MG TABLET.ER PO SCH (09:26)
[2022-03-27] MEDS: DAPAGLIFLOZIN PROPANEDIOL 10 MG TABLET PO SCH (09:26)
[2022-03-27] MEDS: SODIUM CHLORIDE 0.9% 1,000 ML IV SCH (09:27)
[2022-03-27 09:44] VITALS: PULSE 97; RESP 18
--- NOTE | 2022-03-27 10:15 | P.PN ---
Subjective Progress Note Date: 03/27/22 Principal diagnosis: Lumbar spondylosis with stenosis Patient seen and examined at bedside. Patient resting in bed. He states overall he is doing well. Surgical dressing is CDI, hemovac removed. Spoke with spouse over the phone and patient regarding discharge instructions. Patient is requesting a wheelchair van for transport home. Currently he denies fever/chills, nausea/vomiting, or chest pain. Objective - Vital Signs Vital signs: Vital Signs Temp 98.2 F 03/27/22 09:37 Pulse 97 03/27/22 09:41 Resp 18 03/27/22 09:41 BP 109/57 03/27/22 09:37 Pulse Ox 96 03/27/22 09:37 FiO2 Intake & Output 03/26/22 03/27/22 03/27/22 18:59 06:59 18:59 Intake Total 420 540 Output Total 1150 1290 Balance -730 -1290 540 Intake: Oral 420 540 Output: Drainage 100 40 Lower Back 100 40 Urine 1050 1250 Other: Voiding Method Urinal Urinal Urinal # Voids 1 # Bowel Movements 1 - Exam Physical Examination General: The patient is awake and alert, in no acute distress Skin: Skin is warm and dry with no obvious rashes or lesions. Hairy patches absent, no dorsal skin dimples, no cafe au lait spots. Surgical incision to the lumbar spine. Eye: Pupils are equal, round and reactive to light, extra-ocular movements are intact; there is normal conjunctiva bilaterally. Neck: The neck is supple, there is no tenderness and ROM intact. Cardiovascular: There is a regular rate and rhythm. No murmur, rub or gallop is appreciated. Respiratory: Lungs are clear to auscultation, respirations are non-labored, breath sounds are equal. Gastrointestinal: Soft, non-distended, non-tender abdomen . Back: There is no tenderness to palpation in the midline, paralumbar, parathoracic or buttocks region. There is no obvious deformity . Musculoskeletal: ROM limited secondary to pain and stiffness from surgical procedure. Muscle strength in all major muscle groups in Bilateral upper extremities 5/5, bilateral lower extremities 4/5. Patient has c/o pain in left thigh region with movement. Neurological: CN 2-12 intact. There are no obvious motor or sensory deficits. Movement and coordination equal and intact. Sensory exam to light touch intact C5-T1 and intact from L2-S1. Reflexes 2/4 in bilateral upper and lower extremities. Negative Hoffmans, babinski, and clonus signs. Psychiatric: Cooperative, appropriate mood & affect, normal judgment. - Labs CBC & Chem 7: 03/26/22 09:50 03/26/22 09:50 Labs: Abnormal Lab Results - Last 24 Hours (Table) 03/26/22 03/26/22 03/26/22 Range/Units 09:50 11:42 16:36 Sodium 133 L (137-145) mmol/L Chloride 96 L (98-107) mmol/L Glucose 200 H (74-99) mg/dL POC Glucose (mg/dL) 170 H 135 H (70-110) mg/dL Calcium 8.3 L (8.4-10.2) mg/dL 03/26/22 03/27/22 Range/Units 20:47 06:23 Sodium (137-145) mmol/L Chloride (98-107) mmol/L Glucose (74-99) mg/dL POC Glucose (mg/dL) 145 H 184 H (70-110) mg/dL Calcium (8.4-10.2) mg/dL Assessment and Plan Assessment: s/p Post-Op day 5: L2-Pelvis decompression and fusion 1. Lumbar spondylosis with stenosis Plan: -Appreciate senior telecommunications consultant and team management. -Activity: Ambulate QID, OOB all meals, up and about, limit lifting bending twisting to less than 5 lbs. Use walker or cane if needed for stability. -Daily PT/OT, increase ambulation strength and balance. -Brace when up and about, not needed in bed or chair -Pain control: Adequate at this time -Meds: reviewed -GI ppx: senna, Miralax -DVT PPX: Heparin -Hygiene: Shower today. Maintain dressing clean and dry. Meticulous cleaning after BMs away from the incision site -Encourage IS 10x/hr -Dispo: Anticipate discharge home with homecare today. *I reviewed and discussed this case with my attending Dr. Estrella, whom has reviewed this chart and films and is in agreement with assessment and plan of care as outlined above. I have personally seen and examined the patient, performed the documentation and the assessment and plan as written. Number of minutes spent on the visit: 20m.
--- NOTE | 2022-03-27 10:17 | P.DS ---
Providers Date of admission: 03/22/22 08:51 Expected date of discharge: 03/27/22 Attending physician: Blue Estrella DO Consults: 03/22/22 19:00 Consult Physician Routine Consulting Provider: Corinna Mares Consult Reason/Comments: Medical Management Do you want consulting provider notified?: Yes Primary care physician: Corinna Suzan [facility] Course: Hospital Course: The patient was evaluated preoperatively and found to have the diagnosis of lumbar spondylosis with stenosis. They underwent appropriate preoperative care and were willing to undergo the intended procedure. They underwent a successful L2 -pelvis decompression and fusion, were recovered appropriately and sent to the floor. While on the floor they worked with physical therapy, occupational therapy and nursing to enhance their recovery experience. Their pain was well controlled through their stay and they were started on appropriate medications, DVT ppx modalities, activity and dietary needs. Daily labs were monitored closely, and transfusions were only used when necessary. Medicine as well as other consulting services have made their input and have helped with our team approach and multidisciplinary care. PT milestones have been met and passed and they have made the recommendation of home with home care for this patient and treating providers agree with this care path. The patient will be discharged home with appropriate medications, instructions and follow-up information and in stable condition. Patient Condition at Discharge: Good Plan - Discharge Summary Discharge Rx Participant: No New Discharge Prescriptions: New Cyclobenzaprine [Flexeril] 5 mg PO TID #90 tablet HYDROcodone/APAP 10-325MG [[place] 10-325] 1 tab PO Q4-6H PRN #56 tab PRN Reason: Pain cefaDROXiL [Duricef] 500 mg PO Q12HR 5 Days #10 cap Gabapentin [Neurontin] 400 mg PO TID #90 cap Sennosides/Docusate Sodium [Senna Plus 8.6-50 mg Tablet] 1 each PO DAILY PRN #20 tablet PRN Reason: Constipation No Action Montelukast [Singulair] 10 mg PO DAILY Metoprolol Tartrate [Lopressor] 25 mg PO BID Multivitamins, Thera [Multivitamin (formulary)] 1 tab PO DAILY buPROPion HCL [Wellbutrin SR] 150 mg PO BID hydroCHLOROthiazide [Hydrodiuril] 25 mg PO DAILY Atorvastatin [Lipitor] 40 mg PO HS Tamsulosin [Flomax] 0.4 mg PO DAILY Aspirin 81 mg PO DAILY Budesonide-Formot 160-4.5 Mcg [Symbicort 160-4.5 Mcg Inhaler] 2 puff INHAL ATION BID Semaglutide [Ozempic] 0.25 mg SQ FR Empagliflozin [Jardiance] 25 mg PO DAILY rOPINIRole HCL [Requip] 1 mg PO HS ALPRAZolam [Xanax] 1 mg PO BID PRN PRN Reason: Anxiety Ibuprofen [Motrin] 800 mg PO TID PRN PRN Reason: Pain Nitroglycerin Sl Tabs [Nitrostat] 0.4 mg SL Q5M PRN PRN Reason: Chest Pain Cyclobenzaprine [Flexeril] 10 mg PO HS Albuterol Inhaler [Ventolin Hfa Inhaler] 1 puff INHALATION RT-QID PRN PRN Reason: Shortness Of Breath Gabapentin [Neurontin] 400 mg PO TID Lidocaine 5% Patch [Lidoderm] 1 each TP DAILY PRN PRN Reason: Pain metFORMIN HCL [Glucophage] 500 mg PO BID Discharge Medication List Metoprolol Tartrate [Lopressor] 25 mg PO BID 12/01/14 [History] Montelukast [Singulair] 10 mg PO DAILY 12/01/14 [History] Multivitamins, Thera [Multivitamin (formulary)] 1 tab PO DAILY 03/07/19 [History] Atorvastatin [Lipitor] 40 mg PO HS 04/25/19 [History] buPROPion HCL [Wellbutrin SR] 150 mg PO BID 04/25/19 [History] hydroCHLOROthiazide [Hydrodiuril] 25 mg PO DAILY 04/25/19 [History] Tamsulosin [Flomax] 0.4 mg PO DAILY 03/25/20 [History] Aspirin 81 mg PO DAILY 04/23/20 [History] Budesonide-Formot 160-4.5 Mcg [Symbicort 160-4.5 Mcg Inhaler] 2 puff INHALATION BID 06/04/20 [History] ALPRAZolam [Xanax] 1 mg PO BID PRN 08/11/20 [History] Empagliflozin [Jardiance] 25 mg PO DAILY 08/11/20 [History] Ibuprofen [Motrin] 800 mg PO TID PRN 08/11/20 [History] Nitroglycerin Sl Tabs [Nitrostat] 0.4 mg SL Q5M PRN 08/11/20 [History] rOPINIRole HCL [Requip] 1 mg PO HS 08/11/20 [History] Semaglutide [Ozempic] 0.25 mg SQ FR 12/16/20 [History] Albuterol Inhaler [Ventolin Hfa Inhaler] 1 puff INHALATION RT-QID PRN 02/04/21 [History] Cyclobenzaprine [Flexeril] 10 mg PO HS 02/04/21 [History] Gabapentin [Neurontin] 400 mg PO TID 08/12/21 [History] Lidocaine 5% Patch [Lidoderm] 1 each TP DAILY PRN 03/21/22 [History] metFORMIN HCL [Glucophage] 500 mg PO BID 03/21/22 [History] Cyclobenzaprine [Flexeril] 5 mg PO TID #90 tablet 03/27/22 [Rx] Gabapentin [Neurontin] 400 mg PO TID #90 cap 03/27/22 [Rx] HYDROcodone/APAP 10-325MG [[place] 10-325] 1 tab PO Q4-6H PRN #56 tab 03/27/22 [Rx] Sennosides/Docusate Sodium [Senna Plus 8.6-50 mg Tablet] 1 each PO DAILY PRN #20 tablet 03/27/22 [Rx] cefaDROXiL [Duricef] 500 mg PO Q12HR 5 Days #10 cap 03/27/22 [Rx] Follow up Appointment(s)/Referral(s): [facility], [NON-STAFF] - Blue Estrella DO [Doctor of Osteopathic Medicine] - 2 Weeks Corinna Mares MD [Primary Care Provider] - 1 Week Activity/Diet/Wound Care/Special Instructions: Patient requested a Wheel Chair Van ride home [phone] Spine Discharge and Recovery Instructions Date of Surgery: 03/22/2022 Diagnosis: lumbar spondylosis with stenosis Procedure: L2 to pelvis decompression and fusion Medications: See medication list All medication refills should be obtained through your primary care doctor or your clinic spine surgeon. Please discuss prescription refills at your follow up appointment. Do not call the hospital for medication refills. Dressing: Leave your dressing in place for a total of 5 days post operatively. Then you may remove your dressing and leave open to air. Keep the area clean and if not able to keep area clean, then cover with sterile gauze and tape. Showering: You may shower 3 days after your procedure allowing soap and water to run over incision. Do not scrub. Do not soak. Blot dry. Follow up: Please confirm a follow up appointment with your surgeon 3 weeks post operatively. Please make an appointment to follow up with your PCP in 1-2 weeks after surgery for evaluation 3 phase, 3-week plan POST OP WEEKS 1-3 1. Lifting/carrying/pushing/pulling limited to less than 5 pounds. 2. Do not sit for longer than 15 minutes at one time. Get up and walk around. Prolonged sitting is NOT advised. If you lay down, see if you can tolerate laying down on you front (belly side) 3. Walk for periods of 15 minutes = 1 mile but no longer; do it multiple times times each day. 4. Ice your low back after activity. POST OP WEEKS 3-6 1. Lifting limited to less than 20 pounds. 2. Do not sit for longer than 30 minutes at a time. Frequently change positions. Use a sit-to stand workstation or take frequent breaks from sitting if you have returned to work. 3. Walk for 30 minutes each day. If possible, do these three or more times a day POST OP WEEKS 6+ At your 6-week appointment we will give you a physical therapy referral to focus on a core stabilization and strengthening program. You should also work on leg & buttock strengthening, hamstring & quadriceps stretching, and continue a low impact aerobic activity program such as swimming, walking, or riding a stationary bicycle. During the initial 6 weeks after your surgery, you are at the highest risk of re-injuring your spine. You should generally avoid BLTs (bending, lifting and twisting combination motions) and follow the above guidelines to reduce the chance of reinjury. You can anticipate post op appointments in our office at approximately 3 weeks and 6 weeks after your surgery. INCISION CARE: If your incision is not draining you do NOT need to cover it with a dressing. Keep your incision clean, dry and intact. In most cases, we apply skin glue, andrew or sutures to the incision at the time of surgery. This will be like a crust or have the appearance of a scab and will fall off in time on its own. The stitches or andrew need to be removed at 3 weeks post op appointment. You may begin to shower 3 days after surgery (this allows the glue to lopez well). However, please avoid scrubbing the incision site or peeling off any of the skin glue. This will ensure optimal healing of your incision. Also, during this time avoid soaking the incision area in water - this includes swimming pools, hot tubs or baths. No ointments, lotions or oils on the incision until your surgeon allows. Leave andrew, sutures or glue in place. Neurological dysfunction that comes on suddenly can also be a sign of a stroke. Below some common symptoms of a stroke are listed: B - balance difficulty such as sudden onset walking or leaning to one side - NEW E - eye problem such as sudden double vision or trouble seeing on one side - NEW F - Facial weakness or numbness on one side - NEW A - Arm or leg weakness or numbness on one side - NEW S - Slurred speech or difficulty with word finding - NEW T - Time is BRAIN! Call 911 as soon as you recognize these symptoms Diet: Consume a regular diet rich in vegetables and lean protein such as chicken or fish. You should consume in a ratio of approximately 20% fats|40% carbohydrates|40%protein. Vegetables, sweet potatoes, brown rice or quinoa are examples of good carbohydrates. Chips, white bread, cookies and sweets/sugar are examples of bad carbohydrates. Limit your bad carbs, go wild with good carbs. "Life's Simple 7" Guidelines as per [place] [employer] These will help you reclaim your life after surgery and furnace installer helper in your recovery, keeping in mind your restrictions. (1) Get Active. Physical activity can help people lose weight, control high blood pressure and cholesterol, feel emotionally better, and sleep better. (2) Control Cholesterol. Avoid a diet high in saturated fat, trans fat, & cholesterol. Limit whole milk & cream, ice cream, butter, egg yolks, processed meats (like sausage and hot dogs), and fatty meats. Choose healthy foods that are low in saturated fat, trans fat and cholesterol which include: Fruits and vegetables, fiber rich grain products (like whole grain pasta and brown rice), lean meat such as chicken, fish, nuts, seeds, and legumes. (3) Eat Better. Eat small portions. Shop at the grocery with a list and do not stray from it. Tips for a healthy diet include: Limit sodium intake to less than 1500mg daily, avoid prepackaged, processed, and fast foods, choose a diet rich in fruits, vegetables, and whole grain, high fiber foods, and limit saturated & cholesterol in your diet. (4) Manage Blood Pressure. If you have high blood pressure, you should have a cuff at home so that you can check your blood pressure regularly. Be sure you have a good cuff. An arm one is generally better than a wrist one. Bring the cuff to a doctor's appointment to validate that the measurements that your cuff are taking are accurate. Take your blood pressure twice daily when you are sitting down and relaxing. Record the numbers in a log and bring this log with you to your doctors' appointments. (5) Lose Weight if your BMI is above 25. A healthy BMI is between 19-25. To calculate Your BMI, you may use a Standard BMI Calculator on the NIH BMI website: <www.nhlbi.nih.gov/guidelines/obesity/BMI/bmicalc.htm>. Weigh oneself daily. If you are overweight, set a goal to lose weight. A pound a week loss if needed is a good target. (6) Reduce Blood Sugar. Limit foods and liquids with "added sugars." (Added sugars include sucrose, fructose, glucose, maltose, dextrose, high fructose corn syrup, corn syrup, concentrated fruit juice and honey). (7) Stop Smoking. If you smoke, quitting smoking is one of the best things that you can do for your health. Smoking increases your risk of heart attack, stroke, and peripheral vascular disease, which is a build-up of plaque in your arteries. Please discard all the cigarettes and lighters in your house. Have a plan for what you will do when you have the urge to smoke. Direct and second- hand smoke shortens your life as well as the lives of your family, friends and others around you. For your health and the health of those around you, please consider quitting! Proper Bending Body Mechanics: Maintain a wide stance with one foot slightly in front of the other. Keep your back straight. Bend utilizing the strength in your hips and knees. Do not bend at the waist. Maintain the lifted object at your waist-level close to your body. Avoid lifting weight that causes immediately pain or pain anywhere in the body afterwards. Smoking/Nicotine If there was ever one thing that you could do to increase your overall health, decrease your risk of cardiovascular problems by about 39% the second you make the choice, it is to STOP SMOKING. Your body's most instant gratification is the second you stop smoking. We have all heard the studies, read the articles but it is true, smoking is extremely bad for your overall health, and moreover it is detrimental to your bone health. Nicotine, IN ANY FORM, kills bone cells, prevents your body from healing fractures, and significantly prolongs healing after surgery. In spine surgery specifically, it increases your risk of not healing your bones to create a fusion and increases your risk of having a revision surgery due to this up to 60%. I know it is hard. I know it feels impossible. But there are ways. Take control of your life. We are here to help you through it. And when you are ready, ask us and we can direct you to help if you desire. Use the START Plan to Quit Smoking (please visit the Helpguide.org website listed below for more information): S = Set a quit date. Choose a date within the next 2 weeks, so you have enough time to prepare without losing your motivation to quit. If you mainly smoke at work, quit on the weekend, so you have a few days to adjust to the change. T = Tell family, friends, and co-workers that you plan to quit. Let your friends and family in on your plan to quit smoking and tell them you need their support and encouragement to stop. Look for a quit anirudh who wants to stop smoking as well. You can help each other get through the rough times. A = Anticipate and plan for the challenges you'll face while quitting. Most people who begin smoking again do so within the first 3 months. You can help yourself make it through by preparing ahead for common challenges, such as nicotine withdrawal and cigarette cravings. R = Remove cigarettes and other tobacco products from your home, car, and work. Throw away all your cigarettes (no emergency pack!), lighters, ashtrays, and matches. Wash your clothes and freshen up anything that smells like smoke. Shampoo your car, clean your drapes and carpet, and steam your furniture. T = Talk to your doctor about getting help to quit. Your doctor can prescribe medication to help with withdrawal and suggest other alternatives. If you can't see a doctor, you can get many products over the counter at your local pharmacy or grocery store, including the nicotine patch, nicotine lozenges, and nicotine gum. Resources for Quitting Smoking: <ht tps://www.[place].gov/documents/[facility]/Quit_Tobacco_Resources_for_patients_313480 _7.pdf> Supplementation: Take recommended dosages of Vitamin D and Calcium to help fortify your bones and help them to heal. See your health maintenance packet for dosages and recommended levels. DVT/VTE prophylaxis: You will be given compression stockings from the hospital. Wear these daily for the first two weeks after surgery. You may take them off at night. You may be prescribed a medication to help thin your blood. Take this as directed. If you are not prescribed this medication, early and frequent ambulation has been shown to be the best prophylaxis to deep vein thrombosis and sequelae related to this event. Discharge Disposition: HOME WITH HOME HEALTH SERVICES
--- NOTE | 2022-03-28 14:10 | P.PN ---
Subjective Progress Note Date: 03/27/22 Cliff Vaughn, is a 61-year-old male who was admitted to [facility] by Dr. Estrella and underwent L3-4 and L4-5 intradiscal osteotomy for deformity correction and L2-3 L3-4 L4-5 and L5-S1 posteriolateral and interbody fusions. Patient was admitted to the medical floor postoperatively consultation was requested for medical management while hospitalized. His past medical history is significant for history of coronary artery disease, with previous history of myocardial infarction and history of cardiac catheterization with angioplasty and stent placement history of COPD, history of diabetes mellitus, history of hypertension, history of hyperlipidemia. On 03/24/2022 patient was seen and examined on the medical floor he is alert and oriented 3 in no apparent distress there is no fever or chills no headache or dizziness no chest pain no shortness of breath no cough no nausea or vomiting no abdominal pain no diarrhea no blood in the stools oh burning with urination no frequency or urgency and no hematuria. Glucose level was significantly elevated at this time will add NovoLog sliding scale and Lantus 10 units at bedtime patient was counseled in regard to his diet and not to have his family bring him extra food from outside 03/25/2022 Patient Is seen in follow-up today currently sitting up at the side of the bed eating lunch. Patient with brace on and surgical site dressing with dried blood with no oozing or increased swelling or drainage noted around the site. Hemovac remains for now. Patient is continued on sliding scale and long acting and will continue. Recommend accuchecks achs. Patient is afebrile and denies chest pain or shortness of breath. Pain management per orthopedics. Liver functions elevated although trending down. Recommend outpatient labs in a week to monitor the trend. 03/26/2022 Patient is seen today and continues to have pain. Ortho evaluated the patient and keeping overnight for close observation and continued hemovac for now. appro x 120ml out last night. Encouraged increased activity as tolerated and continued IS use at least 10 times per hour while awake. Patient is tachy and continued on metoprolol. BP normotensive. Sodium is 133. Not on fluids. Recommend tight glycemic control. Home medications resumed. Patient is afebrile and denies chest pain or shortness of breath. No bowel movement as of yet. Stool softener as needed. 03/27/2022 next line Patient is seen in follow-up today reports his pain is controlled looking to go home today. Patient encouraged to continue monitoring blood sugars and bring home incentive spirometer and continue to use at least 10 times every hour while awake. Patient also encouraged and instructed to continue with metoprolol although water pill has been discontinued. Patient's blood pressures are normotensive and sodium continues to be low recommending outpatient follow-up with primary care provider and monitor blood pressures as well. Patient will be closely followed outpatient with orthopedics. Patient is stable for discharge today. Afebrile denies chest pain or shortness of breath. Review of systems: Constitutional: No reports of fatigue, fever, or chills Cardiovascular: No reports of chest pain or palpitations Respiratory: No reports of shortness of breath or cough GI: No reports of nausea, vomiting, or diarrhea : No reports of dysuria or retention Neurovascular: No reports of weakness , reports back pain that is currently managed All medications have been reviewed Physical exam: general patient is alert and oriented x 3 in no distress HEENT head normocephalic and atraumatic Neck is supple no JVD no goiter no lymphadenopathy no carotid bruit Chest examination is clear to auscultation no crackles no wheezing, some scattered rhonchi Cardiac exam reveals regular heart sounds S1 and S2 no gallops no murmurs, sinus tachy Abdomen is soft nontender no organomegaly with normal bowel sounds Extremity exam reveals no edema no cyanosis or clubbing Neurological examination reveals no gross focal deficits Assessment: Back pain, underwent L2 to S1 fusion history of Hypertension history of coronary artery disease Underlying history of hyperlipidemia history of COPD, not in exacerbation diabetes mellitus, type 2 uncontrolled with hyperglycemia Obesity with a BMI of 32.6 Plan: Recommend to continue with medications and management per orthopedics, continues with hemovac orthopedics to discuss removal or possible removal in the outpatient setting Recommend accuchecks achs and sliding scale along with long acting for now and okay to resume home medications once discharged Hydrodiuril discontinued, monitor blood pressure, continue metoprolol, recommend holding water pill for now and follow-up with primary care provider Incentive spirometer encouraged to use 10 times per hour while awake even while at home We will follow with orthopedics during hospitalization, thank you for this consultation Plan is for discharge today. The impression and plan of care has been dictated by Carolynn Ambar, Nurse Practitioner as directed. Dr. Sherman MD I have performed a history and examination and MDM of this patient, discussed the same with the dictator, and agree with the dictator's assessment and plan as written ,documented as a scribe. Based on total visit time, I have performed more than 50% of the visit. Objective - Vital Signs Vital signs: Vital Signs Temp 98.2 F 03/27/22 09:37 Pulse 97 03/27/22 09:41 Resp 18 03/27/22 09:41 BP 109/57 03/27/22 09:37 Pulse Ox 96 03/27/22 09:37 FiO2 Intake & Output 03/27/22 03/28/22 03/28/22 18:59 06:59 18:59 Intake Total 540 Balance 540 Intake: Oral 540 Other: Voiding Method Urinal - Labs CBC & Chem 7: 03/26/22 09:50 03/26/22 09:50
== END 2022-03-27 11:45 | disposition home health service (06) | DRG 455 ==
LOC: 2ORMAIN 08:51 → 5NMEDONC 18:47 → 3SCARD 19:11
PROVIDERS: ADMIT Orthopaedic Surgery; ATTEND Orthopaedic Surgery
PROC: 0SG10AJ Fusion of 2 or more Lumbar Vertebral Joints with Interbody Fusion Device, Posterior Approach, Anterior Column, Open Approach (ICD-10-PCS; 2022-03-22)
PROC: 01NR0ZZ Release Sacral Nerve, Open Approach (ICD-10-PCS; 2022-03-22)
PROC: 01NB0ZZ Release Lumbar Nerve, Open Approach (ICD-10-PCS; 2022-03-22)
PROC: 0SG3071 Fusion of Lumbosacral Joint with Autologous Tissue Substitute, Posterior Approach, Posterior Column, Open Approach (ICD-10-PCS; 2022-03-22)
PROC: 0SG1071 Fusion of 2 or more Lumbar Vertebral Joints with Autologous Tissue Substitute, Posterior Approach, Posterior Column, Open Approach (ICD-10-PCS; principal; 2022-03-22 10:45)
DX: M47.26 Other spondylosis with radiculopathy, lumbar region (principal); E11.42 Type 2 diabetes mellitus with diabetic polyneuropathy; I10 Essential (primary) hypertension; J44.9 Chronic obstructive pulmonary disease, unspecified; E66.9 Obesity, unspecified; E11.65 Type 2 diabetes mellitus with hyperglycemia; Z68.32 Body mass index [BMI] 32.0-32.9, adult; M48.062 Spinal stenosis, lumbar region with neurogenic claudication; M47.27 Other spondylosis with radiculopathy, lumbosacral region; M48.07 Spinal stenosis, lumbosacral region; M25.78 Osteophyte, vertebrae; E78.5 Hyperlipidemia, unspecified; I25.10 Atherosclerotic heart disease of native coronary artery without angina pectoris; R91.8 Other nonspecific abnormal finding of lung field; G89.29 Other chronic pain; J30.1 Allergic rhinitis due to pollen; G47.9 Sleep disorder, unspecified; Z28.311 Partially vaccinated for COVID-19; Z95.5 Presence of coronary angioplasty implant and graft; I25.2 Old myocardial infarction; Z86.73 Personal history of transient ischemic attack (TIA), and cerebral infarction without residual deficits; Z87.891 Personal history of nicotine dependence; Z79.51 Long term (current) use of inhaled steroids; Z79.84 Long term (current) use of oral hypoglycemic drugs; Z79.82 Long term (current) use of aspirin; Z88.8 Allergy status to other drugs, medicaments and biological substances; Z88.2 Allergy status to sulfonamides; Z91.030 Bee allergy status; Z91.048 Other nonmedicinal substance allergy status; Z79.899 Other long term (current) drug therapy
CPT/HCPCS: 72100; 72131; 80048; 80053; 83036; 85025; 86850; 86900; 86901; 94640; 94760

== ENCOUNTER 2022-05-31 13:25 | Emergency (ER) | payer MEDICARE, OTHER ==
[2022-05-31 13:40] VITALS: TEMP 97.2
[2022-05-31] MEDS ORDERED: ONDANSETRON 4 MG/2 ML VIAL IVP STA (13:54)
[2022-05-31] MEDS ORDERED: HYDROmorphone 0.5 MG/0.5 ML SYRINGE IVP STA ×2 (13:54→16:30)
--- NOTE | 2022-05-31 15:52 | ED ---
General Adult HPI - General Chief complaint: Back Pain/Injury Stated complaint: back pain Time Seen by Provider: 05/31/22 13:32 Source: EMS, RN notes reviewed Mode of arrival: EMS Limitations: no limitations - History of Present Illness Initial comments: 62-year-old male presents to the emergency department with a chief complaint of fall. He notes that he fell from ground level onto cement steps onto his lower back. Denies hitting his head, any loss of consciousness, any anticoagulant use.. He does report a recent laminectomy performed by Dr. August office around 03/22/2023. He is complaining of low back pain that is tender to palpation. He denies any headache, vision changes patient nausea, vomiting, chest pain, palpitations, shortness of breath. He reports that he takes [place] 7.5mg for his pain. - Related Data Home Medications Medication Instructions Recorded Confirmed Metoprolol Tartrate [Lopressor] 25 mg PO BID 12/01/14 05/31/22 Montelukast [Singulair] 10 mg PO DAILY 12/01/14 05/31/22 Multivitamins, Thera [Multivitamin 1 tab PO DAILY 03/07/19 05/31/22 (formulary)] Atorvastatin [Lipitor] 40 mg PO HS 04/25/19 05/31/22 buPROPion HCL [Wellbutrin SR] 150 mg PO BID 04/25/19 05/31/22 Tamsulosin [Flomax] 0.4 mg PO DAILY 03/25/20 05/31/22 Aspirin 81 mg PO DAILY 04/23/20 05/31/22 Budesonide-Formot 160-4.5 Mcg 2 puff INHALATION RT-BID 06/04/20 05/31/22 [Symbicort 160-4.5 Mcg Inhaler] ALPRAZolam [Xanax] 1 mg PO BID PRN 08/11/20 05/31/22 Empagliflozin [Jardiance] 25 mg PO DAILY 08/11/20 05/31/22 Ibuprofen [Motrin] 800 mg PO BID PRN 08/11/20 05/31/22 Nitroglycerin Sl Tabs [Nitrostat] 0.4 mg SL Q5M PRN 08/11/20 05/31/22 rOPINIRole HCL [Requip] 1 mg PO HS 08/11/20 05/31/22 Semaglutide [Ozempic] 0.5 mg SQ FR 12/16/20 05/31/22 Albuterol Inhaler [Ventolin Hfa 1 puff INHALATION RT-QID PRN 02/04/21 05/31/22 Inhaler] Cyclobenzaprine [Flexeril] 10 mg PO BID PRN 02/04/21 05/31/22 hydroCHLOROthiazide [Hydrodiuril] 25 mg PO DAILY 05/31/22 05/31/22 metFORMIN HCL ER [Glucophage XR] 500 mg PO BID 05/31/22 05/31/22 Previous Rx's Medication Instructions Recorded Gabapentin [Neurontin] 400 mg PO TID #90 cap 03/27/22 HYDROcodone/APAP 10-325MG [[place] 1 tab PO Q4-6H PRN #56 tab 03/27/22 10-325] HYDROcodone/APAP 10-325MG [[place] 1 tab PO Q6HR PRN 3 Days #12 tab 05/31/22 10-325] Allergies Allergy/AdvReac Type Severity Reaction Status Date / Time grass pollen Allergy Itching Verified 05/31/22 15:21 lisinopril Allergy Itching,SOB Verified 05/31/22 15:21 menthol Allergy Dyspnea Verified 05/31/22 15:21 Sulfa (Sulfonamide Allergy Unknown Verified 05/31/22 15:21 Antibiotics) Childhood venom-wasp Allergy Anaphylaxis Verified 05/31/22 15:21 (Hornet) Review of Systems ROS Statement: Those systems with pertinent positive or pertinent negative responses have been documented in the HPI. ROS Other: All systems not noted in ROS Statement are negative. Past Medical History Past Medical History: Asthma, Coronary Artery Disease (CAD), Cancer, Chest Pain / Angina, COPD, CVA/TIA, Diabetes Mellitus, GERD/Reflux, Hyperlipidemia, Hypertension, Memory Impairment, Myocardial Infarction ([place]), Musculoskeletal Disorder, Osteoarthritis (OA) Additional Past Medical History / Comment(s): Degenerative Disc Disease. Hx TIA with continued memory loss. O2 use PRN and at night (2L). Hx skin cancer. Lung nodules. Chronic back pain. Current hernias that need repair. Neuropathy in bilateral legs and feet. Last Myocardial Infarction Date:: History of Any Multi-Drug Resistant Organisms: None Reported Past Surgical History: Appendectomy, Back Surgery, Heart Catheterization With Stent, Hernia Repair, Orthopedic Surgery Additional Past Surgical History / Comment(s): Right wrist surgery, neck surgery with 2 screws, colonosopy, ORIF left ankle with willard and screws, two cardiac stents, umbilical hernia repair, has mesh with hernia repair right side of abdomen, right hand carpal tunnel surgery. Past Anesthesia/Blood Transfusion Reactions: No Reported Reaction Additional Past Anesthesia/Blood Transfusion Reaction / Comment(s): CLAUSTROPHOBIA. Date of Last Stent Placement:: 03-08-2018 Past Psychological History: Anxiety, Depression Smoking Status: Current some day smoker - Past Family History Father Family Medical History: Cancer Sister(s) Family Medical History: Deep Vein Thrombosis (DVT) Mother Family Medical History: Cancer, Deep Vein Thrombosis (DVT) General Exam Limitations: no limitations General appearance: alert, in no apparent distress Head exam: Present: atraumatic, normocephalic, normal inspection Eye exam: Present: normal appearance, PERRL, EOMI. Absent: scleral icterus, conjunctival injection, periorbital swelling ENT exam: Present: normal exam, mucous membranes moist Neck exam: Present: normal inspection. Absent: tenderness, meningismus, lymphadenopathy Respiratory exam: Present: normal lung sounds bilaterally. Absent: respiratory distress, wheezes, rales, rhonchi, stridor Cardiovascular Exam: Present: regular rate, normal rhythm, normal heart sounds. Absent: systolic murmur, diastolic murmur, rubs, gallop, clicks GI/Abdominal exam: Present: soft, normal bowel sounds. Absent: distended, tenderness, guarding, rebound, rigid Extremities exam: Present: normal inspection, full ROM, normal capillary refill. Absent: tenderness, pedal edema, joint swelling, calf tenderness Back exam: Present: normal inspection, tenderness (L paraspinal tenderness, no step off, no crepitis ) Neurological exam: Present: alert, oriented X3, CN II-XII intact Psychiatric exam: Present: normal affect, normal mood Skin exam: Present: warm, dry, intact, normal color. Absent: rash Course Vital Signs 05/31/22 05/31/22 13:30 16:41 Temperature 97.2 F L Pulse Rate 105 H 66 Respiratory 20 22 Rate Blood Pressure 132/75 127/83 O2 Sat by Pulse 97 98 Oximetry Medical Decision Making - Medical Decision Making Was pt. sent in by a medical professional or institution (OSMAN Clark, ELECTRICAL HARDWARE ENGINEER, urgent care, hospital, or [facility]...) When possible be specific @ -[No] Did you speak to anyone other than the patient for history (EMS, parent, family, police, friend...)? What history was obtained from this source @ -[No] Did you review nursing and triage notes (agree or disagree)? Why? @ -[I reviewed and agree with nursing and triage notes] Were old charts reviewed (outside hosp., previous admission, EMS record, old EKG, old radiological studies, urgent care reports/EKG's, [facility] records)? Report findings @ -[No old charts were reviewed] Differential Diagnosis (chest pain, altered mental status, abdominal pain women, abdominal pain men, vaginal bleeding, weakness, fever, dyspnea, syncope, heada stephane, dizziness, GI bleed, back pain, seizure, CVA, palpatations, mental health)? @ -[not applicable] EKG interpreted by me (3pts min.). @ -[As above] X-rays interpreted by me (1pt min.). @ -[None done] CT interpreted by me (1pt min.). @ -CT negative for evidence of fracture, laminectomy hardware remains intact. U/S interpreted by me (1pt. min.). @ -[None done] What testing was considered but not performed or refused? (CT, X-rays, U/S, labs)? Why? @ -[None] What meds were considered but not given or refused? Why? @ -[None] Did you discuss the management of the patient with other professionals (professionals i.e. OSMAN Clark, ELECTRICAL HARDWARE ENGINEER, lab, RT, psych nurse, socially responsible investment adviser, mechanic sound technician, teacher, compliance officer, case management social worker)? Give summary @ -[No] Was smoking cessation discussed for >3mins.? @ -[No] Was critical care preformed (if so, how long)? @ -[No] Were there social determinants of health that impacted care today? How? (Homelessness, low income, unemployed, alcoholism, drug addiction, transportation, low edu. Level, literacy, decrease access to med. care, skilled nursing, rehab)? @ -[No] Was there de-escalation of care discussed even if they declined (Discuss DNR or withdrawal of care, Hospice)? DNR status @ -[No] What co-morbidities impacted this encounter? (DM, HTN, Smoking, COPD, CAD, Cancer, CVA, ARF, Chemo, Hep., AIDS, mental health diagnosis, sleep apnea, morbid obesity)? @ -[None] Was patient admitted / discharged? Hospital course, mention meds given and route, prescriptions, significant lab abnormalities, going to OR and other pertinent info. @ -62-year-old male presents to the emergency department with low back pain. Patient had a history and physical performed. Physical exam is essentially unremarkable heart rate regular rate and rhythm, lung sounds clear to auscultation bilaterally abdomen soft and nontender. Patient was given a prescription for [place] and encouraged to follow up with her primary care in 1-2 days. Patient verbalized all understanding and all questions were addressed. Patient was discharged in stable condition with return precautions discussed. I discussed the case with Dr. Padilla Genoveva who agrees and agrees with the plan of care. Undiagnosed new problem with uncertain prognosis? @ -[No] Drug Therapy requiring intensive monitoring for toxicity (Heparin, Nitro, Insulin, Cardizem)? @ -[No] Were any procedures done? @ -[No] Diagnosis/symptom? @ -Low back pain - mechanical fall Acute, or Chronic, or Acute on Chronic? @ -acute Uncomplicated (without systemic symptoms) or Complicated (systemic symptoms)? @ -uncomplicated Side effects of treatment? @ -[No] Exacerbation, Progression, or Severe Exacerbation? @ -[No] Poses a threat to life or bodily function? How? (Chest pain, [place], [place], pneumonia, PE, COPD, DKA, ARF, appy, cholecystitis, CVA, Diverticulitis, Homicidal, Suicidal, threat to staff... and all critical care pts) @ -[No] Disposition Clinical Impression: Strain of lumbar region, Fall Disposition: HOME SELF-CARE Condition: Stable Instructions (If sedation given, give patient instructions): Acute Low Back Pain (ED) Additional Instructions: Please return to the nearest emergency department if symptoms worsen or persist. Prescriptions: HYDROcodone/APAP 10-325MG [[place] 10-325] 1 tab PO Q6HR PRN 3 Days #12 tab PRN Reason: Pain Is patient prescribed a controlled substance at d/c from ED?: No Referrals: Corinna Mares MD [Primary Care Provider] - 1-2 days Blue Estrella DO [Doctor of Osteopathic Medicine] - 1-2 days Time of Disposition: 16:50
--- NOTE | 2022-05-31 16:26 | CT ---
EXAMINATION TYPE: CT thor lumbar spine wo con DATE OF EXAM: 05/31/2022 COMPARISON: 03/23/2022 HISTORY: back pain, fall, recent surgery CT DLP: 2488.4 mGycm Automated exposure control for dose reduction was used. Unenhanced CT of the thoracic and lumbar spin es was performed. FINDINGS: I do not see evidence for fracture or malalignment. Moderate multilevel degenerative disc space narro wing and spondylosis thoracic spine. Changes of decompressive laminectomy lumbar spine with normal a lignment. IMPRESSION: NO EVIDENCE FOR FRACTURE OR MALALIGNMENT.
[2022-05-31 16:43] VITALS: BP 127/83; PULSE 66; RESP 22
== END 2022-05-31 17:00 | disposition home or self-care (01) ==
LOC: EC 13:25
DX: S39.012A Strain of muscle, fascia and tendon of lower back, initial encounter (principal); J44.9 Chronic obstructive pulmonary disease, unspecified; I10 Essential (primary) hypertension; I25.10 Atherosclerotic heart disease of native coronary artery without angina pectoris; E11.40 Type 2 diabetes mellitus with diabetic neuropathy, unspecified; E78.5 Hyperlipidemia, unspecified; F32.A Depression, unspecified; F41.9 Anxiety disorder, unspecified; I25.2 Old myocardial infarction; K21.9 Gastro-esophageal reflux disease without esophagitis; M19.90 Unspecified osteoarthritis, unspecified site; F17.200 Nicotine dependence, unspecified, uncomplicated; Z79.51 Long term (current) use of inhaled steroids; Z79.82 Long term (current) use of aspirin; Z79.84 Long term (current) use of oral hypoglycemic drugs; Z79.899 Other long term (current) drug therapy; Z88.8 Allergy status to other drugs, medicaments and biological substances; Z88.2 Allergy status to sulfonamides; Z88.1 Allergy status to other antibiotic agents; W10.9XXA Fall (on) (from) unspecified stairs and steps, initial encounter
CPT/HCPCS: 72128; 72131; 99284; 96374; 96375; 96376; J2405; J1170

== ENCOUNTER → 2022-12-09 | Outpatient (CLI) | payer MEDICARE, OTHER ==
[2022-12-09 21:03] LABS: Basophils # (A) 0.06 X 10*3/uL (0.00-0.10); Basophils % (A) 0.4 %; Eosinophils # (A) 0.21 X 10*3/uL (0.04-0.35); Eosinophils % (A) 1.5 %; HCT 51.6 % (39.6-50.0); HGB 16.3 d/dL (13.0-17.0); Lymphocytes % (A) 14.1 %; MCH 26.5 pg (27.0-32.0); MCHC 31.6 d/dL (32.0-37.0); Mean Platelet Volume 10.4 FL (9.5-12.2); Monocytes # (A) 1.08 X 10*3/uL (0.20-1.00); Monocytes % (A) 7.6 %; NRBC Per 100 WBC 0 X 10*3/uL (0.00-0.01); Neutrophils # (A) 10.71 X 10*3/uL (1.80-7.70); Neutrophils % (A) 75.8 %; Platelet Count 361 X 10*3/uL (140-440); RBC 6.14 X 10*6/uL (4.40-5.60); WBC 14.14 X 10*3/uL (4.50-10.00)
[2022-12-09 21:04] LABS: Blood Urea Nitrogen 13.8 mg/dL (9.0-27.0); Calcium 10.3 mg/dL (8.7-10.3); Carbon Dioxide 29.3 mmol/L (21.6-31.8); Chloride 101 mmol/L (96-109); Glucose 119 mg/dL (70-110); Potassium 4.9 mmol/L (3.5-5.5); Sodium 142 mmol/L (135-145)
== END | disposition home or self-care (01) ==
LOC: LABWHC1 13:44
PROVIDERS: ATTEND Urology
DX: Z01.818 Encounter for other preprocedural examination (principal); D49.4 Neoplasm of unspecified behavior of bladder
CPT/HCPCS: 36415; 80048; 85025

== ENCOUNTER 2022-12-15 13:40 | Day surgery (SDC) | payer MEDICARE, OTHER ==
--- NOTE | 2022-12-11 19:14 | P.GSHP ---
History of Present Illness H&P Date: 12/11/22 Chief Complaint: Hematuria Patient is a 62-year-old white male with recent hematuria. He is color-blind and is therefore not certain whether or not gross hematuria was present. He was treated for an enterococcus UTI in October 2022. A CT scan showed a large left renal cyst and right sided bladder lesion. Cystoscopy confirmed this to be a 2- 3 cm tumor cephalad to the right ureteral orifice. - Constitutional Constitutional: Reports fatigue - Cardiovascular Cardiovascular: Reports high blood pressure - Gastrointestinal Gastrointestinal: Reports heartburn - Genitourinary (Male) Genitourinary: Reports hematuria, Reports urinary frequency - Psychiatric Psychiatric: Reports change in appetite, Reports depression - Endocrine Endocrine: Reports excessive sweating, Reports excessive thirst Past Medical History Past Medical History: Asthma, Coronary Artery Disease (CAD), Cancer, Chest Pain / Angina, COPD, CVA/TIA, Diabetes Mellitus, GERD/Reflux, Hyperlipidemia, Hypertension, Memory Impairment, Myocardial Infarction ([place]), Musculoskeletal Disorder, Osteoarthritis (OA) Additional Past Medical History / Comment(s): Degenerative Disc Disease. Hx TIA with continued memory loss. O2 use PRN and at night (2L). Hx skin cancer. Lung nodules. Chronic back pain. Current hernias that need repair. Neuropathy in bilateral legs and feet. Last Myocardial Infarction Date:: History of Any Multi-Drug Resistant Organisms: None Reported Past Surgical History: Appendectomy, Back Surgery, Heart Catheterization With Stent, Hernia Repair, Orthopedic Surgery Additional Past Surgical History / Comment(s): Right wrist surgery, neck surgery with 2 screws, colonosopy, ORIF left ankle with willard and screws, two cardiac stents, umbilical hernia repair, has mesh with hernia repair right side of abdomen, right hand carpal tunnel surgery. Past Anesthesia/Blood Transfusion Reactions: No Reported Reaction Additional Past Anesthesia/Blood Transfusion Reaction / Comment(s): CLAUSTROPHOBIA. Date of Last Stent Placement:: 03-08-2018 Smoking Status: Current some day smoker - Past Family History Father Family Medical History: Cancer Sister(s) Family Medical History: Deep Vein Thrombosis (DVT) Mother Family Medical History: Cancer, Deep Vein Thrombosis (DVT) Medications and Allergies Home Medications Medication Instructions Recorded Confirmed Type Metoprolol Tartrate [Lopressor] 25 mg PO BID 12/01/14 12/09/22 History Montelukast [Singulair] 10 mg PO DAILY 12/01/14 12/09/22 History Multivitamins, Thera [Multivitamin 1 tab PO DAILY 03/07/19 12/09/22 History (formulary)] Atorvastatin [Lipitor] 40 mg PO HS 04/25/19 12/09/22 History buPROPion HCL [Wellbutrin SR] 150 mg PO BID 04/25/19 12/09/22 History Tamsulosin [Flomax] 0.4 mg PO DAILY 03/25/20 12/09/22 History Aspirin 81 mg PO DAILY 04/23/20 12/09/22 History Budesonide-Formot 160-4.5 Mcg 2 puff INHALATION RT-BID 06/04/20 12/09/22 History [Symbicort 160-4.5 Mcg Inhaler] ALPRAZolam [Xanax] 1 mg PO BID PRN 08/11/20 12/09/22 History Empagliflozin [Jardiance] 25 mg PO DAILY 08/11/20 12/09/22 History Ibuprofen [Motrin] 800 mg PO BID PRN 08/11/20 12/09/22 History Nitroglycerin Sl Tabs [Nitrostat] 0.4 mg SL Q5M PRN 08/11/20 12/09/22 History rOPINIRole HCL [Requip] 1 mg PO HS 08/11/20 12/09/22 History Semaglutide [Ozempic] 0.5 mg SQ FR 12/16/20 12/09/22 History Albuterol Inhaler [Ventolin Hfa 1 puff INHALATION RT-QID PRN 02/04/21 12/09/22 History Inhaler] Cyclobenzaprine [Flexeril] 10 mg PO BID PRN 02/04/21 12/09/22 History Gabapentin [Neurontin] 400 mg PO TID #90 cap 03/27/22 12/09/22 Rx HYDROcodone/APAP 10-325MG [[place] 1 tab PO Q6HR PRN 3 Days #12 tab 05/31/22 12/09/22 Rx 10-325] hydroCHLOROthiazide [Hydrodiuril] 25 mg PO DAILY 05/31/22 12/09/22 History metFORMIN HCL ER [Glucophage XR] 500 mg PO BID 05/31/22 12/09/22 History Allergies Allergy/AdvReac Type Severity Reaction Status Date / Time grass pollen Allergy Itching Verified 12/09/22 10:54 lisinopril Allergy Itching,SOB Verified 12/09/22 10:54 menthol Allergy Dyspnea Verified 12/09/22 10:54 Sulfa (Sulfonamide Allergy Unknown Verified 12/09/22 10:54 Antibiotics) Childhood venom-wasp Allergy Anaphylaxis Verified 12/09/22 10:54 (Hornet) Surgical - Exam - General well developed, well nourished, no distress - Respiratory normal respiratory effort - Abdomen Abdomen: soft, non tender, no guarding, no rigid, no rebound - Genitourinary normal penis with no external lesions, testicles non-tender - Psychiatric oriented to time, oriented to person, oriented to place, speech is normal, memory intact Results - Imaging CT scan - abdomen: report reviewed Assessment and Plan (1) Neoplasm of unspecified behavior of bladder Status: Acute Code(s): D49.4 - NEOPLASM OF UNSPECIFIED BEHAVIOR OF BLADDER SNOMED Code(s): 806166288 Plan: Cystoscopy, transurethral resection of bladder tumor. The procedure has been reviewed in detail with the patient. He has been made aware of potential risks, which include anesthesia, bleeding, infection, postoperative urinary retention, and bladder perforation. 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
[2022-12-15] MEDS ORDERED: GEMCITABINE HCL 1,000 MG in SODIUM CHLORIDE 0.9% 40 ML, EMPTY SYRINGE 1 SYR MISCELLANE ONE ×4 (14:00)
[2022-12-15] MEDS ORDERED: LACTATED RINGERS 1,000 ML IV ONE ×2 (14:14→17:31)
[2022-12-15] MEDS ORDERED: ONDANSETRON 4 MG/2 ML VIAL ONE (14:32)
[2022-12-15] MEDS ORDERED: ONDANSETRON 4 MG/2 ML VIAL IVP ONE (14:35)
[2022-12-15 14:38] LABS: Glucose,Whole Blood 186 mg/dL (70-110)
[2022-12-15] MEDS ORDERED: PROPOFOL 10 MG/ML 20 ML VIAL IV ONE (16:29)
[2022-12-15] MEDS ORDERED: GLYCOPYRROLATE 0.2 MG/ML 2 ML VIAL ONE (16:29)
[2022-12-15] MEDS ORDERED: LIDOCAINE 2% INJ 20 MG/ML (2 ML VIAL) ONE (16:29)
[2022-12-15] MEDS ORDERED: SUCCINYLCHOLINE CHLORIDE 200 MG/10 ML VIAL IV ONE (16:29)
[2022-12-15] MEDS ORDERED: NEOSTIGMINE 1 MG/ML 10 ML VIAL ONE (16:29)
[2022-12-15] MEDS ORDERED: MIDAZOLAM 2 MG/2 ML VIAL ONE (16:29)
[2022-12-15] MEDS ORDERED: fentaNYL (PF) 50 MCG/ML 2 ML AMP ONE (16:29)
[2022-12-15] MEDS ORDERED: ROCURONIUM 10 MG/ML (5 ML VIAL) IV ONE (16:29)
[2022-12-15] MEDS ORDERED: PHENYLEPHRINE-0.9% NACL SYG 1,000 MCG/10 ML SYRINGE ONE (16:29)
--- NOTE | 2022-12-15 17:44 | P.OP ---
Date of Procedure: 12/15/22 Preoperative Diagnosis: Bladder tumor Postoperative Diagnosis: Same Procedure(s) Performed: Cystoscopy, transurethral resection of bladder tumor (medium), selective bladder biopsies, instillation of intravesical gemcitabine Anesthesia: DELBERT Surgeon: Ramón Platt Estimated Blood Loss (ml): 30 IV fluids (ml): 900 Pathology: other (Right posterior bladder wall tumor. Bladder biopsies (right lateral bladder wall, left lateral bladder wall, bladder dome)) Condition: stable Disposition: PACU Indications for Procedure: Patient is a 62-year-old white male with recent hematuria. He is color-blind and is therefore not certain whether or not gross hematuria was present. He was treated for an enterococcus UTI in October 2022. A CT scan showed a large left renal cyst and right sided bladder lesion. Cystoscopy confirmed this to be a 2- 3 cm tumor cephalad to the right ureteral orifice. Operative Findings: 3 cm papillary tumor with solid elements cephalad to right ureteral orifice. Description of Procedure: The patient was taken in the operating room and placed in the dorsal lithotomy position, with his legs supported in Alfredito stirrups. The external genitalia was prepped and draped sterilely. The 25-[place] ACMI resectoscope sheath was introduced into the bladder under direct vision. The bladder was inspected. Both ureteral orifices were of normal anatomic location and configuration, and clear urine effluxed from both. The entire bladder was examined, revealing a 3 cm papillary tumor cephalad to the right ureteral orifice. No tumors were seen elsewhere in the bladder, though the mucosa did not look entirely normal. The prostate was visually occluded with a trilobar configuration. Using the cutting loop, the tumor was resected down to the muscle. Excellent hemostasis was attained. There was no evidence of bladder perforation. The right ureteral orifice was not resected. The resected tissue was saved and sent for pathologic examination. The resectoscope was removed, and the 22-Slov[place] Stortz cystoscopic sheath was introduced into the bladder under direct vision. Using the cold cup biopsy forceps, mucosal biopsies were obtained from the right lateral wall, left lateral wall, and bladder dome. The cystoscope was exchanged for the resectoscope, which was used to fulgurate the biopsy sites. The resectoscope was then removed. An 18-[place] Draper catheter was inserted. The return was clear. After draining the bladder, 2 g of gemcitabine was instilled into the bladder. The catheter was plugged. The patient tolerated the procedure well and was taken to the recovery room in stable condition.
[2022-12-15 17:53] VITALS: TEMP 98.1
[2022-12-15 18:02] VITALS: RESP 16
[2022-12-15 18:05] LABS: Glucose,Whole Blood 148 mg/dL (70-110)
[2022-12-15 18:25] VITALS: BP 146/71; PULSE 72
== END 2022-12-15 20:47 | disposition home or self-care (01) ==
LOC: OR 13:40 → 4SSUR 17:36 → 5NMEDONC 17:37 → OR 20:47
PROVIDERS: ATTEND Urology
DX: D49.4 Neoplasm of unspecified behavior of bladder (principal); J45.909 Unspecified asthma, uncomplicated; I25.10 Atherosclerotic heart disease of native coronary artery without angina pectoris; E11.9 Type 2 diabetes mellitus without complications; E78.5 Hyperlipidemia, unspecified; K21.9 Gastro-esophageal reflux disease without esophagitis; I10 Essential (primary) hypertension; I25.2 Old myocardial infarction; F17.200 Nicotine dependence, unspecified, uncomplicated; G89.29 Other chronic pain; Z90.49 Acquired absence of other specified parts of digestive tract; Z95.5 Presence of coronary angioplasty implant and graft; Z79.82 Long term (current) use of aspirin; Z79.84 Long term (current) use of oral hypoglycemic drugs; Z79.899 Other long term (current) drug therapy
CPT/HCPCS: 88305; 88307; 52235; J2250; J0330; J2710; J0690; J2405; J3010; J2704; J2001; J2371

== ENCOUNTER 2023-03-01 08:07 | Day surgery (SDC) | payer MEDICARE, OTHER ==
[2023-03-01] MEDS ORDERED: diazePAM 5 MG TAB PO STA (08:43)
[2023-03-01 09:22] VITALS: TEMP 97.5
[2023-03-01] MEDS ORDERED: HYDROcodone/APAP 5-325MG 1 EACH TAB PO PRN (10:03)
--- NOTE | 2023-03-01 10:59 | FL ---
EXAMINATION TYPE: FL myelogram 2 or more regions DATE OF EXAM: 03/01/2023 10:32 AM HISTORY: Lower extremity pain and numbness Informed consent was obtained and all the patient's questions were answered. The L3-L4 level was loc alized under fluoroscopy. Standard sterile technique was utilized as well as appropriate local anest hesia 1% Lidocaine and sodium bicarbonate. Spinal needle was introduced into the thecal sac under fl uoroscopic guidance and ISOVUE M300 10ml followed by ISOVUE M200 15ml was injected. The patient daisy rated the procedure well and left the department in stable condition. CT myelography is to follow. IMPRESSION: Successful myelography
--- NOTE | 2023-03-01 11:05 | CT ---
EXAMINATION TYPE: CT thor lumbar spine w con DATE OF EXAM: 03/01/2023 COMPARISON: 05/31/2022 HISTORY: Pain CONTRAST: Post myelography CT was performed of the thoracic and lumbar spines. Imaging was performed in the axi al, coronal and sagittal planes. Thoracic spine: The spinal canal is congenitally small in appearance. There is a mild to moderate multilevel degenera tive disc disease throughout the thoracic spine with minimal disc bulging noted at several levels how ever there is no evidence for herniation or central stenosis. Scattered ventral spondylosis seen. No evidence for fracture or malalignment. No bony destructive process is identified. The visualized lung s demonstrate fibrotic changes. Lumbar spine: L1-L2: There is evidence of vacuum disc. Circumferential disc bulges noted mild effacement ventral th ecal sac. No evidence for herniation or central stenosis. Foramina appear to be patent bilaterally. L2-L3: Decompressive laminectomy change with extensive streak artifact. Intervertebral spacer is in p lace. Normal-appearing postoperative alignment. Nondiagnostic evaluation of the thecal sac. L3-L4: Decompressive laminectomy change with extensive streak artifact. Pedicular screws and interver tebral body spacer noted. Postoperative alignment appears to be near-anatomic. No evidence for defini te recurrent or residual disease. L4-L5: Decompressive laminectomy change with extensive streak artifact. Pedicular screws and interver tebral body spacer noted. Postoperative alignment appears to be near-anatomic. No evidence for defini te recurrent or residual disease. L5-S1: Decompressive laminectomy change with extensive streak artifact. Pedicular screws and interver tebral body spacer noted. Postoperative alignment appears to be near-anatomic. No evidence for defini te recurrent or residual disease. IMPRESSION: 1. Decompressive laminectomy with fusion extending from L2-3 through L5-S1. Portions of the study dem onstrate extensive streak artifact limiting evaluation. No definite evidence for recurrent process ho wever is seen. 2. Degenerative disc disease and spondylosis minimal disc bulging throughout the thoracic spine. Spin al canal is congenitally diminutive in size however there is no evidence for herniation or stenosis. 3. Pulmonary fibrosis.
[2023-03-01 11:44] VITALS: RESP 16
[2023-03-01 12:48] VITALS: BP 110/62; PULSE 76
== END 2023-03-01 13:55 | disposition home or self-care (01) ==
LOC: RADPROMAIN 08:07
PROVIDERS: ATTEND Orthopaedic Surgery
DX: M47.814 Spondylosis without myelopathy or radiculopathy, thoracic region (principal); J84.10 Pulmonary fibrosis, unspecified
CPT/HCPCS: 62305; 72129; 72132; Q9966; Q9967

== ENCOUNTER → 2023-10-12 | Outpatient (CLI) | payer MEDICARE, OTHER | END | disposition home or self-care (01) | LOC: RADMRIMAIN 12:32 | PROVIDERS: ATTEND Orthopaedic Surgery | DX: M54.16 Radiculopathy, lumbar region (principal) ==

== ENCOUNTER → 2023-11-02 | Outpatient (CLI) | payer MEDICARE, OTHER ==
--- NOTE | 2023-11-02 20:02 | MR ---
EXAMINATION TYPE: MR lumbar spine wo con DATE OF EXAM: 11/02/2023 COMPARISON: CT thoracic and lumbar spine March 01, 2023. HISTORY: Low back pain into both legs, Hx back surgery Mar 2022 TECHNIQUE: Multiplanar, multisequence imaging of the lumbar spine is performed without IV contrast. FINDINGS: Markedly suboptimal study due to extensive susceptibility artifact from long segment metall ic hardware running from L2 levels into the pelvis. Persistent slight grade 1 anterolisthesis L5 on S 1. There is disc desiccation with [id number] disc space narrowing and heterogeneous Modic type III endplate changes at the L1-L2 level. The intervertebral discs demonstrate normal heights and hydr ation. The conus medullaris is slightly high in position ending at mid T12 level. No abnormal signal is noted. Axial images at T12-L1 level are within normal limits. Other levels are nondiagnostic due to extensiv e susceptibility artifact. IMPRESSION: Markedly suboptimal study.
== END | disposition home or self-care (01) ==
LOC: RADMRIMAIN 16:34
PROVIDERS: ATTEND Orthopaedic Surgery
DX: M54.50 Low back pain, unspecified (principal)
CPT/HCPCS: 72148

== ENCOUNTER → 2024-02-08 | Outpatient (CLI) | payer MEDICARE, OTHER ==
--- NOTE | 2024-02-08 14:20 | CT ---
EXAMINATION TYPE: CT cervical spine wo con CT DLP: 732.2 mGycm, Automated exposure control for dose reduction was used. DATE OF EXAM: 02/08/2024 2:07 PM COMPARISON: MRI cervical spine 03/23/2011. CLINICAL INDICATION:Male, 63 years old with history of R29.6 REPEATED FALLS; PHH, Chronic neck and ba ck pain, numbness in fingers x 1 year TECHNIQUE: Axial CT images from the skull base to the inferior aspect of T2 we obtained without intra venous contrast. Coronal and sagittal reformatted images were also reviewed. FINDINGS: Fracture: None. Osseous structures: Postsurgical changes from anterior cervical fusion with disc spacers involving C3 -C5. There is complete fusion identified. Hardware appears intact with appropriate alignment. Multil evel degenerative changes of the cervical spine. Degenerative changes of the C1-C2 articulation anter iorly. Vertebral alignment: Straightening of the cervical spine. No spondylolisthesis. Spinal canal/Neural Foramina: Multilevel disc space narrowing with endplate sclerosis and osteophytos is. Multilevel facet arthropathy. Ankylosis involving the bilateral C2-C3 facets. No significance central canal stenosis at C2-C3. Moderate bilateral neural foraminal stenosis seconda ry to facet arthropathy and uncovertebral joint hypertrophy. Posterior disc osteophyte complex at C3-C4 with mild to moderate central canal stenosis. Uncovertebra l joint hypertrophy and facet arthropathy result in severe left and scvfqcti-na-cecwyo right neurofor aminal stenosis. No significant central canal stenosis at C4-C5. Facet arthropathy and uncovertebral joint hypertrophy results in severe right and mild left neural foraminal stenosis. Large hypertrophic appearance of th e right uncovertebral joint on the right. Posterior disc osteophyte complex with moderate central canal stenosis at C5-C6. Moderate bilateral n euroforaminal stenosis secondary to uncovertebral joint hypertrophy and facet arthropathy. Posterior disc osteophyte complex with moderate central canal stenosis at C6-C7. Uncovertebral joint hypertrophy and facet arthropathy results in severe bilateral neural foraminal stenosis. Neck soft tissues: Prevertebral soft tissues are within normal limits. Other: The airway is patent. Biapical paraseptal emphysematous changes with right greater than left. IMPRESSION: 1. No evidence of cervical spine fracture. 2. Post surgical changes from ACDF C3-C5. 3. Moderate multilevel degenerative disc disease with moderate to severe bilateral facet arthropathy/ uncovertebral joint hypertrophy as described above. [facility], , 02/08/2024 2:18 PM
== END | disposition home or self-care (01) ==
LOC: RADCTMAIN 13:40
PROVIDERS: ATTEND Orthopaedic Surgery
DX: M47.812 Spondylosis without myelopathy or radiculopathy, cervical region (principal); G89.29 Other chronic pain; R29.6 Repeated falls; Z98.1 Arthrodesis status
CPT/HCPCS: 72125

== ENCOUNTER → 2024-02-20 | Outpatient (CLI) | payer MEDICARE, OTHER ==
[2024-02-20 21:16] LABS: HIV 2 AB Non-Reactive (Non-Reactive); HIV AB P24 Non-Reactive (Non-Reactive); HIV P24 AG Non-Reactive (Non-Reactive)
== END | disposition home or self-care (01) ==
LOC: LABWHC1 14:13
PROVIDERS: ATTEND Registered Nurse
DX: Z11.4 Encounter for screening for human immunodeficiency virus [HIV] (principal)
CPT/HCPCS: 36415; 87390

== ENCOUNTER → 2024-05-14 | Outpatient (CLI) | payer MEDICARE, OTHER ==
--- NOTE | 2024-05-14 15:17 | CT ---
EXAMINATION TYPE: CT thor lumbar spine wo con DATE OF EXAM: 05/14/2024 COMPARISON: 03/01/2023 CLINICAL INDICATION: Male, 64 years old with history of G95.9 DISEASE OF SPINAL CORD, UNSPECIFIED; PH H, Upper and lower back pain, pain medicine is not taking the pain away anymore pt states. CT DLP: 3004.3 mGycm Automated exposure control for dose reduction was used. FINDINGS: The thoracic vertebral segments are normal in height and alignment and there is no fracture or sublux ation. There are stable flowing osteophytes in the anterior mid and lower thoracic spine. There is mo derate degenerative disc disease at the T6-7 which is stable. There are postsurgical changes of interbody and posterior metallic fusion of L1-S1. There is a persis tent grade 2 anterolisthesis of L5 on S1 There has been progression of the severe degenerative disc disease at the L1-2 level where there is p rogressive disc space narrowing, vacuum phenomena and marked discogenic endplate changes. Secondary t o facet hypertrophy and circumferential disc bulge there is severe spinal stenosis at the L1-2 level. There is a stable 3.7 to 3.8 cm aneurysmal dilatation of the distal infrarenal abdominal aorta. There are marked chronic interstitial changes within the lungs with honeycombing likely indicating UI P. IMPRESSION: 1. Postsurgical changes of interbody and posterior metallic lumbar fusion from L2 through S1. 2. Stable grade 2 anterolisthesis of L5 on S1. 3. Interval worsening of the severe degenerative disease at the L1-2 level with development of severe spinal stenosis. 4. Stable moderate degenerative disease at the T6-T7 level. 5. Chronic interstitial changes in the lungs with honeycombing consistent with UIP. 7. Stable 3.8 cm aneurysm of the infrarenal abdominal aorta. [facility], , 05/14/2024 3:15 PM
== END | disposition home or self-care (01) ==
LOC: RADCTMAIN 14:12
PROVIDERS: ATTEND Orthopaedic Surgery
DX: G95.9 Disease of spinal cord, unspecified (principal); M62.81 Muscle weakness (generalized); I71.43 Infrarenal abdominal aortic aneurysm, without rupture; M43.17 Spondylolisthesis, lumbosacral region; M48.061 Spinal stenosis, lumbar region without neurogenic claudication; M51.369 Other intervertebral disc degeneration, lumbar region without mention of lumbar back pain or lower extremity pain; Z98.1 Arthrodesis status
CPT/HCPCS: 72128; 72131

== ENCOUNTER → 2024-07-05 | Outpatient (CLI) | payer MEDICARE, OTHER ==
--- NOTE | 2024-07-05 14:36 | CTL ---
EXAMINATION TYPE: CT Low Dose Lung DATE OF EXAM: 07/05/2024 12:37 PM COMPARISON: 08/11/2020 SCREENING VISIT: Initial CT DIAGNOSTIC QUALITY: Limited, but interpretable CLINICAL INDICATION: Male, 64 years old with history of Z12.2 Screening LUNG CANCER, screening lung C A, Lung cancer screening, History of tobacco use. TECHNIQUE: Low dose computed tomography scan was performed through the chest at 1 mm thick sections a nd reconstructed images in the coronal plane at 1 mm thick sections. Contrast used: mL of , (none if empty) Oral contrast used: (none if empty) CT DLP: 101 mGycm, Automated exposure control for dose reduction was used. CT CTDI: 2.87 mGy, Automated exposure control for dose reduction was used. FINDINGS: LUNG NODULES: None. LUNGS: COPD: Severity: Moderate. Some chronic bronchitis may also be present. Fibrosis: Severity: None Lymph nodes: There is a 1.3 cm periaortic lymph node.r there is a 1.2 cm pretracheal lymph node. Jonas tional shotty lymphadenopathy is present. No suspicious hilar adenopathy is evident Other findings: None RIGHT PLEURAL SPACE: Effusion: None Calcification: None Thickening: None Pneumothorax: None LEFT PLEURAL SPACE: Effusion: None Calcification: None Thickening: None Pneumothorax: None HEART: Other: Ascending thoracic aorta at the level the main pulmonary artery measures 3.5 cm. The main pul monary artery at the bifurcation measures 3.1 cm. Heart Size: Normal Coronary calcification: Mild Pericardial effusion: None OTHER FINDINGS: Upper abdomen: Normal Bony thorax: Normal Supraclavicular region: Normal IMPRESSION: 1. No suspicious changes to suggest intraparenchymal neoplasm. 2. There are some enlarged lymph nodes within the mediastinum these appear to be present previously. FOLLOW UP CT CHEST RECOMMENDATION: Follow-up low-dose CT chest one year CT LUNG RAD: Lung-Rad 2 Benign Appearance or Behavior [facility], Workstation: [id number], 07/05/2024 2:34 PM
== END | disposition home or self-care (01) ==
LOC: RADCTMAIN 12:07
PROVIDERS: ATTEND Pediatrics
DX: Z12.2 Encounter for screening for malignant neoplasm of respiratory organs (principal); F17.210 Nicotine dependence, cigarettes, uncomplicated; R59.9 Enlarged lymph nodes, unspecified
CPT/HCPCS: 71271

== ENCOUNTER → 2024-10-11 | Outpatient (CLI) | payer MEDICARE, OTHER | END | disposition home or self-care (01) | LOC: LABPAT 10:46 | PROVIDERS: ATTEND Orthopaedic Surgery | DX: Z01.812 Encounter for preprocedural laboratory examination (principal); Z22.322 Carrier or suspected carrier of Methicillin resistant Staphylococcus aureus; M51.26 Other intervertebral disc displacement, lumbar region | CPT/HCPCS: 86850; 86900; 86901; 87070 ==

== ENCOUNTER 2024-10-17 10:11 | Inpatient (IN) | payer MEDICARE, OTHER ==
[2024-10-16 11:44] VITALS: BMI 33.3
[~2024-10-17 10:11] MED LIST changes: -ACETAMINOPHEN TAB 500 MG TAB PO PRN; -DEXAMETHASONE SOD PHOSPHATE 4 MG/ML 1 ML VIAL IV ONE; -MIDAZOLAM 2 MG/2 ML VIAL IV PRN; -ONDANSETRON 4 MG/2 ML VIAL IVP ONE; -ONDANSETRON 4 MG/2 ML VIAL IVP PRN; +TRANEXAMIC 1,000 MG/100ML-NACL 1,000 MG in SALINE 1 100ML.BAG IVPB PRN; -TRANEXAMIC ACID IN NACL,ISO-OS 1,000 MG in SALINE 1 100ML.BAG IVPB ONE; -TRANEXAMIC ACID IN NACL,ISO-OS 1,000 MG in SALINE 1 100ML.BAG IVPB PRN; -VANCOMYCIN 1,750 MG in SODIUM CHLORIDE 0.9% 500 ML 500 ML IVPB PRN; +ceFAZolin 2 GM in DEXTROSE 5% IN WATER 50 ML IVPB PRN
--- NOTE | 2024-10-17 10:20 | P.HPOR ---
History of Present Illness H&P Date: 10/11/24 .D:Date: 10/11/24 : 09:09am .T:Title: PRE OP LUMBAR Clinical Summary Clinical Summary Cholo Vaughn presents with a herniated nucleus pulposus at L1-2 with stenosis, accompanied by moderate to severe lower extremity radiculopathy and weakness. He has a history of L2 to pelvis decompression fusion. Currently, Mr. Vaughn is experiencing significant lumbar pain, with a VAS score of 7, managed with Pullman. After careful evaluation and clearance from Dr. Vale, we have scheduled an L1-2 decompression fusion revision for 10/17/24. The surgical plan involves a posterior approach, potentially eliminating the need for a lateral approach. Po st-operatively, Mr. Vaughn will follow up with me in two weeks, and Dr. Pereira will manage his pain medication regimen. Chief Complaint Chief Complaint Lumbar pain with lower extremity radiculopathy and weakness due to L1-2 herniated nucleus pulposus with stenosis. SPINE SURGERY CLINICAL AND RISK REVIEW SPINE SURGERY CLINICAL AND RISK REVIEW Cholo Vaughn is a male patient (specific age not provided) presenting for evaluation of lumbar pain with lower extremity radiculopathy and weakness. It was my pleasure to have seen and examined Mr. Vaughn. - In our visit today we have had a chance to go over subjective complaints, physical examination findings and treatments including the natural course history without intervention and various interventional options. - The patient's imaging demonstrates the following findings: - L1-2 herniated nucleus pulposus - Stenosis at L1-2 level - Status post L2 to pelvis decompression fusion - On a physical exam, Mr. Vaughn demonstrates the following findings: - Lower extremity weakness - Moderate to severe lower extremity radiculopathy - Lumbar pain with VAS score of 7 I have explained to the patient that as their condition progresses it will cause further neurological deficits and eventual paralysis. Based on the patient's imaging, physical exam, and the rapid progression and disabling nature of their symptoms, at this time I recommend surgery in the form of an L1-2 decompression fusion revision. I discussed the risks and benefits of this procedure at length with Mr. Vaughn. The patient has agreed to consider pursuing the procedure above mentioned. Prior to surgery, he has been cleared by Dr. Vale. Questions were invited and answered, and the patient wishes to proceed as outlined below. Recommendations Recommendations 1. Proceed with L1-2 decompression fusion revision surgery on 10/17/24. 2. Utilize a posterior approach for the surgery, with the option for a lateral approach if necessary. 3. Continue current pain management with Pullman until the surgery date. 4. Post-operative follow-up appointment scheduled for two weeks after surgery. 5. Transition pain management to Dr. Pereira following the surgery. 6. Adhere to post-operative care instructions, including the use of ice/heat therapy as needed. 7. Anticipate a recovery period of a couple of weeks, similar to but potentially less severe than the previous surgery. 8. Monitor for any complications or adverse effects post-surgery and report them immediately. 9. Gradually increase activity levels as tolerated during the recovery period, following specific post-operative guidelines. Risks Risks All surgical procedures come with inherent risks, including those related to positioning, anesthesia, intraoperative findings, and postoperative complications. It is important to understand that surgery does not come with any guarantee of a successful outcome as complications and adverse events are always possible. The patient was given a handout in the office today discussing the surgical procedure and risks associated with the intervention, both of which were discussed with the patient. These risks include but are not limited to the following: - Experiencing same, different or even worse symptoms in back, neck, arms, or legs compared to before surgery. - Requiring further surgery or other forms of treatment presently or at some time in the future at same or other levels of the intended spine surgery. - On an extreme but fortunately relatively rare basis severe complications such as blindness, stroke, heart attack, temporary and/or permanent nerve injury, paralysis, coma, or may occur, sometimes without known explanation. - Surgical complications may include but are not limited to risk of infection, fluid accumulation in the surgical dissection site, including a seroma or hematoma, that requires additional surgery, wound drainage, bleeding, new numbness or weakness, vision changes/loss, spinal fluid leakage, non-healing and/or infected incision, headaches, difficulty or inability to swallow, hoarseness, hemopneumothorax, pneumothorax, impotence, retrograde ejaculation, vaginal dryness; injury to nerves, spinal cord, blood vessels, lymphatics or other vital organs (i.e., bowel injury, injury to the great vessels); heterotopic bone formation; complications related to the hardware such as screws, rods, cages including misplaced hardware, device failure, instrumentation at the wrong spine level, hardware fracture/breakage, or hardware loosening; vertebral failure of the spinal column above or below the newly placed hardware; retained surgical instrumentations or devices and the need for further surgery. - Medical risks of the planned spine surgery include but are not limited to generalized infections to the whole body or local areas outside of the surgical site (sepsis), heart attack, bleeding, anaphylaxis, meningitis, seizure, epilepsy, hearing loss, burn rock, laceration of the head or other areas of the body, bruising, hypersensitivity of the skin, bladder over distension; allergic reaction; shoulder injury related to positioning; fat, blood and air clots to other areas of the body like heart, lungs, brain; failure of internal organs such as lungs, kidneys, liver and excessive bleeding. If blood transfusions are necessary, note that transfusions may cause intolerance reactions such as anaphylaxis or other complex reactions. - Despite best efforts, the results of spine surgery might not heal in terms of bone, soft tissues such as skin, fascia, ligaments, and joints. Additionally, in order to achieve best possible results, spine surgery may be carried out beyond the initially planned levels and involve decompression, fusion including insertion of hardware at levels other than the original intended area of surgical interest change some portions of the procedure in order to ensure the best possible outcomes. - With spine surgery and spinal fusion, there are different off-label uses of instrumentation (devices, implants and hardware) as well as biological substances (bone morphogenic proteins, demineralized bone matrix) as well as using extra bone from allograft sources (i.e. cadaver bone) or autograft (iliac crest bone, ribs, or the spine itself). The patient has been given information about these practices and their inherent risks and benefits. The patient has had a chance to review all the listed information, has been given print outs detailing this information, and has had all his/her questions answered to their satisfaction. It was my pleasure to have seen and examined Cholo Vaughn. In our visit today we have had a chance to go over my understanding of our patient's current condition, the natural course history without intervention and various interventional options. Questions were invited and answered, and the patient wishes to proceed as outlined above. I have seen and examined the patient for 25 minutes and we have spent more than 50% of the time in repeat and detailed counseling about the patient's condition, its natural course history without and as much as can be predicted with surgery and re-review of various surgical treatment options. In conclusion, Cholo Vaughn and their family requested we proceed with the above suggested surgery and are willing to accept risks and limitations of the suggested surgery as the nature of the disease process and our best attempts at treatment for the condition. Attestation Attestation In our visit today the patient and I have had a chance to go over my underst anding of their current condition, the natural course history without intervention and various interventional options. Questions were invited and answered, and the patient wishes to proceed as outlined above. I will be sure to keep you updated after the patient returns here for further follow-up. Thank you again for your referral. Please do not hesitate to contact me if you have any further questions. Signed and authenticated by: DO Manjit Gallagher [facility] [address] [place] [id number] This document is confidential, intended only for the named recipient(s) and may contain information that is privileged or exempt from disclosure under applicable law. If you are not the intended recipient(s), you are notified that the dissemination, distribution or copying of this information is strictly prohibited. If you received this message in error, please notify the sender then delete this message. # SIGNED BY Blue Estrella (GOO)10/14/2024 07:39PM Past Medical History Past Medical History: Asthma, Coronary Artery Disease (CAD), Cancer, Chest Pain / Angina, COPD, CVA/TIA, Diabetes Mellitus, GERD/Reflux, Hyperlipidemia, Hypertension, Memory Impairment, Myocardial Infarction (AK), Musculoskeletal Disorder, Osteoarthritis (OA), Prostate Disorder Additional Past Medical History / Comment(s): Degenerative Disc Disease. Hx TIA with continued memory loss. O2 @ 2 L NC use PRN during day and at night . Hx skin cancer. Lung nodules. Chronic back pain. Current abdominal hernias that need repair. Neuropathy in bilateral legs and feet. bladder cancer 2022 Last Myocardial Infarction Date:: History of Any Multi-Drug Resistant Organisms: None Reported Date of last positivie culture/infection: 10/11/24 MDRO Source:: nasal Past Surgical History: Appendectomy, Back Surgery, Heart Catheterization With Stent, Hernia Repair, Orthopedic Surgery Additional Past Surgical History / Comment(s): Right wrist surgery, neck surgery with 2 screws, colonosopy, ORIF left ankle with willard and screws, two cardiac stents, umbilical hernia repair, has mesh with hernia repair right side of abdomen, right hand carpal tunnel surgery. bladder cancer procedure surgery 2022 Past Anesthesia/Blood Transfusion Reactions: No Reported Reaction Additional Past Anesthesia/Blood Transfusion Reaction / Comment(s): CLAUSTROPHOBIA. Date of Last Stent Placement:: 03-08-2018 Smoking Status: Current every day smoker - Past Family History Father Family Medical History: Cancer Sister(s) Family Medical History: Deep Vein Thrombosis (DVT), Osteoarthritis (OA) Mother Family Medical History: Cancer, Diabetes Mellitus, Deep Vein Thrombosis (DVT) Medications and Allergies Home Medications Medication Instructions Recorded Confirmed Type Montelukast [Singulair] 10 mg PO HS 12/01/14 10/16/24 History Multivitamins, Thera [Multivitamin 1 tab PO DAILY 03/07/19 10/16/24 History (formulary)] Atorvastatin [Lipitor] 40 mg PO HS 04/25/19 10/16/24 History Tamsulosin [Flomax] 0.4 mg PO QAM 03/25/20 10/16/24 History Aspirin 81 mg PO DAILY 04/23/20 10/16/24 History ALPRAZolam [Xanax] 1 mg PO QID PRN 08/11/20 10/16/24 History Empagliflozin [Jardiance] 25 mg PO DAILY 08/11/20 10/16/24 History Ibuprofen [Motrin] 800 mg PO BID PRN 08/11/20 10/16/24 History Nitroglycerin Sl Tabs [Nitrostat] 0.4 mg SL Q5M PRN 08/11/20 10/16/24 History rOPINIRole HCL [Requip] 2 mg PO HS 08/11/20 10/16/24 History Albuterol Inhaler [Ventolin Hfa 1 puff INHALATION RT-QID PRN 02/04/21 10/16/24 History Inhaler] Cyclobenzaprine [Flexeril] 10 mg PO BID PRN 02/04/21 10/16/24 History HYDROcodone/APAP 10-325MG [Pullman 1 tab PO Q6HR PRN 3 Days #12 tab 05/31/22 10/16/24 Rx 10-325] Gabapentin [Neurontin] 800 mg PO BID 02/22/23 10/16/24 History Insulin Glargine (Lantus) [Lantus 38 unit SQ QAM 02/22/23 10/16/24 History Vial] Albuterol Nebulized [Ventolin 2.5 mg INHALATION Q6H PRN 10/16/24 10/16/24 History Nebulized] Budesonide/Formoterol Fumarate 1 puff INHALATION BID 10/16/24 10/16/24 History [Budesonide-Formoterol 160-4.5] Dulaglutide [Trulicity] 3 mg SQ FR 10/16/24 10/16/24 History Levocetirizine Dihydrochloride 5 mg PO DAILY 10/16/24 10/16/24 History [Xyzal] Losartan [Cozaar] 25 mg PO QAM 10/16/24 10/16/24 History Metoprolol Succinate (ER) [Toprol 100 mg PO QAM 10/16/24 10/16/24 History Xl] Pantoprazole [Protonix] 40 mg PO QAM 10/16/24 10/16/24 History hydroCHLOROthiazide [Hydrodiuril] 25 mg PO DAILY 10/16/24 10/16/24 History metFORMIN HCL [Metformin HCl] 500 mg PO BID 10/16/24 10/16/24 History Allergies Allergy/AdvReac Type Severity Reaction Status Date / Time morphine Allergy Severe Anaphylaxis Verified 10/16/24 11:12 grass pollen Allergy Itching Verified 10/16/24 11:12 lisinopril Allergy Itching,SOB Verified 10/16/24 11:12 menthol Allergy Dyspnea Verified 10/16/24 11:12 Sulfa (Sulfonamide Allergy Unknown Verified 10/16/24 11:12 Antibiotics) Childhood venom-wasp Allergy Anaphylaxis Verified 10/16/24 11:12 ([place]ornet) Physical Examination Osteopathic Statement: *. No significant issues noted on an osteopathic structural exam other than those noted in the History and Physical/Consult.
[2024-10-17] MEDS: IV FLUID CONTINUATION 1,000 ML IV ONE ×2 (10:29→10:30)
[2024-10-17 10:43] LABS: Glucose,Whole Blood 230 mg/dL (70-110)
[2024-10-17] MEDS: ONDANSETRON 4 MG/2 ML VIAL IVP PRN (11:13)
[2024-10-17] MEDS: ACETAMINOPHEN TAB 500 MG TAB PO PRN (11:13)
[2024-10-17] MEDS: LACTATED RINGERS 1,000 ML IV SCH (11:14)
[2024-10-17] MEDS: DEXAMETHASONE SOD PHOSPHATE 4 MG/ML 1 ML VIAL IV ONE (11:14)
[2024-10-17] MEDS: VANCOMYCIN 1,750 MG in SODIUM CHLORIDE 0.9% 500 ML 500 ML IVPB PRN (11:15)
[2024-10-17] MEDS: INSULIN LISPRO (HumaLOG) 100 UNIT/ML 10 mL VL SQ ONE (11:46)
[2024-10-17] MEDS ORDERED: fentaNYL (PF) 50 MCG/ML 2 ML AMP ONE (12:29)
[2024-10-17] MEDS ORDERED: ROCURONIUM 10 MG/ML (5 ML VIAL) IV ONE (12:29)
[2024-10-17] MEDS ORDERED: MIDAZOLAM 2 MG/2 ML VIAL ONE (12:29)
[2024-10-17] MEDS ORDERED: PHENYLEPHRINE 10 MG/ML VIAL ONE (12:29)
[2024-10-17] MEDS ORDERED: TRANEXAMIC 1,000 MG/100ML-NACL PREMIX BAG ONE (12:29)
[2024-10-17] MEDS ORDERED: HYDROmorphone (PF) 1 MG/ML ONE (12:29)
[2024-10-17] MEDS ORDERED: SUCCINYLCHOLINE CHLORIDE 200 MG/10 ML VIAL IV ONE (12:29)
[2024-10-17] MEDS ORDERED: PROPOFOL 10 MG/ML 20 ML VIAL IV ONE (12:29)
[2024-10-17] MEDS ORDERED: LIDOCAINE 1% INJ 10MG/ML (20 ML MDV) ONE (12:29)
[2024-10-17] MEDS: GENTAMICIN 80 MG in SODIUM CHLORIDE 0.9% IRRIGATIO 3,000 ML IRRIGATION ONE (12:31)
[2024-10-17] MEDS: ceFAZolin 3,000 MG in SODIUM CHLORIDE 0.9% IRRIGATIO 3,000 ML IRRIGATION ONE (12:31)
[2024-10-17] MEDS: THROMBIN (BOVINE) 5,000 UNIT VIAL MISCELLANE ONE (13:30)
[2024-10-17] MEDS: LACTATED RINGERS 1,000 ML IV ONE (13:37)
[2024-10-17] MEDS: VANCOMYCIN 1,000 MG VIAL MISCELLANE ONE (14:57)
[2024-10-17] MEDS ORDERED: SENNOSIDES-DOCUSATE SODIUM 1 EACH TAB PO PRN (15:54)
[2024-10-17] MEDS ORDERED: ONDANSETRON 4 MG/2 ML VIAL IVP PRN (15:54)
[2024-10-17] MEDS ORDERED: MAGNESIUM HYDROXIDE 2,400 MG/30 ML CUP PO PRN (15:54)
[2024-10-17] MEDS ORDERED: HYDROcodone/APAP 7.5-325MG 1 EACH TAB PO PRN (15:57)
[2024-10-17 16:17] LABS: Glucose,Whole Blood 194 mg/dL (70-110)
--- NOTE | 2024-10-17 16:37 | FL ---
EXAMINATION TYPE: FL guidance operating room, XR lumbar spine 2 or 3V DATE OF EXAM: 10/17/2024 4:25 PM COMPARISON: Pre Operative Images if available both CT/MRI or plain film CLINICAL INDICATION: Male, 64 years old with history of S32.009A PLDF IN OR; TECHNIQUE: FL guidance operating room, XR lumbar spine 2 or 3V, multiple fluoroscopic images provided for procedure. DAP: 560.86 mGym2 Gycm2 uGym2 cGycm2 or equivalent. FINDINGS: Fluoroscopic images during internal fixation/arthroplasty demonstrate hardware in appropriate positio n. Hardware appears intact. No immediate complication identified. IMPRESSION: 1. No evidence for intraoperative complication. 2. Please see the operative/procedural note for further details. [facility], , 10/17/2024 4:35 PM
[2024-10-17] MEDS: ACETAMINOPHEN TAB 325 MG TAB PO SCH (17:07)
[2024-10-17] MEDS ORDERED: NITROGLYCERIN SL TABS 0.4 MG TAB SUBLINGUAL PRN (17:46)
[2024-10-17] MEDS ORDERED: ALPRAZolam 1 MG TAB PO PRN (17:46)
[2024-10-17] MEDS: HYDROmorphone 1 MG/ML 1 ML SYRINGE IVP PRN (18:15)
--- NOTE | 2024-10-17 19:04 | CT ---
EXAMINATION TYPE: CT lumbar spine wo con DATE OF EXAM: 10/17/2024 6:43 PM COMPARISON: Plain film and CT. CLINICAL INDICATION: Male, 64 years old with history of s/p L1-L2 PLIF; PHH, Post op s/p L1-L2 PLIF TECHNIQUE: Multiple axial images were obtained from the midportion of T11 through the sacroiliac kelsie nts. Soft tissue and bone windows in coronal and sagittal planes were obtained and reviewed. 3-D ref ormats of the bones were created on a separate workstation and submitted for review. Contrast used: mL of , (None, if empty). Oral contrast used: (None, if empty). CT DLP: 2169.6 mGycm, Automated exposure control for dose reduction was used. FINDINGS: Postsurgical changes to the lumbar spine with fixation hardware at T12-S1. Bilateral sacroiliac joint screws present. Discectomy at L1-L2 through L5-S1. Hardware limits evaluation at these levels. Hardw are appears intact. No evidence of fracture. Postsurgical changes in the soft tissues with foci of gas present. Drainage catheter with tubing in t he surgical bed. Posterior back skin andrew are present. Infrarenal abdominal fusiform aortic aneurysm to 4.1 cm. Draper catheter partially visualized. Largest left renal cyst measuring up to 7.7 cm. No follow-up recommended. IMPRESSION: 1. Postsurgical changes without evidence of immediate post operative complication. 2. Infrarenal abdominal fusiform aortic aneurysm to 4.1 cm. [facility], , 10/17/2024 7:01 PM
[2024-10-17] MEDS: SYMBICORT 160-4.5 MCG INHALER INHALATION SCH (19:58)
[2024-10-17 20:33] LABS: Glucose,Whole Blood 219 mg/dL (70-110)
[2024-10-17] MEDS ORDERED: GABAPENTIN 400 MG CAP PO SCH (21:00)
[2024-10-17] MEDS: MONTELUKAST 10 MG TAB PO SCH (21:37)
[2024-10-17] MEDS: ATORVASTATIN 40 MG TAB PO SCH (21:37)
[2024-10-17] MEDS: GABAPENTIN 400 MG CAP PO SCH (21:38)
[2024-10-17] MEDS: HYDROcodone/APAP 10-325MG 1 EACH TAB PO PRN (21:38)
--- NOTE | 2024-10-17 22:50 | CONS ---
CONSULTATION CHIEF COMPLAINT: Osteoarthritis. HISTORY OF PRESENT ILLNESS: This gentleman is admitted for an elective procedure for osteoarthritis and disc disease. He continues to have a great deal of difficulty with arthritis and radiculopathy. He is having particular trouble in the LS spine. He has come in for an elective LS spine fusion. Past medical history, family history, personal and social histories reveal that he has severe COPD as well as history of coronary artery disease. ALLERGIES: He is allergic to morphine and sulfa. MEDICATIONS: He has been on Trulicity, metformin, pantoprazole, metoprolol, montelukast, ropinirole, Lantus for his diabetes, tamsulosin, atorvastatin, aspirin, gabapentin, Flexeril, and Xanax as well as hydrochlorothiazide and Motrin. He also is on Jardiance. He has had a history of melanoma in the past, hyperlipidemia, and he has had a previous myocardial infarction. He continues to smoke regularly. PHYSICAL EXAMINATION: VITAL SIGNS: Normal. HEAD, EARS, EYES, NOSE, MOUTH AND THROAT: Normal. CHEST: Demonstrates increased AP diameter with poor breath sounds. CARDIAC: Normal. ABDOMEN: Soft, nontender. EXTREMITIES: Normal. IMPRESSION: 1. Lumbosacral spine degenerative osteoarthritis and disc disease. 2. History of coronary artery disease and previous myocardial infarction. 3. Chronic obstructive pulmonary disease. 4. Insulin-dependent diabetes mellitus. RECOMMENDATIONS: The patient will be followed for medical issues including his diabetes. He has a significant operative risk because of his diabetes, CAD and COPD. He has been cleared by Pulmonology and Cardiology. Thank you respectfully. MMMIRZAL / ROLFN: [id number] /
[2024-10-17] MEDS: VANCOMYCIN 1,750 MG in SODIUM CHLORIDE 0.9% 500 ML 500 ML IVPB ONE (23:07)
[2024-10-18 06:30] LABS: Glucose,Whole Blood 250 mg/dL (70-110)
[2024-10-18] MEDS: PANTOPRAZOLE 40 MG TABLET PO SCH (06:56)
[2024-10-18] MEDS: INSULIN GLARGINE (LANTUS) 100 UNIT/ML SYR SQ SCH (06:57)
--- NOTE | 2024-10-18 08:10 | P.PN ---
Subjective Progress Note Date: 10/18/24 Principal diagnosis: 1. L1 compression fracture 2. L1-2 herniated nucleus pulposus 3. Stenosis at L1-2 level 4. Status post L2 to pelvis decompression fusion 5. Lower extremity weakness 6. Moderate to severe lower extremity radiculopathy 7. Lumbar pain Patient seen and examined this morning. Patient is sitting up in chair at bedside. He does report that his pain is managed on current regimen. Surgical incision to the lumbar spine, dressing is clean dry and intact with mild shadowing noted. Hemovac drain is present with a documented 160 mL serosanguineous output overnight. Patient states that he does notice improvement of his bilateral lower extremity radiculopathy since the procedure. Jain catheter may be removed this morning. Informed patient that physical therapy will begin to work with him today. Continue to encourage patient to increase his activity as tolerated. No acute concerns. Objective - Vital Signs Vital signs: Vital Signs Temp 97.9 F 10/18/24 07:21 Pulse 89 10/18/24 07:21 Resp 20 10/18/24 07:21 BP 146/77 10/18/24 07:21 Pulse Ox 92 L 10/18/24 07:21 FiO2 Intake & Output 10/17/24 10/18/24 10/18/24 18:59 06:59 18:59 Intake Total 2302 1000 Output Total 1450 160 Balance 852 1000 -160 Weight 115 kg Intake: IV 2302 Oral 1000 Output: Drainage 160 Left Back 160 Urine 1100 Estimated Blood Loss 350 Other: Voiding Method Indwelling Catheter Indwelling Catheter - Exam Physical Examination General: The patient is awake and alert, in no acute distress. Skin: Skin is warm and dry with no obvious rashes or lesions. Surgical incision to the lumbar spine, dressing is clean dry and intact with mild shadowing noted. Hemovac drain is present with 160 mL serosanguineous output overnight. Eye: Pupils are equal, round and reactive to light, extra-ocular movements are intact; there is normal conjunctiva bilaterally. Neck: The neck is supple, there is no tenderness and ROM intact. Respiratory: Respirations are non-labored. Gastrointestinal: Soft, non-distended, non-tender abdomen. Back: There is no tenderness to palpation in the midline, paralumbar, parathoracic or buttocks region. There is no obvious deformity. Musculoskeletal: ROM limited secondary to pain and stiffness from surgical pro cedure. Right: Shoulder abduction 5/5, elbow flexors 5/5, wrist dorsiflexors 5/5. finger abductor 5/5, epidemiologist 5/5, hip flexor 5/5, knee flexor 5/5, ankle dorsiflexor 5/5, ankle plantarflexion 5/5 and extensor hallucis 5/5 Left: Shoulder abduction 5/5, elbow flexors 5/5, wrist dorsiflexors 5/5. finger abductor 5/5, epidemiologist 5/5, hip flexor 5/5, knee flexor 5/5, ankle dorsiflexor 5/5, ankle plantarflexion 5/5 and extensor hallucis 5/5. Neurological: CN 2-12 intact. There are no obvious motor or sensory deficits. Movement and coordination equal and intact. Sensory exam to light touch intact C5-T1 and intact from L2-S1. Reflexes 2/4 in bilateral upper and lower extremities. Negative Hoffmans, babinski, and clonus signs. Psychiatric: Cooperative, appropriate mood & affect, normal judgment. - Labs Labs: Abnormal Lab Results - Last 24 Hours (Table) 10/17/24 10/17/24 10/17/24 Range/Units 10:42 16:16 20:31 POC Glucose (mg/dL) 230 H 194 H 219 H (70-110) mg/dL 10/18/24 Range/Units 06:29 POC Glucose (mg/dL) 250 H (70-110) mg/dL Assessment and Plan Assessment: Postop day 1: L1-L2 posterolateral interbody fusion Plan: -Appreciate home energy consultant and team management. -Activity: Ambulate QID, OOB all meals, up and about, limit lifting bending twisting to less than 5 lbs. Use walker or cane if needed for stability. -Daily PT/OT, increase ambulation strength and balance. -Pain control: Adequate at this time -Meds: reviewed -GI ppx: senna, Miralax -DC jain -DVT PPX: Aspirin 81mg daily -Hygiene: Maintain incision clean and dry. May change dressing as needed, please document in notes if performed. Meticulous cleaning after BMs away from the incision site -Drains: Maintain for now. Continue to monitor and record output q shift. -Encourage IS 10x/hr -Dispo: Anticipate discharge home with homecare within the next 48 hours. *I reviewed and discussed this case with my attending Dr. Estrella, whom has reviewed this chart and films and is in agreement with assessment and plan of care as outlined above. I have personally seen and examined the patient, performed the documentation and the assessment and plan as written. Number of minutes spent on the visit: 20m.
[2024-10-18 08:21] LABS: BUN/Creat Ratio 20.62 Ratio (12.00-20.00); Blood Urea Nitrogen 16.5 mg/dL (9.0-27.0); Calcium 8.5 mg/dL (8.7-10.3); Carbon Dioxide 23.9 mmol/L (21.6-31.8); Chloride 97 mmol/L (96-109); Glucose 266 mg/dL (70-110); Potassium 4.7 mmol/L (3.5-5.5); Sodium 133 mmol/L (135-145)
[2024-10-18] MEDS: TAMSULOSIN 0.4 MG CAP.ER.24H PO SCH (08:27)
[2024-10-18] MEDS: SENNOSIDES-DOCUSATE SODIUM 1 EACH TAB PO SCH (08:27)
[2024-10-18] MEDS: LOSARTAN 25 MG TAB PO SCH (08:27)
[2024-10-18] MEDS: LORATADINE 10 MG TAB PO SCH (08:27)
[2024-10-18] MEDS: DAPAGLIFLOZIN PROPANEDIOL 10 MG TABLET PO SCH (08:27)
[2024-10-18] MEDS: METOPROLOL SUCCINATE (ER) 100 MG TAB.ER.24H PO SCH (08:28)
[2024-10-18] MEDS: HYDROcodone/APAP 10-325MG 1 EACH TAB PO PRN (08:39)
[2024-10-18 08:56] LABS: Basophils # (A) 0.05 X 10*3/uL (0.00-0.10); Basophils % (A) 0.3 %; Eosinophils # (A) 0.05 X 10*3/uL (0.04-0.35); Eosinophils % (A) 0.3 %; HGB 14.3 g/dL (13.0-17.0); Lymphocytes # (A) 1.91 X 10*3/uL (0.90-5.00); Lymphocytes % (A) 10.9 %; MCH 26.5 pg (27.0-32.0); MCHC 31.1 g/dL (32.0-37.0); MCV 85.2 FL (80.0-97.0); Mean Platelet Volume 10.8 FL (9.5-12.2); Monocytes # (A) 1.18 X 10*3/uL (0.20-1.00); Monocytes % (A) 6.7 %; NRBC Per 100 WBC 0 X 10*3/uL (0.00-0.01); Neutrophils # (A) 14.27 X 10*3/uL (1.80-7.70); Neutrophils % (A) 81.2 %; Platelet Count 307 X 10*3/uL (140-440); RDW 16.4 % (11.5-14.5); WBC 17.56 X 10*3/uL (4.50-10.00)
[2024-10-18] MEDS: NON FORMULARY DRUG (Dulaglutide [Trulicity] 3 MG/0.5 ML Each) SQ SCH (10:33)
[2024-10-18] MEDS ORDERED: DEXTROSE 50% SYRINGE 50 ML IVP PRN ×2 (10:37)
[2024-10-18] MEDS: HYDROmorphone 0.5 MG/0.5 ML SYRINGE IVP PRN (10:42)
[2024-10-18 11:02] LABS: Glucose,Whole Blood 356 mg/dL (70-110)
[2024-10-18] MEDS: INSULIN LISPRO (HumaLOG) 100 UNIT/ML 10 mL VL SQ SCH (13:15)
--- NOTE | 2024-10-18 13:36 | P.PN ---
Subjective Progress Note Date: 10/18/24 This is a pleasant 64-year-old male patient of Dr. Barillas that we are covering service for. He has a medical history of asthma, coronary artery disease with prior stenting, COPD, stroke, diabetes mellitus type 2, acid reflux, hypertension, hyperlipidemia, known lung nodules and he is chronically on oxygen on an outpatient basis. Patient has known peripheral neuropathy and was having radiculopathy was evaluated by orthopedic spinal and patient was recommended for surgical intervention. He is evaluated today postoperative day #2 L1-L2 PLIF. He has evaluated today sitting up in the chair and doing well he states that his pain is moderately controlled. He got up and walked with physical therapy today was able to ambulate in the hallway. White blood cell count today was 17 his sodium level was 133. His blood glucose is elevated in the 300s. Oxygen saturations 92% on 3 L of nasal cannula. He states that he has not had a bowel movement since surgery but he is passing a significant amount of gas and he does have normal active bowel sounds. His indwelling Draper catheter was removed and patient has been urinating without difficulty. Review of Systems Constitutional: Denied any fatigue denied any fever. Cardio vascular: denied any chest pain, palpitations Gastrointestinal: denied any nausea, vomiting, diarrhea Pulmonary: Denied any shortness of breath cough Neurologic denied any new focal deficits All inpatient medications were reviewed and appropriate changes in these medications as dictated in the interval history and assessment and plan. PHYSICAL EXAMINATION: GENERAL: The patient is alert and oriented x3, not in any acute distress. Well developed, well nourished. HEENT: Pupils are round and equally reacting to light. EOMI. No scleral icterus. No conjunctival pallor. Normocephalic, atraumatic. No pharyngeal erythema. No thyromegaly. CARDIOVASCULAR: S1 and S2 present. No murmurs, rubs, or gallops. PULMONARY: Chest is clear to auscultation, no wheezing or crackles. ABDOMEN: Soft, nontender, nondistended, normoactive bowel sounds. No palpable organomegaly. MUSCULOSKELETAL: No joint swelling or deformity. Surgical dressing in place. EXTREMITIES: No cyanosis, clubbing, or pedal edema. NEUROLOGICAL: Gross neurological examination did not reveal any focal deficits. SKIN: No rashes. Assessment L1-L2 posterolateral interbody fusion History of COPD/Asthma and chronic hypoxic respiratory failure; stable and no acute exacerbation Hyponatremia Reactive leukocytosis Coronary artery disease with prior stenting Diabetes Mellitus type 2 with hyperglycemia Peripheral diabetic neuropathy Hx stroke GERD Hypertension Hyperlipidemia Known lung nodules GI prophylaxis DVT prophylaxis Full Code Plan Continue albuterol inhaler as needed Continue bowel regimen Continue Flomax and monitor for urinary retention Continue losartan, metoprolol, Lipitor DVT prophylaxis as per primary Continue Lantus 38 units subcu daily Accu-Cheks sliding scale insulin ACHS has been added Discharge planning per orthopedic spinal patient be considered for discharge in the next 40 hours with home physical therapy Continue to encourage incentive spirometer 10 x an hour while awake The impression and plan of care has been dictated by Jennifer Woods Nurse Practitioner as directed. Dr. Sherman MD I have performed a history and physical examination and medical decision making of this patient, discussed the same with the dictator, and agree with the dictators assessment and plan as written, documented as a scribe. Based on total visit time, I have performed more than 50% of this visit. Objective - Vital Signs Vital signs: Vital Signs Temp 97.9 F 10/18/24 07:21 Pulse 89 10/18/24 07:21 Resp 20 10/18/24 07:21 BP 146/77 10/18/24 07:21 Pulse Ox 92 L 10/18/24 07:21 FiO2 Intake & Output 10/17/24 10/18/24 10/18/24 18:59 06:59 18:59 Intake Total 2302 1000 Output Total 1450 160 Balance 852 1000 -160 Weight 115 kg Intake: IV 2302 Oral 1000 Output: Drainage 160 Left Back 160 Urine 1100 Estimated Blood Loss 350 Other: Voiding Method Indwelling Catheter Indwelling Catheter Indwelling Catheter # Voids 1 - Labs CBC & Chem 7: 10/18/24 04:09 10/18/24 04:09 Labs: Abnormal Lab Results - Last 24 Hours (Table) 10/17/24 10/17/24 10/18/24 Range/Units 16:16 20:31 04:09 WBC 17.56 H (4.50-10.00) X 10*3/uL MCH 26.5 L (27.0-32.0) pg MCHC 31.1 L (32.0-37.0) g/dL RDW 16.4 H (11.5-14.5) % Immature Gran # 0.10 H (0.00-0.04) X 10*3/uL Neutrophils # 14.27 H (1.80-7.70) X 10*3/uL Monocytes # 1.18 H (0.20-1.00) X 10*3/uL Sodium (135-145) mmol/L Anion Gap (4.00-12.00) mmol/L BUN/Creatinine Ratio (12.00-20.00) Ratio Glucose (70-110) mg/dL POC Glucose (mg/dL) 194 H 219 H (70-110) mg/dL Calcium (8.7-10.3) mg/dL 10/18/24 10/18/24 10/18/24 Range/Units 04:09 06:29 11:01 WBC (4.50-10.00) X 10*3/uL MCH (27.0-32.0) pg MCHC (32.0-37.0) g/dL RDW (11.5-14.5) % Immature Gran # (0.00-0.04) X 10*3/uL Neutrophils # (1.80-7.70) X 10*3/uL Monocytes # (0.20-1.00) X 10*3/uL Sodium 133 L (135-145) mmol/L Anion Gap 12.10 H (4.00-12.00) mmol/L BUN/Creatinine Ratio 20.62 H (12.00-20.00) Ratio Glucose 266 H (70-110) mg/dL POC Glucose (mg/dL) 250 H 356 H (70-110) mg/dL Calcium 8.5 L (8.7-10.3) mg/dL Assessment and Plan Time with Patient: Less than 30
[2024-10-18 16:44] LABS: Glucose,Whole Blood 300 mg/dL (70-110)
[2024-10-18] MEDS: CYCLOBENZAPRINE 10 MG TAB PO PRN (17:58)
[2024-10-18] MEDS: ALBUTEROL NEBULIZED 2.5 MG/3 ML INHALATION PRN (19:56)
[2024-10-18 20:39] LABS: Glucose,Whole Blood 267 mg/dL (70-110)
[2024-10-19 06:28] LABS: Glucose,Whole Blood 192 mg/dL (70-110)
[2024-10-19] MEDS: oxyCODONE-APAP 5-325MG 1 EACH TAB PO PRN (06:47)
--- NOTE | 2024-10-19 09:43 | P.PN ---
Subjective Progress Note Date: 10/19/24 Principal diagnosis: 1. L1 compression fracture 2. L1-2 herniated nucleus pulposus 3. Stenosis at L1-2 level 4. Status post L2 to pelvis decompression fusion 5. Lower extremity weakness 6. Moderate to severe lower extremity radiculopathy 7. Lumbar pain Patient seen and examined this morning. Patient is sitting up in chair. Patient does report that his pain is not managed on current regimen. Medications have been adjusted. Surgical incision to the lumbar spine, dressing is clean dry and intact with Hemovac present, 80 mL serosanguinous output documented overnight. Draper catheter has been removed and patient is urinating without difficulty. Patient reports being ambulatory with physical therapy out in hallway, tolerating activity well. Patient does report having a brace at home he is unsure if he is going to be able to locate this brace. Informed patient that we will place a prescription in his chart for an LSO brace. Continue to encourage patient to increase his activity as tolerated. Patient does not need brace to participate with therapy. No acute concerns. Objective - Vital Signs Vital signs: Vital Signs Temp 98.1 F 10/19/24 07:31 Pulse 95 10/19/24 09:32 Resp 17 10/19/24 07:31 BP 130/83 10/19/24 07:31 Pulse Ox 95 10/19/24 09:32 FiO2 Intake & Output 10/18/24 10/19/24 10/19/24 18:59 06:59 18:59 Intake Total 1020 Output Total 200 430 Balance -200 590 Intake: Intake, IV Titration 240 Amount Lactated Ringers 1,000 ml 240 @ 20 mls/hr IV .Q24H [facility] Rx#:[id number] Oral 780 Output: Drainage 200 80 Left Back 200 80 Urine 350 Other: Voiding Method Indwelling Catheter Toilet Urinal # Voids 1 3 - Exam Physical Examination General: The patient is awake and alert, in no acute distress. Skin: Skin is warm and dry with no obvious rashes or lesions. Surgical incision to the lumbar spine, dressing is clean dry and intact with mild shadowing noted. Hemovac drain is present with 80 mL serosanguineous output overnight. Eye: Pupils are equal, round and reactive to light, extra-ocular movements are intact; there is normal conjunctiva bilaterally. Neck: The neck is supple, there is no tenderness and ROM intact. Respiratory: Respirations are non-labored. Gastrointestinal: Soft, non-distended, non-tender abdomen. Back: There is no tenderness to palpation in the midline, paralumbar, parathoracic or buttocks region. There is no obvious deformity. Musculoskeletal: ROM limited secondary to pain and stiffness from surgical procedure. Right: Shoulder abduction 5/5, elbow flexors 5/5, wrist dorsiflexors 5/5. finger abductor 5/5, security systems specialist 5/5, hip flexor 5/5, knee flexor 5/5, ankle dorsiflexor 5/5, ankle plantarflexion 5/5 and extensor hallucis 5/5 Left: Shoulder abduction 5/5, elbow flexors 5/5, wrist dorsiflexors 5/5. finger abductor 5/5, security systems specialist 5/5, hip flexor 5/5, knee flexor 5/5, ankle dorsiflexor 5/5, ankle plantarflexion 5/5 and extensor hallucis 5/5. Neurological: CN 2-12 intact. There are no obvious motor or sensory deficits. Movement and coordination equal and intact. Sensory exam to light touch intact C5-T1 and intact from L2-S1. Reflexes 2/4 in bilateral upper and lower extremities. Negative Hoffmans, babinski, and clonus signs. Psychiatric: Cooperative, appropriate mood & affect, normal judgment. - Labs CBC & Chem 7: 10/18/24 04:09 10/18/24 04:09 Labs: Abnormal Lab Results - Last 24 Hours (Table) 10/18/24 10/18/24 10/18/24 Range/Units 11:01 16:43 20:38 POC Glucose (mg/dL) 356 H 300 H 267 H (70-110) mg/dL 10/19/24 Range/Units 06:26 POC Glucose (mg/dL) 192 H (70-110) mg/dL Assessment and Plan Assessment: Postop day 2: L1-L2 posterolateral interbody fusion Plan: -Appreciate transportation consultant and team management. -Activity: Ambulate QID, OOB all meals, up and about, limit lifting bending twisting to less than 5 lbs. Use walker or cane if needed for stability. -Daily PT/OT, increase ambulation strength and balance. -Pain control: Adequate at this time -Meds: reviewed -GI ppx: senna, Miralax -DVT PPX: Aspirin 81mg daily -Hygiene: Maintain incision clean and dry. May change dressing as needed, please document in notes if performed. Meticulous cleaning after BMs away from the incision site -Drains: Maintain for now. Continue to monitor and record output q shift. -Encourage IS 10x/hr -Dispo: Anticipate discharge home with homecare within the next 48 hours. *I reviewed and discussed this case with my attending Dr. Estrella, whom has reviewed this chart and films and is in agreement with assessment and plan of care as outlined above. I have personally seen and examined the patient, performed the documentation and the assessment and plan as written. Number of minutes spent on the visit: 20m.
[2024-10-19] MEDS: KETOROLAC 15 MG/ML 1 ML VIAL IVP SCH (11:13)
[2024-10-19] MEDS: CYCLOBENZAPRINE 10 MG TAB PO SCH (11:13)
[2024-10-19] MEDS: oxyCODONE-APAP 7.5-325MG 1 EACH TAB PO SCH (11:14)
[2024-10-19 11:16] LABS: Glucose,Whole Blood 294 mg/dL (70-110)
[2024-10-19 11:49] LABS: Basophils # (A) 0.05 10*3/uL (0.00-0.10); Basophils % (A) 0.4 %; Eosinophils # (A) 0.16 10*3/uL (0.04-0.35); Eosinophils % (A) 1.3 %; HCT 42.7 % (39.6-50.0); HGB 13.5 g/dL (13.0-17.0); Lymphocytes # (A) 1.43 10*3/uL (0.90-5.00); Lymphocytes % (A) 11.6 %; MCH 26.5 pg (27.0-32.0); MCHC 31.6 g/dL (32.0-37.0); MCV 83.9 fL (80.0-97.0); Mean Platelet Volume 10.7 fL (9.5-12.2); Monocytes # (A) 0.98 10*3/uL (0.20-1.00); Monocytes % (A) 7.9 %; Neutrophils # (A) 9.69 10*3/uL (1.80-7.70); Neutrophils % (A) 78.3 %; Platelet Count 233 10*3/uL (140-440); RBC 5.09 10*6/uL (4.40-5.60); RDW 16.1 % (11.5-14.5); WBC 12.37 10*3/uL (4.50-10.00)
[2024-10-19 11:59] LABS: African American GFR (CKD) >90 (>60 ml/min/1.73 sqM); Anion Gap 9 mmol/L; Blood Urea Nitrogen 14 mg/dL (9-20); Calcium 8.7 mg/dL (8.4-10.2); Carbon Dioxide 26 mmol/L (22-30); Chloride 96 mmol/L (98-107); Glucose 308 mg/dL (74-99); Non-African American GFR(CKD) >90 (>60 ml/min/1.73 sqM); Potassium 4.1 mmol/L (3.5-5.1); Sodium 131 mmol/L (137-145)
[2024-10-19 16:21] LABS: Glucose,Whole Blood 356 mg/dL (70-110)
--- NOTE | 2024-10-19 18:08 | P.PN ---
Subjective Progress Note Date: 10/19/24 This is a pleasant 64-year-old male patient of Dr. Barillas that we are covering service for. He has a medical history of asthma, coronary artery disease with prior stenting, COPD, stroke, diabetes mellitus type 2, acid reflux, hypertension, hyperlipidemia, known lung nodules and he is chronically on oxygen on an outpatient basis. Patient has known peripheral neuropathy and was having radiculopathy was evaluated by orthopedic spinal and patient was recommended for surgical intervention. He is evaluated today postoperative day #2 L1-L2 PLIF. He has evaluated today sitting up in the chair and doing well he states that his pain is moderately controlled. He got up and walked with physical therapy today was able to ambulate in the hallway. White blood cell count today was 17 his sodium level was 133. His blood glucose is elevated in the 300s. Oxygen saturations 92% on 3 L of nasal cannula. He states that he has not had a bowel movement since surgery but he is passing a significant amount of gas and he does have normal active bowel sounds. His indwelling Draper catheter was removed and patient has been urinating without difficulty. 10/19/2024 Patient is evaluated today in follow up. He is postoperative day #3 L2-L2 PLIF. He reports moderate pain and has been requiring frequent doses of IV dilaudid and IV toradol. He has been started on percocet 7.5 Q4h today and recommended to try and avoid IV medications as he will not be able to use IV pain medications at home. He is on a bowel regimen. He is not having shortness of breath. Hemovac remains in place. Blood glucose in the 300s. Review of Systems Constitutional: Denied any fatigue denied any fever. Cardio vascular: denied any chest pain, palpitations Gastrointestinal: denied any nausea, vomiting, diarrhea Pulmonary: Denied any shortness of breath cough Neurologic denied any new focal deficits All inpatient medications were reviewed and appropriate changes in these medications as dictated in the interval history and assessment and plan. PHYSICAL EXAMINATION: GENERAL: The patient is alert and oriented x3, not in any acute distress. Well developed, well nourished. HEENT: Pupils are round and equally reacting to light. EOMI. No scleral icterus. No conjunctival pallor. Normocephalic, atraumatic. No pharyngeal erythema. No thyromegaly. CARDIOVASCULAR: S1 and S2 present. No murmurs, rubs, or gallops. PULMONARY: Chest is clear to auscultation, no wheezing or crackles. ABDOMEN: Soft, nontender, nondistended, normoactive bowel sounds. No palpable organomegaly. MUSCULOSKELETAL: No joint swelling or deformity. Surgical dressing in place. EXTREMITIES: No cyanosis, clubbing, or pedal edema. NEUROLOGICAL: Gross neurological examination did not reveal any focal deficits. SKIN: No rashes. Assessment L1-L2 posterolateral interbody fusion History of COPD/Asthma and chronic hypoxic respiratory failure; stable and no acute exacerbation Hyponatremia Reactive leukocytosis Coronary artery disease with prior stenting Diabetes Mellitus type 2 with hyperglycemia Peripheral diabetic neuropathy Hx stroke GERD Hypertension Hyperlipidemia Known lung nodules GI prophylaxis DVT prophylaxis Full Code Plan Continue albuterol inhaler as needed Continue bowel regimen Continue Flomax and monitor for urinary retention Continue losartan, metoprolol, Lipitor DVT prophylaxis as per primary Continue Lantus 38 units subcu daily Accu-Cheks sliding scale insulin ACHS has been added Discharge planning per orthopedic spinal patient be considered for discharge in the next 48 hours with home physical therapy Pain medication has been adjusted Continue to encourage incentive spirometer 10 x an hour while awake The impression and plan of care has been dictated by Jennifer Woods Nurse Practitioner as directed. Dr. Sherman MD I have performed a history and physical examination and medical decision making of this patient, discussed the same with the dictator, and agree with the dictators assessment and plan as written, documented as a scribe. Based on total visit time, I have performed more than 50% of this visit. Objective - Vital Signs Vital signs: Vital Signs Temp 98.1 F 10/19/24 07:31 Pulse 96 10/19/24 09:42 Resp 17 10/19/24 07:31 BP 130/83 10/19/24 07:31 Pulse Ox 95 10/19/24 09:32 FiO2 Intake & Output 10/18/24 10/19/24 10/19/24 18:59 06:59 18:59 Intake Total 1020 Output Total 200 430 Balance -200 590 Intake: Intake, IV Titration 240 Amount Lactated Ringers 1,000 ml 240 @ 20 mls/hr IV .Q24H [facility] Rx#:[id number] Oral 780 Output: Drainage 200 80 Left Back 200 80 Urine 350 Other: Voiding Method Indwelling Catheter Toilet Urinal # Voids 1 3 - Labs CBC & Chem 7: 10/19/24 10:32 10/19/24 10:32 Labs: Abnormal Lab Results - Last 24 Hours (Table) 10/18/24 10/18/24 10/18/24 Range/Units 11:01 16:43 20:38 POC Glucose (mg/dL) 356 H 300 H 267 H (70-110) mg/dL 10/19/24 Range/Units 06:26 POC Glucose (mg/dL) 192 H (70-110) mg/dL Assessment and Plan Time with Patient: Less than 30
[2024-10-19 21:06] LABS: Glucose,Whole Blood 281 mg/dL (70-110)
[2024-10-19] MEDS: INSULIN GLARGINE (LANTUS) 100 UNIT/ML SYR SQ SCH (21:36)
[2024-10-20 06:53] LABS: Glucose,Whole Blood 271 mg/dL (70-110)
--- NOTE | 2024-10-20 09:00 | P.PN ---
Subjective Progress Note Date: 10/20/24 Principal diagnosis: 1. L1 compression fracture 2. L1-2 herniated nucleus pulposus 3. Stenosis at L1-2 level 4. Status post L2 to pelvis decompression fusion 5. Lower extremity weakness 6. Moderate to severe lower extremity radiculopathy 7. Lumbar pain Patient seen and examined this morning. Patient is sitting up in chair. Patient does report that his pain has been managed with the recent changes. Surgical incision to the lumbar spine, edges well approximated with andrew intact. Hemovac drain has been removed and new dressing applied. Patient reports being ambulatory with physical therapy out in [facility], tolerating activity well. Patient does report having a brace at home he is unsure if he is going to be able to locate this brace. Informed patient that we will place a prescription in his chart for an LSO brace. Continue to encourage patient to increase his activity as tolerated. Patient does not need brace to participate with therapy. No acute concerns. Objective - Vital Signs Vital signs: Vital Signs Temp 98.0 F 10/20/24 08:00 Pulse 73 10/20/24 08:00 Resp 16 10/20/24 08:00 BP 135/86 10/20/24 08:00 Pulse Ox 95 10/20/24 08:00 FiO2 Intake & Output 10/19/24 10/20/24 10/20/24 18:59 06:59 18:59 Intake Total 540 Output Total 160 20 20 Balance -160 520 -20 Intake: Oral 540 Output: Drainage 160 20 20 Left Back 160 20 20 Other: Voiding Method Toilet Toilet Urinal Urinal # Voids 3 # Bowel Movements 3 - Exam Physical Examination General: The patient is awake and alert, in no acute distress. Skin: Skin is warm and dry with no obvious rashes or lesions. Surgical incision to the lumbar spine, edges well approximated with andrew intact. Hemovac drain removed and new dressing applied. Eye: Pupils are equal, round and reactive to light, extra-ocular movements are intact; there is normal conjunctiva bilaterally. Neck: The neck is supple, there is no tenderness and ROM intact. Respiratory: Respirations are non-labored. Gastrointestinal: Soft, non-distended, non-tender abdomen. Back: There is no tenderness to palpation in the midline, paralumbar, parathoracic or buttocks region. There is no obvious deformity. Musculoskeletal: ROM limited secondary to pain and stiffness from surgical procedure. Right: Shoulder abduction 5/5, elbow flexors 5/5, wrist dorsiflexors 5/5. finger abductor 5/5, truck service manager 5/5, hip flexor 5/5, knee flexor 5/5, ankle dorsiflexor 5/5, ankle plantarflexion 5/5 and extensor hallucis 5/5 Left: Shoulder abduction 5/5, elbow flexors 5/5, wrist dorsiflexors 5/5. finger abductor 5/5, truck service manager 5/5, hip flexor 5/5, knee flexor 5/5, ankle dorsiflexor 5/5, ankle plantarflexion 5/5 and extensor hallucis 5/5. Neurological: CN 2-12 intact. There are no obvious motor or sensory deficits. Movement and coordination equal and intact. Sensory exam to light touch intact C5-T1 and intact from L2-S1. Reflexes 2/4 in bilateral upper and lower extremities. Negative Hoffmans, babinski, and clonus signs. Psychiatric: Cooperative, appropriate mood & affect, normal judgment. - Labs CBC & Chem 7: 10/19/24 10:32 10/19/24 10:32 Labs: Abnormal Lab Results - Last 24 Hours (Table) 10/19/24 10/19/24 10/19/24 Range/Units 10:32 10:32 11:15 WBC 12.37 H (4.50-10.00) 10*3/uL MCH 26.5 L (27.0-32.0) pg MCHC 31.6 L (32.0-37.0) g/dL RDW 16.1 H (11.5-14.5) % Immature Gran # 0.06 H (0.00-0.04) 10*3/uL Neutrophils # 9.69 H (1.80-7.70) 10*3/uL Sodium 131 L (137-145) mmol/L Chloride 96 L (98-107) mmol/L Glucose 308 H (74-99) mg/dL POC Glucose (mg/dL) 294 H (70-110) mg/dL 10/19/24 10/19/24 10/20/24 Range/Units 16:19 21:04 06:50 WBC (4.50-10.00) 10*3/uL MCH (27.0-32.0) pg MCHC (32.0-37.0) g/dL RDW (11.5-14.5) % Immature Gran # (0.00-0.04) 10*3/uL Neutrophils # (1.80-7.70) 10*3/uL Sodium (137-145) mmol/L Chloride (98-107) mmol/L Glucose (74-99) mg/dL POC Glucose (mg/dL) 356 H 281 H 271 H (70-110) mg/dL Assessment and Plan Assessment: Postop day 3: L1-L2 posterolateral interbody fusion Plan: -Appreciate product management consultant and team management. -Activity: Ambulate QID, OOB all meals, up and about, limit lifting bending twisting to less than 5 lbs. Use walker or cane if needed for stability. -Daily PT/OT, increase ambulation strength and balance. -Pain control: Adequate at this time -Meds: reviewed -GI ppx: senna, Miralax -DVT PPX: Aspirin 81mg daily -Hygiene: Maintain incision clean and dry. May change dressing as needed, please document in notes if performed. Meticulous cleaning after BMs away from the incision site -Drains: Maintain for now. Continue to monitor and record output q shift. -Encourage IS 10x/hr -Dispo: Anticipate discharge home with homecare tomorrow morning 10/21/24 *I reviewed and discussed this case with my attending Dr. Estrella, whom has reviewed this chart and films and is in agreement with assessment and plan of care as outlined above. I have personally seen and examined the patient, performed the documentation and the assessment and plan as written. Number of minutes spent on the visit: 20m.
[2024-10-20 09:27] LABS: BUN/Creat Ratio 16.18 Ratio (12.00-20.00); Blood Urea Nitrogen 17.8 mg/dL (9.0-27.0); Calcium 8.3 mg/dL (8.7-10.3); Carbon Dioxide 25.7 mmol/L (21.6-31.8); Chloride 101 mmol/L (96-109); Glucose 300 mg/dL (70-110); Potassium 4.7 mmol/L (3.5-5.5); Sodium 137 mmol/L (135-145)
[2024-10-20 11:14] LABS: Glucose,Whole Blood 238 mg/dL (70-110)
[2024-10-20] MEDS: INSULIN LISPRO (HumaLOG) 100 UNIT/ML 10 mL VL SQ SCH (11:47)
--- NOTE | 2024-10-20 13:49 | P.PN ---
Subjective Progress Note Date: 10/20/24 This is a pleasant 64-year-old male patient of Dr. Barillas that we are covering service for. He has a medical history of asthma, coronary artery disease with prior stenting, COPD, stroke, diabetes mellitus type 2, acid reflux, hypertension, hyperlipidemia, known lung nodules and he is chronically on oxygen on an outpatient basis. Patient has known peripheral neuropathy and was having radiculopathy was evaluated by orthopedic spinal and patient was recommended for surgical intervention. He is evaluated today postoperative day #2 L1-L2 PLIF. He has evaluated today sitting up in the chair and doing well he states that his pain is moderately controlled. He got up and walked with physical therapy today was able to ambulate in the hallway. White blood cell count today was 17 his sodium level was 133. His blood glucose is elevated in the 300s. Oxygen saturations 92% on 3 L of nasal cannula. He states that he has not had a bowel movement since surgery but he is passing a significant amount of gas and he does have normal active bowel sounds. His indwelling Draper catheter was removed and patient has been urinating without difficulty. 10/19/2024 Patient is evaluated today in follow up. He is postoperative day #3 L1-L2 PLIF. He reports moderate pain and has been requiring frequent doses of IV dilaudid and IV toradol. He has been started on percocet 7.5 Q4h today and recommended to try and avoid IV medications as he will not be able to use IV pain medications at home. He is on a bowel regimen. He is not having shortness of breath. Hemovac remains in place. Blood glucose in the 300s. 10/20/2024 Patient is evaluated in follow-up in the medical floor he is postoperative day #4 L1-L2 PLIF. Improved pain control today. He states that he has had a couple loose bowel movements. He remains on IV Dilaudid every 3 hours as well as oral Percocet. He has gone the bowel regimen. Patient does state that he feel his abdomen is distended and we will add Mylicon for him. Better at 137, potassium 4.7, BUN of 17.8 creatinine of 1.1. Discussed with patient the importance of diet control for his blood glucose as he has chips and cookies and pop tarts at the bedside. We did increase his Lantus and will add scheduled mealtime. Review of Systems Constitutional: Denied any fatigue denied any fever. Cardio vascular: denied any chest pain, palpitations Gastrointestinal: denied any nausea, vomiting, diarrhea Pulmonary: Denied any shortness of breath cough Neurologic denied any new focal deficits All inpatient medications were reviewed and appropriate changes in these medications as dictated in the interval history and assessment and plan. PHYSICAL EXAMINATION: GENERAL: The patient is alert and oriented x3, not in any acute distress. Well developed, well nourished. HEENT: Pupils are round and equally reacting to light. EOMI. No scleral icterus. No conjunctival pallor. Normocephalic, atraumatic. No pharyngeal erythema. No thyromegaly. CARDIOVASCULAR: S1 and S2 present. No murmurs, rubs, or gallops. PULMONARY: Chest is clear to auscultation, no wheezing or crackles. ABDOMEN: Soft, nontender, nondistended, normoactive bowel sounds. No palpable organomegaly. MUSCULOSKELETAL: No joint swelling or deformity. Surgical dressing in place. EXTREMITIES: No cyanosis, clubbing, or pedal edema. NEUROLOGICAL: Gross neurological examination did not reveal any focal deficits. SKIN: No rashes. Assessment L1-L2 posterolateral interbody fusion History of COPD/Asthma and chronic hypoxic respiratory failure; stable and no acute exacerbation Hyponatremia Reactive leukocytosis Coronary artery disease with prior stenting Diabetes Mellitus type 2 with hyperglycemia Peripheral diabetic neuropathy Hx stroke GERD Hypertension Hyperlipidemia Known lung nodules GI prophylaxis DVT prophylaxis Full Code Plan Continue albuterol inhaler as needed Continue bowel regimen Continue Flomax and monitor for urinary retention Continue losartan, metoprolol, Lipitor DVT prophylaxis as per primary Continue Lantus 38 units subcu daily Accu-Cheks sliding scale insulin ACHS has been added Mealtime insulin as well as Lantus daily as patient's blood glucose has been significantly elevated in the 300s this is because of the snacks he has at the bedside Discharge planning per orthopedic spinal patient be considered for discharge in the next 48 hours with home physical therapy Pain medication has been adjusted Continue to encourage incentive spirometer 10 x an hour while awake The impression and plan of care has been dictated by Jennifer Woods Nurse Practitioner as directed. Dr. Sherman MD I have performed a history and physical examination and medical decision making of this patient, discussed the same with the dictator, and agree with the dictators assessment and plan as written, documented as a scribe. Based on total visit time, I have performed more than 50% of this visit. Objective - Vital Signs Vital signs: Vital Signs Temp 98.0 F 10/20/24 08:00 Pulse 73 10/20/24 08:30 Resp 16 10/20/24 08:30 BP 135/86 10/20/24 08:00 Pulse Ox 95 10/20/24 10:07 FiO2 Intake & Output 10/19/24 10/20/24 10/20/24 18:59 06:59 18:59 Intake Total 540 Output Total 160 20 20 Balance -160 520 -20 Intake: Oral 540 Output: Drainage 160 20 20 Left Back 160 20 20 Other: Voiding Method Toilet Toilet Toilet Urinal Urinal # Voids 3 # Bowel Movements 3 - Labs CBC & Chem 7: 10/19/24 10:32 10/20/24 03:30 Labs: Abnormal Lab Results - Last 24 Hours (Table) 10/19/24 10/19/24 10/19/24 Range/Units 10:32 10:32 11:15 WBC 12.37 H (4.50-10.00) 10*3/uL MCH 26.5 L (27.0-32.0) pg MCHC 31.6 L (32.0-37.0) g/dL RDW 16.1 H (11.5-14.5) % Immature Gran # 0.06 H (0.00-0.04) 10*3/uL Neutrophils # 9.69 H (1.80-7.70) 10*3/uL Sodium 131 L (137-145) mmol/L Chloride 96 L (98-107) mmol/L Glucose 308 H (74-99) mg/dL POC Glucose (mg/dL) 294 H (70-110) mg/dL Calcium (8.7-10.3) mg/dL 10/19/24 10/19/24 10/20/24 Range/Units 16:19 21:04 03:30 WBC (4.50-10.00) 10*3/uL MCH (27.0-32.0) pg MCHC (32.0-37.0) g/dL RDW (11.5-14.5) % Immature Gran # (0.00-0.04) 10*3/uL Neutrophils # (1.80-7.70) 10*3/uL Sodium (137-145) mmol/L Chloride (98-107) mmol/L Glucose 300 H (74-99) mg/dL POC Glucose (mg/dL) 356 H 281 H (70-110) mg/dL Calcium 8.3 L (8.7-10.3) mg/dL / Range/Units 06:50 WBC (4.50-10.00) 10*3/uL MCH (27.0-32.0) pg MCHC (32.0-37.0) g/dL RDW (11.5-14.5) % Immature Gran # (0.00-0.04) 10*3/uL Neutrophils # (1.80-7.70) 10*3/uL Sodium (137-145) mmol/L Chloride (98-107) mmol/L Glucose (74-99) mg/dL POC Glucose (mg/dL) 271 H (70-110) mg/dL Calcium (8.7-10.3) mg/dL Assessment and Plan Time with Patient: Less than 30
[2024-10-20 14:48] VITALS: RESP 17
[2024-10-20 16:48] LABS: Glucose,Whole Blood 227 mg/dL (70-110)
[2024-10-20] MEDS ORDERED: SIMETHICONE 80 MG CHEWABLE PO SCH (18:00)
[2024-10-20 20:39] LABS: Glucose,Whole Blood 272 mg/dL (70-110)
[2024-10-21 06:27] LABS: Glucose,Whole Blood 302 mg/dL (70-110)
--- NOTE | 2024-10-21 07:29 | P.PN ---
Subjective Progress Note Date: 10/21/24 Principal diagnosis: 1. L1 compression fracture 2. L1-2 herniated nucleus pulposus 3. Stenosis at L1-2 level 4. Status post L2 to pelvis decompression fusion 5. Lower extremity weakness 6. Moderate to severe lower extremity radiculopathy 7. Lumbar pain Patient seen and examined this morning. Assisted patient to bedside for breakfast. Patient tolerated activity well with minimal assist. Surgical incision to the lumbar spine, dressing is clean dry and intact. Patient does report that his pain is managed on current regimen. Discharge instructions have been reviewed and discussed. No acute concerns. Objective - Vital Signs Vital signs: Vital Signs Temp 97.3 F L 10/21/24 01:01 Pulse 61 10/21/24 01:01 Resp 17 10/21/24 01:01 BP 129/64 10/21/24 01:01 Pulse Ox 94 L 10/21/24 01:01 FiO2 Intake & Output 10/20/24 10/21/24 10/21/24 18:59 06:59 18:59 Intake Total 4320 Output Total 60 Balance -60 4320 Intake: Oral 4320 Output: Drainage 60 Left Back 60 Other: Voiding Method Toilet Toilet # Voids 4 8 # Bowel Movements 3 - Exam Physical Examination General: The patient is awake and alert, in no acute distress. Skin: Skin is warm and dry with no obvious rashes or lesions. Surgical incision to the lumbar spine, edges well approximated with andrew intact. Hemovac drain removed and new dressing applied. Eye: Pupils are equal, round and reactive to light, extra-ocular movements are intact; there is normal conjunctiva bilaterally. Neck: The neck is supple, there is no tenderness and ROM intact. Respiratory: Respirations are non-labored. Gastrointestinal: Soft, non-distended, non-tender abdomen. Back: There is no tenderness to palpation in the midline, paralumbar, parathoracic or buttocks region. There is no obvious deformity. Musculoskeletal: ROM limited secondary to pain and stiffness from surgical procedure. Right: Shoulder abduction 5/5, elbow flexors 5/5, wrist dorsiflexors 5/5. finger abductor 5/5, circuit manager 5/5, hip flexor 5/5, knee flexor 5/5, ankle dorsiflexor 5/5, ankle plantarflexion 5/5 and extensor hallucis 5/5 Left: Shoulder abduction 5/5, elbow flexors 5/5, wrist dorsiflexors 5/5. finger abductor 5/5, circuit manager 5/5, hip flexor 5/5, knee flexor 5/5, ankle dorsiflexor 5/5, ankle plantarflexion 5/5 and extensor hallucis 5/5. Neurological: CN 2-12 intact. There are no obvious motor or sensory deficits. Movement and coordination equal and intact. Sensory exam to light touch intact C5-T1 and intact from L2-S1. Reflexes 2/4 in bilateral upper and lower extremities. Negative Hoffmans, babinski, and clonus signs. Psychiatric: Cooperative, appropriate mood & affect, normal judgment. - Labs CBC & Chem 7: 10/19/24 10:32 10/20/24 03:30 Labs: Abnormal Lab Results - Last 24 Hours (Table) 10/20/24 10/20/24 10/20/24 Range/Units 03:30 11:12 16:47 Glucose 300 H (70-110) mg/dL POC Glucose (mg/dL) 238 H 227 H (70-110) mg/dL Calcium 8.3 L (8.7-10.3) mg/dL 10/20/24 10/21/24 Range/Units 20:38 06:25 Glucose (70-110) mg/dL POC Glucose (mg/dL) 272 H 302 H (70-110) mg/dL Calcium (8.7-10.3) mg/dL Assessment and Plan Assessment: Postop day 4: L1-L2 posterolateral interbody fusion Plan: -Appreciate organizational research consultant and team management. -Activity: Ambulate QID, OOB all meals, up and about, limit lifting bending twisting to less than 5 lbs. Use walker or cane if needed for stability. -Daily PT/OT, increase ambulation strength and balance. -Pain control: Adequate at this time -Meds: reviewed -GI ppx: senna, Miralax -DVT PPX: Aspirin 81mg daily -Hygiene: Maintain incision clean and dry. May change dressing as needed, please document in notes if performed. Meticulous cleaning after BMs away from the incision site -Drains: Maintain for now. Continue to monitor and record output q shift. -Encourage IS 10x/hr -Dispo: Discharge home later today. *I reviewed and discussed this case with my attending Dr. Estrella, whom has reviewed this chart and films and is in agreement with assessment and plan of care as outlined above. I have personally seen and examined the patient, performed the documentation and the assessment and plan as written. Number of minutes spent on the visit: 20m.
--- NOTE | 2024-10-21 07:39 | P.DS ---
Providers Date of admission: 10/17/24 10:11 Expected date of discharge: 10/21/24 Attending physician: Blue Estrella DO Consults: 10/17/24 15:54 Consult Physician Routine Consulting Provider: Jose Palencia Reason/Comments: medical management s/p L1-L2 PLIF Do you want consulting provider notified?: Yes Primary care physician: Jose Palencia Hospital Course: Hospital Course: The patient was evaluated preoperatively and found to have the diagnosis of L1- L2 HNP with stenosis. They underwent appropriate preoperative care and were willing to undergo the intended procedure. They underwent a successful L1-L2 PLIF, were recovered appropriately and sent to the floor. While on the floor they worked with physical therapy, occupational therapy and nursing to enhance their recovery experience. Their pain was well controlled through their stay and they were started on appropriate medications, DVT ppx modalities, activity and dietary needs. Daily labs were monitored closely, and transfusions were only used when necessary. Medicine as well as other consulting services have made their input and have helped with our team approach and multidisciplinary care. PT milestones have been met and passed and they have made the recommendation of home with home care for this patient and treating providers agree with this care path. The patient will be discharged home with appropriate medications, instructions and follow-up information and in stable condition. Patient Condition at Discharge: Good Plan - Discharge Summary Discharge Rx Participant: No New Discharge Prescriptions: New Gabapentin 800 mg PO TID #90 tab Sennosides/Docusate Sodium [Senna Plus 8.6-50 mg Tablet] 2 each PO DAILY PRN #20 tab PRN Reason: Constipation Cyclobenzaprine [Flexeril] 10 mg PO BID #60 tab Naproxen 500 mg PO BID #28 tab oxyCODONE-APAP 7.5-325MG [Percocet 7.5-325 mg] 1 tab PO Q4HR PRN #40 tab PRN Reason: Pain No Action Montelukast [Singulair] 10 mg PO HS Multivitamins, Thera [Multivitamin (formulary)] 1 tab PO DAILY Atorvastatin [Lipitor] 40 mg PO HS Tamsulosin [Flomax] 0.4 mg PO QAM Aspirin 81 mg PO DAILY HYDROcodone/APAP 10-325MG [[place] 10-325] 1 tab PO Q6HR PRN 3 Days #12 tab PRN Reason: Pain Insulin Glargine (Lantus) [Lantus Vial] 38 unit SQ QAM Budesonide/Formoterol Fumarate [Budesonide-Formoterol 160-4.5] 1 puff INHALATION BID Losartan [Cozaar] 25 mg PO QAM hydroCHLOROthiazide [Hydrodiuril] 25 mg PO DAILY Albuterol Nebulized [Ventolin Nebulized] 2.5 mg INHALATION Q6H PRN PRN Reason: sob Empagliflozin [Jardiance] 25 mg PO DAILY rOPINIRole HCL [Requip] 2 mg PO HS ALPRAZolam [Xanax] 1 mg PO QID PRN PRN Reason: Anxiety Ibuprofen [Motrin] 800 mg PO BID PRN PRN Reason: Pain Nitroglycerin Sl Tabs [Nitrostat] 0.4 mg SL Q5M PRN PRN Reason: Chest Pain Cyclobenzaprine [Flexeril] 10 mg PO BID PRN PRN Reason: Muscle Pain Albuterol Inhaler [Ventolin Hfa Inhaler] 1 puff INHALATION RT-QID PRN PRN Reason: Shortness Of Breath Gabapentin [Neurontin] 800 mg PO BID metFORMIN HCL [Metformin HCl] 500 mg PO BID Pantoprazole [Protonix] 40 mg PO QAM Metoprolol Succinate (ER) [Toprol Xl] 100 mg PO QAM Dulaglutide [Trulicity] 3 mg SQ FR Levocetirizine Dihydrochloride [Xyzal] 5 mg PO DAILY Discharge Medication List Montelukast [Singulair] 10 mg PO HS 12/01/14 [History] Multivitamins, Thera [Multivitamin (formulary)] 1 tab PO DAILY 03/07/19 [History] Atorvastatin [Lipitor] 40 mg PO HS 04/25/19 [History] Tamsulosin [Flomax] 0.4 mg PO QAM 03/25/20 [History] Aspirin 81 mg PO DAILY 04/23/20 [History] ALPRAZolam [Xanax] 1 mg PO QID PRN 08/11/20 [History] Empagliflozin [Jardiance] 25 mg PO DAILY 08/11/20 [History] Ibuprofen [Motrin] 800 mg PO BID PRN 08/11/20 [History] Nitroglycerin Sl Tabs [Nitrostat] 0.4 mg SL Q5M PRN 08/11/20 [History] rOPINIRole HCL [Requip] 2 mg PO HS 08/11/20 [History] Albuterol Inhaler [Ventolin Hfa Inhaler] 1 puff INHALATION RT-QID PRN 02/04/21 [History] Cyclobenzaprine [Flexeril] 10 mg PO BID PRN 02/04/21 [History] HYDROcodone/APAP 10-325MG [[place] 10-325] 1 tab PO Q6HR PRN 3 Days #12 tab 05/31/22 [Rx] Gabapentin [Neurontin] 800 mg PO BID 02/22/23 [History] Insulin Glargine (Lantus) [Lantus Vial] 38 unit SQ QAM 02/22/23 [History] Albuterol Nebulized [Ventolin Nebulized] 2.5 mg INHALATION Q6H PRN 10/16/24 [History] Budesonide/Formoterol Fumarate [Budesonide-Formoterol 160-4.5] 1 puff INHALATION BID 10/16/24 [History] Dulaglutide [Trulicity] 3 mg SQ FR 10/16/24 [History] Levocetirizine Dihydrochloride [Xyzal] 5 mg PO DAILY 10/16/24 [History] Losartan [Cozaar] 25 mg PO QAM 10/16/24 [History] Metoprolol Succinate (ER) [Toprol Xl] 100 mg PO QAM 10/16/24 [History] Pantoprazole [Protonix] 40 mg PO QAM 10/16/24 [History] hydroCHLOROthiazide [Hydrodiuril] 25 mg PO DAILY 10/16/24 [History] metFORMIN HCL [Metformin HCl] 500 mg PO BID 10/16/24 [History] Cyclobenzaprine [Flexeril] 10 mg PO BID #60 tab 10/21/24 [Rx] Gabapentin 800 mg PO TID #90 tab 10/21/24 [Rx] Naproxen 500 mg PO BID #28 tab 10/21/24 [Rx] Sennosides/Docusate Sodium [Senna Plus 8.6-50 mg Tablet] 2 each PO DAILY PRN #20 tab 10/21/24 [Rx] oxyCODONE-APAP 7.5-325MG [Percocet 7.5-325 mg] 1 tab PO Q4HR PRN #40 tab 10/21/24 [Rx] Follow up Appointment(s)/Referral(s): [facility], [NON-STAFF] - As Needed ([facility] will call you to schedule your in home nursing, physical therapy, occupational therapy, and vp home health visits. ) Blue Estrella DO [Doctor of Osteopathic Medicine] - 2 Weeks Activity/Diet/Wound Care/Special Instructions: Spine Discharge and Recovery Instructions Date of Surgery: 10/17/2024 Diagnosis: - L1-2 herniated nucleus pulposus - Stenosis at L1-2 level - Status post L2 to pelvis decompression fusion Procedure: L1-L2 posterolateral interbody fusion Medications: See medication list All medication refills should be obtained through your primary care doctor or y our clinic spine surgeon. Please discuss prescription refills at your follow up appointment. Do not call the hospital for medication refills. Dressing: Leave your dressing in place for a total of 5 days post operatively. Then you may remove your dressing and leave open to air. Keep the area clean and if not able to keep area clean, then cover with sterile gauze and tape. Showering: You may shower 3 days after your procedure allowing soap and water to run over incision. Do not scrub. Do not soak. Blot dry. Follow up: Please confirm a follow up appointment with your surgeon 3 weeks post operatively. Please make an appointment to follow up with your PCP in 1-2 weeks after surgery for evaluation '3 phase, 3-week plan' POST OP WEEKS 1-3 1. Lifting/carrying/pushing/pulling limited to less than 5 pounds. 2. Do not sit for longer than 15 minutes at one time. Get up and walk around. Prolonged sitting is NOT advised. If you lay down, see if you can tolerate laying down on you front (belly side) 3. Walk for periods of 15 minutes = 1 mile but no longer; do it multiple times times each day. 4. Ice your low back after activity. POST OP WEEKS 3-6 1. Lifting limited to less than 20 pounds. 2. Do not sit for longer than 30 minutes at a time. Frequently change positions. Use a sit-to stand workstation or take frequent breaks from sitting if you have returned to work. 3. Walk for 30 minutes each day. If possible, do these three or more times a day POST OP WEEKS 6+ At your 6-week appointment we will give you a physical therapy referral to focus on a core stabilization and strengthening program. You should also work on leg & buttock strengthening, hamstring & quadriceps stretching, and continue a low impact aerobic activity program such as swimming, walking, or riding a stationary bicycle. During the initial 6 weeks after your surgery, you are at the highest risk of re-injuring your spine. You should generally avoid BLT's (bending, lifting and twisting combination motions) and follow the above guidelines to reduce the chance of reinjury. You can anticipate post op appointments in our office at approximately 3 weeks and 6 weeks after your surgery. INCISION CARE: If your incision is not draining you do NOT need to cover it with a dressing. Keep your incision clean, dry and intact. In most cases, we apply skin glue, andrew or sutures to the incision at the time of surgery. This will be like a crust or have the appearance of a scab and will fall off in time on its own. The stitches or andrew need to be removed at 3 weeks post op appointment. You may begin to shower 3 days after surgery (this allows the glue to lopez well). However, please avoid scrubbing the incision site or peeling off any of the skin glue. This will ensure optimal healing of your incision. Also, during this time avoid soaking the incision area in water - this includes swimming pools, hot tubs or baths. No ointments, lotions or oils on the incision until your surgeon allows. Leave andrew, sutures or glue in place. Neurological dysfunction that comes on suddenly can also be a sign of a stroke. Below some common symptoms of a stroke are listed: B - balance difficulty such as sudden onset walking or leaning to one side - NEW E - eye problem such as sudden double vision or trouble seeing on one side - NEW F - Facial weakness or numbness on one side - NEW A - Arm or leg weakness or numbness on one side - NEW S - Slurred speech or difficulty with word finding - NEW T - Time is BRAIN! Call 911 as soon as you recognize these symptoms Diet: Consume a regular diet rich in vegetables and lean protein such as chicken or fish. You should consume in a ratio of approximately 20% fats|40% carbohydrates|40%protein. Vegetables, sweet potatoes, brown rice or quinoa are examples of good carbohydrates. Chips, white bread, cookies and sweets/sugar are examples of bad carbohydrates. Limit your bad carbs, go wild with good carbs. "Life's Simple 7" Guidelines as per [place] [employer] These will help you reclaim your life after surgery and skilled helper in your recovery, keeping in mind your restrictions. (1) Get Active. Physical activity can help people lose weight, control high blood pressure and cholesterol, feel emotionally better, and sleep better. (2) Control Cholesterol. Avoid a diet high in saturated fat, trans fat, & cholesterol. Limit whole milk & cream, ice cream, butter, egg yolks, processed meats (like sausage and hot dogs), and fatty meats. Choose healthy foods that are low in saturated fat, trans fat and cholesterol which include: Fruits and vegetables, fiber rich grain products (like whole grain pasta and brown rice), lean meat such as chicken, fish, nuts, seeds, and legumes. (3) Eat Better. Eat small portions. Shop at the grocery with a list and do not stray from it. Tips for a healthy diet include: Limit sodium intake to less than 1500mg daily, avoid prepackaged, processed, and fast foods, choose a diet rich in fruits, vegetables, and whole grain, high fiber foods, and limit saturated & cholesterol in your diet. (4) Manage Blood Pressure. If you have high blood pressure, you should have a cuff at home so that you can check your blood pressure regularly. Be sure you have a good cuff. An arm one is generally better than a wrist one. Bring the cuff to a doctor's appointment to validate that the measurements that your cuff are taking are accurate. Take your blood pressure twice daily when you are sitting down and relaxing. Record the numbers in a log and bring this log with you to your doctors' appointments. (5) Lose Weight if your BMI is above 25. A healthy BMI is between 19-25. To calculate Your BMI, you may use a Standard BMI Calculator on the NIH BMI website: <www.nhlbi.nih.gov/guidelines/obesity/BMI/bmicalc.htm>. Weigh oneself daily. If you are overweight, set a goal to lose weight. A pound a week loss if needed is a good target. (6) Reduce Blood Sugar. Limit foods and liquids with "added sugars." (Added sugars include sucrose, fructose, glucose, maltose, dextrose, high fructose corn syrup, corn syrup, concentrated fruit juice and honey). (7) Stop Smoking. If you smoke, quitting smoking is one of the best things that you can do for your health. Smoking increases your risk of heart attack, stroke, and peripheral vascular disease, which is a build-up of plaque in your arteries. Please discard all the cigarettes and lighters in your house. Have a plan for what you will do when you have the urge to smoke. Direct and second- hand smoke shortens your life as well as the lives of your family, friends and others around you. For your health and the health of those around you, please consider quitting! Proper Bending Body Mechanics: Maintain a wide stance with one foot slightly in front of the other. Keep your back straight. Bend utilizing the strength in your hips and knees. Do not bend at the waist. Maintain the lifted object at your waist-level close to your body. Avoid lifting weight that causes immediately pain or pain anywhere in the body afterwards. Smoking/Nicotine If there was ever one thing that you could do to increase your overall health, decrease your risk of cardiovascular problems by about 39% the second you make the choice, it is to STOP SMOKING. Your body's most instant gratification is the second you stop smoking. We have all heard the studies, read the articles but it is true, smoking is extremely bad for your overall health, and moreover it is detrimental to your bone health. Nicotine, IN ANY FORM, kills bone cells, prevents your body from healing fractures, and significantly prolongs healing after surgery. In spine surgery specifically, it increases your risk of not healing your bones to create a fusion and increases your risk of having a revision surgery due to this up to 60%. I know it is hard. I know it feels impossible. But there are ways. Take control of your life. We are here to help you through it. And when you are ready, ask us and we can direct you to help if you desire. Use the START Plan to Quit Smoking (please visit the HelpguFastHealth.org website listed below for more information): S = Set a quit date. Choose a date within the next 2 weeks, so you have enough time to prepare without losing your motivation to quit. If you mainly smoke at work, quit on the weekend, so you have a few days to adjust to the change. T = Tell family, friends, and co-workers that you plan to quit. Let your friends and family in on your plan to quit smoking and tell them you need their support and encouragement to stop. Look for a quit anirudh who wants to stop smoking as well. You can help each other get through the rough times. A = Anticipate and plan for the challenges you'll face while quitting. Most people who begin smoking again do so within the first 3 months. You can help yourself make it through by preparing ahead for common challenges, such as nicotine withdrawal and cigarette cravings. R = Remove cigarettes and other tobacco products from your home, car, and work. Throw away all your cigarettes (no emergency pack!), lighters, ashtrays, and matches. Wash your clothes and freshen up anything that smells like smoke. Shampoo your car, clean your drapes and carpet, and steam your furniture. T = Talk to your doctor about getting help to quit. Your doctor can prescribe medication to help with withdrawal and suggest other alternatives. If you can't see a doctor, you can get many products over the counter at your local pharmacy or grocery store, including the nicotine patch, nicotine lozenges, and nicotine gum. Resources for Quitting Smoking: <https://www .[place].gov/documents/[facility]/Quit_Tobacco_Resources_for_patients_313480_7.pdf> Supplementation: Take recommended dosages of Vitamin D and Calcium to help fortify your bones and help them to heal. See your health maintenance packet for dosages and recommended levels. DVT/VTE prophylaxis: You will be given compression stockings from the hospital. Wear these daily for the first two weeks after surgery. You may take them off at night. You may be prescribed a medication to help thin your blood. Take this as directed. If you are not prescribed this medication, early and frequent ambulation has been shown to be the best prophylaxis to deep vein thrombosis and sequelae related to this event. Discharge Disposition: HOME WITH HOME HEALTH SERVICES
[2024-10-21 08:11] VITALS: BP 147/82; PULSE 97; TEMP 97.4
[2024-10-21 11:55] LABS: Glucose,Whole Blood 203 mg/dL (70-110)
--- NOTE | 2024-10-22 02:57 | PN ---
PROGRESS NOTE DATE OF SERVICE: 10/21/2024 CHIEF COMPLAINT: Status post fusion of LS spine for arthritis and compression fracture. HISTORY OF PRESENT ILLNESS: This gentleman is doing well, but he has had no chest pain, shortness of breath, fever, chills, difficulty eliminating, etc. He is going home today. PHYSICAL EXAMINATION: LUNGS: There are good breath sounds bilaterally. CARDIAC: Normal. ABDOMEN: Soft, nontender. VITAL SIGNS; normal. IMPRESSION: Status post LS spine fusion. PLAN: Home today. MMODL / IJN: [id number] /
--- NOTE | 2024-10-31 06:48 | P.OP ---
Date of Procedure: 10/17/24 Description of Procedure: Preoperative Diagnosis L1-2 severe lumbar stenosis L1-2 spondylosis with spondylolisthesis grade one, adjacent segment disease L1-L2 status post L2 to pelvis decompression fusion L1-2 fracture, AO extension type neurogenic claudication, low back pain, 7.complex medical patient Post Operative diagnosis L1-2 severe lumbar stenosis L1-2 spondylosis with spondylolisthesis grade one, adjacent segment disease L1-L2 status post L2 to pelvis decompression fusion L1-2 fracture, AO extension type neurogenic claudication, low back pain, 7.complex medical patient Procedures Open treatment L1-2 fracture Intradiscal osteotomy, 3 column, for deformity correction Posterior lateral and interbody fusion L1-L2 Segmental instrumentation T12 to L3 L1-L2 bilateral laminectomy, complete facetectomy and foraminotomy for complete neural decompression, deformity correction and cage placement Insertion of intervertebral body device, cage times one Use of Revision3 navigation for accurate placement of screws Implants Oneyda Gilberts rods and screws Globus interlift cage, 8 mm extra long Contour Magnetos DBM graft Surgeon Blue Estrella DO Assist Terrell Diaz. Terrell Diza was present and assisted throughout the procedure from positioning to dressing placement and assisted with all aspects of the procedure. Anesthesia PALEOBOTANIST (General Tracheal Anesthesia) EBL 350 cc Fluids Fluids administered: 1300 cc Urine output: 400 cc Specimen None Indications for procedure Cholo Vaughn 10/17/24 is a complex medical patient with a history of diabetes who presented with severe back pain, neurogenic claudication, lower extremity radiculopathy, and lower extremity weakness. The patient had a previous L2 to pelvis decompression fusion but experienced several falls afterward. MRI, CT imaging, and X-rays demonstrated severe adjacent segment disease with fracture through the L1-2 region, spondylolisthesis, spondylosis, disc collapse, height loss, and severe stenosis. After discussing various treatment options, including non-operative and operative approaches, the patient elected to proceed with the operative procedure. The planned procedure carries risks including but not limited to infection, bleeding, nerve injury, hardware failure, and the need for further surgery. Given the patient's complex medical history, including diabetes and previous spinal surgery, there is an increased risk of complications and potentially prolonged recovery. Operative Narrative. The patient was transferred to the operative suite and induced under general anesthesia without complications. They were then positioned on a Spine Wyatt table in the Superman position, with careful attention paid to padding all bony prominences. X-ray was used for biomarking, and the area was prepped and draped in the standard sterile fashion. A timeout was performed, and all parties agreed on the procedure to be performed. A midline skin incision was made over the previously biomarked area, and dissection was carried down to the spinous processes of T11 through L1-L2. Hardware from L2 to L4 was exposed for visualization and revision purposes. The hardware appeared stable, and good fusion was noted on the posterior lateral aspect. After exposure, lateral C-arm imaging confirmed the levels for operation. We placed a spinous process clamp for Revision3 navigation tracking, which was secured. A 3D spin was obtained, registered, and confirmed to be accurate. Using navigated instruments, screws were placed bilaterally from T12 through L2. The placement of screws was confirmed with AP and lateral fluoroscopic imaging, and all screws tested above 20 milliamps on intraoperative nerve monitoring. We then proceeded with the decompression, performing bilateral laminectomy, complete facetectomy, and foraminotomy of the T12 through L2 region. There was exuberant scar tissue formation at the L1-L2 region due to previous surgery, as well as ligamental and facet hypertrophy causing severe stenosis. Decompression was completed using a high-speed nestor and various rongeurs. Under lateral fluoroscopic guidance, we accessed the disc space with an osteotome and performed a three-column osteotomy in the form of an interdiscal osteotomy for deformity correction. Sequential shaving, along with curettes and pituitary rongeurs, was used to remove disc material and bone. Once good decompression and deformity correction were achieved, we placed a cage under lateral fluoroscopic guidance. The cage was impacted into place after grafting and expanded to restore height and reduce listhesis. We then placed rods, which were measured, cut, and bent appropriately. They were cross-connected willard to willard at the L2-L3 and L1-L2 regions. We sequentially reduced these into the T12-L1 screw heads bilaterally. Set screws were placed and final tightened. AP and lateral fluoroscopic imaging confirmed good placement of rods and screws, as well as good reduction. The wound was copiously irrigated with normal sterile saline, Betadine, and antibiotic solution. Surgicel was placed over the dura, and the posterolateral gutters were decorticated. Graft material, including allograft, autograft, and DBM, was placed. After achieving meticulous hemostasis, a deep drain was placed and sewn into position. Vancomycin powder was applied deep within the wound. Closure was performed in layers, with the deep fascia closed using #1 PDS in a simple and figure-eight fashion for a watertight closure. The subcutaneous layers were closed with Vicryl sutures, and the skin was closed with andrew. The wound edges approximated well. The wound was dressed sterilely, and the drain was confirmed to be holding suction. The patient was then transferred back to their hospital bed. They were awakened and extubated by the Department of Anesthesia, having tolerated the procedure well. The patient was transferred to the post-operative care unit in stable condition.
== END 2024-10-21 12:05 | disposition home health service (06) | DRG 402 ==
LOC: 2ORMAIN 10:11 → 4SSUR 16:19
PROVIDERS: ADMIT Orthopaedic Surgery; ATTEND Orthopaedic Surgery
PROC: 0SG0071 Fusion of Lumbar Vertebral Joint with Autologous Tissue Substitute, Posterior Approach, Posterior Column, Open Approach (ICD-10-PCS; 2024-10-17)
PROC: 01NB0ZZ Release Lumbar Nerve, Open Approach (ICD-10-PCS; 2024-10-17)
PROC: 0SB20ZZ Excision of Lumbar Vertebral Disc, Open Approach (ICD-10-PCS; 2024-10-17)
PROC: 0QS00ZZ Reposition Lumbar Vertebra, Open Approach (ICD-10-PCS; 2024-10-17)
PROC: 8E0WXBZ Computer Assisted Procedure of Trunk Region (ICD-10-PCS; 2024-10-17)
PROC: 0SG00AJ Fusion of Lumbar Vertebral Joint with Interbody Fusion Device, Posterior Approach, Anterior Column, Open Approach (ICD-10-PCS; principal; 2024-10-17 12:00)
DX: M51.16 Intervertebral disc disorders with radiculopathy, lumbar region (principal); E87.1 Hypo-osmolality and hyponatremia; J96.11 Chronic respiratory failure with hypoxia; M48.56XA Collapsed vertebra, not elsewhere classified, lumbar region, initial encounter for fracture; Z99.81 Dependence on supplemental oxygen; E11.42 Type 2 diabetes mellitus with diabetic polyneuropathy; D72.828 Other elevated white blood cell count; J44.89 Other specified chronic obstructive pulmonary disease; I69.811 Memory deficit following other cerebrovascular disease; I10 Essential (primary) hypertension; M48.57XA Collapsed vertebra, not elsewhere classified, lumbosacral region, initial encounter for fracture; E11.65 Type 2 diabetes mellitus with hyperglycemia; Z79.4 Long term (current) use of insulin; M43.16 Spondylolisthesis, lumbar region; M48.062 Spinal stenosis, lumbar region with neurogenic claudication; F17.210 Nicotine dependence, cigarettes, uncomplicated; M47.27 Other spondylosis with radiculopathy, lumbosacral region; M48.07 Spinal stenosis, lumbosacral region; I25.10 Atherosclerotic heart disease of native coronary artery without angina pectoris; E78.5 Hyperlipidemia, unspecified; K21.9 Gastro-esophageal reflux disease without esophagitis; Z95.5 Presence of coronary angioplasty implant and graft; Z79.82 Long term (current) use of aspirin; Z79.84 Long term (current) use of oral hypoglycemic drugs; Z79.899 Other long term (current) drug therapy; Z85.828 Personal history of other malignant neoplasm of skin; Z85.51 Personal history of malignant neoplasm of bladder; Z98.1 Arthrodesis status; I25.2 Old myocardial infarction
CPT/HCPCS: 72100; 72131; 80048; 85025; 94640; 94760

== ENCOUNTER → 2024-11-22 | Outpatient (CLI) | payer MEDICARE, OTHER ==
[2024-11-22 12:11] LABS: African American GFR (CKD) >90 (>60 ml/min/1.73 sqM); Blood Urea Nitrogen 11 mg/dL (9-20); Non-African American GFR(CKD) >90 (>60 ml/min/1.73 sqM)
--- NOTE | 2024-11-22 13:26 | CT ---
EXAMINATION TYPE: CT abdomen wo/w con CT DLP: 2696.60 mGycm, Automated exposure control for dose reduction was used. DATE OF EXAM: 11/22/2024 1:07 PM COMPARISON: CT low-dose lung 07/05/2024, CT scan of pelvis 11/14/2020 CLINICAL INDICATION:Male, 64 years old with history of R19.00 INTRA-ABD AND PELVIC SWELLING, MASS AND LUM; RT abdominal swelling TECHNIQUE: Standard CT of the abdomen before and after the uneventful administration of 100 cc of I sovue-300 intravenously. Oral contrast was administered. Coronal and sagittal reformats were performe d. FINDINGS: LOWER CHEST: Similar right lower lobe subpleural linear scarring. Mild centrilobular emphysematous ch anges. Scattered bibasilar subpleural reticular fibrotic changes. Left lower lobe calcified granuloma . Calcification of the visualized RCA. ABDOMEN LIVER: Diffusely hypoattenuating parenchyma. No focal lesion. Herniation of the right hepatic lobe th rough the right ninth and 10th rib interspace. GALLBLADDER AND BILE DUCTS: Unremarkable. PANCREAS: Unremarkable. SPLEEN: Unremarkable. ADRENAL GLANDS: Unremarkable. KIDNEYS AND URETERS: No evidence of hydronephrosis or renal calculus. The kidneys enhance symmetrical ly. Left renal lower pole 8.1 cm simple appearing cyst. No enhancement identified. No follow up recom mended. Contrast is demonstrated within both collecting systems and proximal ureters on the delayed p hase. STOMACH AND BOWEL: Stomach and duodenum are unremarkable. Enteric contrast reaches the mid small bobby l. No focal bowel wall thickening or surrounding inflammatory changes identified. No evidence of bobby l obstruction. PERITONEUM: No evidence of pneumoperitoneum or free fluid. VASCULATURE: Mild to moderate atherosclerotic calcification of the aorta and its branches. Mid abdomi nal fusiform aortic aneurysm measuring 4.3 x 3.9 cm. There is eccentric mural thrombus identified. MUSCULOSKELETAL: No acute osseous abnormalities. Postsurgical changes with bilateral pedicle screws a nd rods with intervertebral disc hardware and laminectomy changes involving T12-S1 with bilateral SI joint screws. 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 Remote ununited fractures versus postsurgica l change of the right posterior eighth, ninth and 10th ribs. There is herniation of the liver through the right ninth and 10th anterior rib space. LYMPH NODES: No gross evidence for lymphadenopathy. SOFT TISSUE/ABDOMINAL WALL: Unremarkable IMPRESSION: 1. No CT evidence for acute abdominal process. 2. Remote injuries versus postsurgical change involving the right posterior eighth through 10th ribs. There is herniation of the liver through the ninth-10th anterior rib space. Similar to prior exam in 2020. 3. Redemonstration of abdominal aortic aneurysm measuring 4.3 cm. [facility], , 11/22/2024 1:24 PM
== END | disposition home or self-care (01) ==
LOC: RADCTMAIN 10:46
PROVIDERS: ATTEND Family Medicine
DX: I71.40 Abdominal aortic aneurysm, without rupture, unspecified (principal)
CPT/HCPCS: 82565; 84520; 74170; 36415; Q9967